=== PATIENT | male | born 1940 | race Hispanic/Latino ===

== ENCOUNTER 2018-01-06 17:02 | Inpatient (IN) | payer MEDICARE ==
[2018-01-06 18:23] LABS: VENOUS BLOOD GAS BASE EXCESS 0.5 mmol/L (0.0-2.0); VENOUS BLOOD GAS PO2 56 mm/Hg (30-55); VENOUS BLOOD PH 7.38 (7.32-7.43)
[2018-01-06 18:25] LABS: BASO # 0.02 K/mm3 (0.0-2.0); BASO % 0.4 % (0.0-3.0); EOS # 0.1 (0.0-0.7); EOS % 2.2 % (1.5-5.0); GRAN # 3.4 (1.4-6.5); GRAN % 62.5 % (50.0-68.0); HEMOGLOBIN 13.5 g/dL (14.0-18.0); LYMPH # 1.5 (1.2-3.4); LYMPH % 27.4 % (22.0-35.0); MEAN CELL VOLUME 96.9 fl (80.0-105.0); MEAN CORPUSCULAR HEMOGLOBIN 34.4 pg (25.0-35.0); MEAN CORPUSCULAR HGB CONC 35.5 g/dl (31.0-37.0); MONO # 0.4 (0.1-0.6); MONO % 7.5 % (1.0-6.0); RBC 3.92 10^6/uL (3.5-6.1); RED CELL DISTRIBUTION WIDTH 13.3 % (11.5-14.5); WHITE BLOOD COUNT 5.4 10^3/ul (4.5-11.0)
[2018-01-06 18:33] LABS: ALBUMIN 3.3 g/dL (3.0-4.8); ALT/SGPT 43 U/L (7-56); AST/SGOT 45 U/L (17-59); BLOOD UREA NITROGEN 12 mg/dL (7-21); CALCIUM 9.6 mg/dL (8.4-10.5); GFR AFRICAN-AMERICAN > 60; GFR NON-AFRICAN AMERICAN > 60
[2018-01-06 18:45] LABS: B-TYPE NATRIURETIC PEPTIDE 336 pg/mL (0-450); TROPONIN I < 0.01 ng/mL
[2018-01-06 18:48] LABS: INR 1.09 (0.93-1.08); PARTIAL THROMBOPLASTIN TIME 33.2 Seconds (25.1-36.5); PROTHROMBIN TIME 12.4 SECONDS (9.4-12.5)
--- NOTE | 2018-01-06 18:49 | RAD ---
HISTORY: Routine medical exam. COMPARISON: No prior. FINDINGS: LUNGS: No active pulmonary disease. PLEURA: No significant pleural effusion identified, no pneumothorax apparent. CARDIOVASCULAR: No radiographic findings to suggest acute or significant cardiovascular disease. Incidental finding(s): Calcification mitral valve annulus OSSEOUS STRUCTURES: No significant abnormalities. VISUALIZED UPPER ABDOMEN: Normal. OTHER FINDINGS: None. IMPRESSION: No active disease.
--- NOTE | 2018-01-06 19:10 | ED PDOC ---
Arrival/HPI - General Chief Complaint: Lower Extremity Problem/Injury Time Seen by Provider: 01/06/18 17:56 Historian: Patient - History of Present Illness Narrative History of Present Illness (Text): 77 year old male w/ past medical history of copd, hypertension presents sent in by PMD Dr. Styles for evallution of r le swelling worsening x 2-3 days, denying any acute trauma/cellutlitic changes/ nor any acute cardiopulmonary symptomatology. Denies any conrandiacations to anticoagulation. 01/06/18 19:07 01/06/18 19:13 Symptom Onset: Gradual Symptom Course: Unchanged Past Medical History - Provider Review Nursing Documentation Reviewed: Yes - Travel History Have you recently traveled outside [place] w/in the past 3 mons?: No - Infectious Disease Hx of Infectious Diseases: None - Cardiac Hx Hypertension: Yes - Pulmonary Hx Chronic Obstructive Pulmonary Disease (COPD): Yes - Psychiatric Hx Substance Use: No Family/Social History - Physician Review Nursing Documentation Reviewed: Yes Family/Social History: No Known Family HX Smoking Status: Never Smoked Hx Alcohol Use: Yes Frequency of alcohol use: Socially Hx Substance Use: No Allergies/Home Meds Allergies/Adverse Reactions: Allergies No Known Allergies Allergy (Verified 01/06/18 17:06) Home Medications: Home Meds Medication Instructions Recorded Confirmed Calcium Carbonate [Calcium] 600 mg PO DAILY 01/06/18 01/06/18 Cholecalciferol (Vitamin D3) 400 iu PO DAILY 01/06/18 01/06/18 [Vitamin D-400] Finasteride [Proscar] 5 mg PO DAILY 01/06/18 01/06/18 Glimepiride [Amaryl] 10 mg PO DAILY 01/06/18 01/06/18 Multivit-Min/FA/Lycopen/Lutein 1 mg PO DAILY 01/06/18 01/06/18 [Centrum Silver Men Tablet] SITagliptin [Januvia] 50 mg PO DAILY 01/06/18 01/06/18 Tiotropium [Spiriva] 18 mcg IH DAILY 01/06/18 01/06/18 Valsartan/Hydrochlorothiazide 1 tab PO DAILY 01/06/18 01/06/18 [Valsartan-Hctz 160-12.5 mg Tab] Review of Systems - Physician Review All systems were reviewed & negative as marked: Yes - Review of Systems Constitutional: Normal Eyes: Normal ENT: Normal Respiratory: Normal Cardiovascular: Normal Gastrointestinal: Normal Genitourinary Male: Normal Musculoskeletal: Other (aforementioned) Skin: Normal Neurological: Normal Endocrine: Normal Hemo/Lymphatic: Normal Psychiatric: Normal Physical Exam Vital Signs Temp Pulse Resp BP Pulse Ox 01/06/18 17:15 98.2 F 97 H 18 163/72 H 98 Temperature: Afebrile Blood Pressure: Normal Pulse: Regular Respiratory Rate: Normal Appearance: Positive for: Well-Appearing, Non-Toxic, Comfortable Pain Distress: None Mental Status: Positive for: Alert and Oriented X 3 - Systems Exam Head: Present: Atraumatic, Normocephalic Pupils: Present: PERRL Extroacular Muscles: Present: EOMI Conjunctiva: Present: Normal Mouth: Present: Moist Mucous Membranes Neck: Present: Normal Range of Motion Respiratory/Chest: Present: Clear to Auscultation, Good Air Exchange. No: Respiratory Distress, Accessory Muscle Use Cardiovascular: Present: Regular Rate and Rhythm, Normal S1, S2. No: Murmurs Abdomen: Present: Normal Bowel Sounds. No: Tenderness, Distention, Peritoneal Signs Back: Present: Normal Inspection Upper Extremity: Present: Normal Inspection. No: Cyanosis, Edema Lower Extremity: Present: Other (rle 2+ pitting edema , no popliteal fossa ttp nor palpable cord , lle trace edema ). No: Edema Neurological: Present: GCS=15, CN II-XII Intact, Speech Normal, Motor Func Grossly Intact, Normal Sensory Function, Normal Cerebellar Funct, Norm Deep Tendon Reflexes, Gait Normal Skin: Present: Warm, Dry, Normal Color. No: Rashes Psychiatric: Present: Alert, Oriented x 3, Normal Insight, Normal Concentration Medical Decision Making ED Course and Treatment: 77 year old male w/ u/s (+) for dvt admit for ac bridging to oral ac. 01/06/18 19:16 - Lab Interpretations Lab Results: 01/06/18 18:11 01/06/18 18:11 Lab Results 01/06/18 18:11: Sodium 138, Chloride 106, Potassium 4.6, Carbon Dioxide 24, Anion Gap 13, BUN 12, Creatinine 0.7 L, Est GFR ( Amer) > 60, Est GFR ( Non-Af Amer) > 60, Random Glucose 229 H, Calcium 9.6, Total Bilirubin 0.8, AST 45, ALT 43, Alkaline Phosphatase 65, Lactate Dehydrogenase 379, Total Creatine Kinase 42, Troponin I < 0.01, NT-Pro-B Natriuret Pep 336, Total Protein 6.7, Albumin 3.3, Globulin 3.4, Albumin/Globulin Ratio 1.0 L 01/06/18 18:11: pO2 56 H, VBG pH 7.38, VBG pCO2 44.0, VBG HCO3 26.0, VBG Total CO2 27.4, VBG O2 Sat (Calc) 91.8 H, VBG Base Excess 0.5, VBG Potassium 4.5, Sodium 137.0, Chloride 107.0, Glucose 237 H, Lactate 1.8, FiO2 21.0, Venous Blood Potassium 4.5 01/06/18 18:11: PT 12.4, INR 1.09 H, APTT 33.2 01/06/18 18:11: WBC 5.4, RBC 3.92, Hgb 13.5 L, Hct 38.0 L, MCV 96.9, MCH 34.4, MCHC 35.5, RDW 13.3, Plt Count 110 L, MPV 9.0, Gran % 62.5, Lymph % (Auto) 27.4 , [place] % (Auto) 7.5 H, Eos % (Auto) 2.2, Baso % (Auto) 0.4, Gran # 3.40, Lymph # (Auto) 1.5, [place] # (Auto) 0.4, Eos # (Auto) 0.1, Baso # (Auto) 0.02 - RAD Interpretation Radiology Orders: 01/06/18 18:00 CHEST PORTABLE [RAD] Stat Disposition/Present on Arrival - Present on Arrival Any Indicators Present on Arrival: No History of DVT/PE: No History of Uncontrolled Diabetes: No Urinary Catheter: No History of Decub. Ulcer: No History Surgical Site Infection Following: None - Disposition Have Diagnosis and Disposition been Completed?: Yes Diagnosis: DVT (deep venous thrombosis) Disposition: HOSPITALIZED Disposition Time: 19:17 Patient Plan: Admission Condition: STABLE Referrals: Luis Eduardo Styles MD [Primary Care Provider] - Follow up with primary Forms: [place] (Romansh)
[2018-01-06] MEDS ORDERED: Heparin25000 units/250ml 1/2NS 25,000 UNITS/250 ML BAG IV PRN (19:25)
[2018-01-06] MEDS ORDERED: Heparin 25,000units in 1/2NS /250 ML BAG IV PRN (19:37)
[2018-01-06 23:07] VITALS: BMI 27.1
[2018-01-07 02:52] LABS: INR 1.21 (0.93-1.08); PROTHROMBIN TIME 13.8 SECONDS (9.4-12.5)
[2018-01-07 02:54] LABS: PARTIAL THROMBOPLASTIN TIME > 400.0 Seconds (25.1-36.5)
[2018-01-07 04:00] LABS: ALB/GLOB RATIO 0.9 (1.1-1.8); ALBUMIN 3.1 g/dL (3.0-4.8); ALT/SGPT 45 U/L (7-56); AST/SGOT 43 U/L (17-59); BLOOD UREA NITROGEN 11 mg/dL (7-21); CALCIUM 9.1 mg/dL (8.4-10.5); GFR AFRICAN-AMERICAN > 60; GFR NON-AFRICAN AMERICAN > 60
[2018-01-07 04:32] LABS: HEMOGLOBIN 13.6 g/dL (14.0-18.0); MEAN CELL VOLUME 96.3 fl (80.0-105.0); MEAN CORPUSCULAR HEMOGLOBIN 33.6 pg (25.0-35.0); MEAN CORPUSCULAR HGB CONC 34.9 g/dl (31.0-37.0); MEAN PLATELET VOLUME 9.4 fl (7.0-11.0); RBC 4.05 10^6/uL (3.5-6.1); RED CELL DISTRIBUTION WIDTH 13.2 % (11.5-14.5); WHITE BLOOD COUNT 6.7 10^3/ul (4.5-11.0)
--- NOTE | 2018-01-07 09:55 | HP ---
HISTORY OF PRESENT ILLNESS: He is a nice 77-year-old man who presents from his private physician's office with swelling in his right lower extremity for 2 to 3 days, no trauma, no cellular changes, no cardiopulmonary symptomatology, a little bit of achiness in the calf, and he comes in and he has a DVT in the right leg. PAST MEDICAL HISTORY: Diabetes, COPD; he never smoked; hypertension. PAST SURGICAL HISTORY: Unknown. FAMILY HISTORY: No known family history. SOCIAL HISTORY: No smoking. Does drink alcohol socially. No substance abuse. ALLERGIES: NO KNOWN DRUG ALLERGIES. MEDICATIONS: He has calcium, vitamin D, Proscar, Amaryl, Januvia, Spiriva, and hydrochlorothiazide medicines, but he has not taken them in a long time. REVIEW OF SYSTEMS: No acute vision or hearing changes. No sore throat. No chest pain. No palpitations. No shortness of breath. No coughing. No nausea, vomiting, constipation or diarrhea. No problems urinating at this time. Skin, he has got some red area in his groin from time to time. He is alert, not 100% on with his accuracy of his history, his daughter is there helping. He has right calf swelling, right ankle swelling. PHYSICAL EXAMINATION: GENERAL: He is alert and oriented x3. Well appearing, nontoxic, comfortable in bed. VITAL SIGNS: He has a 98.2 temp, 97 pulse, 18 respiratory rate, 163/72 blood pressure, 98% O2 sat on room air. HEENT: Head is atraumatic, normocephalic. Extraocular muscles are intact. Throat is moist. NECK: Supple. Thyroid midline. No palpable lymphadenopathy. HEART: Regular rate. Normal S1, S2. LUNGS: Decreased breath sounds. Clear to auscultation. ABDOMEN: Soft, nontender. Positive bowel sounds. No guarding. No rebound. No CVA tenderness. EXTREMITIES: Have +2 pitting edema in the right ankle. There are some swelling of the calf. NEUROLOGIC: GCS is 15. Cranial nerves II through XII grossly intact. Speech is normal. Alert and oriented x3. SKIN: Warm and dry for the most part. LABORATORY DATA: He has a 5.4 white count, 13.5 hemoglobin, 38 hematocrit with a 110 platelets. He has a 138 sodium, potassium of 4.6, BUN 12, creatinine 0.7, GFR is greater than 60, sugar is 229, calcium is 9.6 and total bili is 0.8. AST is 45, ALT is 43, alk phos 65. Lactate dehydrogenase is 379, total creatine kinase is 42. Troponin I is less than 0.01. BNP is 336, total protein 6.7. Lactate is 1.8, glucose is 237. INR is 1.09. He did have a chest x-ray that showed no active disease. ASSESSMENT AND PLAN: He is currently on heparin drip. I put him on Januvia, Spiriva. He will have a consult with Cardiology. We are going to put him on hopefully Eliquis in the next 24 hours. He had physical therapy and is here for deep vein thrombosis in the right calf. Jn Nguyen DO MTDDunia
--- NOTE | 2018-01-07 10:10 | PN ---
DATE: 01/06/2018 SUBJECTIVE: I saw him this morning. Discussed with the nurse about the sacral wound and his groin area that has had some breakdown. We will get Bactroban ointment to the place we will get surgery on, for evaluation and also wound care. He slept well. He is eating okay. He is on heparin drip for his DVT of the right leg. Ordered physical therapy, out of bed to chair and we will see what Dr. Hood's might be. Hopefully on Eliquis if his insurance will allow it. He still denies that he is a diabetic, but he is doing much better with Januvia and Spiriva for his lungs. PHYSICAL EXAMINATION VITAL SIGNS: He has 98 temperature, 71 pulse, 150/74 blood pressure, 20 respiratory rate, 97% O2 sat on nasal cannula. GENERAL: He is alert and comfortable. HEENT: Head is atraumatic and normocephalic. HEART: Regular rate. LUNGS: Decreased breath sounds, but clear. ABDOMEN: Soft, obese, nontender. EXTREMITIES: The right leg is mildly swollen compared to the left, nontender. He has got a groin breakdown and a sacral breakdown, probably grade 2. MEDICATIONS: He is currently on Bactroban, heparin, Januvia and Spiriva. LABORATORY DATA: He has a 6.7 white count, 13.6 hemoglobin, 39 hematocrit with 127 platelets. He has 138 sodium, potassium 3.7, BUN of 11, creatinine 0.7, GFR is greater than 60, sugar is now down to 133, calcium 9.1, total bili is 1.1, AST is 43, ALT is 45, alkaline phosphatase is 55. Troponin less than 0.01. Total protein 6.5. I need to know what he does in Physical Therapy. Await Cardiology evaluation and surgical evaluation for the wounds and groin issue. We will continue aggressive treatment and care on Abel Chávez who has got an acute DVT of the right leg. Jn Nguyen DO [facility]
[2018-01-07] MEDS: Tiotropium 18 mcg Cap For Inhalation IH SCH (10:36)
--- NOTE | 2018-01-07 11:22 | CARD ---
APPROVED REPORT EKG Measurement Heart [id number] [id number] <Conclusion> Sinus rhythm with 1st degree AV block Minimal voltage criteria for LVH, may be normal variant Inferior infarct, age undetermined Anterior infarct, age undetermined Abnormal ECG
--- NOTE | 2018-01-07 12:12 | CP.PCM.CON ---
History of Present Illness - History of Present Illness History of Present Illness: General Surgery: Dr Bruce Re: Sacral wound Pt. is a 77 y.o male with a PMHx of COPD, HTN and DM. Pt. was admitted for complaint of R lower extremity swelling, which was found to be a DVT. Pt. treated with heparin drip. Pt. was seen by surgery for sacral wound. Pt. states he did not know he had a sacral wound but states a few weeks ago he had noticed some blood on his underwear and had noticed some irritation when he would sit down. Sacral wound is located on the R side of his buttocks region. Pt. denies any pain at site but admits to irritation at site of wound. Pt. states he is sits alot during his daily activites as he reads alot. Pt is fully ambulatory. PMH- COPD, HTN, DM PSH- unknown SH- Denies use of tobacco and any illicit drug use, admits to some alcohol use. Pt. lives alone and is able to perform ADLs on his own Allergies- NKA, NKDA Meds- see chart Review of Systems - Review of Systems All systems: reviewed and no additional remarkable complaints except (as per HPI ) Past Patient History - Infectious Disease Hx of Infectious Diseases: None - Past Social History Smoking Status: Never Smoked - CARDIAC Hx Cardiac Disorders: Yes Hx Hypertension: Yes - PULMONARY Hx Respiratory Disorders: Yes Hx Chronic Obstructive Pulmonary Disease (COPD): Yes - NEUROLOGICAL Hx Neurological Disorder: No - HEENT Hx HEENT Problems: Yes (wears reading glasses) - RENAL Hx Chronic Kidney Disease: No - ENDOCRINE/METABOLIC Hx Endocrine Disorders: Yes Hx Diabetes Mellitus Type 2: Yes (non-compliant with meds) - HEMATOLOGICAL/ONCOLOGICAL Hx Blood Disorders: No - INTEGUMENTARY Hx Dermatological Problems: No - MUSCULOSKELETAL/RHEUMATOLOGICAL Hx Musculoskeletal Disorders: Yes Hx Arthritis: Yes Hx Falls: No Hx Unsteady Gait: No - GASTROINTESTINAL Hx Gastrointestinal Disorders: No - GENITOURINARY/GYNECOLOGICAL Hx Genitourinary Disorders: No - PSYCHIATRIC Hx Psychophysiologic Disorder: No Hx Substance Use: No Meds Allergies/Adverse Reactions: Allergies Allergy/AdvReac Type Severity Reaction Status Date / Time No Known Allergies Allergy Verified 01/06/18 17:06 - Medications Medications: Current Medications Heparin Sodium/Sodium Chloride (Heparin 84402 Units/250ml 1/2 Normal Saline) 25 ,000 units in 250 mls @ 17.717 mls/hr IV .[id number] PRN; Protocol; 18 UNITS/KG/HR PRN Reason: ADJUST RATE PER PROTOCOL Last Titration: 01/07/18 06:00 Dose: 15 units/kg/hr, 14.765 mls/hr Mupirocin (Bactroban Ointment) 0 gm TOP BID [facility] Last Admin: 01/07/18 10:09 Dose: 1 applic Sitagliptin Phosphate (Januvia) 50 mg PO DAILY [facility] Last Admin: 01/07/18 10:12 Dose: 50 mg Tiotropium [place] (Spiriva) 18 mcg IH DAILY [facility] Last Admin: 01/07/18 10:36 Dose: 18 mcg Physical Exam - Constitutional Appears: Non-toxic, No Acute Distress - Head Exam Head Exam: NORMAL INSPECTION, NORMOCEPHALIC - ENT Exam ENT Exam: Normal Exam - Respiratory Exam Respiratory Exam: NORMAL BREATHING PATTERN. absent: Accessory Muscle Use, Respiratory Distress - Cardiovascular Exam Cardiovascular Exam: absent: Tachycardia - Rectal Exam Rectal Exam: Deferred - Neurological Exam Neurological exam: Oriented x3 - Psychiatric Exam Psychiatric exam: Normal Mood - Skin Skin Exam: Normal Color Additional comments: Wound located on R buttocks region (Stage 2 pressure ulcer) approx. 1.5 X 1. L groin region also had some redness/ irritation Results - Vital Signs Recent Vital Signs: Last Vital Signs Temp 98 F 01/07/18 05:47 Pulse 77 01/07/18 10:00 Resp 20 01/07/18 05:47 BP 150/74 01/07/18 05:47 Pulse Ox 97 01/07/18 05:47 - Labs Result Diagrams: 01/07/18 03:40 01/07/18 03:40 Labs: Laboratory Results - last 24 hr 01/07/18 01/07/18 01/07/18 01:58 03:40 03:40 WBC 6.7 D RBC 4.05 Hgb 13.6 L Hct 39.0 L MCV 96.3 MCH 33.6 MCHC 34.9 RDW 13.2 Plt Count 127 MPV 9.4 PT 13.8 H INR 1.21 H APTT > 400.0 H* Sodium 138 Potassium 3.7 Chloride 108 H Carbon Dioxide 25 Anion Gap 9 L BUN 11 Creatinine 0.7 L Est GFR ( Amer) > 60 Est GFR (Non-Af Amer) > 60 POC Glucose (mg/dL) Random Glucose 133 H Calcium 9.1 Total Bilirubin 1.1 AST 43 ALT 45 Alkaline Phosphatase 55 Total Protein 6.5 Albumin 3.1 Globulin 3.3 Albumin/Globulin Ratio 0.9 L 01/07/18 01/07/18 01/07/18 03:40 07:21 11:11 WBC RBC Hgb Hct MCV MCH MCHC RDW Plt Count MPV PT INR APTT > 400.0 H* Sodium Potassium Chloride Carbon Dioxide Anion Gap BUN Creatinine Est GFR ( Amer) Est GFR (Non-Af Amer) POC Glucose (mg/dL) 116 H 169 H Random Glucose Calcium Total Bilirubin AST ALT Alkaline Phosphatase Total Protein Albumin Globulin Albumin/Globulin Ratio Assessment & Plan - Assessment and Plan (Free Text) Assessment: 77 y.o male admitted for DVT and sacral wound. Plan: DVT txt per primary [employer] PRN Q2 dressing changes- will be managed by wound care. tight glucose control continue to off-load pressure Q2H No further surgical intervention required will d/w Dr Teo Miner, PGY3
--- NOTE | 2018-01-07 13:30 | CON ---
DATE: 01/07/2018 PULMONARY CONSULTATION REASON FOR CONSULTATION: Chronic obstructive pulmonary disease. REFERRING PHYSICIAN: Jn Nguyen DO HISTORY OF PRESENT ILLNESS: The patient is a 77-year-old male, with past medical history significant for chronic obstructive pulmonary disease, hypertension, who presents to [facility] with swelling of his right lower extremity for the past 3 days. The patient denies any pain in the right calf. There is also no history of trauma or recent travel. In the emergency room, the patient was diagnosed with a right lower extremity deep venous thrombosis. He was thus admitted for additional evaluation. The patient denies shortness of breath at rest or dyspnea on exertion. He does state to an occasional cough with no sputum production. There is no history of chest pain, coughing up of blood, or chest pain - made worse with deep respirations. There is no history of temperatures, chills or infectious exposure. There is no history of night sweats, weight loss or appetite change prior to the above events. Again, there is no history of calf pains. No history of syncope or diaphoresis. No history of recent travel or trauma. REVIEW OF SYSTEMS: No history of nausea, vomiting or diarrhea. No acute urinary symptoms. No new neurologic complaints. Rest of the review of systems is negative. ALLERGIES: NO KNOWN ALLERGIES. SOCIAL HISTORY: Negative tobacco and negative for alcohol. FAMILY HISTORY: No inheritable diseases. HOME MEDICATIONS: Include vitamin D, Centrum, calcium, valsartan, Proscar, Spiriva, Amaryl. PHYSICAL EXAMINATION GENERAL: The patient appears comfortable at rest. He is not short of breath. VITAL SIGNS: Temperature is 98, pulse is 71, respirations 18/20, blood pressure 150/74. Oxygen saturation on nasal cannula is 97%. HEENT: Normocephalic and atraumatic. No JVD. CARDIOVASCULAR: Systolic ejection murmur at the lower left sternal border. No S3 gallop. LUNGS: Clear bilaterally. EXTREMITIES: The right lower extremity reveals mild edema and is slightly larger than the left lower extremity. There is no cyanosis or clubbing. Both calves are nontender to palpation. The left leg shows no edema. GI: Abdomen is soft, nontender and nondistended. Bowel sounds are positive. SKIN: Reveals a mild gluteal rash. NEUROLOGIC: Limited at the present time. PERTINENT LABORATORY DATA: Chest x-ray was done yesterday and reviewed. There is no active pulmonary disease. Again, extremity ultrasound was done yesterday and reviewed. There is an acute on chronic occlusive thrombus in the distal right femoral vein and the popliteal veins. CBC: White count 6.7, hemoglobin 13.6, hematocrit 39, platelets of 127,000. Complete metabolic profile: Chloride 108, glucose 133. Rest of the metabolic profiles within normal limits. IMPRESSION: 1. Right lower extremity deep venous thrombosis. 2. Chronic obstructive pulmonary disease. 3. Hypertension. 4. Mild anemia. PLAN: The patient presents to [facility] with a 3-day history of right lower extremity swelling. Again, he denies pain in the right calf. There is also no history of recent trauma or recent travel. In the emergency room, a right deep venous thrombosis was diagnosed. The patient was thus admitted for additional evaluation and treatment. I did review the chest x-ray as above. It shows no acute disease. In addition, by history, the patient offers no acute pulmonary symptoms. He denies shortness of breath at rest or dyspnea on exertion. He does have a chronic occasional cough. On physical exam, there is no significant bronchospasm noted. In addition, there is no significant alveolar-arterial gradient. I will continue the patient on his Spiriva. He is followed by a private playground director (Dr. Chi ), for many years. The patient does state to feeling better this morning, and is clinically improved. He is currently on the heparin protocol. Surgical and Cardiology evaluations have been ordered. I did discuss the above with Dr. Nguyen. Thank you very much for this pulmonary consultation. Melquiades Rose MD MERVAT
[2018-01-07] MEDS ORDERED: Heparin 25,000units in 1/2NS /250 ML BAG IV PRN (14:30)
--- NOTE | 2018-01-07 14:42 | CP.PCM.PCO ---
Additional Comments - Additional Comments Additional Comments: Podiatry Note - Dr. Callejas 77M seen and evaluated at bedside for re-evaluation from office visit. Patient was seen yesterday in office for routine care and was noted to have redness and edema to RLE. At that visit patient denied any acute trauma. Patient was sent to ED by Dr. Callejas for further evaluation of r/o DVT, and was found to be positive for acute DVT in RLE. At present, redness and edema improving. Patient denies any pain to bilateral LE. Patient to follow up with Dr. Callejas in office for routine care.
--- NOTE | 2018-01-07 15:48 | CON ---
DATE: 01/07/2018 CARDIOLOGY CONSULTATION HISTORY OF PRESENT ILLNESS: The patient is a 77-year-old male who presents with swelling in the lower extremities and was found to have DVT on ultrasound. PAST MEDICAL HISTORY: He is free of cardiac disease; however, he suffers from hypertension, diabetes mellitus. No previous cardiac history. No chest pain, no shortness of breath. The patient is basically sedentary at home due to arthritis. SOCIAL HISTORY: Denies smoking. REVIEW OF SYSTEMS: A 14-point review of systems was reviewed in detail. No cardiac symptomatology is noted. PHYSICAL EXAMINATION VITAL SIGNS: Blood pressure is 146/72, the heart rate is in the 70s. NECK: Negative JVD. LUNGS: Without rales. HEART: Reveals S1, S2. EXTREMITIES: Now with decreasing edema. LABORATORY DATA: EKG shows no acute changes. Hemoglobin is 13.6. Chemistries: BUN and creatinine unremarkable. Glucose is 133. Troponin is negative x1. IMPRESSION: 1. Deep venous thrombosis. 2. Diabetes mellitus. 3. Hypertension. 4. Sedentary lifestyle. 5. Arthritis. PLAN: Given these findings, the patient is currently on anticoagulation. It is likely the patient will need long-term anticoagulation. We will obtain an echocardiogram to evaluate LV function. Shalom Hood MD
[2018-01-08 06:36] VITALS: RESP 20; O2SAT 98
[2018-01-08 06:41] LABS: HEMOGLOBIN 13.1 g/dL (14.0-18.0); MEAN CELL VOLUME 97.2 fl (80.0-105.0); MEAN CORPUSCULAR HEMOGLOBIN 33.5 pg (25.0-35.0); MEAN CORPUSCULAR HGB CONC 34.5 g/dl (31.0-37.0); MEAN PLATELET VOLUME 8.7 fl (7.0-11.0); RBC 3.91 10^6/uL (3.5-6.1); RED CELL DISTRIBUTION WIDTH 13.4 % (11.5-14.5); WHITE BLOOD COUNT 5.6 10^3/ul (4.5-11.0)
[2018-01-08 07:07] LABS: ALBUMIN 3.1 g/dL (3.0-4.8); ALT/SGPT 32 U/L (7-56); AST/SGOT 39 U/L (17-59); BLOOD UREA NITROGEN 12 mg/dL (7-21); CALCIUM 9.1 mg/dL (8.4-10.5); GFR AFRICAN-AMERICAN > 60; GFR NON-AFRICAN AMERICAN > 60
--- NOTE | 2018-01-08 08:16 | PN ---
DATE: 01/08/2018 PULMONARY NOTE SUBJECTIVE: The patient appears comfortable this morning. He is not short of breath at rest. PHYSICAL EXAMINATION VITAL SIGNS: Temperature is 98.3, pulse is 71, respirations 18/20, blood pressure 152/76. Oxygen saturation on room air is 98%. HEENT: Normocephalic, atraumatic. No JVD. CARDIOVASCULAR: Systolic ejection murmur at the lower left sternal border. No S3 gallop. LUNGS: Clear bilaterally. EXTREMITIES: The right lower extremity reveals much less edema this morning, and is decreased in size. The left lower extremity shows no edema. There is no cyanosis or clubbing. Both calves are nontender to palpation. GI: Abdomen is soft, nontender and nondistended. Bowel sounds are positive. SKIN: Resolving mild gluteal rash. NEUROLOGIC: Limited at the present time. IMPRESSION: 1. Right lower extremity deep venous thrombosis. 2. Chronic obstructive pulmonary disease. 3. Hypertension. 4. Mild anemia. PLAN: The patient appears very comfortable this morning. He is not short of breath at rest. He does state to feeling much, much better overall. He states "I feel fine." On physical exam, his lungs remain clear. Oxygen saturation on room air is 98%. I will continue with the current pulmonary medications for now. As above, his right lower extremity also appears much improved - compared to yesterday. Surgical evaluation is noted. The patient is now on Eliquis. The clinical status of the patient is significantly improved. I will discuss the above with Dr. Nguyen. Melquiades Rose MD MTDD
[2018-01-08] MEDS: Tiotropium 18 mcg Cap For Inhalation IH SCH (09:22)
[2018-01-08 12:07] VITALS: BP 137/75; PULSE 68; TEMP 98
--- NOTE | 2018-01-08 15:49 | PN ---
DATE: 01/08/2018 CARDIOLOGY FOLLOWUP SUBJECTIVE: The patient is asymptomatic. PHYSICAL EXAMINATION: VITAL SIGNS: Blood pressure is 140/70, the heart rates in the 90s. NECK: Negative JVD. LUNGS: Without rales. HEART: Reveals S1, S2. EXTREMITIES: Decreased edema. LABORATORY DATA: BUN and creatinine are unremarkable. Glucose is 112. The hemoglobin is 13.1. Preliminary echocardiogram reveals mild pulmonary hypertension with mild aortic valve sclerosis. IMPRESSION: 1. Deep venous thrombosis. 2. Good left ventricular function. 3. Oute-sa-ulknptcp pulmonary hypertension. 4. Aortic valve sclerosis with mild aortic stenosis. 5. Diabetes mellitus. 6. Hypertension. PLAN: Given these findings, the patient is being treated with Eliquis for his DVT. From a cardiac perspective, the patient can be discharged. I have discussed his echo and valvular issues with the patient in detail. I have arranged for an outpatient followup in 3-4 weeks to further follow up his aortic valve. We will discharge telemetry today. Shalom Hood MD
--- NOTE | 2018-01-08 18:34 | CARD ---
APPROVED REPORT EXAM: Two-dimensional and M-mode echocardiogram with Doppler and color Doppler. INDICATION PEDAL EDEMA 2D DIMENSIONS Left Atrium (2D)4.5 (1.6-4.0cm)IVSd1.2 (0.7-1.1cm) LVDd3.8 (3.9-5.9cm)LVOT Diameter2.0 (1.8-2.4cm) PWd1.2 (0.7-1.1cm)LVDs2.4 (2.5-4.0cm) FS (%) 35.6 %LVEF (%)65.9 (>50%) M-Mode DIMENSIONS Aortic Root3.10 (2.2-3.7cm)Aortic Cusp Exc.0.80 (1.5-2.0cm) Aortic Valve AoV Peak Nczhqkwn960.0cm/sAoV VTI46.1cmAO Peak GR.16mmHg LVOT Peak Hgiyynic79.9cm/sLVOT VTI25.30cmAO Mean GR.8mmHg KOJO (VMAX)1.68lh3NCV (VTI)1.72cm2 Mitral Valve MV E Cvlcyoku037.0cm/sMV A Mktgqfwx63.4cm/sMV [id number] E/A ratio1.2MVA (PHT)2.12cm2 TDI E/Lateral E'0.0E/Medial E'0.0 Tricuspid Valve TR Peak Ejruimcm277ul/sRAP [id number] Peak Gr.22mmHg [id number] LEFT VENTRICLE The left ventricle is normal size. There is mild concentric left ventricular hypertrophy. The left ventricular function is normal. The left ventricular ejection fraction is within the normal range. There is normal LV segmental wall motion. Transmitral Doppler flow pattern is Grade II-pseudonormal filling dynamics. RIGHT VENTRICLE The right ventricle is normal size. There is normal right ventricular wall thickness. The right ventricular systolic function is normal. ATRIA The left atrium is mildly dilated. The right atrium size is normal. AORTIC VALVE The aortic valve is moderately calcified. No aortic regurgitation is present. There is mild valvular aortic stenosis. MITRAL VALVE The mitral valve is moderately thickened. Mitral regurgitation is mild. TRICUSPID VALVE There is mild tricuspid regurgitation. GREAT VESSELS The aortic root is normal in size. The IVC was not visualized. <Conclusion> The left ventricle is normal size. There is mild concentric left ventricular hypertrophy. The left ventricular function is normal. The left ventricular ejection fraction is within the normal range. There is normal LV segmental wall motion. Transmitral Doppler flow pattern is Grade II-pseudonormal filling dynamics. There is mild valvular aortic stenosis. Mitral regurgitation is mild. There is mild tricuspid regurgitation.
--- NOTE | 2018-01-09 03:02 | DS ---
He is walking in his room. He is feeling better. He is comfortable. He is eating well. He is now on Bactroban cream, Eliquis, Januvia and Spiriva. PHYSICAL EXAMINATION VITAL SIGNS: Temperature 98.3, 71 pulse, 152/76 blood pressure, 20 respiratory rate, 98% O2 sat on room air. HEENT: Head is atraumatic, normocephalic. HEART: Regular rate. LUNGS: Clear to auscultation. ABDOMEN: Soft. EXTREMITIES: Maybe trace edema on his right lower leg. He is here for right DVT, sacral wound. When he is walking around, he feels well and he tells me he can not stay off of the wound, COPD, diabetes. He had a 138 sodium, potassium 3.9, BUN is 12, creatinine 0.7. GFR is greater than 60, sugar is 102. Calcium is 9.1, total bili is 1.1, AST is 39, ALT is 32, alkaline phosphatase 50, total protein 6.1, 5.6 white count, 13.1 hemoglobin, 38 hematocrit with 120 platelets. Overall, I am happy with him. I think he is doing well. I will see if we can get him on the Eliquis, we can possibly discharge him today. I will discuss this with Dr. Hood and Dr. Rose. I will continue with pressure off the sacral wound. He can follow up in the office. This is a patient who came in with a right DVT, new onset with sacral ulcer getting treatment with history of diabetes and COPD. He will follow up in the office in one week. Jn Nguyen DO
== END 2018-01-08 13:55 | disposition home or self-care (01) | DRG 301 ==
LOC: ED 17:02 → ERH 19:18 → 2RNO 21:30
PROVIDERS: ADMIT Family Medicine; ATTEND Family Medicine
DX: I82.401 Acute embolism and thrombosis of unspecified deep veins of right lower extremity (principal); I82.4Z1 Acute embolism and thrombosis of unspecified deep veins of right distal lower extremity; D64.9 Anemia, unspecified; E11.9 Type 2 diabetes mellitus without complications; I10 Essential (primary) hypertension; I27.20 Pulmonary hypertension, unspecified; I35.0 Nonrheumatic aortic (valve) stenosis; J44.9 Chronic obstructive pulmonary disease, unspecified; M19.90 Unspecified osteoarthritis, unspecified site; Z91.14 Patient's other noncompliance with medication regimen; L89.312 Pressure ulcer of right buttock, stage 2; R40.2412 Glasgow coma scale score 13-15, at arrival to emergency department

== ENCOUNTER 2018-05-11 11:00 | Inpatient (IN) | payer MEDICARE, OTHER ==
[2018-05-11 11:39] VITALS: BMI 26.9
[2018-05-11 12:46] LABS: BASO # 0.03 K/mm3 (0.0-2.0); BASO % 0.4 % (0.0-3.0); EOS # 0.3 (0.0-0.7); EOS % 3.5 % (1.5-5.0); GRAN # 4.13 (1.4-6.5); GRAN % 55.7 % (50.0-68.0); HEMOGLOBIN 13.4 g/dL (14.0-18.0); LYMPH # 2.2 (1.2-3.4); LYMPH % 29.2 % (22.0-35.0); MEAN CELL VOLUME 94.3 fl (80.0-105.0); MEAN CORPUSCULAR HEMOGLOBIN 33.4 pg (25.0-35.0); MEAN CORPUSCULAR HGB CONC 35.4 g/dl (31.0-37.0); MEAN PLATELET VOLUME 9.5 fl (7.0-11.0); MONO # 0.8 (0.1-0.6); MONO % 11.2 % (1.0-6.0); RBC 4.01 10^6/uL (3.5-6.1); RED CELL DISTRIBUTION WIDTH 13.3 % (11.5-14.5); WHITE BLOOD COUNT 7.4 10^3/ul (4.5-11.0)
[2018-05-11 12:53] LABS: ALBUMIN 3.5 g/dL (3.0-4.8); ALT/SGPT 36 U/L (7-56); AST/SGOT 38 U/L (17-59); BLOOD UREA NITROGEN 17 mg/dL (7-21); CALCIUM 9.2 mg/dL (8.4-10.5); GFR AFRICAN-AMERICAN > 60; GFR NON-AFRICAN AMERICAN > 60
[2018-05-11] MEDS ORDERED: Vancomycin 1gm in NS 250ml 1 GM/250 ML BAG IVPB STA (13:11)
[2018-05-11] MEDS ORDERED: Piperacillin/Tazobact 3.375 gm 100 ML IVPB STA (13:11)
--- NOTE | 2018-05-11 13:15 | ED PDOC ---
Arrival/HPI - General Chief Complaint: Lower Extremity Problem/Injury Time Seen by Provider: 05/11/18 11:31 Historian: Patient - History of Present Illness Narrative History of Present Illness (Text): 05/11/18 13:14 78yr old male with hx of DM c/o 3 day history of left great toe and swelling and redness has been worsening over the past 3 days. Patient denies any trauma or injury. He denies fevers or chills. Patient states he noticed that today he was bleeding from the toenail. Patient denies numbness weakness or tingling in the extremity. No medications have been taken for pain at home. 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 no other complaints. Past Medical History - Provider Review Nursing Documentation Reviewed: Yes - Travel History Have you recently traveled outside [place] w/in the past 3 mons?: No - Infectious Disease Hx of Infectious Diseases: None - Cardiac Hx Hypertension: Yes - Pulmonary Hx Chronic Obstructive Pulmonary Disease (COPD): Yes - Neurological Hx Neurological Disorder: No - HEENT Hx HEENT Disorder: Yes (wears reading glasses) - Renal Hx Renal Disorder: No - Endocrine/Metabolic Hx Diabetes Mellitus Type 2: Yes - Hematological/Oncological Hx Blood Disorders: No - Integumentary Hx Dermatological Disorder: No - Musculoskeletal/Rheumatological Hx Musculoskeletal Disorders: Yes Hx Arthritis: Yes Hx Falls: No Hx Unsteady Gait: No - Gastrointestinal Hx Gastrointestinal Disorders: No - Genitourinary/Gynecological Hx Genitourinary Disorders: No - Psychiatric Hx Psychophysiologic Disorder: No Hx Substance Use: No - Anesthesia Hx Anesthesia: No Hx Anesthesia Reactions: No Hx Malignant Hyperthermia: No Family/Social History - Physician Review Nursing Documentation Reviewed: Yes Family/Social History: Unknown Family HX Smoking Status: Never Smoked Hx Alcohol Use: Yes (every other day beer: 5 cans) Hx Substance Use: No Allergies/Home Meds Allergies/Adverse Reactions: Allergies No Known Allergies Allergy (Verified 01/06/18 17:06) Home Medications: Home Meds Medication Instructions Recorded Confirmed Calcium Carbonate [Calcium] 600 mg PO DAILY 01/06/18 05/11/18 Cholecalciferol (Vitamin D3) 400 iu PO DAILY 01/06/18 05/11/18 [Vitamin D-400] Finasteride [Proscar] 5 mg PO DAILY 01/06/18 05/11/18 Multivit-Min/FA/Lycopen/Lutein 1 mg PO DAILY 01/06/18 05/11/18 [Centrum Silver Men Tablet] SITagliptin [Januvia] 50 mg PO DAILY 01/06/18 05/11/18 Tiotropium [Spiriva] 18 mcg IH DAILY 01/06/18 05/11/18 Valsartan/Hydrochlorothiazide 1 tab PO DAILY 01/06/18 05/11/18 [Valsartan-Hctz 160-12.5 mg Tab] Review of Systems - Review of Systems Constitutional: absent: Fatigue, Fevers Respiratory: absent: SOB, Cough Cardiovascular: absent: Chest Pain, Palpitations Gastrointestinal: absent: Abdominal Pain, Nausea, Vomiting Skin: Rash, Cellulitis Neurological: absent: Headache, Dizziness Psychiatric: absent: Anxiety, Depression Physical Exam Vital Signs Temp Pulse Resp BP Pulse Ox 05/11/18 11:39 98.9 F 78 18 134/68 100 Temperature: Afebrile Blood Pressure: Normal Pulse: Regular Respiratory Rate: Normal Appearance: Positive for: Well-Appearing, Non-Toxic, Comfortable Pain Distress: None Mental Status: Positive for: Alert and Oriented X 3 - Systems Exam Mouth: Present: Moist Mucous Membranes Neck: Present: Normal Range of Motion Respiratory/Chest: Present: Clear to Auscultation, Good Air Exchange. No: Respiratory Distress, Accessory Muscle Use Cardiovascular: Present: Regular Rate and Rhythm, Normal S1, S2. No: Murmurs Abdomen: No: Tenderness Lower Extremity: Present: NORMAL PULSES, Normal ROM, Erythema, Neurovascularly Intact, Capillary Refill < 2 s, Other (+ dried blood noted around the nail of the great toe (L)). No: CALF TENDERNESS Neurological: Present: GCS=15, Speech Normal Skin: Present: Warm, Dry, Normal Color. No: Rashes Psychiatric: Present: Alert, Oriented x 3 Medical Decision Making ED Course and Treatment: 05/11/18 13:28 78 kqsa-xplk-pam diabetic female with a cellulitis to the left great toe extending into the dorsal aspect of the foot CBC within normal limits CMP within normal limits Blood cultures pending X-rays of the left foot show possible osteomyelitis of the great toe vancomycin and Zosyn started IV Case discussed with Dr. Nguyen accepts admission for IV antibiotics consult infectious disease and podiatry All results discussed in depth with the patient all aspects of this case were discussed the attending of record. Impression: Osteomyelitis, toe Admit - Lab Interpretations Lab Results: 05/11/18 12:03 05/11/18 12:30 Lab Results 05/11/18 12:30: PT 15.4 H, INR 1.34, APTT 35.7 05/11/18 12:30: Sodium 142, Potassium 4.4, Chloride 106, Carbon Dioxide 25, Anion Gap 17, BUN 17, Creatinine 0.8, Est GFR ( Amer) > 60, Est GFR (Non- Af Amer) > 60, Random Glucose 187 H, Calcium 9.2, Total Bilirubin 1.4 H, AST 38 , ALT 36, Alkaline Phosphatase 65, Total Protein 7.1, Albumin 3.5, Globulin 3.5 , Albumin/Globulin Ratio 1.0 L 05/11/18 12:03: WBC 7.4 D, RBC 4.01, Hgb 13.4 L, Hct 37.8 L, MCV 94.3, MCH 33.4 , MCHC 35.4, RDW 13.3, Plt Count 141, MPV 9.5, Gran % 55.7, Lymph % (Auto) 29.2 , Pike % (Auto) 11.2 H, Eos % (Auto) 3.5, Baso % (Auto) 0.4, Gran # 4.13, Lymph # (Auto) 2.2, Pike # (Auto) 0.8 H, Eos # (Auto) 0.3, Baso # (Auto) 0.03 - RAD Interpretation Radiology Orders: 05/11/18 12:03 FOOT LEFT 3 VIEWS ROUTINE [RAD] Stat - Medication Orders Current Medication Orders: Mupirocin (Bactroban Ointment) 0 gm TOP BID LUCAS Discontinued Medications Vancomycin HCl (Vancomycin 1gm) 1 gm in 250 mls @ 167 mls/hr IVPB STAT STA PRN Reason: Protocol Stop: 05/11/18 14:40 Last Admin: 05/11/18 13:50 Dose: 167 mls/hr eMAR Start Stop Document 05/11/18 13:50 HI (Rec: 05/11/18 13:50 HI [id number]) Intravenous Solution Start Date 05/11/18 Start Time 13:50 Piperacillin Sod/Tazobactam Sod (Zosyn 3.375 In Ns 100ml) 100 mls @ 200 mls/hr IVPB STAT STA PRN Reason: Protocol Stop: 05/11/18 13:40 Last Admin: 05/11/18 13:16 Dose: 200 mls/hr eMAR Start Stop Document 05/11/18 13:16 HI (Rec: 05/11/18 13:49 HI [id number]) Intravenous Solution Start Date 05/11/18 Start Time 13:16 End Date 05/11/18 End time 13:49 Total Infusion Time 33 Disposition/Present on Arrival - Present on Arrival Any Indicators Present on Arrival: Yes History of DVT/PE: Yes History of Uncontrolled Diabetes: Yes Urinary Catheter: No History of Decub. Ulcer: No History Surgical Site Infection Following: None - Disposition Have Diagnosis and Disposition been Completed?: Yes Diagnosis: Osteomyelitis Disposition: HOSPITALIZED Disposition Time: 13:37 Patient Plan: Admission Patient Problems: Current Active Problems Problem Status Onset Osteomyelitis Acute Condition: FAIR
--- NOTE | 2018-05-11 13:18 | RAD ---
Date of service: 05/11/2018 PROCEDURE: Left foot three views HISTORY: left great toe infection/pain/swelling/erythema COMPARISON: TECHNIQUE: Three views FINDINGS: There is lucency and loss of cortical definition along the lateral aspect of the base of the 1st distal phalanx. This is suspicious for osteomyelitis or demineralization IMPRESSION: As above
[2018-05-11 14:02] LABS: INR 1.34; PARTIAL THROMBOPLASTIN TIME 35.7 Seconds (25.1-36.5); PROTHROMBIN TIME 15.4 SECONDS (9.4-12.5)
--- NOTE | 2018-05-11 16:56 | CP.PCM.CON ---
<Jasmyn Snyder - Last Filed: 05/11/18 17:00> History of Present Illness - History of Present Illness History of Present Illness: Podiatry Consult note: Dr. Peck 78 year old male, well known to service with PMHx of DM, HTN, COPD was seen and evaluated for left great toe swelling and redness. Patient is seen with attending Dr. Peck at bedside. Patient is AAOx3 and appears in NAD. Patient reports that he noticed a blood trail at night when he was walking to the bathroom couple of nights ago. Patient reports that he saw the blood coming from his left big toe. Patient denies of any trauma or any injuries to the left big toe. Denies of dropping any heavy object as well. Denies of any pain today. States that his toe was very swollen and red when he came to the hospital. States that the toe looks a lot better today and the swelling and the redness have resolved. Denies of recent F/N/V/C/SOB/CP/headache. No other pedal complains at this time. PMHx- COPD, HTN, DM PSHx- unknown SHx- Denies use of tobacco and any illicit drug use, admits to some alcohol use. Pt. lives alone and is able to perform ADLs on his own Allergies- NKDA Review of Systems - Constitutional Constitutional: As Per HPI Past Patient History - Infectious Disease Hx of Infectious Diseases: None - Past Social History Smoking Status: Never Smoked - CARDIAC Hx Hypertension: Yes - PULMONARY Hx Chronic Obstructive Pulmonary Disease (COPD): Yes - NEUROLOGICAL Hx Neurological Disorder: No - HEENT Hx HEENT Problems: Yes (wears reading glasses) - RENAL Hx Chronic Kidney Disease: No - ENDOCRINE/METABOLIC Hx Diabetes Mellitus Type 2: Yes - HEMATOLOGICAL/ONCOLOGICAL Hx Blood Disorders: No - INTEGUMENTARY Hx Dermatological Problems: No - MUSCULOSKELETAL/RHEUMATOLOGICAL Hx Musculoskeletal Disorders: Yes Hx Arthritis: Yes Hx Falls: No Hx Unsteady Gait: No - GASTROINTESTINAL Hx Gastrointestinal Disorders: No - GENITOURINARY/GYNECOLOGICAL Hx Genitourinary Disorders: No - PSYCHIATRIC Hx Psychophysiologic Disorder: No Hx Substance Use: No - ANESTHESIA Hx Anesthesia: No Hx Anesthesia Reactions: No Hx Malignant Hyperthermia: No Meds Allergies/Adverse Reactions: Allergies Allergy/AdvReac Type Severity Reaction Status Date / Time No Known Allergies Allergy Verified 01/06/18 17:06 Physical Exam - Constitutional Appears: Well, Non-toxic, No Acute Distress - Extremities Exam Additional comments: Left LE focused exam VASC: DP/PT pulses are palpable 1/4, Cap refill time: < 3 sec to all digits, Temp gradient: warm to cool from proximal to distal, no pitting or non-pitting edema noted (increase in skin tension line noted on the dorso-medial forefoot) DERM: Dried blood noted on the distal aspect of the left hallux, left hallux nail appears to be de-attached from the nail bed at the distal margin, no active drainage, no active bleeding, no purulence, erythema on the dorsum of the hallux which extends to the level of the MTPJ, no purulence, no malodor, no clinical suspicion of active infection NEURO: Protective sensation grossly intact ORTHO: no pain on palpation of the hallux, no pain during ROM of the hallux - Neurological Exam Neurological exam: Alert, Oriented x3 - Psychiatric Exam Psychiatric exam: Normal Affect, Normal Mood Results - Vital Signs Recent Vital Signs: Last Vital Signs Temp 98.8 F 05/11/18 13:54 Pulse 75 05/11/18 13:54 Resp 18 05/11/18 13:54 BP 137/72 05/11/18 13:54 Pulse Ox 100 05/11/18 13:54 - Labs Result Diagrams: 05/11/18 12:03 05/11/18 12:30 Assessment & Plan - Assessment and Plan (Free Text) Assessment: 78 year old male with PMHx of DM, HTN, COPD was evaluated for 1). left hallux nail onycholysis possibly secondary to trauma 2). Cellulitis Plan: Patient seen and evaluated with attending Dr. Peck Labs, vitals and charts reviewed - afebrile, no leukocytosis Site cleaned with saline and dressing applied using 4x4 and tape Bactroban ordered Left foot X-rays reviewed - erosive changes with periosteal reaction noted at the lateral base of the distal phalanx of the hallux concerning for OM MRI ordered - pending Will f/u with MRI Thank you for the podiatry consult and allowing to take part in patient care Podiatry to follow patient while in-house - Date & Time Date: 05/11/18 Time: 17:04 <Rupert Peck - Last Filed: 05/11/18 18:46> Meds - Medications Medications: Current Medications Mupirocin (Bactroban Ointment) 0 gm TOP BID LUCAS Results - Vital Signs Recent Vital Signs: Last Vital Signs Temp 98.8 F 05/11/18 13:54 Pulse 75 05/11/18 13:54 Resp 18 05/11/18 13:54 BP 137/72 05/11/18 13:54 Pulse Ox 100 05/11/18 13:54 - Labs Result Diagrams: 05/11/18 12:03 05/11/18 12:30 Attending/Attestation - Attestation I have personally seen and examined this patient.: Yes I have fully participated in the care of the patient.: Yes I have reviewed all pertinent clinical information: Yes
[2018-05-11] MEDS: Piperacillin/Tazobact 3.375 gm 100 ML IVPB SCH (22:41)
[2018-05-12] MEDS: Vancomycin 1gm in NS 250ml 1 GM/250 ML BAG IVPB SCH ×2 (05:36→13:05)
[2018-05-12] MEDS: Piperacillin/Tazobact 3.375 gm 100 ML IVPB SCH (07:32)
[2018-05-12 07:58] LABS: BASO # 0.03 K/mm3 (0.0-2.0); BASO % 0.5 % (0.0-3.0); EOS # 0.3 (0.0-0.7); EOS % 4.9 % (1.5-5.0); GRAN # 3.99 (1.4-6.5); GRAN % 62.3 % (50.0-68.0); HEMOGLOBIN 12.6 g/dL (14.0-18.0); LYMPH # 1.6 (1.2-3.4); LYMPH % 24.3 % (22.0-35.0); MEAN CELL VOLUME 93.7 fl (80.0-105.0); MEAN CORPUSCULAR HEMOGLOBIN 33.2 pg (25.0-35.0); MEAN CORPUSCULAR HGB CONC 35.5 g/dl (31.0-37.0); MEAN PLATELET VOLUME 8.9 fl (7.0-11.0); MONO # 0.5 (0.1-0.6); RBC 3.79 10^6/uL (3.5-6.1); RED CELL DISTRIBUTION WIDTH 13.2 % (11.5-14.5); WHITE BLOOD COUNT 6.4 10^3/ul (4.5-11.0)
[2018-05-12 08:07] LABS: ALB/GLOB RATIO 0.9 (1.1-1.8); ALBUMIN 3.1 g/dL (3.0-4.8); ALT/SGPT 33 U/L (7-56); AST/SGOT 39 U/L (17-59); BLOOD UREA NITROGEN 15 mg/dL (7-21); CALCIUM 8.5 mg/dL (8.4-10.5); GFR AFRICAN-AMERICAN > 60; GFR NON-AFRICAN AMERICAN > 60
[2018-05-12] MEDS: Insulin Reg-MEDIUM-Coverage SC SCH (08:41)
[2018-05-12] MEDS: Cholecalciferol 400 Intl Units Tab PO SCH (09:24)
[2018-05-12] MEDS: Tiotropium 18 mcg Cap For Inhalation IH SCH (09:24)
[2018-05-12] MEDS: Mupirocin 2% Ointment 15 GM TUBE TOP SCH (09:27)
[2018-05-12] MEDS: Sodium Chloride 0.45% 1,000 ML IV SCH (09:28)
[2018-05-12] MEDS ORDERED: Vancomycin 1gm in NS 250ml 1 GM/250 ML BAG IVPB SCH (10:00)
--- NOTE | 2018-05-12 15:10 | CP.PCM.PN ---
<Mariel Snyder - Last Filed: 05/12/18 15:06> Subjective - Date & Time of Evaluation Date of Evaluation: 05/12/18 Time of Evaluation: 15:06 - Subjective Subjective: Podiatry Progress note: Dr. Peck 78 year old male was seen and evaluated for left great toe swelling and redness. Patient is AAOx3 and appears in NAD. Reports that he maybe going home soon. Denies of any acute overnight events. Denies of recent F/N/V/C/SOB/CP/ headache. Reports that he has mild pain on the toe when someone touches it. No other pedal complains. Objective - Vital Signs/Intake and Output Vital Signs (last 24 hours): Temp Pulse Resp BP Pulse Ox 98.3 F 73 20 126/67 100 05/12/18 14:00 05/12/18 14:00 05/12/18 14:00 05/12/18 14:00 05/12/18 14:00 Intake and Output: 05/12/18 05/12/18 06:59 18:59 Intake Total 540 Output Total 200 Balance 340 - Medications Medications: Current Medications Apixaban (Eliquis) 5 mg PO BID LUCAS PRN Reason: Protocol Last Admin: 05/12/18 09:24 Dose: 5 mg Finasteride (Proscar) 5 mg PO DAILY [facility] Last Admin: 05/12/18 09:24 Dose: 5 mg Hydrochlorothiazide (Microzide) 12.5 mg PO DAILY [facility] Last Admin: 05/12/18 09:24 Dose: 12.5 mg Vancomycin HCl (Vancomycin 1gm) 1 gm in 250 mls @ 167 mls/hr IVPB Q12H [facility] PRN Reason: Protocol Last Admin: 05/12/18 13:05 Dose: 167 mls/hr Sodium Chloride (Sodium Chloride 0.45%) 1,000 mls @ 40 mls/hr IV .Q24H [facility] Last Admin: 05/12/18 09:28 Dose: 40 mls/hr Insulin Human Regular (Humulin R Med) 0 units SC ACHS [facility] PRN Reason: Protocol Last Admin: 05/12/18 08:41 Dose: Not Given Losartan Potassium (Cozaar) 100 mg PO DAILY [facility] Last Admin: 05/12/18 09:24 Dose: 100 mg Mupirocin (Bactroban Ointment) 0 gm TOP BID [facility] Last Admin: 05/12/18 09:27 Dose: 1 applic Sitagliptin Phosphate (Januvia) 50 mg PO DAILY [facility] Last Admin: 05/12/18 09:23 Dose: 50 mg Tiotropium Martin (Spiriva) 18 mcg IH DAILY [facility] Last Admin: 05/12/18 09:24 Dose: 18 mcg Vitamin D (Vitamin D 400 Intl Units Tab) 400 intlu PO DAILY [facility] Last Admin: 05/12/18 09:24 Dose: 400 intlu - Labs Labs: 05/12/18 07:45 05/12/18 07:45 PT 15.4 SECONDS (9.4-12.5) H 05/11/18 12:30 INR 1.34 05/11/18 12:30 APTT 35.7 Seconds (25.1-36.5) 05/11/18 12:30 - Constitutional Appears: Well, Non-toxic, No Acute Distress - Extremities Exam Additional comments: Left LE focused exam VASC: DP/PT pulses are palpable 1/4, Cap refill time: < 3 sec to all digits, Temp gradient: warm to cool from proximal to distal, no pitting or non-pitting edema noted (increase in skin tension line noted on the dorso-medial forefoot) DERM: Dried blood noted on the distal aspect of the left hallux, left hallux nail appears to be de-attached from the nail bed at the distal margin, no active drainage, no active bleeding, small hint of purulent drainage, erythema on the dorsum of the hallux which extends to the level of the MTPJ, no malodor NEURO: Protective sensation grossly intact ORTHO: no pain on palpation of the hallux, no pain during ROM of the hallux - Neurological Exam Neurological Exam: Alert, Awake, Oriented x3 - Psychiatric Exam Psychiatric exam: Normal Affect, Normal Mood Assessment and Plan - Assessment and Plan (Free Text) Assessment: 78 year old male with PMHx of DM, HTN, COPD was evaluated for 1). left hallux nail onycholysis possibly secondary to trauma 2). Cellulitis Plan: Patient seen and evaluated with attending Dr. Peck Labs, vitals and charts reviewed - afebrile, no leukocytosis Site cleaned with saline and dressing applied using bactroban, 4x4 and tape Left foot X-rays reviewed - erosive changes with periosteal reaction noted at the lateral base of the distal phalanx of the hallux concerning for OM MRI ordered - pending Will f/u with MRI Podiatry to follow patient while in-house <Rupert Peck - Last Filed: 05/12/18 16:40> Objective - Vital Signs/Intake and Output Vital Signs (last 24 hours): Temp Pulse Resp BP Pulse Ox 98.3 F 73 20 126/67 100 05/12/18 14:00 05/12/18 14:00 05/12/18 14:00 05/12/18 14:00 05/12/18 14:00 Intake and Output: 05/12/18 05/12/18 06:59 18:59 Intake Total 540 Output Total 200 Balance 340 - Medications Medications: Current Medications Apixaban (Eliquis) 5 mg PO BID [facility] PRN Reason: Protocol Last Admin: 05/12/18 09:24 Dose: 5 mg Finasteride (Proscar) 5 mg PO DAILY [facility] Last Admin: 05/12/18 09:24 Dose: 5 mg Hydrochlorothiazide (Microzide) 12.5 mg PO DAILY [facility] Last Admin: 05/12/18 09:24 Dose: 12.5 mg Vancomycin HCl (Vancomycin 1gm) 1 gm in 250 mls @ 167 mls/hr IVPB Q12H [facility] PRN Reason: Protocol Last Admin: 05/12/18 13:05 Dose: 167 mls/hr Sodium Chloride (Sodium Chloride 0.45%) 1,000 mls @ 40 mls/hr IV .Q24H [facility] Last Admin: 05/12/18 09:28 Dose: 40 mls/hr Insulin Human Regular (Humulin R Med) 0 units SC ACHS [facility] PRN Reason: Protocol Last Admin: 05/12/18 08:41 Dose: Not Given Losartan Potassium (Cozaar) 100 mg PO DAILY [facility] Last Admin: 05/12/18 09:24 Dose: 100 mg Mupirocin (Bactroban Ointment) 0 gm TOP BID [facility] Last Admin: 05/12/18 09:27 Dose: 1 applic Sitagliptin Phosphate (Januvia) 50 mg PO DAILY [facility] Last Admin: 05/12/18 09:23 Dose: 50 mg Tiotropium Martin (Spiriva) 18 mcg IH DAILY [facility] Last Admin: 05/12/18 09:24 Dose: 18 mcg Vitamin D (Vitamin D 400 Intl Units Tab) 400 intlu PO DAILY [facility] Last Admin: 05/12/18 09:24 Dose: 400 intlu - Labs Labs: 05/12/18 07:45 05/12/18 07:45 PT 15.4 SECONDS (9.4-12.5) H 05/11/18 12:30 INR 1.34 05/11/18 12:30 APTT 35.7 Seconds (25.1-36.5) 05/11/18 12:30 Attending/Attestation - Attestation I have personally seen and examined this patient.: Yes I have fully participated in the care of the patient.: Yes I have reviewed all pertinent clinical information, including history, physical exam and plan: Yes
--- NOTE | 2018-05-12 15:44 | HP ---
Copied To: Jn Nguyen DO Attending MD: Jn Nguyen DO HISTORY OF PRESENT ILLNESS: I have known him for a while now as he comes to my office. He went up to his cabin in the and when he got up there, he saw his left great toe was red and inflamed. He came back down. I sent him to the podiatrists, Dr. Peck and Dr. Callejas and they sent him to the emergency room. He is a 78-year-old white male I have known for a while. Now, he has got a great left toe swelling, redness, cellulitis looking. There was also bleeding from the toenail. He denied any possible trauma that he realized, but he could have he said. PAST MEDICAL HISTORY: He has had hypertension, COPD, diabetes. He wears reading glasses. He has arthritis. FAMILY HISTORY: Diabetes in the family. SOCIAL HISTORY: Never smoked. Does drink alcohol every other day about 5 cans of beer. No drugs. ALLERGIES: NO KNOWN DRUG ALLERGIES. MEDICATIONS: He is on calcium, vitamin D3, Proscar for BPH, Centrum, Januvia for his diabetes, Spiriva for his lungs, also on hydrochlorothiazide for his hypertension. REVIEW OF SYSTEMS: No acute vision or hearing changes. No sore throat. No chest pain or palpitations. No shortness of breath or cough. No abdominal pain, nausea, vomiting, constipation, diarrhea. He can move all 4 extremities. The left first toe is red, inflamed and it looks like an infection. No headaches or dizziness. No other skin issues. He is not anxious or depressed. PHYSICAL EXAMINATION: VITAL SIGNS: He has a 98.9 temp, 78 pulse, 18 respiratory rate, 134/68 blood pressure, 100% O2 sat. GENERAL: He is well appearing, nontoxic, comfortable. HEENT: His head is atraumatic, normocephalic. Alert and oriented x3. Mouth is moist. NECK: Supple. HEART: Regular rate. Normal S1 and S2. LUNGS: Decreased breath sounds, but clear to auscultation bilaterally. Fair effort. ABDOMEN: Soft, nontender. Positive bowel sounds. No guarding. No rebound. No CVA tenderness. EXTREMITIES: No edema. There is dried blood on the great left toe. It is reddened and inflamed with erythema. No calf tenderness. NEUROLOGIC: GCS is 15. Cranial nerves II-XII grossly intact. Normal speech. SKIN: Poor turgor. Warm and dry. No apparent rashes I could tell or ulcers that I appreciated. LYMPHATICS: Thyroid midline. No palpable appreciable lymphadenopathy. LABORATORY DATA: He had lots of tests done. He has a x-ray of the foot, it shows there is lucency and loss of cortical definition along the lateral aspect of the base of the first distal phalanx that is suspicious for osteomyelitis. He also had some blood tests. He has a 139 sodium, potassium is 4.2, BUN 50, creatinine 0.8, GFR is greater than 60, sugar is 135, calcium is 8.5, total bili is 1.4, AST is 39, ALT is 33, alk phos 58, total protein 6.5. INR is 1.34. 6.4 white count, 12.6 hemoglobin, 35.5 hematocrit with 122 platelets. IMPRESSION: He has got consults with Infectious Disease and Podiatry. He is on IV fluids, Bactroban cream, Cozaar, Eliquis, Januvia, Microzide, Proscar, Spiriva, vancomycin IV. He was on Zosyn that has been stopped. There is an MRI of the foot to make sure he has osteo or not. We will check his labs tomorrow and when I could change him to p.o., I will, p.o. antibiotics from the IV or he might need to be on further time of IV antibiotics. Continue aggressive treatment and care for his left first toe cellulitis, rule out osteo. He is a diabetic. Jn Nguyen DO MERVAT
[2018-05-12] MEDS ORDERED: Gadodiamide 287 MG/ML VIAL (15ML) IV ONE (16:54)
--- NOTE | 2018-05-12 17:14 | CP.PCM.CON ---
History of Present Illness - History of Present Illness History of Present Illness: 78 year old male with PMH of DM, HTN, COPD came in to [facility] because of left hallux swelling, redness and pain for the past 3-4 days. He does not remember if he had any trauma to the toe. He denies animal contacts, no soaking of feet in water, no fevers. He denies fever or chills, no nausea or vomiting, no chest pain, no SOB, no headache or dizziness, no abdominal pain, no diarrhea, no dysuria. Infectious Diseases consult is requested to further evaluate and manage. Review of Systems - Review of Systems All systems: reviewed and no additional remarkable complaints except (as per HPI ) Past Patient History - Infectious Disease Hx of Infectious Diseases: None - Past Social History Smoking Status: Never Smoked - CARDIAC Hx Cardiac Disorders: No - PULMONARY Hx Respiratory Disorders: Yes Hx Chronic Obstructive Pulmonary Disease (COPD): Yes - NEUROLOGICAL Hx Neurological Disorder: No - HEENT Hx HEENT Problems: No - RENAL Hx Chronic Kidney Disease: No - ENDOCRINE/METABOLIC Hx Diabetes Mellitus Type 2: Yes (patient denies, takes no meds) - HEMATOLOGICAL/ONCOLOGICAL Hx Blood Disorders: Yes Other/Comment: DVT (last admission, 3 months ago) - INTEGUMENTARY Hx Dermatological Problems: No - MUSCULOSKELETAL/RHEUMATOLOGICAL Hx Musculoskeletal Disorders: Yes Hx Arthritis: Yes Hx Back Pain: Yes Hx Falls: No - GASTROINTESTINAL Other/Comment: infrequent bowel movements w/o constipation - GENITOURINARY/GYNECOLOGICAL Hx Genitourinary Disorders: No - PSYCHIATRIC Hx Psychophysiologic Disorder: No - SURGICAL HISTORY Hx Surgeries: No - ANESTHESIA Hx Anesthesia: No Hx Anesthesia Reactions: No Hx Malignant Hyperthermia: No Meds Home Medications: Home Medication List Medication Instructions Recorded Confirmed Type Linezolid [Zyvox] 600 mg PO BID 14 Days tab 05/12/18 Rx Allergies/Adverse Reactions: Allergies Allergy/AdvReac Type Severity Reaction Status Date / Time No Known Allergies Allergy Verified 01/06/18 17:06 - Medications Medications: Current Medications Piperacillin Sod/Tazobactam Sod (Zosyn 3.375 In Ns 100ml) 100 mls @ 200 mls/hr IVPB Q8 [facility] PRN Reason: Protocol Stop: 05/12/18 06:29 Vancomycin HCl (Vancomycin 1gm) 1 gm in 250 mls @ 167 mls/hr IVPB Q12H [facility] PRN Reason: Protocol Insulin Human Regular (Humulin R Med) 0 units SC ACHS [facility] PRN Reason: Protocol Mupirocin (Bactroban Ointment) 0 gm TOP BID [facility] Physical Exam - Constitutional Appears: Non-toxic, Chronically Ill - Head Exam Head Exam: NORMAL INSPECTION - ENT Exam ENT Exam: Mucous Membranes Moist - Neck Exam Neck exam: Negative for: Meningismus - Respiratory Exam Respiratory Exam: Decreased Breath Sounds - Cardiovascular Exam Cardiovascular Exam: +S1, +S2 - GI/Abdominal Exam GI & Abdominal Exam: Soft. absent: Tenderness - Extremities Exam Additional comments: left foot with dressings in place Results - Vital Signs Recent Vital Signs: Last Vital Signs Temp 98.8 F 05/11/18 13:54 Pulse 75 05/11/18 13:54 Resp 20 05/11/18 18:24 BP 137/72 05/11/18 13:54 Pulse Ox 100 05/11/18 13:54 - Labs Result Diagrams: 05/12/18 07:45 05/12/18 07:45 Assessment & Plan - Assessment and Plan (Free Text) Plan: Assessment Left hallux skin and skin structure infection, R/O osteomyelitis DM HTN COPD Plan started Vancomycin and will follow up blood cx; follow up MRI of the foot will monitor clinically discussed with Dr. Nguyen
--- NOTE | 2018-05-12 18:15 | MRI ---
Date of service: 05/12/2018 PROCEDURE: MRI of the left foot with and without IV contrast HISTORY: r/o OM of the left hallux COMPARISON: Comparison is made with the x-ray of the left foot done on 05/11/2018 TECHNIQUE: Axial coronal and sagittal MRI images of the left foot were obtained before and after IV contrast administration. FINDINGS: There is diffuse bone marrow edema in the distal phalanx of the left big toe associated with cortical erosion and foci of destruction. The distal phalanx of the big toe also demonstrate diffuse heterogeneous enhancement in the postcontrast images. Findings consistent with acute osteomyelitis. There is no evidence of other acute abnormality in the rest of the osseous structures. There is a well defined focal area of hypointense T1 and hyperintense T2 and proton density noted at the proximal portion of the 2nd metatarsal bone may represent benign lesions such as cyst. Diffuse soft tissue edema noted at the left foot. [id number] soft tissue inflammatory changes at the left big toe noted. IMPRESSION: Findings consistent with acute osteomyelitis involving the distal phalanx of the left big toe.
[2018-05-13] MEDS: Vancomycin 1gm in NS 250ml 1 GM/250 ML BAG IVPB SCH ×2 (00:03→17:46)
[2018-05-13] MEDS: Insulin Reg-MEDIUM-Coverage SC SCH ×5 (06:37→22:14)
[2018-05-13] MEDS: Mupirocin 2% Ointment 15 GM TUBE TOP SCH ×3 (06:38→17:37)
[2018-05-13 07:06] LABS: MEAN CELL VOLUME 93.7 fl (80.0-105.0); MEAN CORPUSCULAR HEMOGLOBIN 32.7 pg (25.0-35.0); MEAN CORPUSCULAR HGB CONC 34.9 g/dl (31.0-37.0); MEAN PLATELET VOLUME 8.8 fl (7.0-11.0); RBC 3.98 10^6/uL (3.5-6.1); RED CELL DISTRIBUTION WIDTH 13.1 % (11.5-14.5); WHITE BLOOD COUNT 6.3 10^3/ul (4.5-11.0)
[2018-05-13 07:26] LABS: ALB/GLOB RATIO 0.9 (1.1-1.8); ALBUMIN 3.3 g/dL (3.0-4.8); ALT/SGPT 31 U/L (7-56); AST/SGOT 48 U/L (17-59); BLOOD UREA NITROGEN 12 mg/dL (7-21); CALCIUM 8.7 mg/dL (8.4-10.5); GFR AFRICAN-AMERICAN > 60; GFR NON-AFRICAN AMERICAN > 60
[2018-05-13] MEDS: Tiotropium 18 mcg Cap For Inhalation IH SCH (10:05)
[2018-05-13] MEDS: Cholecalciferol 400 Intl Units Tab PO SCH (10:05)
[2018-05-13] MEDS: Sodium Chloride 0.45% 1,000 ML IV SCH (10:07)
--- NOTE | 2018-05-13 10:45 | CP.PCM.PN ---
<Mariel Snyder - Last Filed: 05/13/18 10:39> Subjective - Date & Time of Evaluation Date of Evaluation: 05/13/18 Time of Evaluation: 10:39 - Subjective Subjective: Podiatry Progress note: Dr. Peck 78 year old male was seen and evaluated for left great toe swelling and redness. Patient is AAOx3 and appears in NAD. Reports that his MRI was done yesterday. Denies of any acute overnight events. Denies of recent F/N/V/C/SOB/CP /headache. Reports that he has mild pain on the toe when someone touches it. No other pedal complains. Objective - Vital Signs/Intake and Output Vital Signs (last 24 hours): Temp Pulse Resp BP Pulse Ox 97.6 F 63 18 132/69 97 05/13/18 06:00 05/13/18 06:00 05/13/18 06:00 05/13/18 06:00 05/13/18 06:00 Intake and Output: 05/13/18 05/13/18 06:59 18:59 Intake Total 780 Output Total 1300 Balance -520 - Medications Medications: Current Medications Apixaban (Eliquis) 5 mg PO BID [facility] PRN Reason: Protocol Last Admin: 05/13/18 10:05 Dose: 5 mg Finasteride (Proscar) 5 mg PO DAILY [facility] Last Admin: 05/13/18 10:05 Dose: 5 mg Hydrochlorothiazide (Microzide) 12.5 mg PO DAILY [facility] Last Admin: 05/13/18 10:06 Dose: 12.5 mg Vancomycin HCl (Vancomycin 1gm) 1 gm in 250 mls @ 167 mls/hr IVPB Q12H [facility] PRN Reason: Protocol Last Admin: 05/13/18 00:03 Dose: 167 mls/hr Sodium Chloride (Sodium Chloride 0.45%) 1,000 mls @ 40 mls/hr IV .Q24H [facility] Last Admin: 05/13/18 10:07 Dose: 40 mls/hr Insulin Human Regular (Humulin R Med) 0 units SC ACHS [facility] PRN Reason: Protocol Last Admin: 05/13/18 07:30 Dose: Not Given Losartan Potassium (Cozaar) 100 mg PO DAILY [facility] Last Admin: 05/13/18 10:05 Dose: 100 mg Mupirocin (Bactroban Ointment) 0 gm TOP BID [facility] Last Admin: 05/13/18 10:05 Dose: Not Given Sitagliptin Phosphate (Januvia) 50 mg PO DAILY [facility] Last Admin: 05/13/18 10:05 Dose: 50 mg Tiotropium [place] (Spiriva) 18 mcg IH DAILY [facility] Last Admin: 05/13/18 10:05 Dose: 18 mcg Vitamin D (Vitamin D 400 Intl Units Tab) 400 intlu PO DAILY [facility] Last Admin: 05/13/18 10:05 Dose: 400 intlu - Labs Labs: 05/13/18 06:45 05/13/18 06:45 PT 15.4 SECONDS (9.4-12.5) H 05/11/18 12:30 INR 1.34 05/11/18 12:30 APTT 35.7 Seconds (25.1-36.5) 05/11/18 12:30 - Constitutional Appears: Well, Non-toxic, No Acute Distress - Extremities Exam Additional comments: Left LE focused exam VASC: DP/PT pulses are palpable 1/4, Cap refill time: < 3 sec to all digits, Temp gradient: warm to cool from proximal to distal, no pitting or non-pitting edema noted (increase in skin tension line noted on the dorso-medial forefoot) DERM: Left hallux nail appears to be de-attached from the nail bed at the distal margin with small 0.1 x 0.1 cm opening on the distal medial margin, no active drainage, no active bleeding, small hint of purulent drainage, erythema on the dorsum of the hallux which extends to the level of the MTPJ, no malodor NEURO: Protective sensation grossly intact ORTHO: no pain on palpation of the hallux, no pain during ROM of the hallux - Neurological Exam Neurological Exam: Alert, Awake, Oriented x3 - Psychiatric Exam Psychiatric exam: Normal Affect, Normal Mood Assessment and Plan - Assessment and Plan (Free Text) Assessment: 78 year old male with PMHx of DM, HTN, COPD was evaluated for 1). left distal phalanx OM 2). Cellulitis Plan: Patient seen and evaluated with attending Dr. Peck Labs, vitals and charts reviewed - afebrile, no leukocytosis Aseptic debridement of the distal nail plate Site cleaned with saline and dressing applied using bactroban, 4x4 and tape Left foot X-rays reviewed - erosive changes with periosteal reaction noted at the lateral base of the distal phalanx of the hallux concerning for OM MRI - Consistent with distal phalanx OM Patient will require fdc IV abx Podiatry to follow patient while in-house <Rupert Peck - Last Filed: 05/13/18 14:19> Objective - Vital Signs/Intake and Output Vital Signs (last 24 hours): Temp Pulse Resp BP Pulse Ox 97.6 F 63 18 132/69 97 05/13/18 06:00 05/13/18 06:00 05/13/18 06:00 05/13/18 06:00 05/13/18 06:00 Intake and Output: 05/13/18 05/13/18 06:59 18:59 Intake Total 780 Output Total 1300 Balance -520 - Medications Medications: Current Medications Apixaban (Eliquis) 5 mg PO BID [facility] PRN Reason: Protocol Last Admin: 05/13/18 10:05 Dose: 5 mg Finasteride (Proscar) 5 mg PO DAILY [facility] Last Admin: 05/13/18 10:05 Dose: 5 mg Hydrochlorothiazide (Microzide) 12.5 mg PO DAILY [facility] Last Admin: 05/13/18 10:06 Dose: 12.5 mg Vancomycin HCl (Vancomycin 1gm) 1 gm in 250 mls @ 167 mls/hr IVPB Q12H [facility] PRN Reason: Protocol Last Admin: 05/13/18 00:03 Dose: 167 mls/hr Sodium Chloride (Sodium Chloride 0.45%) 1,000 mls @ 40 mls/hr IV .Q24H [facility] Last Admin: 05/13/18 10:07 Dose: 40 mls/hr Insulin Human Regular (Humulin R Med) 0 units SC ACHS [facility] PRN Reason: Protocol Last Admin: 05/13/18 11:53 Dose: Not Given Losartan Potassium (Cozaar) 100 mg PO DAILY [facility] Last Admin: 05/13/18 10:05 Dose: 100 mg Mupirocin (Bactroban Ointment) 0 gm TOP BID [facility] Last Admin: 05/13/18 10:05 Dose: Not Given Sitagliptin Phosphate (Januvia) 50 mg PO DAILY [facility] Last Admin: 05/13/18 10:05 Dose: 50 mg Tiotropium [place] (Spiriva) 18 mcg IH DAILY [facility] Last Admin: 05/13/18 10:05 Dose: 18 mcg Vitamin D (Vitamin D 400 Intl Units Tab) 400 intlu PO DAILY [facility] Last Admin: 05/13/18 10:05 Dose: 400 intlu - Labs Labs: 05/13/18 06:45 05/13/18 06:45 PT 15.4 SECONDS (9.4-12.5) H 05/11/18 12:30 INR 1.34 05/11/18 12:30 APTT 35.7 Seconds (25.1-36.5) 05/11/18 12:30 Attending/Attestation - Attestation I have personally seen and examined this patient.: Yes I have fully participated in the care of the patient.: Yes I have reviewed all pertinent clinical information, including history, physical exam and plan: Yes
--- NOTE | 2018-05-13 13:06 | PN ---
Copied To: Jn Nguyen DO Attending MD: Jn Nguyen DO DATE: 05/13/2018 SUBJECTIVE: I was preparing yesterday to discharge him. Waiting for the MRI results and it nocturnist to be positive for osteo his left first toe, so we are going to keep him and get him set up for IV antibiotics for 4-6 weeks. He does not want surgery for the toe. He is very active. 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 He is on IV fluids, Bactroban cream, Cozaar, Eliquis, Januvia, Microzide, Proscar, vancomycin and vitamin D. PHYSICAL EXAMINATION: VITAL SIGNS: He has a 97.6 temperature, 63 pulse, 132/69 blood pressure, 18 respiratory rate, 97% O2 sat on room air. HEENT: Head is atraumatic, normocephalic. HEART: Regular rate. LUNGS: Clear to auscultation. ABDOMEN: Soft. EXTREMITIES: No edema, but the left foot is red, inflamed and it has got osteomyelitis. LABORATORY DATA: He has a 6.3 white count, 13 hemoglobin, 37.3 hematocrit with 130 platelets. He has a 138 sodium, potassium 3.8, BUN 12, creatinine 0.7, GFR greater than 60, sugar is 121, calcium is 8.7, total bili is 1.4. AST is 48, ALT is 31, alk phos 57, total protein 6.8, albumin is 3.3. The MRI of the foot shows consistent with osteo involving the distal phalanx of left big toe. He is now on IV antibiotics. We are putting in a PICC line and we would know how much IV antibiotics he will need to be on for 4 weeks and we will continue to get him ready for discharge with outpatient IV antibiotics if possible. He is for osteo of left foot. Jn Nguyen DO MTDDunia
--- NOTE | 2018-05-13 13:13 | PN ---
Copied To: Jonathan Bae MD Attending MD: Jonathan Bae MD DATE: 05/13/2018 SUBJECTIVE: The patient is in bed, seen earlier this morning. No fevers. No chills. No nausea. PHYSICAL EXAMINATION: VITAL SIGNS: Temperature is 97, blood pressure is 130/60, respiratory rate 18, heart rate 63. HEENT: Unremarkable. NECK: Supple. LUNGS: Have decreased breath sounds. HEART: Normal S1, S2. ABDOMINAL: Soft, nontender. LABORATORY EXAMINATION: Reveals a white count of 6.3, hemoglobin of 13, BUN of 12, creatinine of 0.7. Microbiology: The blood cultures are negative. The patient had an MRI of the foot, which is consistent with acute osteomyelitis of the distal phalanx of the left big toe. ASSESSMENT AND PLAN: A 78-year-old male seen earlier today in 575, bed 2. Awake and alert with left skin and skin structure infection with acute osteomyelitis in a diabetic, hypertensive, chronic obstructive lung disease, currently on vancomycin and may need the gram-negative coverage since we do not have any cultures of the foot. We will discuss with you. He did not have any cultures. We will discussed with Podiatry. Jonathan Bae MD : 05/13/2018 9:14:44
[2018-05-14] MEDS: Vancomycin 1gm in NS 250ml 1 GM/250 ML BAG IVPB SCH ×2 (00:28→14:34)
[2018-05-14 07:05] LABS: HEMOGLOBIN 12.6 g/dL (14.0-18.0); MEAN CELL VOLUME 92.5 fl (80.0-105.0); MEAN CORPUSCULAR HEMOGLOBIN 32.6 pg (25.0-35.0); MEAN CORPUSCULAR HGB CONC 35.2 g/dl (31.0-37.0); MEAN PLATELET VOLUME 9.2 fl (7.0-11.0); RBC 3.87 10^6/uL (3.5-6.1); RED CELL DISTRIBUTION WIDTH 13.2 % (11.5-14.5); WHITE BLOOD COUNT 6.9 10^3/ul (4.5-11.0)
[2018-05-14 07:26] LABS: ALB/GLOB RATIO 0.9 (1.1-1.8); ALT/SGPT 33 U/L (7-56); AST/SGOT 47 U/L (17-59); BLOOD UREA NITROGEN 15 mg/dL (7-21); CALCIUM 8.6 mg/dL (8.4-10.5); GFR AFRICAN-AMERICAN > 60; GFR NON-AFRICAN AMERICAN > 60
[2018-05-14] MEDS: Insulin Reg-MEDIUM-Coverage SC SCH ×4 (08:30→21:52)
[2018-05-14] MEDS: Tiotropium 18 mcg Cap For Inhalation IH SCH (10:00)
[2018-05-14] MEDS: Cholecalciferol 400 Intl Units Tab PO SCH (10:00)
[2018-05-14] MEDS: Mupirocin 2% Ointment 15 GM TUBE TOP SCH ×2 (10:00→18:44)
[2018-05-14] MEDS ORDERED: Bisacodyl 5mg EC Tab PO ONE (10:01)
--- NOTE | 2018-05-14 10:16 | CP.PCM.PN ---
<Mariel Snyder - Last Filed: 05/14/18 10:12> Subjective - Date & Time of Evaluation Date of Evaluation: 05/14/18 Time of Evaluation: 10:12 - Subjective Subjective: Podiatry Progress note: Dr. Peck 78 year old male was seen and evaluated for left great toe swelling and redness. Patient is AAOx3 and appears in NAD. Denies of any acute overnight events. Denies of recent F/N/V/C/SOB/CP/headache. No other pedal complains. Objective - Vital Signs/Intake and Output Vital Signs (last 24 hours): Temp Pulse Resp BP Pulse Ox 98 F 68 18 127/67 97 05/14/18 06:00 05/14/18 06:00 05/14/18 06:00 05/14/18 06:00 05/14/18 06:00 Intake and Output: 05/14/18 05/14/18 06:59 18:59 Intake Total 740 Output Total 925 Balance -185 - Medications Medications: Current Medications Apixaban (Eliquis) 5 mg PO BID [facility] PRN Reason: Protocol Last Admin: 05/13/18 17:44 Dose: 5 mg Finasteride (Proscar) 5 mg PO DAILY [facility] Last Admin: 05/13/18 10:05 Dose: 5 mg Hydrochlorothiazide (Microzide) 12.5 mg PO DAILY [facility] Last Admin: 05/13/18 10:06 Dose: 12.5 mg Vancomycin HCl (Vancomycin 1gm) 1 gm in 250 mls @ 167 mls/hr IVPB Q12H [facility] PRN Reason: Protocol Last Admin: 05/14/18 00:28 Dose: 167 mls/hr Sodium Chloride (Sodium Chloride 0.45%) 1,000 mls @ 40 mls/hr IV .Q24H [facility] Last Admin: 05/13/18 10:07 Dose: 40 mls/hr Insulin Human Regular (Humulin R Med) 0 units SC ACHS [facility] PRN Reason: Protocol Last Admin: 05/13/18 22:14 Dose: Not Given Losartan Potassium (Cozaar) 100 mg PO DAILY [facility] Last Admin: 05/13/18 10:05 Dose: 100 mg Mupirocin (Bactroban Ointment) 0 gm TOP BID [facility] Last Admin: 05/13/18 17:37 Dose: Not Given Sitagliptin Phosphate (Januvia) 50 mg PO DAILY [facility] Last Admin: 05/13/18 10:05 Dose: 50 mg Tiotropium [place] (Spiriva) 18 mcg IH DAILY [facility] Last Admin: 05/13/18 10:05 Dose: 18 mcg Vitamin D (Vitamin D 400 Intl Units Tab) 400 intlu PO DAILY [facility] Last Admin: 05/13/18 10:05 Dose: 400 intlu - Labs Labs: 05/14/18 06:50 05/14/18 06:50 PT 15.4 SECONDS (9.4-12.5) H 05/11/18 12:30 INR 1.34 05/11/18 12:30 APTT 35.7 Seconds (25.1-36.5) 05/11/18 12:30 - Constitutional Appears: Well, Non-toxic, No Acute Distress - Extremities Exam Additional comments: Left LE focused exam VASC: DP/PT pulses are palpable 1/4, Cap refill time: < 3 sec to all digits, Temp gradient: warm to cool from proximal to distal, no pitting or non-pitting edema noted (increase in skin tension line noted on the dorso-medial forefoot) DERM: Left hallux nail appears to be de-attached from the nail bed at the distal margin with small 0.1 x 0.1 cm opening on the distal medial margin, no active drainage, no active bleeding, small hint of purulent drainage, erythema on the dorsum of the hallux which extends to the level of the MTPJ, no malodor NEURO: Protective sensation grossly intact ORTHO: no pain on palpation of the hallux, no pain during ROM of the hallux - Neurological Exam Neurological Exam: Alert, Awake, Oriented x3 - Psychiatric Exam Psychiatric exam: Normal Affect, Normal Mood Assessment and Plan - Assessment and Plan (Free Text) Assessment: 78 year old male with PMHx of DM, HTN, COPD was evaluated for 1). left distal phalanx OM 2). Cellulitis Plan: Patient seen and evaluated with attending Dr. Peck Labs, vitals and charts reviewed - afebrile, no leukocytosis Site cleaned with saline and dressing applied using bactroban, 4x4 and tape Left foot X-rays reviewed - erosive changes with periosteal reaction noted at the lateral base of the distal phalanx of the hallux concerning for OM MRI - Consistent with distal phalanx OM Patient will require oil heaterman IV abx Podiatry to follow patient while in-house <Rupert Peck - Last Filed: 05/15/18 17:01> Objective - Vital Signs/Intake and Output Vital Signs (last 24 hours): Temp Pulse Resp BP Pulse Ox 98.6 F 79 20 142/77 96 05/14/18 22:44 05/14/18 22:44 05/14/18 22:44 05/14/18 22:44 05/14/18 22:44 Intake and Output: 05/15/18 05/15/18 06:59 18:59 Intake Total 240 Output Total 200 Balance 40 - Labs Labs: 05/14/18 06:50 05/14/18 06:50 PT 15.4 SECONDS (9.4-12.5) H 05/11/18 12:30 INR 1.34 05/11/18 12:30 APTT 35.7 Seconds (25.1-36.5) 05/11/18 12:30 Attending/Attestation - Attestation I have personally seen and examined this patient.: Yes I have fully participated in the care of the patient.: Yes I have reviewed all pertinent clinical information, including history, physical exam and plan: Yes
--- NOTE | 2018-05-14 13:11 | DS ---
Copied To: Jn Nguyen DO Attending MD: Jn Nguyen DO HISTORY OF PRESENT ILLNESS: He is resting comfortably in bed. He wants to go. He has got a positive osteomyelitis in his left first toe. We are trying to arrange outpatient IV antibiotics for 4 weeks. He is comfortable with that. He has a PICC line in. He is on IV fluids, Cozaar, Dulcolax, Eliquis, Januvia, Microzide, Proscar, Spiriva. He has got vancomycin and vitamin D. We will see which antibiotic Dr. Bae, Infectious Disease doctor wants him on. PHYSICAL EXAMINATION: VITAL SIGNS: He has a 98 temperature, 68 pulse, 127/67 blood pressure, 18 respiratory rate, 97% O2 sat on room air. HEENT: His head is atraumatic, normocephalic. HEART: Regular rate. LUNGS: Clear to auscultation. ABDOMEN: Soft, nontender. Positive bowel sounds. EXTREMITIES: Have left first toe with an osteomyelitis. He is doing better. He does not want surgery. He would like to have weekly labs, sed rate, CRP, chemistry and a CBC on discharged at home. I will see him on house-calls. He will come to the office. Jn Nguyen DO : 05/14/2018 10:04:36
[2018-05-14] MEDS: Piperacillin/Tazobact 3.375 gm 100 ML IVPB SCH ×2 (14:34→18:44)
[2018-05-14] MEDS: Sodium Chloride 0.45% 1,000 ML IV SCH (14:37)
[2018-05-14 15:17] VITALS: PULSE 79; RESP 20
--- NOTE | 2018-05-14 15:47 | PN ---
Copied To: Jonathan Bae MD Attending MD: Jonathan Bae MD DATE: 05/14/2018 SUBJECTIVE: The patient is seen earlier today in 575, bed 2. No fevers and no chills. PHYSICAL EXAMINATION: VITAL SIGNS: Temperature is 98, blood pressure is 120/60, respiratory rate of 18. HEENT: Unremarkable. NECK: Supple. LUNGS: Have decreased breath sounds. HEART: Normal S1, S2. ABDOMEN: Soft, nontender. LABORATORY DATA: Reveals a white count of 6.9, hemoglobin of 12, platelets of 137. Chemistries are noted. BUN of 15, creatinine of 0.5. Microbiology is noted. The blood cultures are negative. ASSESSMENT AND PLAN: This is a 78-year-old male who is seen earlier today in room 575, bed 2, awake and alert, with a left foot skin and skin structure infection with acute osteomyelitis in a patient who is diabetic, hypertensive, chronic obstructive lung disease, on vancomycin and Zosyn. Will need vancomycin and Zosyn not have a microbiological diagnosis for 4-6 weeks with weekly CBC, SMA-18, sed rate, C-reactive protein, and chemistries once weekly with a vancomycin trough level once weekly. Maintain a trough level between 15 and 20 on vancomycin and Zosyn. Jonathan Bae MD
[2018-05-14 22:44] VITALS: BP 142/77; TEMP 98.6; O2SAT 96
--- NOTE | 2018-05-15 16:07 | US ---
HISTORY: Leg pain and swelling. Evaluate for DVT PHYSICIAN(S): Shalom De Souza MD. TECHNIQUE: Duplex sonography and color-flow Doppler with graded compression were used to evaluate the deep venous systems of both lower extremities. FINDINGS: There is adherent thrombus noted in the right mid to distal femoral vein. The right popliteal vein and right common femoral vein are patent and compressible. There is no sonographic evidence for deep venous thrombosis in the visualized segments of the left lower extremity IMPRESSION: Adherent thrombus in the mid to distal right femoral vein. Age indeterminate.
== END 2018-05-14 22:52 | DRG 638 ==
LOC: ED 11:00 → INTOOBSV 13:16 → OBSVTOIN 13:16 → ERH 13:16 → 5RSO 13:58 → INTOOBSV 05-12 18:44 → OBSVTOIN 05-12 18:44
PROVIDERS: ADMIT Family Medicine; ATTEND Family Medicine
PROC: 05HY33Z Insertion of Infusion Device into Upper Vein, Percutaneous Approach (ICD-10-PCS; principal; 2018-05-13)
DX: E11.69 Type 2 diabetes mellitus with other specified complication (principal); M86.172 Other acute osteomyelitis, left ankle and foot; I10 Essential (primary) hypertension; J44.9 Chronic obstructive pulmonary disease, unspecified; L03.032 Cellulitis of left toe; M19.90 Unspecified osteoarthritis, unspecified site; L60.1 Onycholysis; Z83.3 Family history of diabetes mellitus; Z86.718 Personal history of other venous thrombosis and embolism

== ENCOUNTER 2018-08-10 07:26 | Inpatient (IN) | payer MEDICARE, BC ==
[2018-08-10] MEDS ORDERED: Sodium Chloride 0.9% 1,000 ML IV STA (07:43)
--- NOTE | 2018-08-10 08:08 | ED PDOC ---
Arrival/HPI - General Chief Complaint: Abdominal Pain Time Seen by Provider: 08/10/18 07:31 Historian: Patient, Family - History of Present Illness Narrative History of Present Illness (Text): 08/10/18 07:56 78 y/o male, with past medical history of hypertension, COPD, arthritis and diabetes, presents to the Emergency department accompanied by daughter via EMS complaining of abdominal pain, constipation and redness to left buttocks for past few days. Patient informs noticing blood while wiping few days ago but denies any bowel movement since then. As per daughter, patient has been non- compliant with appropriate diet intake since his antibiotics course in April for foot infection. Daughter states patient was recently seen by Dr. Nguyen on and is pending imaging results. However, patient recently expressed onset of abdominal pain prompting him to present to the ED for medical evaluation. Patient denies any other associated somatic complaints. Patient denies any fevers, chills, headache, dizziness, chest pain, shortness of breath, dyspnea on exertion, cough, nausea, vomiting, diarrhea, back pain, neck pain, or any other complaints. PMD: Dr. Nguyen Time/Duration: < week Symptom Onset: Gradual Symptom Course: Unchanged Quality: Aching Activities at Onset: Light Context: Home Past Medical History - Provider Review Nursing Documentation Reviewed: Yes - Infectious Disease Hx of Infectious Diseases: None - Cardiac Hx Hypertension: Yes - Pulmonary Hx Chronic Obstructive Pulmonary Disease (COPD): Yes - Neurological Hx Neurological Disorder: No - HEENT Hx HEENT Disorder: No - Renal Hx Renal Disorder: No - Endocrine/Metabolic Hx Diabetes Mellitus Type 2: Yes (patient denies, takes no meds) - Hematological/Oncological Hx Cancer: No - Integumentary Hx Dermatological Disorder: No - Musculoskeletal/Rheumatological Hx Arthritis: Yes - Gastrointestinal Other/Comment: infrequent bowel movements w/o constipation - Genitourinary/Gynecological Hx Genitourinary Disorders: No - Psychiatric Hx Psychophysiologic Disorder: No Hx Substance Use: No - Surgical History Hx Mastectomy: No - Anesthesia Hx Anesthesia: No Hx Anesthesia Reactions: No Hx Malignant Hyperthermia: No Family/Social History - Physician Review Nursing Documentation Reviewed: Yes Family/Social History: Unknown Family HX Smoking Status: Never Smoked Hx Alcohol Use: Yes (every other day beer: 5 cans) Hx Substance Use: No Allergies/Home Meds Allergies/Adverse Reactions: Allergies No Known Allergies Allergy (Verified 08/10/18 11:25) Home Medications: Home Meds Medication Instructions Recorded Confirmed RX: Calcium Carbonate [Calcium] 600 mg PO DAILY 01/06/18 08/10/18 RX: Cholecalciferol (Vitamin D3) 400 iu PO DAILY 01/06/18 08/10/18 [Vitamin D-400] RX: Finasteride [Proscar] 5 mg PO DAILY 01/06/18 08/10/18 RX: Multivit-Min/FA/Lycopen/Lutein 1 mg PO DAILY 01/06/18 08/10/18 [Centrum Silver Men Tablet] RX: SITagliptin [Januvia] 50 mg PO DAILY 01/06/18 08/10/18 RX: Tiotropium [Spiriva] 18 mcg IH DAILY 01/06/18 08/10/18 RX: Valsartan/Hydrochlorothiazide 1 tab PO DAILY 01/06/18 08/10/18 [Valsartan-Hctz 160-12.5 mg Tab] Review of Systems - Physician Review All systems were reviewed & negative as marked: Yes - Review of Systems Constitutional: absent: Fevers Respiratory: absent: SOB, Cough Cardiovascular: absent: Chest Pain Gastrointestinal: Abdominal Pain, Constipation, Appetite Changes. absent: Diarrhea, Nausea, Vomiting Genitourinary Male: absent: Dysuria, Urinary Output Changes Musculoskeletal: absent: Back Pain, Neck Pain Skin: Other (Redness to left buttocks) Neurological: absent: Headache, Dizziness Psychiatric: absent: Anxiety, Depression Physical Exam Vital Signs Reviewed: Yes Vital Signs Temp Pulse Resp BP Pulse Ox 08/10/18 07:26 97.7 F 63 17 94/51 L 98 Temperature: Afebrile Blood Pressure: Hypotensive Pulse: Regular Respiratory Rate: Normal Appearance: Positive for: Non-Toxic, Comfortable, Cachectic (Cachectic elderly man) Pain Distress: None Mental Status: Positive for: Alert and Oriented X 3 - Systems Exam Head: Present: Atraumatic, Normocephalic Pupils: Present: PERRL Extroacular Muscles: Present: EOMI Conjunctiva: Present: Normal Mouth: Present: Dry Neck: Present: Other (Ill-circumcised mobile boggy lesion noted to left neck ) Respiratory/Chest: Present: Clear to Auscultation, Good Air Exchange. No: Respiratory Distress, Accessory Muscle Use Cardiovascular: Present: Regular Rate and Rhythm, Normal S1, S2. No: Murmurs Abdomen: Present: Tenderness (Tenderness to palpation to LLQ), Normal Bowel Sounds. No: Distention, Peritoneal Signs Rectal: Present: Other (Grade 1 sacral ulceral erythema noted to bilateral butt ockd. Slight area of induration to right buttock. ) Back: Present: Normal Inspection Upper Extremity: Present: Normal Inspection. No: Cyanosis, Edema Lower Extremity: Present: Normal Inspection. No: Edema Neurological: Present: GCS=15, CN II-XII Intact, Speech Normal Skin: Present: Warm, Dry, Normal Color. No: Rashes Psychiatric: Present: Alert, Oriented x 3, Normal Insight, Normal Concentration Medical Decision Making ED Course and Treatment: 08/10/18 08:00 Impression: 78 year old male presents to the Emergency department presents to the Emergency department complaining of abdominal pain. Differential Diagnosis included but are not limited to: SBO Pancreatitis Colitis Diveticulitis Sigmoid volvulus Plan: -- VBG -- CT of Abdomen/Pelvis -- Labs -- Chest X-ray -- IV Fluids -- Blood Culture -- Urine Culture -- Urinalysis -- Reassess and disposition Prior Visits: Notes and results from previous visits were reviewed. Progress Notes: 08/10/18 08:35 Labs reviewed with patient noted to have elevated BUN/creatinine elevated from baseline. NEGRITA noted. Hyperkalemia noted with no EKG changes; will treat with protocol. Pending CT. 08/10/18 09:25 Dr. Nguyen evaluated patient and accepts onto his service once CT imaging has been resulted and he is updated on findings. 08/10/18 09:39 CT scan shows mild bladder distention with no evidence of obstruction. - RAD Interpretation Narrative RAD Interpretations (Text): 08/10/18 09:48 Chest X-ray reviewed by radiologist, shows: FINDINGS: LUNGS: No active pulmonary disease. PLEURA: No significant pleural effusion identified, no pneumothorax apparent. CARDIOVASCULAR: No aortic atherosclerotic calcification present. Normal cardiac size. Mitral valve calcification OSSEOUS STRUCTURES: No significant abnormalities. VISUALIZED UPPER ABDOMEN: Normal. OTHER FINDINGS: None. IMPRESSION: No active disease. CT of Abdomen/Pelvis reviewed by radiologist, shows: FINDINGS: LOWER THORAX: Unremarkable. LIVER: Multiple hepatic calcified granulomata.. No gross lesion or ductal dilatation. GALLBLADDER AND BILE DUCTS: Cholelithiasis. PANCREAS: Unremarkable. No gross lesion or ductal dilatation. SPLEEN: Multiple calcified splenic granulomata. ADRENALS: Unremarkable. No mass. KIDNEYS AND URETERS: 4.4 centimeter left renal cyst.. No hydronephrosis. No solid mass. VASCULATURE: Multiple aortic and iliac vessel calcifications. No aortic atherosclerotic calcification or mural plaque present. BOWEL: Unremarkable. No obstruction. No gross mural thickening. APPENDIX: Unremarkable. Normal appendix. PERITONEUM: Unremarkable. No free fluid. No free air. LYMPH NODES: Unremarkable. No enlarged lymph nodes. BLADDER: Significant bladder distention. REPRODUCTIVE: Unremarkable. BONES: No acute fracture. OTHER FINDINGS: None. IMPRESSION: Cholelithiasis. Significant urinary bladder distention. No acute bowel obstruction or phlegmon. Radiology Orders: 08/10/18 07:44 CHEST PORTABLE [RAD] Stat Infection Prevention Coordinator: Radiologist - Medication Orders Current Medication Orders: Sodium Chloride (Sodium Chloride 0.9%) 1,000 mls @ 100 mls/hr IV .Q10H STA Stop: 08/10/18 17:42 - Scribe Statement The provider has reviewed the documentation as recorded by the Scribe Tiburcio Rivera. All medical record entries made by the Scribe were at my direction and personally dictated by me. I have reviewed the chart and agree that the record accurately reflects my personal performance of the history, physical exam, medical decision making, and the department course for this patient. I have also personally directed, reviewed, and agree with the discharge instructions and disposition. Disposition/Present on Arrival - Present on Arrival Any Indicators Present on Arrival: Yes History of DVT/PE: Yes History of Uncontrolled Diabetes: No Urinary Catheter: No History of Decub. Ulcer: No History Surgical Site Infection Following: None - Disposition Have Diagnosis and Disposition been Completed?: Yes Diagnosis: Dehydration Disposition: HOSPITALIZED Disposition Time: 09:44 Patient Plan: Admission Patient Problems: Current Active Problems Problem Status Onset Dehydration Acute Condition: STABLE
[2018-08-10 08:21] LABS: VENOUS BLOOD GAS BASE EXCESS -3.8 mmol/L (0.0-2.0); VENOUS BLOOD GAS PO2 21 mm/Hg (30-55); VENOUS BLOOD PH 7.35 (7.32-7.43)
[2018-08-10 08:23] LABS: BASO # 0.02 K/mm3 (0.0-2.0); BASO % 0.2 % (0.0-3.0); EOS # 0.1 (0.0-0.7); EOS % 1.1 % (1.5-5.0); GRAN # 6.11 (1.4-6.5); GRAN % 67.8 % (50.0-68.0); HEMOGLOBIN 14.5 g/dL (14.0-18.0); LYMPH % 22.6 % (22.0-35.0); MEAN CELL VOLUME 97.1 fl (80.0-105.0); MEAN CORPUSCULAR HEMOGLOBIN 34.5 pg (25.0-35.0); MEAN CORPUSCULAR HGB CONC 35.5 g/dl (31.0-37.0); MEAN PLATELET VOLUME 10.2 fl (7.0-11.0); MONO # 0.8 (0.1-0.6); MONO % 8.3 % (1.0-6.0); RBC 4.2 10^6/uL (3.5-6.1); RED CELL DISTRIBUTION WIDTH 13.9 % (11.5-14.5)
[2018-08-10 08:31] LABS: ALBUMIN 3.5 g/dL (3.0-4.8); CALCIUM 10.4 mg/dL (8.4-10.5)
[2018-08-10] MEDS ORDERED: Albuterol 0.083% Inhal Sol (2.5 mg/3 mL) UD INH STA (08:39)
[2018-08-10 08:42] LABS: TROPONIN I 0.03 ng/mL
[2018-08-10] MEDS ORDERED: Morphine 4 mg/ml ISec IVP STA (08:42)
[2018-08-10 09:19] LABS: URINE BILIRUBIN NEGATIVE (NEGATIVE); URINE BLOOD TRACE-INTACT (NEGATIVE); URINE GLUCOSE (UA) NEGATIVE (NEGATIVE); URINE LEUKOCYTE ESTERASE SMALL Leu/uL (NEGATIVE); URINE PROTEIN 30 mg/dL (<30 mg/dL); URINE UROBILINOGEN 0.2 E.U./dL (<1 E.U./dL)
[2018-08-10 09:20] LABS: URINE APPEARANCE SL CLOUDY (CLEAR); URINE COLOR YELLOW (YELLOW)
[2018-08-10 09:22] LABS: URINE BACTERIA FEW (NEG); URINE EPITHELIAL CELLS 0 - 2 /hpf (0-5); URINE RBC 0 - 2 /hpf (0-2); URINE WBC 0 - 2 /hpf (0-6)
--- NOTE | 2018-08-10 09:22 | RAD ---
Date of service: 08/10/2018 HISTORY: abdominal pain COMPARISON: 01/06/2018 FINDINGS: LUNGS: No active pulmonary disease. PLEURA: No significant pleural effusion identified, no pneumothorax apparent. CARDIOVASCULAR: No aortic atherosclerotic calcification present. Normal cardiac size. Mitral valve calcification OSSEOUS STRUCTURES: No significant abnormalities. VISUALIZED UPPER ABDOMEN: Normal. OTHER FINDINGS: None. IMPRESSION: No active disease.
--- NOTE | 2018-08-10 09:34 | CT ---
Date of service: 08/10/2018 PROCEDURE: CT Abdomen and Pelvis without intravenous contrast HISTORY: LLQ abd pain w/ sacral pain COMPARISON: None. TECHNIQUE: Technique. Contrast dose: Radiation dose: Total exam DLP = 554.04 mGy-cm. This CT exam was performed using one or more of the following dose reduction techniques: Automated exposure control, adjustment of the mA and/or kV according to patient size, and/or use of iterative reconstruction technique. FINDINGS: LOWER THORAX: Unremarkable. LIVER: Multiple hepatic calcified granulomata.. No gross lesion or ductal dilatation. GALLBLADDER AND BILE DUCTS: Cholelithiasis. PANCREAS: Unremarkable. No gross lesion or ductal dilatation. SPLEEN: Multiple calcified splenic granulomata. ADRENALS: Unremarkable. No mass. KIDNEYS AND URETERS: 4.4 centimeter left renal cyst.. No hydronephrosis. No solid mass. VASCULATURE: Multiple aortic and iliac vessel calcifications. No aortic atherosclerotic calcification or mural plaque present. BOWEL: Unremarkable. No obstruction. No gross mural thickening. APPENDIX: Unremarkable. Normal appendix. PERITONEUM: Unremarkable. No free fluid. No free air. LYMPH NODES: Unremarkable. No enlarged lymph nodes. BLADDER: Significant bladder distention. REPRODUCTIVE: Unremarkable. BONES: No acute fracture. OTHER FINDINGS: None. IMPRESSION: Cholelithiasis. Significant urinary bladder distention. No acute bowel obstruction or phlegmon.
[2018-08-10 10:22] LABS: INR 1.74; PARTIAL THROMBOPLASTIN TIME 42.5 Seconds (25.1-36.5); PROTHROMBIN TIME 20.2 SECONDS (9.4-12.5)
[2018-08-10 12:06] LABS: VENOUS BLOOD GAS BASE EXCESS -6.9 mmol/L (0.0-2.0); VENOUS BLOOD GAS PO2 55 mm/Hg (30-55); VENOUS BLOOD PH 7.24 (7.32-7.43)
--- NOTE | 2018-08-10 13:55 | CARD ---
APPROVED REPORT Date of service: 08/10/2018 EKG Measurement Heart [id number] <Conclusion> Normal sinus rhythm Possible septal infarct, age undetermined Abnormal ECG
[2018-08-10] MEDS ORDERED: Influenza Vaccine 60 mcg/0.5 mL SYR (4YR UP) IM ONE (14:06)
[2018-08-10] MEDS ORDERED: Pneumococcal 23-Valent Vaccine IM ONE (14:06)
--- NOTE | 2018-08-10 15:26 | HP ---
DATE OF EXAM: 08/10/2018 HISTORY OF PRESENT ILLNESS: I saw Mr. Chávez in the emergency room, he was not doing well, he is not eating well and he is not drinking well, he was very dehydrated. 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 He has a past medical history of hypertension, COPD, arthritis and diabetes. He has also been losing weight recently, cannot eat well. He has had abdominal pain, constipation, redness on the left buttock for a few days, also had some blood while wiping, he had a foot infection with IV antibiotics for 6 weeks at [facility] for osteomyelitis, now he is very dry in the emergency room. He is alert. Family is with him. PAST MEDICAL HISTORY: He has hypertension, COPD, type 2 diabetes and he has arthritis. Was then constipated in the past. FAMILY HISTORY: No known family history. SOCIAL HISTORY: Never smoked. He does drink alcohol 5 cans of beer every other day. No substance abuse. ALLERGIES: NO KNOWN DRUG ALLERGIES. MEDICATIONS: On calcium, vitamin D, Proscar, vitamins, Januvia, Spiriva, valsartan and hydrochlorothiazide. REVIEW OF SYSTEMS: No acute vision or hearing issues. He has got a very dry throat. No appetite, very weak. No shortness of breath or cough. No chest pain or palpitations. Had abdominal pain and constipation. Appetite changes, but no diarrhea, nausea or vomiting. Decrease in urination lately, but no problems urinating. No back pain or neck pain. Little redness on his left buttock. No headache or dizziness. No anxiety or depression. PHYSICAL EXAMINATION: VITAL SIGNS: A 97.7 temperature, 63 pulse, 17 respiratory rate, 94/51 blood pressure and 90% O2 sat on room air. GENERAL: Alert and oriented x3. He is definitely dry, cachectic, frail. HEENT: Head is atraumatic and normocephalic. Extraocular muscles are intact. Pupils reactive to light. Throat is completely dry. No moisture down his mouth. HEART: Regular rate. Normal S1 and S2. LUNGS: Decreased breath sounds bilaterally, but clear to auscultation. ABDOMEN: Tender throughout the patient left lower quadrant. Normal bowel sounds. No guarding, no rebound or CVA tenderness. He has got a grade 1 sacral ulcer, erythema on the buttocks. EXTREMITIES: No edema of the lower extremities. NEUROLOGIC: GCS is 15. Cranial nerves II-XII grossly intact. Speech is normal. He is alert and oriented x3. SKIN: He has got grade 1. LYMPHATICS: Thyroid midline. No palpable appreciable lymphadenopathy. LABORATORY DATA: He had a chest x-ray which showed no acute disease. He had a CAT scan of the abdomen and pelvis which showed cholelithiasis, significant urinary bladder distention. No acute bowel obstruction or phlegmon. He had blood tests done, 9 white count, 14.5 hemoglobin, 40.8 hematocrit with a 125,000 platelets. He has 1.74 INR. Lactate was 3.3. He has 139 sodium, potassium 4.8, BUN 66, creatinine 2.1 it is very high for him, GFR is 31, sugar is 126, calcium is 10.4, total bili is 1.8, AST is 66, ALT is 52 and alk phos 74. Troponin I is 0.03. Total protein 7.2 and albumin is 3.5. Urine is small, he is going to have a consult with Renal. He will be on IV fluids, I will put him back on the medications, not his blood pressure medication right now with the blood pressures low. He is here for renal insufficiency, dehydration, he will be on a liquid diet, IV fluids, get insulin coverage and he will be admitted to [facility]. Jn Nguyen DO MERVAT
--- NOTE | 2018-08-10 15:27 | CP.PCM.CON ---
History of Present Illness - History of Present Illness History of Present Illness: Nephrology Consultation Note: Assessment: Stable Acute Kidney Injury (N17.9) likely due to obs uropathy and pre-renal state urine retention anorexia and weight loss, left supraclavicular mass mild hypercalcemia left 4.4 cm renal cyst DM, HTN, COPD Plan No acute need for renal replacement therapy at this time. Maintain hemodynamics stable. Avoid hypotension. Patient not on ACEI/ARB due to recent NEGRITA Monitor Input/Output, daily weights and renal function with basic metabolic panel agree with IVF d/w RN to place garcía started flomax daily urology eval further eval for left supraclavicular mass will be needed Dose meds/antibiotics for reduced GFR. Avoid fleets enema/magnesium based laxatives. Avoid nephrotoxins/NSAIDs/ iodinated contrast (unless needed emergently) Glycemic control Further work up/management as per primary team Thanks for allowing me to participate in care of your patient. Will follow patient with you. Please call if any Qs. had d/w team and daughter Collin Linwood Office: [phone] Chief Complaint; pain abdomen Reason for consult: Acute Kidney Injury HPI: Pt is a 78 M with hx of DM, HTN, COPD presented with complaints of pain abdomen and found to dehydration and obs uropathy with NEGRITA hence renal consult for NEGRITA Denies OTC/herbal meds or NSAIDs No recent iodinated contrast exposure. Noted obvious episodes of low BP. pt feels better but unable to urinate daughter reports decreased appetite with weight loss for last 6 weeks. pt says he doesn't feel hungry ROS: Cardiovascular: No chest pain. Pulmonary: No shortness of breath Gastrointestinal: c/o abdominal pain No nausea. No vomiting. Genitourinary: No pain while urinating. Denies blood in urine. unable to urinate though All other negative except as mentioned in HPI Physical Examination: General Appearance: Comfortable, in no acute respiratory distress, co-operative . appears cachexic Vitals reviewed and noted as below Head; Atraumatic, normocephalic ENT: no ulcers no thrush. Tongue is midline/dry. Oropharynx: no rash or ulcers. EYES: Pupils are equal, round and reactive to light accommodation. Eye muscles and extraocular movement intact. Sclera is anicteric. Neck; no thyromegaly or bruit. Left supra-clavicular lump noted Lungs: Normal respiratory rate/effort. Breath sounds bilateral equal and clear Heart: Normal rate. s1s2 normal. No rub or gallop. Extremities: no edema. No varicose veins Neurological: Patient is alert, awake and oriented to person, place and time. No focal deficit. Strength bilateral appropriate and equal Skin: Warm and dry. Normal turgor. No rash. Palpitation: Normal elasticity for age Abdomen: Abdomen is soft. Bowel sounds +. There is no abdominal tenderness, no guarding/rigidity no organomegaly Psych: normal insight and normal affect/mood MSK: no joint tenderness or swelling. Digits and nails normal, no deformity : kidney not palpable. bladder distended. Labs/imaging reviewed. Past medical history, past surgical history, family history, social history, allergy reviewed and noted as below Family hx: no hx of CKD. Rest non-contributory Past Patient History - Infectious Disease Hx of Infectious Diseases: None - Past Social History Smoking Status: Never Smoked - CARDIAC Hx Cardiac Disorders: Yes Hx Hypertension: Yes - PULMONARY Hx Respiratory Disorders: Yes Hx Chronic Obstructive Pulmonary Disease (COPD): Yes - NEUROLOGICAL Hx Neurological Disorder: No - HEENT Hx HEENT Problems: No - RENAL Hx Chronic Kidney Disease: No - ENDOCRINE/METABOLIC Hx Endocrine Disorders: Yes Hx Diabetes Mellitus Type 2: Yes (patient denies, takes no meds) - HEMATOLOGICAL/ONCOLOGICAL Hx Blood Disorders: No Hx Cancer: No - INTEGUMENTARY Hx Dermatological Problems: Yes Other/Comment: 08-10-18 IN BETWEEN BUTTOCKS WITH REDDENED FLUSHED SKIN,RAW SKIN. PAINFUL. HAS AN OPENED SKIN ,LINEAR OPENED AREA.IN BETWEEN GROIN WITH REDDENED FLUSHED AREA,RAW RED SKIN. HAS IASD. LEFT HEEL HAS HEALING DRY SKIN WITH AN OLD BLACKENED SCAB . MEASURES 0.5 CM. LEFT BIG TIP OF TOE HAS A DRY SKIN,FLAKY SKIN. DRESSING AT WOUND CTR. - MUSCULOSKELETAL/RHEUMATOLOGICAL Hx Musculoskeletal Disorders: Yes (LUMBAR DISC DSE,RADICULOPATHY) Hx Arthritis: Yes Hx Falls: Yes Hx Osteomyelitis: Yes Hx Unsteady Gait: Yes (CANE) - GASTROINTESTINAL Hx Gastrointestinal Disorders: Yes (CONSTIPATION.POOR APPETITE,DEHYDRATION.CHOLELITHIASIS) Other/Comment: infrequent bowel movements w/o constipation - GENITOURINARY/GYNECOLOGICAL Hx Genitourinary Disorders: No Hx Incontinence: Yes - PSYCHIATRIC Hx Psychophysiologic Disorder: No Hx Substance Use: No - SURGICAL HISTORY Hx Surgeries: Yes (LEFT EAR LOBE WITH SX.REMOVAL OF SKIN CA.) Hx Mastectomy: No - ANESTHESIA Hx Anesthesia: No Hx Anesthesia Reactions: No Hx Malignant Hyperthermia: No Meds Allergies/Adverse Reactions: Allergies Allergy/AdvReac Type Severity Reaction Status Date / Time No Known Allergies Allergy Verified 08/10/18 11:25 - Medications Medications: Current Medications Apixaban (Eliquis) 5 mg PO BID LUCAS; Protocol Finasteride (Proscar) 5 mg PO DAILY ON LICENSE OF [facility] Sodium Chloride (Sodium Chloride 0.9%) 1,000 mls @ 100 mls/hr IV .Q10H STA Stop: 08/10/18 17:42 Last Admin: 08/10/18 07:55 Dose: 100 mls/hr Insulin Human Regular (Humulin R Med) 0 units SC ACHS LUCAS; Protocol Tiotropium [place] (Spiriva) 18 mcg IH DAILY ON LICENSE OF [facility] Results - Vital Signs Recent Vital Signs: Last Vital Signs Temp 97.7 F 08/10/18 07:26 Pulse 76 08/10/18 13:05 Resp 18 08/10/18 13:05 BP 104/52 L 08/10/18 11:55 Pulse Ox 99 08/10/18 11:55 - Labs Result Diagrams: 08/10/18 08:00 08/10/18 08:00 Labs: Laboratory Results - last 24 hr 08/10/18 08/10/18 08/10/18 08:00 08:00 08:00 WBC 9.0 RBC 4.20 Hgb 14.5 Hct 40.8 L MCV 97.1 D MCH 34.5 MCHC 35.5 RDW 13.9 Plt Count 125 MPV 10.2 Gran % 67.8 Lymph % (Auto) 22.6 [place] % (Auto) 8.3 H Eos % (Auto) 1.1 L Baso % (Auto) 0.2 Gran # 6.11 Lymph # (Auto) 2.0 [place] # (Auto) 0.8 H Eos # (Auto) 0.1 Baso # (Auto) 0.02 PT INR APTT pO2 21 L VBG pH 7.35 VBG pCO2 39.0 L VBG HCO3 21.5 VBG Total CO2 22.7 VBG O2 Sat (Calc) 41.7 VBG Base Excess -3.8 L VBG Potassium 5.4 H Sodium 139 137.0 Chloride 104 102.0 Glucose 126 H Lactate 3.3 H FiO2 21.0 Potassium 4.8 Carbon Dioxide 20 L Anion Gap 20 BUN 66 H Creatinine 2.1 H Est GFR ( Amer) 37 Est GFR (Non-Af Amer) 31 Random Glucose 126 H Calcium 10.4 Total Bilirubin 1.8 H AST 66 H D ALT 52 Alkaline Phosphatase 74 Troponin I 0.03 D Total Protein 7.2 Albumin 3.5 Globulin 3.7 Albumin/Globulin Ratio 1.0 L Lipase 176 Venous Blood Potassium 5.4 H Urine Color Urine Appearance Urine pH Ur Specific [place] Urine Protein Urine Glucose (UA) Urine Ketones Urine Blood Urine Nitrate Urine Bilirubin Urine Urobilinogen Ur Leukocyte Esterase Urine RBC Urine WBC Ur Epithelial Cells Urine Bacteria 08/10/18 08/10/18 08/10/18 09:00 10:00 12:00 WBC RBC Hgb Hct MCV MCH MCHC RDW Plt Count MPV Gran % Lymph % (Auto) [place] % (Auto) Eos % (Auto) Baso % (Auto) Gran # Lymph # (Auto) [place] # (Auto) Eos # (Auto) Baso # (Auto) PT 20.2 H INR 1.74 APTT 42.5 H pO2 55 VBG pH 7.24 L VBG pCO2 48.0 VBG HCO3 20.6 L VBG Total CO2 22.1 VBG O2 Sat (Calc) 88.4 H VBG Base Excess -6.9 L VBG Potassium 4.8 Sodium 137.0 Chloride 105.0 Glucose 128 H Lactate 1.6 FiO2 21.0 Potassium Carbon Dioxide Anion Gap BUN Creatinine Est GFR ( Amer) Est GFR (Non-Af Amer) Random Glucose Calcium Total Bilirubin AST ALT Alkaline Phosphatase Troponin I Total Protein Albumin Globulin Albumin/Globulin Ratio Lipase Venous Blood Potassium 4.8 Urine Color Yellow Urine Appearance Sl cloudy Urine pH 6.0 Ur Specific [place] 1.025 Urine Protein 30 H Urine Glucose (UA) Negative Urine Ketones Negative Urine Blood Trace-intact H Urine Nitrate Negative Urine Bilirubin Negative Urine Urobilinogen 0.2 Ur Leukocyte Esterase Small H Urine RBC 0 - 2 Urine WBC 0 - 2 Ur Epithelial Cells 0 - 2 Urine Bacteria Few
[2018-08-10] MEDS: Insulin Reg-MEDIUM-Coverage SC SCH (17:57)
[2018-08-11 07:52] LABS: MEAN CELL VOLUME 98.1 fl (80.0-105.0); MEAN CORPUSCULAR HEMOGLOBIN 33.3 pg (25.0-35.0); MEAN PLATELET VOLUME 10.1 fl (7.0-11.0); RBC 3.6 10^6/uL (3.5-6.1); RED CELL DISTRIBUTION WIDTH 13.9 % (11.5-14.5); WHITE BLOOD COUNT 6.2 10^3/uL (4.5-11.0)
[2018-08-11 08:22] LABS: ALB/GLOB RATIO 0.9 (1.1-1.8); ALBUMIN 2.6 g/dL (3.0-4.8); CALCIUM 9.2 mg/dL (8.4-10.5)
[2018-08-11] MEDS ORDERED: Sodium Chloride 0.45% 1,000 ML IV SCH (08:45)
--- NOTE | 2018-08-11 09:03 | CT ---
Date of service: 08/11/2018 PROCEDURE: CT Chest without contrast HISTORY: left upper chest bump COMPARISON: None available. TECHNIQUE: Contiguous axial images were obtained through the chest without intravenous contrast enhancement. Sagittal and coronal reconstructions were performed. Radiation dose: Total exam DLP = 530.79 mGy-cm. This CT exam was performed using one or more of the following dose reduction techniques: Automated exposure control, adjustment of the mA and/or kV according to patient size, and/or use of iterative reconstruction technique. FINDINGS: LUNGS: Clear lungs. Visualized airway clear MEDIASTINUM: Unremarkable thoracic aorta. No aneurysm. There is dense mitral valve calcification. There is also calcification of the coronary arteries main pulmonary artery unremarkable. No vascular congestion. No lymphadenopathy. Aortic calcification PLEURA: No pleural fluid. No pneumothorax. BONES: No fracture. No destructive lesion. UPPER ABDOMEN: Gallstones. Calcified granulomas in the liver. OTHER FINDINGS: None. IMPRESSION: No acute findings.
[2018-08-11] MEDS: Insulin Reg-MEDIUM-Coverage SC SCH ×4 (10:12→22:38)
--- NOTE | 2018-08-11 10:21 | PN ---
DATE: 08/11/2018 SUBJECTIVE: I saw him in resting comfortably in bed. He actually slept fairly well last night. He is feeling little bit better, little more energy. His mouth is extremely dry and crusted and today with IV fluids, he is doing a lot better, it is moist. He has actually got an appetite a little bit and he is looking forward to eat, he has unclear liquid diet at this time. He will drink some fluids and see how he does. PHYSICAL EXAMINATION: VITAL SIGNS: He has a 98.3 temperature, 75 pulse, 93/53 blood pressure, 18 respiratory rate and 97% O2 saturation on room air. HEENT: Head is atraumatic and normocephalic. HEART: Regular rate. LUNGS: Decreased breath sounds, but clear. ABDOMEN: Soft. EXTREMITIES: No edema. He has status post 6 weeks from IV antibiotics for osteomyelitis of his heel. He has been home for about a week. He has been very weak the family said. LABORATORY DATA: He has a 6.2 white count, 12 hemoglobin, 35.3 hematocrit with 91,000 platelets. Lactate was 3.3, it is down to 1.6. He has a sodium 139 , potassium 4.4, BUN 55, creatinine 1.6 which is better, he came in it was 66 and 2.1, he is definitely improving with IV fluids. GFR is up to 42, sugar is 116, calcium is 9.2, phosphorous 3.1, magnesium is 2.1, total bilirubin is 1. AST is 17, ALT is 49, alk phos 62 and total protein is 5.6. He is being seen by Renal. He is on IV fluids. DIAGNOSTIC DATA: His CAT scan of the abdomen and pelvis that was done which showed cholelithiasis, significant urinary bladder distention. No acute bowel obstruction. There is a CAT scan of the chest that is pending and that has not been read yet. We will continue with IV fluids and I want him out of bed to chair, want physical therapy to see him and hopefully he will continue to improve. He is here for dehydration and weakness. Jn Nguyen DO
[2018-08-11] MEDS: Sodium Chloride 0.9% 1,000 ML IV SCH ×2 (10:23→22:45)
[2018-08-11] MEDS: Tiotropium 18 mcg Cap For Inhalation IH SCH (10:29)
--- NOTE | 2018-08-11 11:46 | US ---
Date of service: 08/11/2018 PROCEDURE: SOFT TISSUE ULTRASOUND LEFT SUPRACLAVICULAR REGION HISTORY: left supraclavicular mass, for further eval COMPARISON: None available. TECHNIQUE: Using a linear high-frequency transducer ultrasound of the left supraclavicular fossa was performed for evaluation of palpable abnormality. FINDINGS: No cystic or solid lesions identified the left supraclavicular fossa in multiple projections submitted of this area. Soft tissue is unremarkable appearing overall. IMPRESSION: Unremarkable ultrasonography of the left supraclavicular fossa. No definite cyst or solid mass identified. Is central persist or worsen follow-up CT Neck with contrast is recommended.
--- NOTE | 2018-08-11 12:23 | CP.PCM.PN ---
Subjective - Date & Time of Evaluation Date of Evaluation: 08/11/18 Time of Evaluation: 12:22 - Subjective Subjective: Nephrology Consultation Note: Assessment: Stable Acute Kidney Injury (N17.9) likely due to obs uropathy and pre-renal state urine retention anorexia and weight loss, left supraclavicular mass mild hypercalcemia left 4.4 cm renal cyst DM, HTN, COPD Plan No acute need for renal replacement therapy at this time. Maintain hemodynamics stable. Avoid hypotension. Patient not on ACEI/ARB due to recent NEGRITA Monitor Input/Output, daily weights and renal function with basic metabolic panel agree with IVF as NS as ordered started flomax daily urology eval requested further eval for left supraclavicular mass as per primary team Dose meds/antibiotics for reduced GFR. Avoid fleets enema/magnesium based laxatives. Avoid nephrotoxins/NSAIDs/ iodinated contrast (unless needed emergently) Glycemic control Further work up/management as per primary team Thanks for allowing me to participate in care of your patient. Will follow patie nt with you. Please call if any Qs. had d/w team and daughter Dr Polanco [place] Office: [phone] Chief Complaint; pain abdomen Reason for consult: Acute Kidney Injury HPI: Pt is a 78 M with hx of DM, HTN, COPD presented with complaints of pain abdomen and found to dehydration and obs uropathy with NEGRITA hence renal consult for NEGRITA Denies OTC/herbal meds or NSAIDs No recent iodinated contrast exposure. Noted obvious episodes of low BP. pt feels better but unable to urinate daughter reports decreased appetite with weight loss for last 6 weeks. pt says he doesn't feel hungry ROS: pt upset Cardiovascular: No chest pain. Pulmonary: No shortness of breath Gastrointestinal: no abdominal pain No nausea. No vomiting. Genitourinary: No pain while urinating. Denies blood in urine. was unable to urinate though. now has garcía All other negative except as mentioned in HPI Physical Examination: General Appearance: Comfortable, in no acute respiratory distress, co-operative . appears cachexic Vitals reviewed and noted as below Head; Atraumatic, normocephalic ENT: no ulcers no thrush. Tongue is midline/dry. Oropharynx: no rash or ulcers. EYES: Pupils are equal, round and reactive to light accommodation. Eye muscles and extraocular movement intact. Sclera is anicteric. Neck; no thyromegaly or bruit. Left supra-clavicular soft lump noted Lungs: Normal respiratory rate/effort. Breath sounds bilateral equal and clear Heart: Normal rate. s1s2 normal. No rub or gallop. Extremities: no edema. No varicose veins Neurological: Patient is alert, awake and oriented to person, place and time. No focal deficit. Strength bilateral appropriate and equal Skin: Warm and dry. Normal turgor. No rash. Palpitation: Normal elasticity for age Abdomen: Abdomen is soft. Bowel sounds +. There is no abdominal tenderness, no guarding/rigidity no organomegaly Psych: normal insight and normal affect/mood MSK: no joint tenderness or swelling. Digits and nails normal, no deformity : kidney not palpable. bladder not distended. has garcía Labs/imaging reviewed. Past medical history, past surgical history, family history, social history, allergy reviewed and noted as below Family hx: no hx of CKD. Rest non-contributory Objective - Vital Signs/Intake and Output Vital Signs (last 24 hours): Temp Pulse Resp BP Pulse Ox 98.3 F 75 18 93/53 L 97 08/11/18 07:00 08/11/18 07:00 08/11/18 07:00 08/11/18 07:00 08/11/18 07:00 Intake and Output: 08/11/18 08/11/18 06:59 18:59 Output Total 500 Balance -500 - Medications Medications: Current Medications Apixaban (Eliquis) 5 mg PO BID [facility]; Protocol Last Admin: 08/11/18 10:29 Dose: 5 mg Finasteride (Proscar) 5 mg PO DAILY [facility] Last Admin: 08/11/18 10:29 Dose: 5 mg Sodium Chloride (Sodium Chloride 0.9%) 1,000 mls @ 100 mls/hr IV .Q10H [facility] Last Admin: 08/11/18 10:23 Dose: 100 mls/hr Insulin Human Regular (Humulin R Med) 0 units SC ACHS [facility]; Protocol Last Admin: 08/11/18 10:12 Dose: Not Given Tiotropium [place] (Spiriva) 18 mcg IH DAILY [facility] Last Admin: 08/11/18 10:29 Dose: 18 mcg - Labs Labs: 08/11/18 07:30 08/11/18 07:30 PT 20.2 SECONDS (9.4-12.5) H 08/10/18 10:00 INR 1.74 08/10/18 10:00 APTT 42.5 Seconds (25.1-36.5) H 08/10/18 10:00
--- NOTE | 2018-08-11 16:16 | CP.PCM.CON ---
<Ernie Kim - Last Filed: 08/11/18 16:10> History of Present Illness - History of Present Illness History of Present Illness: Podiatry consult note for Dr. Peck 78 yo male with pmhx of hypertension, COPD, arthritis and diabetes, seen and evaluated at bedside with Dr. Peck. He presented to the ED for abdominal pain and bloody stool. Resting comfortably today. Well known to Dr. Peck. States that he has been wearing the boot he was given at home to protect his heels. States that he is in no pain to his heels today. States that he has not noticed any drainage or bleeding from his left heel wound nor has he noticed redness or pus. Denies N/V/F/C/SOB today and has no other pedal complaints. He presents with a cushion to his heel in his sock in bed. PMHx - hypertension, COPD, arthritis and diabetes All - NKDA Past Patient History - Infectious Disease Hx of Infectious Diseases: None - Past Social History Smoking Status: Never Smoked - CARDIAC Hx Cardiac Disorders: Yes Hx Hypertension: Yes - PULMONARY Hx Chronic Obstructive Pulmonary Disease (COPD): Yes - NEUROLOGICAL Hx Neurological Disorder: No - HEENT Hx HEENT Problems: No - RENAL Hx Chronic Kidney Disease: No - ENDOCRINE/METABOLIC Hx Diabetes Mellitus Type 2: Yes - HEMATOLOGICAL/ONCOLOGICAL Hx Blood Disorders: No Hx Cancer: No - INTEGUMENTARY Hx Dermatological Problems: Yes Other/Comment: 08-10-18 IN BETWEEN BUTTOCKS WITH REDDENED FLUSHED SKIN,RAW SKIN. PAINFUL. HAS AN OPENED SKIN ,LINEAR OPENED AREA.IN BETWEEN GROIN WITH REDDENED FLUSHED AREA,RAW RED SKIN. HAS IASD. LEFT HEEL HAS HEALING DRY SKIN WITH AN OLD BLACKENED SCAB . MEASURES 0.5 CM. LEFT BIG TIP OF TOE HAS A DRY SKIN,FLAKY SKIN. DRESSING AT WOUND CTR. - MUSCULOSKELETAL/RHEUMATOLOGICAL Hx Musculoskeletal Disorders: Yes (LUMBAR DISC DSE,RADICULOPATHY) Hx Arthritis: Yes Hx Falls: Yes Hx Osteomyelitis: Yes Hx Unsteady Gait: Yes (CANE) - GASTROINTESTINAL Hx Gastrointestinal Disorders: Yes (CONSTIPATION.POOR APPETITE,DEHYDRATION.CHOLELITHIASIS) Other/Comment: infrequent bowel movements w/o constipation - GENITOURINARY/GYNECOLOGICAL Hx Genitourinary Disorders: No Hx Incontinence: Yes - PSYCHIATRIC Hx Psychophysiologic Disorder: No Hx Substance Use: No - SURGICAL HISTORY Hx Surgeries: Yes (LEFT EAR LOBE WITH SX.REMOVAL OF SKIN CA.) Hx Mastectomy: No - ANESTHESIA Hx Anesthesia: No Hx Anesthesia Reactions: No Hx Malignant Hyperthermia: No Meds Allergies/Adverse Reactions: Allergies Allergy/AdvReac Type Severity Reaction Status Date / Time No Known Allergies Allergy Verified 08/10/18 11:25 - Medications Medications: Current Medications Apixaban (Eliquis) 5 mg PO BID [facility]; Protocol Last Admin: 08/11/18 10:29 Dose: 5 mg Finasteride (Proscar) 5 mg PO DAILY [facility] Last Admin: 08/11/18 10:29 Dose: 5 mg Sodium Chloride (Sodium Chloride 0.9%) 1,000 mls @ 100 mls/hr IV .Q10H [facility] Last Admin: 08/11/18 10:23 Dose: 100 mls/hr Insulin Human Regular (Humulin R Med) 0 units SC ACHS [facility]; Protocol Last Admin: 08/11/18 10:12 Dose: Not Given Tiotropium [place] (Spiriva) 18 mcg IH DAILY [facility] Last Admin: 08/11/18 10:29 Dose: 18 mcg Physical Exam - Constitutional Appears: Well, Non-toxic, No Acute Distress - Head Exam Head Exam: ATRAUMATIC, NORMOCEPHALIC - Extremities Exam Additional comments: Left LE focused exam VASC: DP/PT pulses are palpable 1/4, Cap refill time: < 3 sec to all digits, Temp gradient: warm to cool from proximal to distal, no pitting or non-pitting edema noted DERM: left heel has hyperkeratotic lesion development; no drainage, bleeding, pus, or streaking, no clinical signs of infection; no other lesions or open wounds noted NEURO: Protective sensation grossly intact ORTHO: no pain on palpation to the left heel superficial lesion - Neurological Exam Neurological exam: Alert, Oriented x3 - Psychiatric Exam Psychiatric exam: Normal Affect, Normal Mood Results - Vital Signs Recent Vital Signs: Last Vital Signs Temp 98.3 F 08/11/18 07:00 Pulse 75 08/11/18 07:00 Resp 18 08/11/18 07:00 BP 93/53 L 08/11/18 07:00 Pulse Ox 97 08/11/18 07:00 - Labs Result Diagrams: 08/11/18 07:30 08/11/18 07:30 Labs: Laboratory Results - last 24 hr 08/10/18 08/10/18 08/11/18 17:18 23:00 06:28 WBC RBC Hgb Hct MCV MCH MCHC RDW Plt Count MPV Sodium Potassium Chloride Carbon Dioxide Anion Gap BUN Creatinine Est GFR ( Amer) Est GFR (Non-Af Amer) POC Glucose (mg/dL) 146 H 93 125 H Random Glucose Calcium Phosphorus Magnesium Total Bilirubin AST ALT Alkaline Phosphatase Total Protein Albumin Globulin Albumin/Globulin Ratio 25-OH Vitamin D Total 08/11/18 08/11/18 08/11/18 07:30 07:30 07:30 WBC 6.2 D RBC 3.60 Hgb 12.0 L D Hct 35.3 L MCV 98.1 MCH 33.3 MCHC 34.0 RDW 13.9 Plt Count 91 L MPV 10.1 Sodium 139 Potassium 4.4 Chloride 110 H Carbon Dioxide 25 Anion Gap 9 L BUN 55 H Creatinine 1.6 H Est GFR ( Amer) 51 Est GFR (Non-Af Amer) 42 POC Glucose (mg/dL) Random Glucose 116 H Calcium 9.2 Phosphorus 3.1 Magnesium 2.1 Total Bilirubin 1.0 AST 78 H ALT 49 Alkaline Phosphatase 62 Total Protein 5.6 L Albumin 2.6 L Globulin 3.0 Albumin/Globulin Ratio 0.9 L 25-OH Vitamin D Total 36.7 08/11/18 10:53 WBC RBC Hgb Hct MCV MCH MCHC RDW Plt Count MPV Sodium Potassium Chloride Carbon Dioxide Anion Gap BUN Creatinine Est GFR ( Amer) Est GFR (Non-Af Amer) POC Glucose (mg/dL) 119 H Random Glucose Calcium Phosphorus Magnesium Total Bilirubin AST ALT Alkaline Phosphatase Total Protein Albumin Globulin Albumin/Globulin Ratio 25-OH Vitamin D Total Assessment & Plan - Assessment and Plan (Free Text) Assessment: 78 yo male with pmhx of hypertension, COPD, arthritis and diabetes evaluated for left heel deep tissue injury/nonstageable ulceration Plan: Patient seen and evaluated at bedside with Dr. Peck Charts and labs reviewed - afebrile, absent leukocytosis Lesion cleansed with normal saline and dressed with xeroform, DSD, and kerlix Ordered mupirocin topical cream Ordered multipodus boots to be worn at all times while in bed Will continue to follow patient while in house Thank you for the consult - Date & Time Date: 08/11/18 Time: 16:22 <Rupert Peck - Last Filed: 08/12/18 09:40> Meds - Medications Medications: Current Medications Apixaban (Eliquis) 5 mg PO BID [facility]; Protocol Last Admin: 08/11/18 18:08 Dose: 5 mg Finasteride (Proscar) 5 mg PO DAILY [facility] Last Admin: 08/11/18 10:29 Dose: 5 mg Sodium Chloride (Sodium Chloride 0.9%) 1,000 mls @ 100 mls/hr IV .Q10H [facility] Last Admin: 08/11/18 22:45 Dose: 100 mls/hr Insulin Human Regular (Humulin R Med) 0 units SC ACHS [facility]; Protocol Last Admin: 08/11/18 22:38 Dose: Not Given Mupirocin (Bactroban Ointment) 0 gm TOP BID [facility] Last Admin: 08/11/18 18:08 Dose: 1 applic Tiotropium [place] (Spiriva) 18 mcg IH DAILY [facility] Last Admin: 08/11/18 10:29 Dose: 18 mcg Results - Vital Signs Recent Vital Signs: Last Vital Signs Temp 98 F 08/12/18 06:00 Pulse 68 08/12/18 06:00 Resp 20 08/12/18 06:00 BP 95/49 L 08/12/18 06:00 Pulse Ox 98 08/12/18 06:00 - Labs Result Diagrams: 08/12/18 06:50 08/12/18 06:50 Labs: Laboratory Results - last 24 hr 08/11/18 08/11/18 08/11/18 07:30 10:53 16:11 WBC RBC Hgb Hct MCV MCH MCHC RDW Plt Count MPV Sodium Potassium Chloride Carbon Dioxide Anion Gap BUN Creatinine Est GFR ( Amer) Est GFR (Non-Af Amer) POC Glucose (mg/dL) 119 H 135 H Random Glucose Calcium Total Bilirubin AST ALT Alkaline Phosphatase Total Protein Albumin Globulin Albumin/Globulin Ratio 25-OH Vitamin D Total 36.7 08/11/18 08/12/18 08/12/18 22:01 06:50 06:50 WBC 4.7 D RBC 3.39 L Hgb 11.5 L Hct 32.9 L MCV 97.1 MCH 33.9 MCHC 35.0 RDW 13.8 Plt Count 78 L MPV 10.0 Sodium 139 Potassium 4.1 Chloride 112 H Carbon Dioxide 23 Anion Gap 8 L BUN 36 H Creatinine 1.2 Est GFR ( Amer) > 60 Est GFR (Non-Af Amer) 58 POC Glucose (mg/dL) 111 H Random Glucose 94 Calcium 8.5 Total Bilirubin 1.1 AST 65 H ALT 54 Alkaline Phosphatase 59 Total Protein 5.1 L Albumin 2.3 L Globulin 2.9 Albumin/Globulin Ratio 0.8 L 25-OH Vitamin D Total 08/12/18 07:07 WBC RBC Hgb Hct MCV MCH MCHC RDW Plt Count MPV Sodium Potassium Chloride Carbon Dioxide Anion Gap BUN Creatinine Est GFR ( Amer) Est GFR (Non-Af Amer) POC Glucose (mg/dL) 83 Random Glucose Calcium Total Bilirubin AST ALT Alkaline Phosphatase Total Protein Albumin Globulin Albumin/Globulin Ratio 25-OH Vitamin D Total Attending/Attestation - Attestation I have personally seen and examined this patient.: Yes I have fully participated in the care of the patient.: Yes I have reviewed all pertinent clinical information: Yes
[2018-08-11] MEDS: Mupirocin 2% Ointment 15 GM TUBE TOP SCH (18:08)
--- NOTE | 2018-08-11 19:30 | CON ---
DATE: 08/11/2018 CHIEF COMPLAINT/HISTORY OF PRESENT ILLNESS: Mr. Chávez is a 78-year-old man, who was admitted with dehydration, failure to thrive, and azotemia. He has been having a difficult time recently with peripheral vascular disease and osteomyelitis of his left great toe. This has been treated primarily as an outpatient and prison with antibiotics. He also has a small eschar on his left heel. His MARK/PVR exam on the left demonstrates severely blunted waveforms at the calf, ankle, and metatarsal level. This is consistent with SFA and, popliteal, trifurcation, and/or tibial disease. On the right, he has primarily trifurcation and tibial disease. PHYSICAL EXAMINATION: EXTREMITIES: He has a palpable left femoral pulse. His left popliteal and distal pulses are not palpable. On the right, he has a weak right dorsalis pedis pulse. He denies significant pain, and there is no evidence of gangrene or significant infection at this time. PAST MEDICAL HISTORY: His past medical history is significant for hypertension, COPD, diabetes, and arthritis. IMPRESSION AND RECOMMENDATIONS: I spoke with Dr. Callejas, who believe Mr. Chávez would benefit from an arteriogram to define his left lower extremity anatomy. However, his creatinine remains elevated on his recent admission. I would continue hydration and monitor his creatinine. Once it has normalized, he can have an arteriogram performed with hydration and Mucomyst as prep. Shalom De Souza MD MTDDunia
[2018-08-12 07:15] LABS: HEMOGLOBIN 11.5 g/dL (14.0-18.0); MEAN CELL VOLUME 97.1 fl (80.0-105.0); MEAN CORPUSCULAR HEMOGLOBIN 33.9 pg (25.0-35.0); RBC 3.39 10^6/uL (3.5-6.1); RED CELL DISTRIBUTION WIDTH 13.8 % (11.5-14.5); WHITE BLOOD COUNT 4.7 10^3/uL (4.5-11.0)
[2018-08-12] MEDS: Insulin Reg-MEDIUM-Coverage SC SCH ×4 (07:30→23:29)
[2018-08-12 07:33] LABS: ALB/GLOB RATIO 0.8 (1.1-1.8); ALBUMIN 2.3 g/dL (3.0-4.8); ALT/SGPT 54 U/L (7-56); AST/SGOT 65 U/L (17-59); BLOOD UREA NITROGEN 36 mg/dL (7-21); CALCIUM 8.5 mg/dL (8.4-10.5); GFR NON-AFRICAN AMERICAN 58
--- NOTE | 2018-08-12 10:24 | PN ---
DATE: 08/12/2018 SUBJECTIVE: I saw Abel resting comfortably in bed this morning. He slept fairly well last night. IV fluids are running at 100 mL an hour. He tells me he is not that hungry, but he looks stronger to me. I did look over at the tray, so it is the good thing for practice. MEDICATIONS; He is on Bactroban cream, Eliquis, insulin coverage, Proscar, IV fluids of 100 and Spiriva. PHYSICAL EXAMINATION: VITAL SIGNS: He has a 98.1 temperature; 64 pulse; 95/54 blood pressure, a little low; 18 respiratory rate; 97% O2 sat on room air. HEENT: His head is atraumatic and normocephalic. His throat is dry this morning, it was moist yesterday. HEART: Regular rate. LUNGS: Decreased breath sounds but clear. ABDOMEN: Soft. EXTREMITIES: No edema. LABORATORY DATA: He has a 4.7 white count, 11.5 hemoglobin, 32.9 hematocrit with 78,000 platelets going in the wrong direction. He has 139 sodium, potassium 4.1, BUN is 36, creatinine is 1.2. When he came in, he was 66 and 2.1, so it is definitely improving with his BUN and creatinine. The creatinine has got normal at 1.2 and the BUN is getting closer to 36. His sugar is 94, calcium is 8.5, total bili is 1.1, AST is 65, ALT is 54, alk phos is 69, total protein is 5.1. He just got out of subacute rehab for osteomyelitis. He is going home for a short period of time. He is being seen by Vascular, also by Podiatry and Renal. He had an unremarkable ultrasound of the left supraclavicular fossa despite no definite cyst or solid mass. Investigation Division Captain wants to do an arteriogram once he is hydrated of the lower extremities. He had a CAT scan of his chest, which showed no acute findings of the CT chest. The ultrasound of the soft tissue is negative. When his kidney functions better, interventional radiologist would like to do an arteriogram of the lower extremities. He is getting closer to that. He has acute kidney injury and renal insufficiency. He got a left healed deep tissue injury, status post osteomyelitis. We will continue aggressive treatment and care on Abel Chávez. He is being seen by Renal and Uro for urinary retention. I will continue aggressive treatment and care. Hopefully, his kidney functions will continue to improve and needs physical therapy to see him, also had a bed to chair . Jn Nguyen DO MERVAT
[2018-08-12] MEDS: Mupirocin 2% Ointment 15 GM TUBE TOP SCH (11:47)
[2018-08-12] MEDS: Tiotropium 18 mcg Cap For Inhalation IH SCH (11:47)
[2018-08-12] MEDS: Sodium Chloride 0.9% 1,000 ML IV SCH (11:48)
--- NOTE | 2018-08-12 13:35 | CP.PCM.PN ---
Subjective - Date & Time of Evaluation Date of Evaluation: 08/12/18 Time of Evaluation: 13:32 - Subjective Subjective: Podiatry progress note for Dr. Callejas 78 yo male seen and evaluated at bedside with Dr. Callejas. States that he has no pedal complaints today. Denies N/V/F/C/SOB/CP. Dressing appeared clean dry and intact. Multipodus boots ordered yesterday, not with patient at present. Objective - Vital Signs/Intake and Output Vital Signs (last 24 hours): Temp Pulse Resp BP Pulse Ox 98 F 68 20 95/49 L 98 08/12/18 06:00 08/12/18 06:00 08/12/18 06:00 08/12/18 06:00 08/12/18 06:00 Intake and Output: 08/12/18 08/12/18 06:59 18:59 Intake Total 600 Output Total 850 Balance -250 - Medications Medications: Current Medications Apixaban (Eliquis) 5 mg PO BID [facility]; Protocol Last Admin: 08/12/18 11:50 Dose: Not Given Finasteride (Proscar) 5 mg PO DAILY [facility] Last Admin: 08/12/18 11:47 Dose: 5 mg Sodium Chloride (Sodium Chloride 0.9%) 1,000 mls @ 100 mls/hr IV .Q10H [facility] Last Admin: 08/12/18 11:48 Dose: 100 mls/hr Insulin Human Regular (Humulin R Med) 0 units SC ACHS [facility]; Protocol Last Admin: 08/12/18 07:30 Dose: Not Given Mupirocin (Bactroban Ointment) 0 gm TOP BID [facility] Last Admin: 08/12/18 11:47 Dose: 1 applic Tiotropium [place] (Spiriva) 18 mcg IH DAILY [facility] Last Admin: 08/12/18 11:47 Dose: 18 mcg - Labs Labs: 08/12/18 06:50 08/12/18 06:50 PT 20.2 SECONDS (9.4-12.5) H 08/10/18 10:00 INR 1.74 08/10/18 10:00 APTT 42.5 Seconds (25.1-36.5) H 08/10/18 10:00 - Constitutional Appears: Well, Non-toxic, No Acute Distress - Head Exam Head Exam: ATRAUMATIC, NORMOCEPHALIC - Extremities Exam Additional comments: Left LE focused exam VASC: DP/PT pulses are palpable 1/4, Cap refill time: < 3 sec to all digits, Temp gradient: warm to cool from proximal to distal, no pitting or non-pitting edema noted DERM: left heel has hyperkeratotic lesion development; no drainage, bleeding, pus, or streaking, no clinical signs of infection; no other lesions or open wounds noted NEURO: Protective sensation grossly intact ORTHO: no pain on palpation to the left heel superficial lesion - Neurological Exam Neurological Exam: Alert, Awake, Oriented x3 - Psychiatric Exam Psychiatric exam: Normal Affect, Normal Mood Assessment and Plan - Assessment and Plan (Free Text) Assessment: 78 yo male with left heel deep tissue injury/nonstageable ulceration Plan: Patient seen and evaluated at bedside with Dr. Callejas Charts and labs reviewed - afebrile, absent leukocytosis Left heel cleansed with sterile saline and dressed with optifoam Ordered mupirocin topical cream Ordered multipodus boots to be worn at all times while in bed Towel placed proximal to ankle to offload heels until multipodus boots are dispensed Will continue to follow patient while in house
--- NOTE | 2018-08-12 14:16 | RAD ---
Date of service: 08/12/2018 PROCEDURE: Radiographs of the Left Shoulder HISTORY: Pain. No history of recent/ related trauma provided COMPARISON: No prior. FINDINGS: BONES: Normal. No fracture. JOINTS: Severe degenerative changes affecting chromium clavicular joint, moderate degenerative changes glenohumeral relationship. SOFT TISSUES: Normal. OTHER FINDINGS: None. IMPRESSION: No acute fracture identified.
--- NOTE | 2018-08-12 16:06 | CP.PCM.PN ---
Subjective - Date & Time of Evaluation Date of Evaluation: 08/12/18 Time of Evaluation: 16:05 - Subjective Subjective: Nephrology Consultation Note: Assessment: Stable Acute Kidney Injury (N17.9) likely due to obs uropathy and pre-renal state urine retention anorexia and weight loss, left supraclavicular mass mild hypercalcemia left 4.4 cm renal cyst DM, HTN, COPD Plan No acute need for renal replacement therapy at this time. Maintain hemodynamics stable. Avoid hypotension. Patient not on ACEI/ARB due to recent NEGRITA Monitor Input/Output, daily weights and renal function with basic metabolic panel agree with IVF as NS as ordered started flomax daily urology eval requested further eval for left supraclavicular mass as per primary team pt planned for angiogram for PVD eval, will be at increased risk of contrast nephropathy but stable to go for it from renal perspective. will c/w IVF for hydration Dose meds/antibiotics for improved GFR. Glycemic control Further work up/management as per primary team Thanks for allowing me to participate in care of your patient. Will follow patient with you. Please call if any Qs. had d/w team and daughter Dr Polanco Linwood Office: [phone] Chief Complaint; pain abdomen Reason for consult: Acute Kidney Injury HPI: Pt is a 78 M with hx of DM, HTN, COPD presented with complaints of pain abdomen and found to dehydration and obs uropathy with NEGRITA hence renal consult for NEGRITA Denies OTC/herbal meds or NSAIDs No recent iodinated contrast exposure. Noted obvious episodes of low BP. pt feels better but unable to urinate daughter reports decreased appetite with weight loss for last 6 weeks. pt says he doesn't feel hungry ROS: pt upset Cardiovascular: No chest pain. Pulmonary: No shortness of breath Gastrointestinal: no abdominal pain No nausea. No vomiting. Genitourinary: No pain while urinating. Denies blood in urine. was unable to urinate though. now has garcía All other negative except as mentioned in HPI Physical Examination: General Appearance: Comfortable, in no acute respiratory distress, co-operative . appears cachexic Vitals reviewed and noted as below Head; Atraumatic, normocephalic ENT: no ulcers no thrush. Tongue is midline/dry. Oropharynx: no rash or ulcers. EYES: Pupils are equal, round and reactive to light accommodation. Eye muscles and extraocular movement intact. Sclera is anicteric. Neck; no thyromegaly or bruit. Left supra-clavicular soft lump noted Lungs: Normal respiratory rate/effort. Breath sounds bilateral equal and clear Heart: Normal rate. s1s2 normal. No rub or gallop. Extremities: no edema. No varicose veins Neurological: Patient is alert, awake and oriented to person, place and time. No focal deficit. Strength bilateral appropriate and equal Skin: Warm and dry. Normal turgor. No rash. Palpitation: Normal elasticity for age Abdomen: Abdomen is soft. Bowel sounds +. There is no abdominal tenderness, no guarding/rigidity no organomegaly Psych: normal insight and normal affect/mood MSK: no joint tenderness or swelling. Digits and nails normal, no deformity : kidney not palpable. bladder not distended. has garcía Labs/imaging reviewed. Past medical history, past surgical history, family history, social history, allergy reviewed and noted as below Family hx: no hx of CKD. Rest non-contributory Objective - Vital Signs/Intake and Output Vital Signs (last 24 hours): Temp Pulse Resp BP Pulse Ox 98 F 78 20 96/53 L 99 08/12/18 06:00 08/12/18 14:00 08/12/18 14:00 08/12/18 14:00 08/12/18 14:00 Intake and Output: 08/12/18 08/12/18 06:59 18:59 Intake Total 600 Output Total 850 Balance -250 - Medications Medications: Current Medications Apixaban (Eliquis) 5 mg PO BID [facility]; Protocol Last Admin: 08/12/18 11:50 Dose: Not Given Finasteride (Proscar) 5 mg PO DAILY [facility] Last Admin: 08/12/18 11:47 Dose: 5 mg Sodium Chloride (Sodium Chloride 0.9%) 1,000 mls @ 100 mls/hr IV .Q10H [facility] Last Admin: 08/12/18 11:48 Dose: 100 mls/hr Insulin Human Regular (Humulin R Med) 0 units SC ACHS [facility]; Protocol Last Admin: 08/12/18 07:30 Dose: Not Given Mupirocin (Bactroban Ointment) 0 gm TOP BID [facility] Last Admin: 08/12/18 11:47 Dose: 1 applic Tamsulosin HCl (Flomax) 0.4 mg PO DAILY [facility] Tiotropium [place] (Spiriva) 18 mcg IH DAILY [facility] Last Admin: 08/12/18 11:47 Dose: 18 mcg - Labs Labs: 08/12/18 06:50 08/12/18 06:50 PT 20.2 SECONDS (9.4-12.5) H 08/10/18 10:00 INR 1.74 08/10/18 10:00 APTT 42.5 Seconds (25.1-36.5) H 08/10/18 10:00
--- NOTE | 2018-08-12 20:08 | PN ---
DATE: 08/12/2018 SUBJECTIVE: I was asked to see the patient with urinary retention. The patient has multiple other medical issues. Fall catheter is in place and draining well. Urine culture was negative. GFR of 58, which is improved from [address] scan showed a distended bladder and a 4.4 cm left renal cyst. There was no hydronephrosis. IMPRESSION AND PLAN: Leave Fall catheter indwelling for now. The patient is on tamsulosin and finasteride, but it is unclear how long he has been on this for and I will discuss this with Dr. Nguyen, continue treatment of his other medical issues at this time and we will plan a voiding trial and need to check a postvoid residual after the catheter is removed. Rodriguez Lopez MD
--- NOTE | 2018-08-13 06:23 | CP.PCM.CON ---
History of Present Illness - History of Present Illness History of Present Illness: General Surgery Consult Note for Dr. Bruce Patient is a 78 year old male, with PMH of HTN, COPD, type 2 DM, and arthritis, who presented with 6 week history of decreased appetite, weight loss, and dehydration. Patient seen and evaluated at bedside. Surgery was consulted for evaluation of a painless left supraclavicular mass. US of the supraclavicular fossa showed no significant findings. Patient denies fever, chills, N/V/D, CP, SOB. He reports occasional abdominal pain, constipation, and left buttock redness. No other acute complaints at this time. No history of EGD or colonoscopy. Patient was recently discharged from subacute rehab where he received a 6 week course of IV antibiotics for left heel osteomyelitis. PMH: HTN, COPD, type 2 DM, arthritis PSH: None Allergies: NKDA Med: see chart SH: Never smoked. No alcohol use in the last 2-3 years. No illicit durg use. 1 pack/day for 55 years, denies drugs and EtOH Review of Systems - Constitutional Constitutional: Anorexia, Weight Loss, Weakness. absent: Chills, Fever - EENT Eyes: absent: Blurred Vision, Change in Vision - Cardiovascular Cardiovascular: absent: Chest Pain, Dyspnea - Respiratory Respiratory: absent: Cough, Dyspnea - Gastrointestinal Gastrointestinal: absent: Abdominal Pain, Constipation, Diarrhea, Nausea, Vomiting - Musculoskeletal Musculoskeletal: absent: Back Pain, Neck Pain - Integumentary Integumentary: New Lesions Additional comments: 3x3cm soft, mobile mass with no tenderness - Neurological Neurological: absent: Dizziness, Headaches - Psychiatric Psychiatric: absent: Anxiety, Depression Past Patient History - Infectious Disease Hx of Infectious Diseases: None - Past Social History Smoking Status: Never Smoked - CARDIAC Hx Cardiac Disorders: Yes Hx Hypertension: Yes - PULMONARY Hx Chronic Obstructive Pulmonary Disease (COPD): Yes - NEUROLOGICAL Hx Neurological Disorder: No - HEENT Hx HEENT Problems: No - RENAL Hx Chronic Kidney Disease: No - ENDOCRINE/METABOLIC Hx Diabetes Mellitus Type 2: Yes - HEMATOLOGICAL/ONCOLOGICAL Hx Blood Disorders: No Hx Cancer: No - INTEGUMENTARY Hx Dermatological Problems: Yes Other/Comment: 08-10-18 IN BETWEEN BUTTOCKS WITH REDDENED FLUSHED SKIN,RAW SKIN. PAINFUL. HAS AN OPENED SKIN ,LINEAR OPENED AREA.IN BETWEEN GROIN WITH REDDENED FLUSHED AREA,RAW RED SKIN. HAS IASD. LEFT HEEL HAS HEALING DRY SKIN WITH AN OLD BLACKENED SCAB . MEASURES 0.5 CM. LEFT BIG TIP OF TOE HAS A DRY SKIN,FLAKY SKIN. DRESSING AT WOUND [facility]. - MUSCULOSKELETAL/RHEUMATOLOGICAL Hx Musculoskeletal Disorders: Yes (LUMBAR DISC DSE,RADICULOPATHY) Hx Arthritis: Yes Hx Falls: Yes Hx Osteomyelitis: Yes Hx Unsteady Gait: Yes (CANE) - GASTROINTESTINAL Hx Gastrointestinal Disorders: Yes (CONSTIPATION.POOR APPETITE,DEHYDRATION.CHOLELITHIASIS) Other/Comment: infrequent bowel movements w/o constipation - GENITOURINARY/GYNECOLOGICAL Hx Genitourinary Disorders: No Hx Incontinence: Yes - PSYCHIATRIC Hx Psychophysiologic Disorder: No Hx Substance Use: No - SURGICAL HISTORY Hx Surgeries: Yes (LEFT EAR LOBE WITH SX.REMOVAL OF SKIN CA.) Hx Mastectomy: No - ANESTHESIA Hx Anesthesia: No Hx Anesthesia Reactions: No Hx Malignant Hyperthermia: No Meds Allergies/Adverse Reactions: Allergies Allergy/AdvReac Type Severity Reaction Status Date / Time No Known Allergies Allergy Verified 08/10/18 11:25 - Medications Medications: Current Medications Apixaban (Eliquis) 5 mg PO BID [facility]; Protocol Last Admin: 08/12/18 17:22 Dose: Not Given Finasteride (Proscar) 5 mg PO DAILY [facility] Last Admin: 08/12/18 11:47 Dose: 5 mg Sodium Chloride (Sodium Chloride 0.9%) 1,000 mls @ 100 mls/hr IV .Q10H [facility] Last Admin: 08/12/18 11:48 Dose: 100 mls/hr Insulin Human Regular (Humulin R Med) 0 units SC ACHS [facility]; Protocol Last Admin: 08/12/18 23:29 Dose: Not Given Mupirocin (Bactroban Ointment) 0 gm TOP BID [facility] Last Admin: 08/12/18 11:47 Dose: 1 applic Tamsulosin HCl (Flomax) 0.4 mg PO DAILY [facility] Tiotropium [place] (Spiriva) 18 mcg IH DAILY [facility] Last Admin: 08/12/18 11:47 Dose: 18 mcg Physical Exam - Constitutional Appears: Well, Non-toxic, No Acute Distress - Head Exam Head Exam: ATRAUMATIC, NORMAL INSPECTION, NORMOCEPHALIC - Eye Exam Eye Exam: EOMI - ENT Exam ENT Exam: Mucous Membranes Dry - Neck Exam Additional comments: No palpable lymph nodes - Respiratory Exam Respiratory Exam: Clear to Auscultation Bilateral, NORMAL BREATHING PATTERN - Cardiovascular Exam Cardiovascular Exam: REGULAR RHYTHM - GI/Abdominal Exam GI & Abdominal Exam: Normal Bowel Sounds, Soft. absent: Tenderness - Rectal Exam Rectal Exam: Deferred - Neurological Exam Neurological exam: Alert, Oriented x3 - Psychiatric Exam Psychiatric exam: Normal Affect, Normal Mood - Skin Skin Exam: Dry, Intact, Normal Color, Warm Additional comments: No palpable lymph nodes in the aixlla and groin No visible skin lesions Results - Vital Signs Recent Vital Signs: Last Vital Signs Temp 97.6 F 08/12/18 23:01 Pulse 73 08/12/18 23:01 Resp 20 08/12/18 23:01 BP 123/60 08/12/18 23:01 Pulse Ox 96 08/12/18 23:01 - Labs Result Diagrams: 08/13/18 07:30 08/13/18 07:30 Labs: Laboratory Results - last 24 hr 08/12/18 08/12/18 08/12/18 06:50 06:50 07:07 WBC 4.7 D RBC 3.39 L Hgb 11.5 L Hct 32.9 L MCV 97.1 MCH 33.9 MCHC 35.0 RDW 13.8 Plt Count 78 L MPV 10.0 Sodium 139 Potassium 4.1 Chloride 112 H Carbon Dioxide 23 Anion Gap 8 L BUN 36 H Creatinine 1.2 Est GFR ( Amer) > 60 Est GFR (Non-Af Amer) 58 POC Glucose (mg/dL) 83 Random Glucose 94 Calcium 8.5 Total Bilirubin 1.1 AST 65 H ALT 54 Alkaline Phosphatase 59 Total Protein 5.1 L Albumin 2.3 L Globulin 2.9 Albumin/Globulin Ratio 0.8 L 08/12/18 08/12/18 16:31 21:21 WBC RBC Hgb Hct MCV MCH MCHC RDW Plt Count MPV Sodium Potassium Chloride Carbon Dioxide Anion Gap BUN Creatinine Est GFR ( Amer) Est GFR (Non-Af Amer) POC Glucose (mg/dL) 136 H 143 H Random Glucose Calcium Total Bilirubin AST ALT Alkaline Phosphatase Total Protein Albumin Globulin Albumin/Globulin Ratio Assessment & Plan - Assessment and Plan (Free Text) Assessment: 78M w/ left supraclavicular painless, mobile, soft tissue mass likely lipoma Plan: Patient deconditioned and weak - recommend Physical Therapy sessions No evidence of supraclavicular mass on CT and US Medical Management per primary team Further recommendations per Dr. Teo Morrissey PGY1
[2018-08-13 07:57] LABS: HEMOGLOBIN 11.6 g/dL (14.0-18.0); MEAN CELL VOLUME 97.1 fl (80.0-105.0); MEAN CORPUSCULAR HEMOGLOBIN 33.3 pg (25.0-35.0); MEAN CORPUSCULAR HGB CONC 34.3 g/dl (31.0-37.0); MEAN PLATELET VOLUME 10.2 fl (7.0-11.0); RBC 3.48 10^6/uL (3.5-6.1); RED CELL DISTRIBUTION WIDTH 13.7 % (11.5-14.5); WHITE BLOOD COUNT 5.4 10^3/uL (4.5-11.0)
[2018-08-13] MEDS: Insulin Reg-MEDIUM-Coverage SC SCH ×4 (08:16→23:00)
[2018-08-13 08:39] LABS: ALB/GLOB RATIO 0.8 (1.1-1.8); ALBUMIN 2.4 g/dL (3.0-4.8); ALT/SGPT 59 U/L (7-56); AST/SGOT 67 U/L (17-59); BLOOD UREA NITROGEN 27 mg/dL (7-21); CALCIUM 8.5 mg/dL (8.4-10.5); GFR NON-AFRICAN AMERICAN > 60
--- NOTE | 2018-08-13 08:57 | CP.PCM.PN ---
Subjective - Date & Time of Evaluation Date of Evaluation: 08/13/18 Time of Evaluation: 08:54 - Subjective Subjective: Podiatry progress note for Dr. Callejas 78 yo male seen and evaluated at bedside with Dr. Callejas. States that he has no pedal complaints today. Denies N/V/F/C/SOB/CP. Dressing appeared clean dry and intact. Multipodus boots ordered yesterday, present at bedside. Objective - Vital Signs/Intake and Output Vital Signs (last 24 hours): Temp Pulse Resp BP Pulse Ox 97.6 F 73 20 123/60 96 08/12/18 23:01 08/12/18 23:01 08/12/18 23:01 08/12/18 23:01 08/12/18 23:01 Intake and Output: 08/13/18 08/13/18 06:59 18:59 Output Total 400 Balance -400 - Medications Medications: Current Medications Apixaban (Eliquis) 5 mg PO BID [facility]; Protocol Last Admin: 08/12/18 17:22 Dose: Not Given Finasteride (Proscar) 5 mg PO DAILY [facility] Last Admin: 08/12/18 11:47 Dose: 5 mg Sodium Chloride (Sodium Chloride 0.9%) 1,000 mls @ 100 mls/hr IV .Q10H [facility] Last Admin: 08/12/18 11:48 Dose: 100 mls/hr Insulin Human Regular (Humulin R Med) 0 units SC ACHS [facility]; Protocol Last Admin: 08/13/18 08:16 Dose: Not Given Mupirocin (Bactroban Ointment) 0 gm TOP BID [facility] Last Admin: 08/12/18 11:47 Dose: 1 applic Tamsulosin HCl (Flomax) 0.4 mg PO DAILY [facility] Tiotropium [place] (Spiriva) 18 mcg IH DAILY [facility] Last Admin: 08/12/18 11:47 Dose: 18 mcg - Labs Labs: 08/13/18 07:30 08/13/18 07:30 PT 20.2 SECONDS (9.4-12.5) H 08/10/18 10:00 INR 1.74 08/10/18 10:00 APTT 42.5 Seconds (25.1-36.5) H 08/10/18 10:00 - Constitutional Appears: Well, Non-toxic, No Acute Distress - Head Exam Head Exam: ATRAUMATIC, NORMOCEPHALIC - Extremities Exam Additional comments: Left LE focused exam VASC: DP/PT pulses are palpable 1/4, Cap refill time: < 3 sec to all digits, Temp gradient: warm to cool from proximal to distal, no pitting or non-pitting edema noted DERM: left heel has hyperkeratotic lesion development; no drainage, bleeding, pus, or streaking, no clinical signs of infection; no other lesions or open wounds noted NEURO: Protective sensation grossly intact ORTHO: no pain on palpation to the left heel superficial lesion - Neurological Exam Neurological Exam: Alert, Awake, Oriented x3 - Psychiatric Exam Psychiatric exam: Normal Affect, Normal Mood Assessment and Plan - Assessment and Plan (Free Text) Assessment: 78 yo male with left heel deep tissue injury/nonstageable ulceration Plan: Patient seen and evaluated at bedside with Dr. Callejas Charts and labs reviewed - afebrile, absent leukocytosis Left heel cleansed with sterile saline and dressed with optifoam Multipodus boots to be worn at all times while in bed Discussed physical therapy and getting up and moving - eval for TCU Will continue to follow patient while in house
[2018-08-13] MEDS: Tiotropium 18 mcg Cap For Inhalation IH SCH (10:01)
[2018-08-13] MEDS: Mupirocin 2% Ointment 15 GM TUBE TOP SCH ×2 (10:59→17:57)
--- NOTE | 2018-08-13 13:12 | PN ---
DATE: 08/13/2018 SUBJECTIVE: The patient is for possible discharge to the TCU today. Discussed this with Dr. Callejas, who wants to send him to the TCU. I discussed with Physical Therapy to see what their opinion is. Also, Dr. Shalom De Souza wants to keep an eye on him while at TCU about his left heel ulcer. PHYSICAL EXAMINATION: VITAL SIGNS: He has got 97.6 temperature, 73 pulse, 123/60 blood pressure, 20 respiratory rate, 96% O2 sat on room air. HEENT: Head is atraumatic, normocephalic. HEART: Regular rate. LUNGS: Decreased breath sounds, but clear. ABDOMEN: Soft. EXTREMITIES: Left heel was wrapped. He is very upset about being here. He does not want to go to [facility] or any rehab like that, he will go to the third floor for TCU. MEDICATIONS: Some Bactroban cream, Eliquis, Flomax, insulin coverage, Proscar, IV fluids, and Spiriva. LABORATORY DATA: He has a 5.4 white count, 11.6 hemoglobin, 30.8 hematocrit with 88 platelets. Sodium 138, potassium 3.8, BUN 27, creatinine 1.1 better, GFR is greater than 60, sugar is 92, calcium is 8.5. Total bili is 1.3, AST is 67, ALT is 59, alk phos 69, total protein is 5.4. ASSESSMENT AND PLAN: Interventional Radiology and Podiatry want him on the transitional care unit, also so does Urology to watch his urinary issues. He is on a Fall right now. There are lot of reasons to keep him here in the hospital. I am hoping to get him to the transitional care unit possibly today. I will discuss with case management and we will continue with aggressive treatment and care on Abel Chávez. Jn Nguyen DO MTDD
--- NOTE | 2018-08-13 15:16 | CP.PCM.PN ---
Subjective - Date & Time of Evaluation Date of Evaluation: 08/13/18 Time of Evaluation: 15:15 - Subjective Subjective: Nephrology Consultation Note: Assessment: Stable Acute Kidney Injury (N17.9) likely due to obs uropathy and pre-renal state urine retention anorexia and weight loss, left supraclavicular mass mild hypercalcemia left 4.4 cm renal cyst DM, HTN, COPD Plan No acute need for renal replacement therapy at this time. Maintain hemodynamics stable. Avoid hypotension. Patient not on ACEI/ARB due to recent NEGRITA Monitor Input/Output, daily weights and renal function with basic metabolic panel started flomax daily urology eval requested further eval for left supraclavicular mass as per primary team/surgery if pt planned for angiogram for PVD eval, will be at increased risk of contrast nephropathy but stable to go for it from renal perspective. c/w IVF for hydration pre-procedure if planned Dose meds/antibiotics for improved GFR. Glycemic control Further work up/management as per primary team Thanks for allowing me to participate in care of your patient. Will follow patient with you. Please call if any Qs. had d/w team and daughter Dr Polanco [place] Office: [phone] Chief Complaint; pain abdomen Reason for consult: Acute Kidney Injury HPI: Pt is a 78 M with hx of DM, HTN, COPD presented with complaints of pain abdomen and found to dehydration and obs uropathy with NEGRITA hence renal consult for NEGRITA Denies OTC/herbal meds or NSAIDs No recent iodinated contrast exposure. Noted obvious episodes of low BP. pt feels better but unable to urinate daughter reports decreased appetite with weight loss for last 6 weeks. pt says he doesn't feel hungry ROS: pt upset Cardiovascular: No chest pain. Pulmonary: No shortness of breath Gastrointestinal: no abdominal pain No nausea. No vomiting. Genitourinary: No pain while urinating. Denies blood in urine. was unable to urinate though. now has garcía All other negative except as mentioned in HPI Physical Examination: General Appearance: Comfortable, in no acute respiratory distress, co-operative . appears cachexic Vitals reviewed and noted as below Head; Atraumatic, normocephalic ENT: no ulcers no thrush. Tongue is midline/dry. Oropharynx: no rash or ulcers. EYES: Pupils are equal, round and reactive to light accommodation. Eye muscles and extraocular movement intact. Sclera is anicteric. Neck; no thyromegaly or bruit. Left supra-clavicular soft lump noted Lungs: Normal respiratory rate/effort. Breath sounds bilateral equal and clear Heart: Normal rate. s1s2 normal. No rub or gallop. Extremities: no edema. No varicose veins Neurological: Patient is alert, awake and oriented to person, place and time. No focal deficit. Strength bilateral appropriate and equal Skin: Warm and dry. Normal turgor. No rash. Palpitation: Normal elasticity for age Abdomen: Abdomen is soft. Bowel sounds +. There is no abdominal tenderness, no guarding/rigidity no organomegaly Psych: normal insight and normal affect/mood MSK: no joint tenderness or swelling. Digits and nails normal, no deformity : kidney not palpable. bladder not distended. has garcía Labs/imaging reviewed. Past medical history, past surgical history, family history, social history, allergy reviewed and noted as below Family hx: no hx of CKD. Rest non-contributory Objective - Vital Signs/Intake and Output Vital Signs (last 24 hours): Temp Pulse Resp BP Pulse Ox 97.7 F 81 20 109/54 L 100 08/13/18 14:00 08/13/18 14:00 08/13/18 14:00 08/13/18 14:00 08/13/18 14:00 Intake and Output: 08/13/18 08/13/18 06:59 18:59 Output Total 400 Balance -400 - Medications Medications: Current Medications Apixaban (Eliquis) 5 mg PO BID [facility]; Protocol Last Admin: 08/13/18 10:04 Dose: Not Given Finasteride (Proscar) 5 mg PO DAILY [facility] Last Admin: 08/13/18 10:08 Dose: 5 mg Sodium Chloride (Sodium Chloride 0.9%) 1,000 mls @ 100 mls/hr IV .Q10H [facility] Last Admin: 08/12/18 11:48 Dose: 100 mls/hr Insulin Human Regular (Humulin R Med) 0 units SC ACHS [facility]; Protocol Last Admin: 08/13/18 14:43 Dose: Not Given Midodrine (Proamatine) 2.5 mg PO TID [facility] Last Admin: 08/13/18 14:57 Dose: 2.5 mg Mupirocin (Bactroban Ointment) 0 gm TOP BID [facility] Last Admin: 08/13/18 10:59 Dose: 1 applic Tamsulosin HCl (Flomax) 0.4 mg PO DAILY [facility] Last Admin: 08/13/18 10:03 Dose: 0.4 mg Tiotropium [place] (Spiriva) 18 mcg IH DAILY [facility] Last Admin: 08/13/18 10:01 Dose: 18 mcg - Labs Labs: 08/13/18 07:30 08/13/18 07:30 PT 20.2 SECONDS (9.4-12.5) H 08/10/18 10:00 INR 1.74 08/10/18 10:00 APTT 42.5 Seconds (25.1-36.5) H 08/10/18 10:00
[2018-08-13] MEDS ORDERED: Sodium Chloride 0.9% 1,000 ML IV SCH (16:15)
[2018-08-14 07:21] LABS: HEMOGLOBIN 11.2 g/dL (14.0-18.0); MEAN CELL VOLUME 96.4 fl (80.0-105.0); MEAN CORPUSCULAR HEMOGLOBIN 33.6 pg (25.0-35.0); MEAN CORPUSCULAR HGB CONC 34.9 g/dl (31.0-37.0); MEAN PLATELET VOLUME 9.9 fl (7.0-11.0); RBC 3.33 10^6/uL (3.5-6.1); RED CELL DISTRIBUTION WIDTH 13.7 % (11.5-14.5); WHITE BLOOD COUNT 5.6 10^3/uL (4.5-11.0)
[2018-08-14] MEDS: Insulin Reg-MEDIUM-Coverage SC SCH ×4 (07:30→22:13)
[2018-08-14 08:21] LABS: ALB/GLOB RATIO 0.8 (1.1-1.8); ALBUMIN 2.1 g/dL (3.0-4.8); ALT/SGPT 55 U/L (7-56); AST/SGOT 67 U/L (17-59); BLOOD UREA NITROGEN 22 mg/dL (7-21); CALCIUM 8.1 mg/dL (8.4-10.5); GFR NON-AFRICAN AMERICAN > 60
[2018-08-14] MEDS ORDERED: Lidocaine 2% Inj (20ml) ONE (08:43)
[2018-08-14] MEDS ORDERED: Iodixanol 320 MG/ML 100 ML BOTTLE IV ONE ×2 (08:44→09:43)
[2018-08-14] MEDS ORDERED: Iodixanol 320 MG/ML 200 ML BOTTLE IV ONE (08:44)
[2018-08-14] MEDS ORDERED: Nitroglycerin 50mg in D5W 50 MG/250 ML BOTTLE IV ONE ×2 (08:44→09:25)
[2018-08-14] MEDS ORDERED: Midazolam 2 MG/2 ML VIAL ONE ×2 (09:01→09:05)
[2018-08-14] MEDS ORDERED: Verapamil 2 ML ONE (09:22)
--- NOTE | 2018-08-14 09:22 | CP.PCM.PN ---
Subjective - Date & Time of Evaluation Date of Evaluation: 08/14/18 Time of Evaluation: 09:20 - Subjective Subjective: Podiatry progress note for Dr. Peck 78 yo male seen and evaluated at bedside. States that he has no pedal complaints today. Denies N/V/F/C/SOB/CP. Dressing appeared clean dry and intact. Multipodus boots dry and intact. Objective - Vital Signs/Intake and Output Vital Signs (last 24 hours): Temp Pulse Resp BP Pulse Ox 98.2 F 77 18 94/53 L 97 08/14/18 07:00 08/14/18 07:00 08/14/18 07:00 08/14/18 07:00 08/14/18 07:00 Intake and Output: 08/14/18 08/14/18 06:59 18:59 Intake Total 1726 Output Total 1200 Balance 526 - Medications Medications: Current Medications Apixaban (Eliquis) 5 mg PO BID [facility]; Protocol Last Admin: 08/13/18 10:04 Dose: Not Given Finasteride (Proscar) 5 mg PO DAILY [facility] Last Admin: 08/13/18 10:08 Dose: 5 mg Sodium Chloride (Sodium Chloride 0.9%) 1,000 mls @ 100 mls/hr IV .Q10H [facility] Stop: 08/15/18 16:16 Insulin Human Regular (Humulin R Med) 0 units SC ACHS [facility]; Protocol Last Admin: 08/13/18 23:00 Dose: Not Given Midodrine (Proamatine) 2.5 mg PO TID [facility] Last Admin: 08/13/18 17:56 Dose: 2.5 mg Mupirocin (Bactroban Ointment) 0 gm TOP BID [facility] Last Admin: 08/13/18 17:57 Dose: 1 applic Tamsulosin HCl (Flomax) 0.4 mg PO DAILY [facility] Last Admin: 08/13/18 10:03 Dose: 0.4 mg Tiotropium [place] (Spiriva) 18 mcg IH DAILY [facility] Last Admin: 08/13/18 10:01 Dose: 18 mcg - Labs Labs: 08/14/18 07:00 08/14/18 07:00 PT 20.2 SECONDS (9.4-12.5) H 08/10/18 10:00 INR 1.74 08/10/18 10:00 APTT 42.5 Seconds (25.1-36.5) H 08/10/18 10:00 - Constitutional Appears: Well, Non-toxic, No Acute Distress - Head Exam Head Exam: ATRAUMATIC, NORMOCEPHALIC - Extremities Exam Additional comments: Left LE focused exam VASC: DP/PT pulses are palpable 1/4, Cap refill time: < 3 sec to all digits, Temp gradient: warm to cool from proximal to distal, no pitting or non-pitting edema noted DERM: left heel has hyperkeratotic lesion development; no drainage, bleeding, pus, or streaking, no clinical signs of infection; no other lesions or open wounds noted NEURO: Protective sensation grossly intact ORTHO: no pain on palpation to the left heel superficial lesion - Neurological Exam Neurological Exam: Alert, Awake, Oriented x3 - Psychiatric Exam Psychiatric exam: Normal Affect, Normal Mood Assessment and Plan - Assessment and Plan (Free Text) Assessment: 78 yo male with left heel deep tissue injury/nonstageable ulceration Plan: Patient seen and evaluated at bedside Discussed in detail with Dr. Peck Charts and labs reviewed - afebrile, absent leukocytosis Left heel cleansed with sterile saline and dressed with optifoam Multipodus boots to be worn at all times while in bed Discussed physical therapy and getting up and moving - eval for TCU Will continue to follow patient while in house
[2018-08-14] MEDS: Mupirocin 2% Ointment 15 GM TUBE TOP SCH ×2 (10:00→18:30)
[2018-08-14] MEDS: Tiotropium 18 mcg Cap For Inhalation IH SCH (10:22)
[2018-08-14] MEDS: Sodium Chloride 0.9% 1,000 ML IV SCH ×2 (11:00→22:18)
--- NOTE | 2018-08-14 12:01 | PN ---
DATE: 08/14/2018 SUBJECTIVE: I saw him status post arteriogram with Dr. Shalom De Souza where he has stents in. He felt he did much after the stents and it should help him improve. He needs to be watched overnight and get a lab tomorrow to make sure his creatinine is okay and then plan to go to [facility] tomorrow afternoon for rehab after the arrangement with social worker psychiatric and case management. He is on Bactroban cream, Eliquis, Flomax, which I think we will stop because the blood pressure went low and they added midodrine to help him. We also want to get Dr. Hood consult before his blood pressure debility. He is on Proscar, Spiriva, Zofran and we will add Dr. Hood for his blood pressure issues. PHYSICAL EXAMINATION: VITAL SIGNS: He has 98.2 temp, 77 pulse, 94/53 blood pressure, 18 respiratory rate, 97% O2 sat on room air. HEENT: Head is atraumatic, normocephalic. HEART: Regular rate. LUNGS: Clear to auscultation. ABDOMEN: Soft. EXTREMITIES: No edema. LABORATORY DATA: The patient understands the situation. He has 5.6 white count, 11.2 hemoglobin, 32.1 hematocrit with 85 platelets. Sodium 137, potassium 3.9, BUN is 22, creatinine 1.2. Dr. Shalom De Souza, the interventional radiologist is concerned about his kidney function, so we are going to watch him overnight. Check his kidney function tomorrow. If he does well, we will discharge him to [facility] tomorrow. GFR is greater than 60, sugar is 97, calcium is 8.1, total bili is 1.3, AST is 67, ALT is 65, alk phos 67, total protein is 4.9. He will be watched overnight. He will do very well I am hoping. We will check his BUN and creatinine tomorrow and if it seems to go well, we will discharge him tomorrow to [facility]. Aebl Kyler has a good outcome on the arteriogram. Jn Nguyen DO [facility] # [id number]
--- NOTE | 2018-08-14 13:19 | CP.PCM.PN ---
Subjective - Date & Time of Evaluation Date of Evaluation: 08/14/18 Time of Evaluation: 13:19 - Subjective Subjective: Nephrology Consultation Note: Assessment: Stable Acute Kidney Injury (N17.9) likely due to obs uropathy and pre-renal state urine retention anorexia and weight loss, left supraclavicular mass mild hypercalcemia left 4.4 cm renal cyst DM, HTN, COPD Plan No acute need for renal replacement therapy at this time. Maintain hemodynamics stable. Avoid hypotension. Patient not on ACEI/ARB due to recent NEGRITA Monitor Input/Output, daily weights and renal function with basic metabolic panel started flomax daily urology eval requested further eval for left supraclavicular mass as per primary team/surgery s/p angiogram Dose meds/antibiotics for improved GFR. Glycemic control Further work up/management as per primary team Thanks for allowing me to participate in care of your patient. Will follow patient with you. Please call if any Qs. had d/w team and daughter Dr Polanco [place] Office: [phone] Chief Complaint; pain abdomen Reason for consult: Acute Kidney Injury HPI: Pt is a 78 M with hx of DM, HTN, COPD presented with complaints of pain abdomen and found to dehydration and obs uropathy with NEGRITA hence renal consult for NEGRITA Denies OTC/herbal meds or NSAIDs No recent iodinated contrast exposure. Noted obvious episodes of low BP. pt feels better but unable to urinate daughter reports decreased appetite with weight loss for last 6 weeks. pt says he doesn't feel hungry ROS: pt upset Cardiovascular: No chest pain. Pulmonary: No shortness of breath Gastrointestinal: no abdominal pain No nausea. No vomiting. Genitourinary: No pain while urinating. Denies blood in urine. was unable to urinate though. now has garcía All other negative except as mentioned in HPI Physical Examination: General Appearance: Comfortable, in no acute respiratory distress, co-operative . appears cachexic Vitals reviewed and noted as below Head; Atraumatic, normocephalic ENT: no ulcers no thrush. Tongue is midline/dry. Oropharynx: no rash or ulcers. EYES: Pupils are equal, round and reactive to light accommodation. Eye muscles and extraocular movement intact. Sclera is anicteric. Neck; no thyromegaly or bruit. Left supra-clavicular soft lump noted Lungs: Normal respiratory rate/effort. Breath sounds bilateral equal and clear Heart: Normal rate. s1s2 normal. No rub or gallop. Extremities: no edema. No varicose veins Neurological: Patient is alert, awake and oriented to person, place and time. No focal deficit. Strength bilateral appropriate and equal Skin: Warm and dry. Normal turgor. No rash. Palpitation: Normal elasticity for age Abdomen: Abdomen is soft. Bowel sounds +. There is no abdominal tenderness, no guarding/rigidity no organomegaly Psych: normal insight and normal affect/mood MSK: no joint tenderness or swelling. Digits and nails normal, no deformity : kidney not palpable. bladder not distended. has garcía Labs/imaging reviewed. Past medical history, past surgical history, family history, social history, allergy reviewed and noted as below Family hx: no hx of CKD. Rest non-contributory Objective - Vital Signs/Intake and Output Vital Signs (last 24 hours): Temp Pulse Resp BP Pulse Ox 98.2 F 72 20 126/67 97 08/14/18 12:30 08/14/18 12:30 08/14/18 12:30 08/14/18 12:30 08/14/18 07:00 Intake and Output: 08/14/18 08/14/18 06:59 18:59 Intake Total 1726 Output Total 1200 Balance 526 - Medications Medications: Current Medications Apixaban (Eliquis) 5 mg PO BID [facility]; Protocol Last Admin: 08/13/18 10:04 Dose: Not Given Finasteride (Proscar) 5 mg PO DAILY [facility] Last Admin: 08/13/18 10:08 Dose: 5 mg Sodium Chloride (Sodium Chloride 0.9%) 1,000 mls @ 80 mls/hr IV .[id number] [facility] Stop: 08/15/18 16:16 Insulin Human Regular (Humulin R Med) 0 units SC ACHS [facility]; Protocol Last Admin: 08/14/18 07:30 Dose: Not Given Midodrine (Proamatine) 5 mg PO TID [facility] Mupirocin (Bactroban Ointment) 0 gm TOP BID [facility] Last Admin: 08/13/18 17:57 Dose: 1 applic Ondansetron HCl (Zofran Inj) 4 mg IVP ONCE PRN PRN Reason: Nausea/Vomiting Tamsulosin HCl (Flomax) 0.4 mg PO DAILY [facility] Last Admin: 08/13/18 10:03 Dose: 0.4 mg Tiotropium [place] (Spiriva) 18 mcg IH DAILY [facility] Last Admin: 08/14/18 10:22 Dose: Not Given - Labs Labs: 08/14/18 07:00 08/14/18 07:00 PT 20.2 SECONDS (9.4-12.5) H 08/10/18 10:00 INR 1.74 08/10/18 10:00 APTT 42.5 Seconds (25.1-36.5) H 08/10/18 10:00
--- NOTE | 2018-08-14 15:37 | CON ---
DATE: 08/14/2018 CARDIOLOGY CONSULTATION HISTORY: The patient is a 78-year-old male, who presented with abdominal pain. He was found to have gallbladder disease. In addition, the patient has been dehydrated with failure to thrive syndrome. His renal insufficiency is likely due to his poor p.o. intake. He suffers from diabetes mellitus, hypertension, COPD. He also has documented peripheral vascular disease. The patient underwent angiogram and had transient hypotension. SOCIAL HISTORY AND REVIEW OF SYSTEMS: Unavailable. PHYSICAL EXAMINATION: VITAL SIGNS: Blood pressure currently is 129/67, heart rate is in the 70s. NECK: Negative JVD. LUNGS: Lungs without rales. CARDIOVASCULAR: Heart reveals S1, S2 with a short systolic ejection murmur. EXTREMITIES: No edema noted. IMAGING DATA: EKG shows normal sinus rhythm with nonspecific ST-T changes. Hemoglobin is 11.2. Chemistries, BUN and creatinine are 22 and 1.1. Previous echocardiogram, which was performed in January 2018 reveals good LV function with mild aortic stenosis, no pulmonary hypertension was noted. IMPRESSION: 1. Documented peripheral vascular disease. 2. Mild aortic stenosis. 3. Dehydration. 4. Anemia. 5. Gallbladder disease. 6. Failure to thrive. Given these findings, the patient is currently hemodynamically stable post procedure. We will continue his careful hydration. Shalom Hood MD
--- NOTE | 2018-08-14 19:42 | VASCULAR ---
Date of service: 08/14/2018 PROCEDURE: 1. Abdominal aortogram and bilateral lower extremity runoff with left selective views 2. Left popliteal artery CSI atherectomy and drug-eluting balloon angioplasty 3. Proximal left anterior tibial artery CS I atherectomy and balloon angioplasty HISTORY: Severe peripheral vascular disease. Ischemic left great toe and heel ulcer. PHYSICIAN(S): Shalom De Souza M.D. TECHNIQUE: The relative risks and indications of the procedure were explained to the patient and consent obtained. The patient was hydrated prior to the procedure and the appropriate labs drawn. The patient was placed supine on the arteriogram table and the right groin prepped and draped in the usual sterile fashion. Conscious sedation and monitoring were provided throughout the procedure by a nurse. Via a right common femoral artery approach, a 5 [place] sheath was placed in the right groin. Through the sheath and over a guidewire, a 5 [place] flush catheter was placed in the abdominal aorta at the level of the renal arteries and a PA DSA abdominal aortogram performed. The catheter was pulled down to the aortic bifurcation and bilateral oblique DSA pelvic arteriograms performed. Overlapping bilateral lower extremity DSA arteriograms were obtained from the inguinal ligaments to the ankles. A 0.035 angled Glidewire was advanced over the bifurcation and placed in the mid left SFA. A 7 [place] 65 cm destination sheath was placed in the mid left SFA. Heparin 6000 units IV and nitroglycerin in 250 mcg aliquots were given. The polypoid calcified irregular stenoses in the left popliteal artery and proximal left anterior tibial artery a crossed with a 0.035 angled glidewire and 5 [place] catheter. Exchange is made for a 0.017 [place] support wire in the distal left anterior tibial artery. CS I atherectomy was performed of the below knee popliteal artery with a 2.0 solid kyaw. This kyaw was also used for the ostium of the left anterior tibial artery The left popliteal artery was dilated with a 5 mm drug-eluting balloon. The left popliteal artery was also dilated with a 6 mm angioplasty balloon. No stent was required. The origin of the left anterior tibial artery was dilated at 3.5 x 4 cm angioplasty balloon. Completion angiograms were obtained. The sheath was removed hemostasis obtained with a Perclose device. The patient tolerated the procedure well. FINDINGS: There are single renal arteries bilaterally which are widely patent and normal in appearance. The nephrograms are symmetric in appearance. The infrarenal abdominal aorta is calcified with a small infrarenal aortic aneurysm. This can be sized with ultrasound or CT if clinically indicated. The aortic bifurcation is patent. There is mild ectasia of the right common iliac bifurcation. Otherwise the common external iliac arteries are patent and normal in appearance. Right lower extremity: The right common femoral artery is patent. The right profunda femoral artery is patent. The right superficial femoral artery is smoothly calcified and patent without radiographically significant stenosis.. There is a proximal take-off to the right anterior tibial artery. Right anterior tibial artery is a predominant supply to the foot. The right posterior tibial and peroneal arteries are calcified and moderately diseased but continuous. Left lower extremity: Left common femoral artery is patent. The left profunda femoral artery is patent. The left superficial femoral artery is smoothly calcified and patent without radiographically significant stenosis.. Critical polypoid calcified disease is noted in the left popliteal artery below the knee. Calcified disease extends into the left trifurcation. There is a moderate to severe focal stenosis of the left anterior tibial artery origin. The left peroneal artery is patent and continuous. The left posterior tibial artery is atretic and occludes proximally. There is severe left pedal occlusive disease. The left anterior tibial artery gives collaterals to the forefoot and heel. IMPRESSION: 1.Successful distal left popliteal artery CSI atherectomy and drug-eluting balloon angioplasty 2. Successful proximal left anterior tibial artery CS I atherectomy and angioplasty 3. Severe left pedal occlusive disease.
[2018-08-15 07:35] LABS: HEMOGLOBIN 11.7 g/dL (14.0-18.0); MEAN CELL VOLUME 97.2 fl (80.0-105.0); MEAN CORPUSCULAR HEMOGLOBIN 33.1 pg (25.0-35.0); MEAN PLATELET VOLUME 9.8 fl (7.0-11.0); RBC 3.54 10^6/uL (3.5-6.1); RED CELL DISTRIBUTION WIDTH 13.7 % (11.5-14.5); WHITE BLOOD COUNT 7.9 10^3/uL (4.5-11.0)
[2018-08-15 07:38] LABS: ALB/GLOB RATIO 0.7 (1.1-1.8); ALBUMIN 2.2 g/dL (3.0-4.8); ALT/SGPT 59 U/L (7-56); AST/SGOT 63 U/L (17-59); BLOOD UREA NITROGEN 19 mg/dL (7-21); CALCIUM 7.4 mg/dL (8.4-10.5); GFR NON-AFRICAN AMERICAN > 60
[2018-08-15] MEDS: Insulin Reg-MEDIUM-Coverage SC SCH ×2 (08:11→12:22)
--- NOTE | 2018-08-15 09:13 | CP.PCM.PN ---
Subjective - Date & Time of Evaluation Date of Evaluation: 08/15/18 Time of Evaluation: 09:12 - Subjective Subjective: Podiatry progress note for Dr. Peck 78 yo male seen and evaluated at bedside.. States that he has no pedal complaints today. Denies N/V/F/C/SOB/CP. Dressing appeared clean dry and intact. Multipodus boots in place. Objective - Vital Signs/Intake and Output Vital Signs (last 24 hours): Temp Pulse Resp BP Pulse Ox 98.2 F 78 20 130/60 97 08/14/18 14:45 08/14/18 14:45 08/14/18 14:45 08/14/18 14:45 08/14/18 07:00 Intake and Output: 08/15/18 08/15/18 06:59 18:59 Intake Total 660 Output Total 400 Balance 260 - Medications Medications: Current Medications Apixaban (Eliquis) 5 mg PO BID [facility]; Protocol Last Admin: 08/13/18 10:04 Dose: Not Given Finasteride (Proscar) 5 mg PO DAILY [facility] Last Admin: 08/14/18 10:00 Dose: Not Given Sodium Chloride (Sodium Chloride 0.9%) 1,000 mls @ 80 mls/hr IV .[id number] [facility] Stop: 08/15/18 16:16 Last Admin: 08/14/18 22:18 Dose: 80 mls/hr Insulin Human Regular (Humulin R Med) 0 units SC ACHS [facility]; Protocol Last Admin: 08/15/18 08:11 Dose: Not Given Midodrine (Proamatine) 5 mg PO TID [facility] Last Admin: 08/14/18 17:30 Dose: Not Given Mupirocin (Bactroban Ointment) 0 gm TOP BID [facility] Last Admin: 08/14/18 18:30 Dose: 1 applic Ondansetron HCl (Zofran Inj) 4 mg IVP ONCE PRN PRN Reason: Nausea/Vomiting Tamsulosin HCl (Flomax) 0.4 mg PO DAILY [facility] Last Admin: 08/13/18 10:03 Dose: 0.4 mg Tiotropium [place] (Spiriva) 18 mcg IH DAILY [facility] Last Admin: 08/14/18 10:22 Dose: Not Given - Labs Labs: 08/15/18 07:00 08/15/18 07:00 PT 20.2 SECONDS (9.4-12.5) H 08/10/18 10:00 INR 1.74 08/10/18 10:00 APTT 42.5 Seconds (25.1-36.5) H 08/10/18 10:00 - Constitutional Appears: Well, Non-toxic, No Acute Distress - Head Exam Head Exam: ATRAUMATIC, NORMOCEPHALIC - Extremities Exam Additional comments: Left LE focused exam VASC: DP/PT pulses are palpable 1/4, Cap refill time: < 3 sec to all digits, Temp gradient: warm to cool from proximal to distal, no pitting or non-pitting edema noted DERM: left heel has hyperkeratotic lesion development; no drainage, bleeding, pus, or streaking, no clinical signs of infection; no other lesions or open wounds noted NEURO: Protective sensation grossly intact ORTHO: no pain on palpation to the left heel superficial lesion - Neurological Exam Neurological Exam: Alert, Awake, Oriented x3 - Psychiatric Exam Psychiatric exam: Normal Affect, Normal Mood Assessment and Plan - Assessment and Plan (Free Text) Assessment: 78 y/o male with left heel deep tissue injury/nonstageable ulceration Plan: Patient seen and evaluated at bedside with Dr. Peck Charts and labs reviewed - afebrile, absent leukocytosis Left heel cleansed with sterile saline and dressed with optifoam Multipodus boots to be worn at all times while in bed Will continue to follow patient while in house
--- NOTE | 2018-08-15 09:21 | DS ---
HISTORY OF PRESENT ILLNESS: I saw him resting comfortably in bed. He wants breakfast. He understands going to [facility] for physical therapy. He is on Bactroban cream. He is on insulin, ProAmatine, Proscar, IV fluids, Spiriva and Zofran. His Eliquis and his Flomax are on hold. PHYSICAL EXAMINATION: VITAL SIGNS: He has 98.2 temperature, 78 pulse, 130/60 blood pressure, 20 respiratory rate. HEENT: Head is atraumatic, normocephalic. HEART: Regular rate. LUNGS: Clear to auscultation. ABDOMEN: Soft. EXTREMITIES: No edema. LABORATORY DATA: He has 137 sodium, potassium 3.8, BUN is 19, creatinine is 1, GFR is greater than 60, sugar is 84, calcium is 7.4, total bili is 1.3. AST is 63, ALT is 59, alk phos 72, total protein is 5.2. 7.9 white count, 11.7 hemoglobin, 34.4 hematocrit with 89,000 platelets. He is being seen by Renal, Cardiology Podiatry, Interventional Radiology. Also, he has peripheral vascular disease, mild aortic stenosis, dehydration, anemia, gallbladder disease. We will continue with aggressive treatment and care at [facility]. He needs physical therapy, heel care. He had dehydration. 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 Jn Nguyen DO
[2018-08-15 09:40] VITALS: BP 95/53; PULSE 74; RESP 18; TEMP 98.1; O2SAT 96
[2018-08-15] MEDS: Tiotropium 18 mcg Cap For Inhalation IH SCH (10:00)
[2018-08-15] MEDS: Mupirocin 2% Ointment 15 GM TUBE TOP SCH ×2 (10:15→10:19)
--- NOTE | 2018-08-15 15:46 | CP.PCM.PN ---
Subjective - Date & Time of Evaluation Date of Evaluation: 08/15/18 Time of Evaluation: 12:05 - Subjective Subjective: Nephrology Consultation Note: Assessment: Stable Acute Kidney Injury (N17.9) likely due to obs uropathy and pre-renal state urine retention anorexia and weight loss, left supraclavicular mass mild hypercalcemia left 4.4 cm renal cyst DM, HTN, COPD Plan No acute need for renal replacement therapy at this time. fxn stable post angiogram Maintain hemodynamics stable. Avoid hypotension. Patient not on ACEI/ARB due to recent NEGRITA Monitor Input/Output, daily weights and renal function with basic metabolic panel on flomax daily consider gu eval further eval for left supraclavicular mass as per primary team/surgery s/p angiogram S: seen and examined no complaints Physical Examination: General Appearance: Comfortable, in no acute respiratory distress, co-operative . appears cachexic Vitals reviewed and noted as below Head; Atraumatic, normocephalic ENT: no ulcers no thrush. Tongue is midline/dry. Oropharynx: no rash or ulcers. EYES: Pupils are equal, round and reactive to light accommodation. Eye muscles and extraocular movement intact. Sclera is anicteric. Neck; no thyromegaly or bruit. Left supra-clavicular soft lump noted Lungs: Normal respiratory rate/effort. Breath sounds bilateral equal and clear Heart: Normal rate. s1s2 normal. No rub or gallop. Extremities: no edema. No varicose veins Neurological: Patient is alert, awake and oriented to person, place and time. No focal deficit. Strength bilateral appropriate and equal Skin: Warm and dry. Normal turgor. No rash. Palpitation: Normal elasticity for age Abdomen: Abdomen is soft. Bowel sounds +. There is no abdominal tenderness, no guarding/rigidity no organomegaly Psych: normal insight and normal affect/mood MSK: no joint tenderness or swelling. Digits and nails normal, no deformity : kidney not palpable. bladder not distended. has garcía Objective - Vital Signs/Intake and Output Vital Signs (last 24 hours): Temp Pulse Resp BP Pulse Ox 98.1 F 74 18 95/53 L 96 08/15/18 09:39 08/15/18 09:39 08/15/18 09:39 08/15/18 09:39 08/15/18 09:39 Intake and Output: 11/17/18 11/17/18 06:59 18:59 Intake Total 660 Output Total 400 Balance 260 - Labs Labs: 08/15/18 07:00 08/15/18 07:00 PT 20.2 SECONDS (9.4-12.5) H 08/10/18 10:00 INR 1.74 08/10/18 10:00 APTT 42.5 Seconds (25.1-36.5) H 08/10/18 10:00
== END 2018-08-15 13:04 | DRG 674 ==
LOC: ED 07:26 → ERH 09:45 → 5RSO 12:14 → 2RSO 08-14 10:59 → 5RSO 08-14 17:12
PROVIDERS: ADMIT Family Medicine; ATTEND Family Medicine
PROC: 04CN3ZZ Extirpation of Matter from Left Popliteal Artery, Percutaneous Approach (ICD-10-PCS; principal; 2018-08-14)
PROC: 047N3Z1 Dilation of Left Popliteal Artery using Drug-Coated Balloon, Percutaneous Approach (ICD-10-PCS; 2018-08-14)
PROC: 047Q3ZZ Dilation of Left Anterior Tibial Artery, Percutaneous Approach (ICD-10-PCS; 2018-08-14)
PROC: 04CQ3ZZ Extirpation of Matter from Left Anterior Tibial Artery, Percutaneous Approach (ICD-10-PCS; 2018-08-14)
PROC: B4101ZZ Fluoroscopy of Abdominal Aorta using Low Osmolar Contrast (ICD-10-PCS; 2018-08-14)
DX: N17.9 Acute kidney failure, unspecified (principal); L97.429 Non-pressure chronic ulcer of left heel and midfoot with unspecified severity; E11.51 Type 2 diabetes mellitus with diabetic peripheral angiopathy without gangrene; M86.9 Osteomyelitis, unspecified; E86.0 Dehydration; K59.00 Constipation, unspecified; Z91.19 Patient's noncompliance with other medical treatment and regimen; J44.9 Chronic obstructive pulmonary disease, unspecified; I10 Essential (primary) hypertension; R63.4 Abnormal weight loss; R63.0 Anorexia; R33.9 Retention of urine, unspecified; E83.52 Hypercalcemia; E11.69 Type 2 diabetes mellitus with other specified complication; M19.90 Unspecified osteoarthritis, unspecified site; D17.9 Benign lipomatous neoplasm, unspecified; D64.9 Anemia, unspecified; E11.621 Type 2 diabetes mellitus with foot ulcer; I35.0 Nonrheumatic aortic (valve) stenosis; K52.9 Noninfective gastroenteritis and colitis, unspecified; K80.20 Calculus of gallbladder without cholecystitis without obstruction; N28.1 Cyst of kidney, acquired; N32.89 Other specified disorders of bladder; R62.7 Adult failure to thrive

== ENCOUNTER 2018-10-10 06:59 | Inpatient (IN) | payer MEDICARE, BC ==
--- NOTE | 2018-10-10 07:55 | ED PDOC ---
Arrival/HPI - General Chief Complaint: Abdominal Pain Time Seen by Provider: 10/10/18 07:32 Historian: Patient, Family - History of Present Illness Narrative History of Present Illness (Text): 10/10/18 08:04 78 year old male, with past history of hypertension, COPD, arthritis, hernia, and diabetes, presents to emergency department complaining of recent (2 weeks) abdominal pain, dizziness, and difficulty urinating. Patient reports going to rehab following diagnosis of great toe infection. When returning, patient states he developed UTI, for which a catheter was inserted in July and still has not been changed. Family of patient states that he has also been experiencing associated coldness, drop in BP, minimal appetite. and small amounts of dark urine. Patient states that he took antibiotics last on Sep 22 and also notes back sores. Patient denies any fevers, headache, chest pain, shortness of breath, nausea, vomiting, diarrhea, back pain, neck pain, or any other complaints. Patient denies taking any medication today. Provider: Dr. Nguyen Time/Duration: Other (recent ) Symptom Onset: Gradual Symptom Course: Unchanged Activities at Onset: Light Context: Home Past Medical History - Provider Review Nursing Documentation Reviewed: Yes - Infectious Disease Hx of Infectious Diseases: None - Cardiac Hx Cardiac Disorders: Yes Hx Hypertension: Yes - Pulmonary Hx Respiratory Disorders: Yes Hx Chronic Obstructive Pulmonary Disease (COPD): Yes - Neurological Hx Neurological Disorder: No - HEENT Hx HEENT Disorder: No - Renal Hx Renal Disorder: No - Endocrine/Metabolic Hx Endocrine Disorders: Yes Hx Diabetes Mellitus Type 2: Yes - Hematological/Oncological Hx Blood Disorders: No - Integumentary Hx Dermatological Disorder: Yes Other/Comment: 08-10-18 IN BETWEEN BUTTOCKS WITH REDDENED FLUSHED SKIN,RAW SKIN. PAINFUL. HAS AN OPENED SKIN ,LINEAR OPENED AREA.IN BETWEEN GROIN WITH REDDENED FLUSHED AREA,RAW RED SKIN. HAS IASD. LEFT HEEL HAS HEALING DRY SKIN WITH AN OLD BLACKENED SCAB . MEASURES 0.5 CM. LEFT BIG TIP OF TOE HAS A DRY SKIN,FLAKY SKIN. DRESSING AT [facility]OUND [facility]. - Musculoskeletal/Rheumatological Hx Musculoskeletal Disorders: Yes (LUMBAR DISC DSE,RADICULOPATHY) Hx Arthritis: Yes Hx Falls: Yes Hx Osteomyelitis: Yes Hx Unsteady Gait: Yes (CANE) - Gastrointestinal Hx Gastrointestinal Disorders: Yes Hx Constipation: Yes Other/Comment: infrequent bowel movements w/o constipation - Genitourinary/Gynecological Hx Genitourinary Disorders: No Other/Comment: Patient has a garcía inserted since 2017. - Psychiatric Hx Psychophysiologic Disorder: No Hx Substance Use: No - Surgical History Other/Comment: LEFT EAR LOBE WITH SX. REMOVAL OF SKIN CA. Peripheral angiogram. - Anesthesia Hx Anesthesia: No Hx Anesthesia Reactions: No Hx Malignant Hyperthermia: No Family/Social History - Physician Review Nursing Documentation Reviewed: Yes Family/Social History: Unknown Family HX Smoking Status: Never Smoked Hx Alcohol Use: Yes Frequency of alcohol use: Socially Hx Substance Use: No Allergies/Home Meds Allergies/Adverse Reactions: Allergies No Known Allergies Allergy (Verified 10/10/18 07:24) Home Medications: Home Meds Medication Instructions Recorded Confirmed RX: Multivit-Min/FA/Lycopen/Lutein 1 mg PO DAILY 01/06/18 10/10/18 [Centrum Silver Men Tablet] Midodrine HCl 2 tab PO TID 10/10/18 10/10/18 Psyllium Husk [Metamucil] 1 cap PO DAILY 10/10/18 10/10/18 RX: Ferrous Sulfate [Feosol] 1 tab PO DAILY 10/10/18 10/10/18 RX: Ipratropium/Albuterol Sulfate 3 ml IH BID 10/10/18 10/10/18 [Iprat-Albut 0.5-3(2.5) mg/3 ml] Review of Systems - Physician Review All systems were reviewed & negative as marked: Yes - Review of Systems Constitutional: absent: Fevers Respiratory: Cough. absent: SOB, Wheezing Cardiovascular: absent: Chest Pain Gastrointestinal: Abdominal Pain. absent: Diarrhea, Nausea, Vomiting Genitourinary Male: Urinary Output Changes (diminished ) Musculoskeletal: Other (back sores ). absent: Back Pain, Neck Pain Skin: absent: Rash Neurological: Dizziness. absent: Headache Psychiatric: absent: Anxiety Physical Exam Vital Signs Reviewed: Yes Vital Signs Pulse Resp BP Pulse Ox 10/10/18 07:14 64 16 88/49 L 97 Temperature: Afebrile Blood Pressure: Normal Pulse: Regular Respiratory Rate: Normal Appearance: Positive for: Well-Appearing, Non-Toxic, Comfortable Pain Distress: None Mental Status: Positive for: Alert and Oriented X 3 - Systems Exam Head: Present: Atraumatic, Normocephalic Pupils: Present: Other (mild conjuctiva pallor ) Extroacular Muscles: Present: EOMI Conjunctiva: Present: Normal Mouth: Present: Dry (dry and pink mucuous membranes ) Neck: Present: Normal Range of Motion Respiratory/Chest: Present: Clear to Auscultation, Good Air Exchange. No: Respiratory Distress, Accessory Muscle Use Cardiovascular: Present: Regular Rate and Rhythm, Normal S1, S2. No: Murmurs Abdomen: Present: Tenderness (soft tenderness in periumbilical region), Other (no CVA tenderness in belly ). No: Distention, Normal Bowel Sounds (decreased b owel sounds ), Peritoneal Signs, Rebound Rectal: Present: Other (large stage 1 between buttocks, stage 2 on right buttocks ) Genitourinary Male: Present: Other (catheter in penis ) Back: Present: Normal Inspection Upper Extremity: Present: Normal Inspection. No: Cyanosis, Edema Lower Extremity: Present: Other (healing wound in left great toe and heel ). No: Edema Neurological: Present: GCS=15, CN II-XII Intact, Speech Normal Skin: Present: Warm, Dry, Normal Color. No: Rashes Psychiatric: Present: Alert, Oriented x 3, Normal Insight, Normal Concentration Medical Decision Making ED Course and Treatment: 10/10/18 08:02 Impression: 78 year old male presents to emergency department complaining of recent abdominal pain, dizziness, and difficulty urinating. Plan: -- VBG -- CT Abd/Pelvis -- EKG -- Labs -- IV Fluids -- Duoneb -- Urinalysis Prior Visits: Notes and results from previous visits were reviewed. Progress Notes: 10/10/18 08:04 EKG: Ordered, reviewed, and independently interpreted the EKG. Rate : 62 BPM Rhythm : NSR Interpretation : No ST-segment elevations, normal intervals, normal axis, non- specific T wave changes 10/10/18 08:45 Case discussed with , who re-evaluates patient and requests garcía be removed and then to check if patient can urinate. If patient still has trouble, requests garcía be put back in. He also agrees with orders placed. 10/10/18 09:56 Nursing staff attempted to take out catheter. Balloon was deflated, but they were unable to pull it out. Dr. Nguyen, aware of this, accepts patient into admission and requests for ID, for pulmonology, and for urology. 10/10/18 10:01 Chest X-ray, reviewed by radiologist: IMPRESSION: Right lower lobe infiltrate suspicious for pneumonia. 10/10/18 11:31 CT Abdomen/Pelvis, reviewed by radiologist: IMPRESSION: Incompletely visualized bilateral pleural effusions and compressive atelectasis. These are are findings are approximately symmetrical and new compared to the prior study. Diffuse edema and anasarca. Low volume intra-abdominal and pelvic ascites. Satisfactory position of the García catheter in the urinary bladder. Additional benign and/or incidental findings described above. 10/16/18 08:01 - Scribe Statement The provider has reviewed the documentation as recorded by the Scribe Fernando Rutledge All medical record entries made by the Scribe were at my direction and personally dictated by me. I have reviewed the chart and agree that the record accurately reflects my personal performance of the history, physical exam, medical decision making, and the department course for this patient. I have also personally directed, reviewed, and agree with the discharge instructions and disposition. Disposition/Present on Arrival - Present on Arrival Any Indicators Present on Arrival: Yes History of DVT/PE: Yes History of Uncontrolled Diabetes: No Urinary Catheter: No History of Decub. Ulcer: No History Surgical Site Infection Following: None - Disposition Have Diagnosis and Disposition been Completed?: Yes Diagnosis: Pneumonia, Pleural effusion, Abdominal pain Disposition: HOSPITALIZED Disposition Time: 08:45 Patient Plan: Admission Condition: STABLE
[2018-10-10] MEDS ORDERED: Sodium Chloride 0.9% 1,000 ML IV STA (07:56)
[2018-10-10 08:46] LABS: ALB/GLOB RATIO 0.7 (1.1-1.8); ALBUMIN 2.4 g/dL (3.0-4.8); ALT/SGPT 39 U/L (7-56); AST/SGOT 72 U/L (17-59); BLOOD UREA NITROGEN 11 mg/dL (7-21); CALCIUM 8.3 mg/dL (8.4-10.5); GFR NON-AFRICAN AMERICAN > 60; LIPASE 76 U/L (23-300)
[2018-10-10 08:57] LABS: TROPONIN I < 0.01 ng/mL; VENOUS BLOOD GAS BASE EXCESS -5.6 mmol/L (0.0-2.0); VENOUS BLOOD GAS PO2 43 mm/Hg (30-55); VENOUS BLOOD PH 7.32 (7.32-7.43)
[2018-10-10 09:24] LABS: BASO # 0.03 K/mm3 (0.0-2.0); BASO % 0.3 % (0.0-3.0); EOS # 0.3 (0.0-0.7); EOS % 3.4 % (1.5-5.0); GRAN # 5.21 (1.4-6.5); GRAN % 58.9 % (50.0-68.0); HEMOGLOBIN 10.5 g/dL (14.0-18.0); LYMPH # 2.6 (1.2-3.4); LYMPH % 29.9 % (22.0-35.0); MEAN CELL VOLUME 98.8 fl (80.0-105.0); MEAN CORPUSCULAR HEMOGLOBIN 32.4 pg (25.0-35.0); MEAN CORPUSCULAR HGB CONC 32.8 g/dl (31.0-37.0); MEAN PLATELET VOLUME 8.6 fl (7.0-11.0); MONO # 0.7 (0.1-0.6); MONO % 7.5 % (1.0-6.0); RBC 3.24 10^6/uL (3.5-6.1); RED CELL DISTRIBUTION WIDTH 14.7 % (11.5-14.5); WHITE BLOOD COUNT 8.8 10^3/uL (4.5-11.0)
--- NOTE | 2018-10-10 09:54 | RAD ---
Date of service: 10/10/2018 HISTORY: Dizziness COMPARISON: No prior. FINDINGS: LUNGS: Right lower lobe alveolar infiltrate/inclusive of air bronchograms. PLEURA: No significant pleural effusion identified, no pneumothorax apparent. CARDIOVASCULAR: No atherosclerotic calcification present Normal. OSSEOUS STRUCTURES: No significant abnormalities. VISUALIZED UPPER ABDOMEN: Normal. OTHER FINDINGS: None. IMPRESSION: Right lower lobe infiltrate suspicious for pneumonia.
[2018-10-10] MEDS ORDERED: Iohexol 350 MG/100 ML VIAL ONE (10:00)
[2018-10-10] MEDS ORDERED: cefTRIAXone 1 gm 1 GM/100 ML BAG IVPB SCH (10:00)
[2018-10-10] MEDS: Sodium Chloride 0.45% 1,000 ML IV SCH (10:46)
[2018-10-10] MEDS ORDERED: Azithromycin 500MG/NS 250ml 500 MG/250 ML BAG IVPB SCH (11:00)
[2018-10-10] MEDS: Insulin Reg-MEDIUM-Coverage SC SCH ×3 (11:05→21:50)
--- NOTE | 2018-10-10 11:10 | CT ---
Date of service: 10/10/2018 PROCEDURE: CT Abdomen and Pelvis with contrast HISTORY: Abdominal pain COMPARISON: 08/10/2018. CT abdomen and pelvis TECHNIQUE: Intravenous contrast dose: 100 cc Omnipaque 350. Radiation dose: Total exam DLP = 836.25 mGy-cm. This CT exam was performed using one or more of the following dose reduction techniques: Automated exposure control, adjustment of the mA and/or kV according to patient size, and/or use of iterative reconstruction technique. FINDINGS: LOWER THORAX: New bilateral pleural effusions and compressive atelectasis. LIVER: Unremarkable. No gross lesion or ductal dilatation. GALLBLADDER AND BILE DUCTS: Distended gallbladder with gallstones. Similar findings identified on the prior study. PANCREAS: Unremarkable. No gross lesion or ductal dilatation. SPLEEN: Unremarkable. ADRENALS: Unremarkable. No mass. KIDNEYS AND URETERS: Unremarkable. No hydronephrosis. No solid mass. Stable left renal cyst 3.7 x 4.1 cm. VASCULATURE: Atherosclerotic calcification and mural plaque present. Findings are seen throughout the aorta maximum diameter of the aorta infrarenal location 2.8 x 3.1 cm. BOWEL: Constipation without fecal impaction or obstruction. APPENDIX: A normal appendix is visible. PERITONEUM: Trace abdominal and pelvic ascites.. No free air. LYMPH NODES: Unremarkable. No enlarged lymph nodes. BLADDER: Fall catheter in satisfactory position in the urinary bladder. The decompressed urinary bladder state likely accounts for bladder wall thickening. REPRODUCTIVE: Unremarkable. BONES: No acute fracture. Stable multilevel degenerative change. OTHER FINDINGS: New onset of subcutaneous edema/anasarca. IMPRESSION: Incompletely visualized bilateral pleural effusions and compressive atelectasis. These are are findings are approximately symmetrical and new compared to the prior study. Diffuse edema and anasarca. Low volume intra-abdominal and pelvic ascites. Satisfactory position of the Fall catheter in the urinary bladder. Additional benign and/or incidental findings described above.
[2018-10-10] MEDS: Albuterol-Ipratrop 3 mg / 0.5 (3 ml) UD IH SCH ×2 (12:26→19:57)
[2018-10-10 12:57] LABS: VENOUS BLOOD GAS BASE EXCESS -6.6 mmol/L (0.0-2.0); VENOUS BLOOD GAS PO2 35 mm/Hg (30-55); VENOUS BLOOD PH 7.33 (7.32-7.43)
[2018-10-10] MEDS ORDERED: Pneumococcal 23-Valent Vaccine IM ONE (13:37)
[2018-10-10] MEDS ORDERED: Influenza Vaccine 60 mcg/0.5 mL SYR (4YR UP) IM ONE (13:37)
--- NOTE | 2018-10-10 16:12 | HP ---
DATE OF EXAM: 10/10/2018 HISTORY OF PRESENT ILLNESS: I know Abel very well from house call, also subacute rehabs, and hospital admissions. He is a 78-year-old white man, who I have been talking with the daughters about, his Fall catheter that need to be changed. Nursing that comes to the home cannot do it. We are going to make an appointment today, they are coming to the hospital, see if that could be done in the emergency room and they are having trouble with removing the Fall catheter in the first place also. It is very possible he has a pneumonia. He is a 78-year-old white man, who presents with history of COPD, hypertension, arthritis, hernia, diabetes, multiple urinary tract infections, indwelling catheter, and urinary retention when the catheter is out. He has a great toe infection. He has had osteomyelitis with six weeks of IV antibiotics at [facility]. He has had urinary tract infection before catheter has not been changed since July, nobody can do it at their home. He has also severe hypo blood pressure, low blood pressure. He has got midodrine, I went from 5 mg three times a day to 10 mg three times a day. Still his blood pressure is in 80s and 90s. He is off of all medications that I think could possibly lower his blood pressure. He should be on Eliquis and midodrine. He is comfortable in bed. He is eating. He is very weak also. He needs a physical therapy. We are trying to change his Fall catheter. He has COPD and diabetes, on Januvia. He has skin and the buttocks reddened. A history of ulcers in the past there that come and go. He has had a left big toe ulcer and osteomyelitis in the past. He had disc radiculopathy, arthritis, falls, and osteomyelitis. He uses a cane with unsteady gait. Not lately though he has been bed bound, wheelchair bound, and big chair bound. He has constipation and frequent bowel movements. He is also constipated. We have a problem with the Fall catheter since July now. He has left ear lobe with surgical skin removal for a skin cancer. He has a peripheral angiogram. Hypertension in the family. SOCIAL HISTORY: He never smoked. Drinks socially. No substance abuse. ALLERGIES: NO KNOWN DRUG ALLERGIES. MEDICATIONS: As listed, he has only been taking Januvia, Spiriva, midodrine, and Eliquis. REVIEW OF SYSTEMS: No fevers at home. No shortness of breath or wheezing. No chest pain or shortness of breath. Some abdominal pain. No nausea, vomiting, constipation, or diarrhea. He is eating. He has been constipating now that his abdominal pain comes in. He has had urinary retention and he has got a Fall catheter since July, the nursing could not be changed at home after we got to the point he brought into the emergency room. He has got back sores grade I in the sacrum area. No back pain at this time. No headache. Little dizziness when he gets up. He has had very low blood pressure. I will get Cardiology to see if they can help with his low blood pressure . PHYSICAL EXAMINATION: GENERAL: He is well appearing. He is alert and oriented x3. Very tired looking. HEENT: Head atraumatic and normocephalic. Extraocular muscles intact. Throat is dry. NECK: Supple. HEART: Regular rate. Normal S1 and S2. LUNGS: Decreased breath sounds. Mild congestion, changed with cough. ABDOMEN: Soft and nontender. Positive bowel sounds. stage I on the buttocks. We will get Wound Care to come in and look at them. EXTREMITIES: No edema. Weak lower extremities. Healing wound left great toe. GCS is 15. NEUROLOGIC: Cranial nerves II through XII are grossly intact. Alert and oriented x3. SKIN: Warm and dry. Except for the sacrum and the big toe. LABORATORY DATA: He had some tests done. Chest x-ray which I was not expecting showed right lower lobe infiltrate, suspicious for pneumonia. He has 8.8 white count, 10.5 hemoglobin, 32 hematocrit with 195 platelets. His lactate was also elevated at 2.2. He has 134 sodium, potassium 4.1, BUN 11, creatinine 0.8, GFR is greater than 60, sugars is 71, calcium is 8.3, total bili is 1.8, AST is 72, ALT is 39, and alk phos 82. Lactate dehydrogenase 415, troponin I was 0.01, total protein 5.6, and lipase 76. ASSESSMENT AND PLAN: for his catheter, Pulmonary for his pneumonia, Infectious Disease for antibiotics, Cardio for his low blood pressure, Podiatry for his toe ulcer, Wound Care nurse, insulin coverage, physical therapy. He is here for pneumonia, Fall catheter issues that cannot be removed. Jn Nguyen DO MTDDunia
--- NOTE | 2018-10-10 20:39 | CARD ---
APPROVED REPORT Date of service: 10/10/2018 EKG Measurement Heart [id number] <Conclusion> Normal sinus rhythm Cannot rule out Anterior infarct, age undetermined Abnormal ECG
[2018-10-10 22:00] LABS: URINE BILIRUBIN NEGATIVE (NEGATIVE); URINE BLOOD LARGE (NEGATIVE); URINE GLUCOSE (UA) NEGATIVE (NEGATIVE); URINE LEUKOCYTE ESTERASE SMALL Leu/uL (NEGATIVE); URINE PROTEIN 30 mg/dL (<30 mg/dL); URINE UROBILINOGEN 0.2 E.U./dL (<1 E.U./dL)
[2018-10-10 22:05] LABS: URINE APPEARANCE SL CLOUDY (CLEAR); URINE COLOR YELLOW (YELLOW)
[2018-10-10 22:08] LABS: URINE BACTERIA MANY /hpf; URINE CALCIUM OXALATE CRYSTALS FEW /hpf; URINE RBC TNTC /hpf (0-2); URINE WBC TNTC /hpf (0-6)
[2018-10-11] MEDS: Sodium Chloride 0.45% 1,000 ML IV SCH (10:14)
[2018-10-11] MEDS: Cefepime 1gm in NS 100ml 1 GM/100 ML BAG IVPB SCH ×3 (10:14→21:01)
[2018-10-11] MEDS: Tiotropium 18 mcg Cap For Inhalation IH SCH (10:15)
--- NOTE | 2018-10-11 11:35 | CP.PCM.CON ---
History of Present Illness - History of Present Illness History of Present Illness: CONSULT for Dr. Hood Awake, alert, feels cold,no distress Reason for consultation: Cardiac evaluation of hypotension Brief history of present illness: A 78 year old male who came in to the ER due to abdominal pain, dizziness and difficulty urinating. History of hypertension, COPD, arthritis, hernia, and diabetes, osteomyelitis left big toe, history of hypotension on Midorine. unsteady gait, uses cane, lumbar disc radiculopathy, constipation, with garcía catheter since July 2018. left earlobe surgery for skin cancer. Tried to remove garcía catheter in ER but unable to. Cardiac consult was called for hypotension. Seen and examined by me and Dr. Najera Review of Systems - Review of Systems All systems: reviewed and no additional remarkable complaints except Review of Systems: as per HPI Past Patient History - Infectious Disease Hx of Infectious Diseases: None - Past Social History Smoking Status: Never Smoked - CARDIAC Hx Cardiac Disorders: Yes (rle dvt 12/2017) Hx Hypercholesterolemia: Yes Hx Hypertension: Yes Hx Peripheral Edema: Yes (+1 pitting edema rle, scrotum swollen) Hx Peripheral Vascular Disease: Yes Other/Comment: mild aortic valve stenosis, peripheral angiogram 08/14/18 - PULMONARY Hx Respiratory Disorders: Yes Hx Chronic Obstructive Pulmonary Disease (COPD): Yes (has home nebulizer machine) - NEUROLOGICAL Hx Neurological Disorder: No - HEENT Hx HEENT Problems: No - RENAL Hx Chronic Kidney Disease: No - ENDOCRINE/METABOLIC Hx Endocrine Disorders: Yes Hx Diabetes Mellitus Type 2: Yes - HEMATOLOGICAL/ONCOLOGICAL Hx Blood Disorders: Yes Hx Anemia: Yes Hx Cancer: Yes (basal cell skin ca left ear lobe removed) Other/Comment: left ear basal cell ca was removed pt has been cleared x 5 years as per daughters reyna and gerson - INTEGUMENTARY Hx Dermatological Problems: Yes Other/Comment: multiple skin discolorations both arms,left great toe wound 2cm x 1 cm wound bed yellow slough surrounded by rred skin 2cm red slit in slin underside of toe, thin toenail swelling redness to great toe, left heel wound wound bed deep red and bright red in color surrounded by slight red dry flakey skin,rle dry skin +1 pitting edema to lower leg and foot, multiple skin discolorations small 0.5cm round red wound anterior ankle, toenails to both feet dry, dry skin ble, scrotum redness/swelling, waiting for urologist to see pt has been in since 07/2018, redness to buttocks, multiple stage 1 small wounds left and right buttocks healing buttocks, right buttock stge 2 open wound 3cm x 1.5cm wound bed red covered with optifoam - MUSCULOSKELETAL/RHEUMATOLOGICAL Hx Falls: No - GASTROINTESTINAL Hx Gastrointestinal Disorders: Yes (hernia) Hx Gall Bladder Disease: Yes (gallstones) Other/Comment: infrequent bowel movements w/o constipation - GENITOURINARY/GYNECOLOGICAL Hx Genitourinary Disorders: No Other/Comment: Patient has a garcía inserted since 2017. - PSYCHIATRIC Hx Substance Use: No - SURGICAL HISTORY Hx Surgeries: Yes Other/Comment: LEFT EAR LOBE WITH SX. REMOVAL OF SKIN CA. Peripheral angiogram. - ANESTHESIA Hx Anesthesia: No Hx Anesthesia Reactions: No Hx Malignant Hyperthermia: No Meds Allergies/Adverse Reactions: Allergies Allergy/AdvReac Type Severity Reaction Status Date / Time No Known Allergies Allergy Verified 10/10/18 07:24 - Medications Medications: Current Medications Apixaban (Eliquis) 5 mg PO Q12 [facility]; Protocol Last Admin: 10/11/18 10:17 Dose: 5 mg Arformoterol Tartrate (Brovana) 15 mcg IH [id number] [facility] Budesonide (Pulmicort Respules) 0.5 mg IH BIDRESP [facility] Doxycycline Hyclate (Doryx) 100 mg PO Q12 [facility]; Protocol Stop: 10/16/18 10:01 Last Admin: 10/11/18 10:15 Dose: 100 mg Sodium Chloride (Sodium Chloride 0.45%) 1,000 mls @ 40 mls/hr IV .Q24H [facility] Last Admin: 10/11/18 10:14 Dose: 40 mls/hr Cefepime HCl (Maxipime 1gm) 1 gm in 100 mls @ 100 mls/hr IVPB Q8 [facility]; Protocol Stop: 10/20/18 09:07 Last Admin: 10/11/18 10:14 Dose: 100 mls/hr Insulin Human Regular (Humulin R Med) 0 units SC ACHS [facility]; Protocol Last Admin: 10/10/18 21:50 Dose: Not Given Midodrine (Proamatine) 10 mg PO TID [facility] Last Admin: 10/11/18 10:14 Dose: 10 mg Sitagliptin Phosphate (Januvia) 50 mg PO DAILY [facility] Last Admin: 10/11/18 10:21 Dose: Not Given Tiotropium Rush (Spiriva) 18 mcg IH DAILY [facility] Last Admin: 10/11/18 10:15 Dose: 18 mcg Physical Exam - Constitutional Appears: Non-toxic, No Acute Distress - Head Exam Head Exam: NORMAL INSPECTION, NORMOCEPHALIC - Eye Exam Eye Exam: Normal appearance Pupil Exam: NORMAL ACCOMODATION - ENT Exam ENT Exam: Mucous Membranes Dry - Respiratory Exam Respiratory Exam: Decreased Breath Sounds, Clear to Auscultation Bilateral, NORMAL BREATHING PATTERN - Cardiovascular Exam Cardiovascular Exam: +S1, +S2 - GI/Abdominal Exam GI & Abdominal Exam: Normal Bowel Sounds, Soft - Exam Additional comments: garcía catheter - Extremities Exam Extremities exam: Positive for: full ROM, normal capillary refill - Neurological Exam Neurological exam: Alert, Oriented x3 - Psychiatric Exam Psychiatric exam: Normal Affect, Normal Mood - Skin Skin Exam: Dry, Normal Color, Warm Results - Vital Signs Recent Vital Signs: Last Vital Signs Temp 98 F 10/11/18 06:00 Pulse 70 10/11/18 06:00 Resp 16 10/11/18 06:00 BP 107/58 L 10/11/18 06:00 Pulse Ox 100 10/11/18 06:00 - Labs Result Diagrams: 10/11/18 11:40 10/11/18 11:40 Labs: Laboratory Results - last 24 hr 10/10/18 10/10/18 10/10/18 12:40 16:32 21:00 pO2 35 VBG pH 7.33 VBG pCO2 35.0 L VBG HCO3 18.5 L VBG Total CO2 19.6 L VBG O2 Sat (Calc) 70.6 H VBG Base Excess -6.6 L VBG Potassium 3.9 Sodium 133.0 Chloride 104.0 Glucose 72 L Lactate 1.8 FiO2 21.0 POC Glucose (mg/dL) 72 Venous Blood Potassium 3.9 Urine Color Yellow Urine Appearance Sl cloudy Urine pH 7.0 Ur Specific Mobile 1.010 Urine Protein 30 H Urine Glucose (UA) Negative Urine Ketones 15 H Urine Blood Large H Urine Nitrate Positive H Urine Bilirubin Negative Urine Urobilinogen 0.2 Ur Leukocyte Esterase Small H Urine RBC Tntc H Urine WBC Tntc H Ur Epithelial Cells 6 - 8 H Calcium Oxalate Crystal Few Urine Bacteria Many 10/10/18 10/11/18 21:07 06:44 pO2 VBG pH VBG pCO2 VBG HCO3 VBG Total CO2 VBG O2 Sat (Calc) VBG Base Excess VBG Potassium Sodium Chloride Glucose Lactate FiO2 POC Glucose (mg/dL) 101 63 L Venous Blood Potassium Urine Color Urine Appearance Urine pH Ur Specific Mobile Urine Protein Urine Glucose (UA) Urine Ketones Urine Blood Urine Nitrate Urine Bilirubin Urine Urobilinogen Ur Leukocyte Esterase Urine RBC Urine WBC Ur Epithelial Cells Calcium Oxalate Crystal Urine Bacteria Assessment & Plan - Assessment and Plan (Free Text) Assessment: A 78 year old male who came in to the ER due to abdominal pain, dizziness and difficulty urinating. History of hypertension, COPD, arthritis, hernia, and diabetes, osteomyelitis of great toe unsteady gait, uses cane,history of hypotension on Midorine, lumbar disc radiculopathy, constipation, with garcía catheter since July 2018. left earlobe surgery for skin cancer. Tried to remove garcía catheter in ER but unable to. Cardiac consult was called for hypotension. Chest X ray showed right lower lobe infiltrates. CT of abdomen showed low volume intra-abdominal and pelvic ascitis. EKG showed normal sinus rhythm. Positive urinary tract infection. Denies chest pain,denies shortness of breath. Blood pressure better now, SBP 100's. Review of previous cardiac work up at [facility] [place]- Echo done- LVEF 65%, Transmitral doppler flow Grade 11, pseudonormal filling dynamics Mild MR/TR Plan: Awake, no distress, feels cold, blanket provides Blood pressure better now systolic 100's Continue Midorine Continue IV hydration of NSS at 40 cc/hr On Eliquis 5 mg BID, Midorine 10 mg TID Heart rate controlled Continue IV antibiotics as ordered by ID Continue current treatment Continue current medications TSH ,lipid panel, HgbA1C level in am Will follow up Further recommendation during hospital course Plan and treatment discussed with Dr. Najera Thank you Dr. Nguyen for the opportunity of taking care of Abel Chávez Covering Dr. Hood - Date & Time Date: 10/11/18 Time: 11:30
[2018-10-11 12:00] LABS: ALB/GLOB RATIO 0.7 (1.1-1.8); ALBUMIN 2.1 g/dL (3.0-4.8); ALT/SGPT 41 U/L (7-56); AST/SGOT 57 U/L (17-59); BLOOD UREA NITROGEN 11 mg/dL (7-21); GFR NON-AFRICAN AMERICAN > 60
[2018-10-11 12:02] LABS: HEMOGLOBIN 9.5 g/dL (14.0-18.0); MEAN CELL VOLUME 98.6 fl (80.0-105.0); MEAN CORPUSCULAR HEMOGLOBIN 33.3 pg (25.0-35.0); MEAN CORPUSCULAR HGB CONC 33.8 g/dl (31.0-37.0); MEAN PLATELET VOLUME 8.1 fl (7.0-11.0); RBC 2.85 10^6/uL (3.5-6.1); RED CELL DISTRIBUTION WIDTH 14.9 % (11.5-14.5); WHITE BLOOD COUNT 8.2 10^3/uL (4.5-11.0)
--- NOTE | 2018-10-11 12:28 | CP.PCM.CON ---
<Ernie Kim - Last Filed: 10/11/18 12:25> History of Present Illness - History of Present Illness History of Present Illness: Podiatry consult note for Dr. Callejas 78M seen and evaluated at bedside resting comfortably. Patient's daughter is present today. Patient is well known to Dr. Callejas/[employer]. Presents for pneumonia, is seen by podiatry for left heel ulceration and first digit distal tip ulceration. States that he is in no pain today. Denies discomfort to his feet. Daughter states that he has a nurse who changes his dressings and she does the same occasionally. Denies N/V/F/C/SOB/CP and has no other acute complaints. PMHx: hypertension, COPD, arthritis, hernia, and diabetes PSHx: LEFT EAR LOBE WITH SX. REMOVAL OF SKIN CA. Peripheral angiogram. All: NKDA Past Patient History - Infectious Disease Hx of Infectious Diseases: None - Past Social History Smoking Status: Never Smoked - CARDIAC Hx Cardiac Disorders: Yes (rle dvt 12/2017) Hx Hypercholesterolemia: Yes Hx Hypertension: Yes Hx Peripheral Edema: Yes (+1 pitting edema rle, scrotum swollen) Hx Peripheral Vascular Disease: Yes Other/Comment: mild aortic valve stenosis, peripheral angiogram 08/14/18 - PULMONARY Hx Respiratory Disorders: Yes Hx Chronic Obstructive Pulmonary Disease (COPD): Yes (has home nebulizer machine) - NEUROLOGICAL Hx Neurological Disorder: No - HEENT Hx HEENT Problems: No - RENAL Hx Chronic Kidney Disease: No - ENDOCRINE/METABOLIC Hx Endocrine Disorders: Yes Hx Diabetes Mellitus Type 2: Yes - HEMATOLOGICAL/ONCOLOGICAL Hx Blood Disorders: Yes Hx Anemia: Yes Hx Cancer: Yes (basal cell skin ca left ear lobe removed) Other/Comment: left ear basal cell ca was removed pt has been cleared x 5 years as per daughters reyna and gerson - INTEGUMENTARY Hx Dermatological Problems: Yes Other/Comment: multiple skin discolorations both arms,left great toe wound 2cm x 1 cm wound bed yellow slough surrounded by rred skin 2cm red slit in slin underside of toe, thin toenail swelling redness to great toe, left heel wound wound bed deep red and bright red in color surrounded by slight red dry flakey skin,rle dry skin +1 pitting edema to lower leg and foot, multiple skin discolorations small 0.5cm round red wound anterior ankle, toenails to both feet dry, dry skin ble, scrotum redness/swelling, waiting for urologist to see pt has been in since 07/2018, redness to buttocks, multiple stage 1 small wounds left and right buttocks healing buttocks, right buttock stge 2 open wound 3cm x 1.5cm wound bed red covered with optifoam - MUSCULOSKELETAL/RHEUMATOLOGICAL Hx Falls: No - GASTROINTESTINAL Hx Gastrointestinal Disorders: Yes (hernia) Hx Gall Bladder Disease: Yes (gallstones) Other/Comment: infrequent bowel movements w/o constipation - GENITOURINARY/GYNECOLOGICAL Hx Genitourinary Disorders: No Other/Comment: Patient has a garcía inserted since 2017. - PSYCHIATRIC Hx Substance Use: No - SURGICAL HISTORY Hx Surgeries: Yes Other/Comment: LEFT EAR LOBE WITH SX. REMOVAL OF SKIN CA. Peripheral angiogram. - ANESTHESIA Hx Anesthesia: No Hx Anesthesia Reactions: No Hx Malignant Hyperthermia: No Meds Allergies/Adverse Reactions: Allergies Allergy/AdvReac Type Severity Reaction Status Date / Time No Known Allergies Allergy Verified 10/10/18 07:24 - Medications Medications: Current Medications Apixaban (Eliquis) 5 mg PO Q12 [facility]AS; Protocol Last Admin: 10/11/18 10:17 Dose: 5 mg Arformoterol Tartrate (Brovana) 15 mcg IH [id number] [facility]UC[facility] Budesonide (Pulmicort Respules) 0.5 mg IH BIDRESP [facility] Doxycycline Hyclate (Doryx) 100 mg PO Q12 [facility]UC[facility]; Protocol Stop: 10/16/18 10:01 Last Admin: 10/11/18 10:15 Dose: 100 mg Sodium Chloride (Sodium Chloride 0.45%) 1,000 mls @ 40 mls/hr IV .Q24H [facility] Last Admin: 10/11/18 10:14 Dose: 40 mls/hr Cefepime HCl (Maxipime 1gm) 1 gm in 100 mls @ 100 mls/hr IVPB Q8 [facility]; Protocol Stop: 10/20/18 09:07 Last Admin: 10/11/18 10:14 Dose: 100 mls/hr Insulin Human Regular (Humulin R Med) 0 units SC ACHS LUC[facility]; Protocol Last Admin: 10/10/18 21:50 Dose: Not Given Midodrine (Proamatine) 10 mg PO TID [facility] Last Admin: 10/11/18 10:14 Dose: 10 mg Sitagliptin Phosphate (Januvia) 50 mg PO DAILY [facility] Last Admin: 10/11/18 10:21 Dose: Not Given Tiotropium [place] (Spiriva) 18 mcg IH DAILY [facility] Last Admin: 10/11/18 10:15 Dose: 18 mcg Physical Exam - Constitutional Appears: Non-toxic, No Acute Distress - Head Exam Head Exam: ATRAUMATIC, NORMOCEPHALIC - Extremities Exam Additional comments: Left LE focused exam VASC: DP/PT pulses are palpable 1/4, Cap refill time: < 3 sec to all digits, Temp gradient: warm to cool from proximal to distal, no pitting or non-pitting edema noted DERM: left heel has superficial pressure ulceration; no drainage, bleeding, pus, or streaking, no clinical signs of infection; distal tip of hallux has superficial wound, granular base, no drainage, no clinical signs of infection NEURO: Protective sensation grossly intact ORTHO: no pain on palpation to the left heel superficial lesion - Neurological Exam Neurological exam: Alert, Oriented x3 - Psychiatric Exam Psychiatric exam: Normal Affect, Normal Mood Results - Vital Signs Recent Vital Signs: Last Vital Signs Temp 98 F 10/11/18 06:00 Pulse 70 10/11/18 06:00 Resp 16 10/11/18 06:00 BP 107/58 L 10/11/18 06:00 Pulse Ox 100 10/11/18 06:00 - Labs Result Diagrams: 10/11/18 11:40 10/11/18 11:40 Labs: Laboratory Results - last 24 hr 10/10/18 10/10/18 10/10/18 12:40 16:32 21:00 WBC RBC Hgb Hct MCV MCH MCHC RDW Plt Count MPV pO2 35 VBG pH 7.33 VBG pCO2 35.0 L VBG HCO3 18.5 L VBG Total CO2 19.6 L VBG O2 Sat (Calc) 70.6 H VBG Base Excess -6.6 L VBG Potassium 3.9 Sodium 133.0 Chloride 104.0 Glucose 72 L Lactate 1.8 FiO2 21.0 Potassium Carbon Dioxide Anion Gap BUN Creatinine Est GFR ( Amer) Est GFR (Non-Af Amer) POC Glucose (mg/dL) 72 Random Glucose Calcium Total Bilirubin AST ALT Alkaline Phosphatase Total Protein Albumin Globulin Albumin/Globulin Ratio Venous Blood Potassium 3.9 Urine Color Yellow Urine Appearance Sl cloudy Urine pH 7.0 Ur Specific [place] 1.010 Urine Protein 30 H Urine Glucose (UA) Negative Urine Ketones 15 H Urine Blood Large H Urine Nitrate Positive H Urine Bilirubin Negative Urine Urobilinogen 0.2 Ur Leukocyte Esterase Small H Urine RBC Tntc H Urine WBC Tntc H Ur Epithelial Cells 6 - 8 H Calcium Oxalate Crystal Few Urine Bacteria Many 10/10/18 10/11/18 10/11/18 21:07 06:44 11:24 WBC RBC Hgb Hct MCV MCH MCHC RDW Plt Count MPV pO2 VBG pH VBG pCO2 VBG HCO3 VBG Total CO2 VBG O2 Sat (Calc) VBG Base Excess VBG Potassium Sodium Chloride Glucose Lactate FiO2 Potassium Carbon Dioxide Anion Gap BUN Creatinine Est GFR ( Amer) Est GFR (Non-Af Amer) POC Glucose (mg/dL) 101 63 L 66 Random Glucose Calcium Total Bilirubin AST ALT Alkaline Phosphatase Total Protein Albumin Globulin Albumin/Globulin Ratio Venous Blood Potassium Urine Color Urine Appearance Urine pH Ur Specific [place] Urine Protein Urine Glucose (UA) Urine Ketones Urine Blood Urine Nitrate Urine Bilirubin Urine Urobilinogen Ur Leukocyte Esterase Urine RBC Urine WBC Ur Epithelial Cells Calcium Oxalate Crystal Urine Bacteria 10/11/18 10/11/18 11:40 11:40 WBC 8.2 RBC 2.85 L Hgb 9.5 L Hct 28.1 L MCV 98.6 MCH 33.3 MCHC 33.8 RDW 14.9 H Plt Count 157 MPV 8.1 pO2 VBG pH VBG pCO2 VBG HCO3 VBG Total CO2 VBG O2 Sat (Calc) VBG Base Excess VBG Potassium Sodium 132 Chloride 108 H Glucose Lactate FiO2 Potassium 4.0 Carbon Dioxide 19 L Anion Gap 9 L BUN 11 Creatinine 0.8 Est GFR ( Amer) > 60 Est GFR (Non-Af Amer) > 60 POC Glucose (mg/dL) Random Glucose 73 Calcium 8.0 L Total Bilirubin 0.7 AST 57 ALT 41 Alkaline Phosphatase 83 Total Protein 5.0 L Albumin 2.1 L Globulin 2.8 Albumin/Globulin Ratio 0.7 L Venous Blood Potassium Urine Color Urine Appearance Urine pH Ur Specific [place] Urine Protein Urine Glucose (UA) Urine Ketones Urine Blood Urine Nitrate Urine Bilirubin Urine Urobilinogen Ur Leukocyte Esterase Urine RBC Urine WBC Ur Epithelial Cells Calcium Oxalate Crystal Urine Bacteria Assessment & Plan - Assessment and Plan (Free Text) Assessment: 78M with left heel pressure ulceration and left distal tip of hallux superficial wound, non infected Plan: Patient seen and evaluated Discussed in detail with Dr. Callejas Afebrile, absent leukocytosis Wounds cleansed with saline - heel ulcer dressed with optifoam, hallux wound dressed with xeroform, DSD Stable from podiatry standpoint, will continue local woundcare Thank you for the consult Will continue to follow while in house - Date & Time Date: 10/11/18 Time: 12:32 <Haritha Callejas - Last Filed: 10/18/18 16:08> Meds - Medications Medications: Current Medications Apixaban (Eliquis) 5 mg PO Q12 [facility]; Protocol Last Admin: 10/18/18 10:54 Dose: 5 mg Arformoterol Tartrate (Brovana) 15 mcg IH [id number] [facility] Last Admin: 10/18/18 07:21 Dose: 15 mcg Budesonide (Pulmicort Respules) 0.5 mg IH BIDRESP [facility] Last Admin: 10/18/18 07:21 Dose: 0.5 mg Docusate Sodium (Colace) 100 mg PO BID [facility] Last Admin: 10/18/18 10:54 Dose: 100 mg Vancomycin HCl (Vancomycin 1gm) 1 gm in 250 mls @ 167 mls/hr IVPB Q12H [facility]; P rotocol Last Admin: 10/18/18 10:53 Dose: 167 mls/hr Sodium Chloride (Sodium Chloride 0.9%) 1,000 mls @ 40 mls/hr IV .Q24H [facility] Last Admin: 10/18/18 13:58 Dose: 40 mls/hr Insulin Human Regular (Humulin R Med) 0 units SC ACHS [facility]; Protocol Last Admin: 10/18/18 12:04 Dose: Not Given Midodrine (Proamatine) 10 mg PO QID [facility] Last Admin: 10/18/18 13:58 Dose: 10 mg Polyethylene Glycol (Miralax) 17 gm PO BID [facility] Last Admin: 10/18/18 10:53 Dose: 17 gm Sitagliptin Phosphate (Januvia) 50 mg PO DAILY [facility] Last Admin: 10/18/18 10:54 Dose: 50 mg Tamsulosin HCl (Flomax) 0.4 mg PO DAILY [facility] Last Admin: 10/18/18 10:54 Dose: 0.4 mg Tiotropium [place] (Spiriva) 18 mcg IH DAILY [facility] Last Admin: 10/18/18 10:54 Dose: 18 mcg Results - Vital Signs Recent Vital Signs: Last Vital Signs Temp 97.6 F 10/18/18 12:00 Pulse 75 10/18/18 12:00 Resp 18 10/18/18 12:00 BP 109/46 L 10/18/18 12:00 Pulse Ox 98 10/18/18 06:00 - Labs Result Diagrams: 10/17/18 08:00 10/17/18 07:00 Labs: Laboratory Results - last 24 hr 10/17/18 10/17/18 10/18/18 16:34 21:46 07:22 POC Glucose (mg/dL) 173 H 114 H 83 10/18/18 11:49 POC Glucose (mg/dL) 102 Attending/Attestation - Attestation I have personally seen and examined this patient.: Yes I have fully participated in the care of the patient.: Yes I have reviewed all pertinent clinical information: Yes
[2018-10-11] MEDS: Insulin Reg-MEDIUM-Coverage SC SCH ×4 (13:09→23:19)
--- NOTE | 2018-10-11 13:58 | PN ---
DATE: 10/11/2018 SUBJECTIVE: He is resting comfortably in bed. He also has Fall catheter in. He is eating a little bit. Physical therapy is coming, not feeling that great. PHYSICAL EXAMINATION: GENERAL: He is alert and oriented. VITAL SIGNS: He has 98 temp, 70 pulse. 107/58 blood pressure, 16 respiratory rate and 100% O2 sat on room air. HEENT: Head is atraumatic and normocephalic. HEART: Regular rate. LUNGS: Decreased breath sounds, but clear. ABDOMEN: Soft. EXTREMITIES: No edema. He has got some skin ulcers here and there. MEDICATIONS: He is on Doryx, Eliquis, insulin, Januvia, Maxipime IV, ProAmatine, IV fluids and Spiriva. LABORATORY DATA: He has sodium 134, potassium 4.1, BUN 11, creatinine 0.8, GFR is greater than 60, sugar is 101, calcium is 8.3, total bili is 1, AST is 72, ALT is 39, alk phos 82 and total protein 5.6. White count is 8.8, hemoglobin 10.5, hematocrit 32 and platelets 195. We are dealing with UTI, pneumonia, constipation and Fall issues. He has consults with Urology, Pulmonary, Infectious Disease, Cardiology and Podiatry. Nobody has seen him yet as per the notes. He is on midodrine for the blood pressure, cefepime and doxycycline from Infectious Disease for his infections. We will continue aggressive treatment and care, physical therapy, IV antibiotics and see what we do about his blood pressure. Jn Nguyen DO
--- NOTE | 2018-10-11 17:45 | CON ---
DATE: 10/11/2018 LOCATION: The patient is seen in 574, bed 1. CHIEF COMPLAINT: Weakness and cough times several days. HISTORY OF PRESENT ILLNESS: This is a 78-year-old male with a history of left foot osteomyelitis, diabetes mellitus, hypertension, chronic obstructive lung disease, recent hospitalization, chronic Fall catheter, urinary tract infection, history of arthritis, who is admitted now with weakness, shortness of breath, and cough. Infectious Disease consultation requested for antibiotics. The patient had stated that he was having abdominal pain in the emergency room and it was noted that he was having dizziness and difficulty urinating from the rehab, he had recent hospitalization, had then developed urinary tract infections, and had a catheter inserted in July, which has not been changed. REVIEW OF SYSTEMS: A 12-point review of systems is performed. PAST MEDICAL HISTORY: Significant for diabetes mellitus, hypertension, arthritis, chronic obstructive lung disease, coronary artery disease, left foot osteomyelitis, recent hospitalization, and lumbar disc disease. The patient uses a cane to walk. PAST SURGICAL HISTORY: Noncontributory. ALLERGIES: THE PATIENT HAS NO KNOWN ALLERGIES. MEDICATIONS AT HOME: Include the patient to have calcium, Proscar, Januvia, and multiple vitamins. PHYSICAL EXAMINATION: GENERAL: The patient is in bed. VITAL SIGNS: Temperature of 98; blood pressure is 100/60; respiratory rate of 18, it was up to 26 in the emergency room; and heart rate is up to 77 and the patient's blood pressure was low as 88 in the emergency room. HEENT: Unremarkable. NECK: Supple. LUNGS: Have decreased breath sounds. HEART: Normal S1, S2. ABDOMEN: Soft, nontender. No organomegaly. No rebound, no guarding, no masses. LABORATORY DATA: Laboratory examination reveals a white count of 8.8, hemoglobin of 10, platelets of 195. Chemistries reveal a BUN of 11, creatinine of 0.8. The patient's one troponin is negative. Urinalysis is noted. Chest x-ray shows right lower lobe infiltrate, air bronchogram. CAT scan of the abdomen and pelvis is negative. History and physical examination with Dr. Jn Nguyen is reviewed. ASSESSMENT AND PLAN: This is a 78-year-old with right lower lobe healthcare-associated pneumonia in a diabetic, hypertensive, chronic obstructive pulmonary disease, arthritis, coronary artery disease with recent hospitalization and rehab. We will treat the patient with Maxipime and doxycycline pending blood cultures, urine cultures, sputum cultures, MRSA screen, procalcitonin, urine Legionella and we will discontinue Rocephin and azithromycin and we will make further recommendations upon availability of initial results and culture results. We will follow with you. Jonathan Bae MD
--- NOTE | 2018-10-11 19:02 | CON ---
DATE: 10/11/2018 PULMONARY CONSULTATION HISTORY OF PRESENT ILLNESS: The patient is a 78-year-old gentleman, known to Dr. Jn Nguyen, his primary medical doctor. The patient has a longstanding history of chronic obstructive pulmonary disease and is on outpatient inhaled bronchodilators. Apparently, the patient had some cough and expectoration for several days prior to admission. He was directed to the emergency room for further evaluation and treatment. PAST MEDICAL HISTORY: The patient has a past history of hypertension, arthritis, diabetes with multiple urinary tract infections and indwelling catheter for urinary retention. Apparently, the Fall catheter needed to be changed and the patient was sent for further evaluation and treatment of this problem, which resulted in the diagnosis of bronchopneumonia. The patient was complaining of severe weakness, but no acute shortness of breath. He had been taking his medications appropriately, being followed at home by Dr. Nguyen via house calls. SOCIAL HISTORY: The patient never smoked. He had no occupational or travel history. FAMILY HISTORY: No inheritable diseases ALLERGIES: None. PAST HISTORY: As described above including, but not limited to chronic obstructive pulmonary disease, history of arthritis, hypertension, diabetes mellitus, multiple urinary tract infections, indwelling Fall catheter for urinary retention. REVIEW OF SYSTEMS: Review of systems is not possible from the patient at this time. I have reviewed the review of systems from the chart and discussed with Dr. Nguyen. There were no other problems noted other than the Fall catheter, which is of major concern at this time. All other systems negative. PHYSICAL EXAMINATION: GENERAL: The patient is awake and alert, comfortable. He looks well. He has no acute respiratory distress. VITAL SIGNS: Reveal a blood pressure of 120/70, heart rate 78, respiratory rate 18, pulse oximeter oxygen saturation is 96%. HEENT: Normocephalic, atraumatic. EOMs full. NECK: Supple. No jugular venous distention. No bruit. No mass. COR: Regular rhythm. S1, S2 without murmur, gallop, or rub. CHEST: Global decrease in breath sounds. Rales on both sides, significant rhonchi at the right base. ABDOMEN: Soft. Bowel sounds normoactive without mass, guarding, rebound, or organomegaly. EXTREMITIES: Reveal no clubbing or cyanosis. There is trace edema. NEUROLOGIC: Grossly intact. The patient is awake and alert and oriented. No focal findings noted. SKIN: Warm and dry. Lymphadenopathy not present in the supraclavicular notch nor in the cervical, inguinal, or axillary areas. DIAGNOSTIC DATA: Chest x-ray shows a right lower lobe infiltrate with air bronchograms consistent with pneumonitis. EKG, sinus tach, nonspecific ST-T wave changes. LABORATORY DATA White count 8800, hemoglobin 10.5, hematocrit 32, monocytes 7.5%. Arterial blood gas 7.33. Chemistry: Sodium 134, potassium 4.1, carbon dioxide 20, AST 72, total protein 5.6. CLINICAL IMPRESSION: 1. Chronic obstructive pulmonary disease. 2. Right lower lobe pneumonia. 3. Urinary tract infection. 4. Hypotension. 5. Rule out sepsis. PLAN: Infectious Disease consult pending. Cardiology consultation pending. Continue antibiotic therapy for bronchopneumonia. Continue inhaled bronchodilators and corticosteroids. Close follow up. Further intervention based on his clinical response. Thank you for the opportunity to evaluate this ya gentleman. Bhupendra Ledesma MD MTDDunia
[2018-10-11] MEDS: Arformoterol 15 mcg/2 ml Inh Sol IH SCH (20:28)
[2018-10-11] MEDS: Budesonide 0.5 mg/2 ml Inhal Susp UD IH SCH (20:29)
[2018-10-12] MEDS: Cefepime 1gm in NS 100ml 1 GM/100 ML BAG IVPB SCH ×3 (05:04→21:27)
[2018-10-12 07:31] LABS: HEMOGLOBIN 9.3 g/dL (14.0-18.0); MEAN CELL VOLUME 97.2 fl (80.0-105.0); MEAN CORPUSCULAR HEMOGLOBIN 32.5 pg (25.0-35.0); MEAN CORPUSCULAR HGB CONC 33.5 g/dl (31.0-37.0); MEAN PLATELET VOLUME 8.2 fl (7.0-11.0); RBC 2.86 10^6/uL (3.5-6.1); RED CELL DISTRIBUTION WIDTH 14.7 % (11.5-14.5); WHITE BLOOD COUNT 6.7 10^3/uL (4.5-11.0)
[2018-10-12 07:55] LABS: ALB/GLOB RATIO 0.7 (1.1-1.8); ALT/SGPT 44 U/L (7-56); AST/SGOT 62 U/L (17-59); BLOOD UREA NITROGEN 10 mg/dL (7-21); CALCIUM 7.6 mg/dL (8.4-10.5); GFR NON-AFRICAN AMERICAN > 60; HDL CHOLESTEROL 10 mg/dL (29-60)
[2018-10-12 08:05] LABS: LDL CHOLESTEROL 88 mg/dL (0-129)
[2018-10-12] MEDS: Insulin Reg-MEDIUM-Coverage SC SCH ×4 (08:14→21:28)
--- NOTE | 2018-10-12 08:22 | CON ---
DATE: 10/11/2018 A detailed consult has been already written by Mona Serrano. This is an additional note for that consult. This consult being done on behalf of Dr. Hood whom we are covering. REASON FOR CONSULTATION: Episode of hypotension. HISTORY OF PRESENT ILLNESS: The patient is a 78-year-old male who was admitted with abdominal pain and dizziness. The patient has indwelling Fall catheter, had past history of hypotension, was on midodrine, COPD, hypertension, arthritis, diabetes mellitus, multiple urine infections, indwelling catheter, urinary retention, history of fall, history of osteomyelitis, history of peripheral vascular disease. The patient denies chest pain, shortness of breath, palpitations. The patient's chest x-ray showed right lower lobe alveolar infiltrate, blunting of the right costophrenic angle. EKG showed RSR poor R progression V1 to V3, nonspecific ST-T changes. CT abdomen and pelvis diffuse edema, anasarca, low volume abdomen and pelvic ascites. The patient's total protein 5.0, albumin 2.1. The patient had echo on ____ showed ejection fraction of 65%, diastolic dysfunction, mild mitral regurgitation, mild tricuspid regurgitation. PLAN: The patient is getting antibiotics. The patient also got IV fluids, but the patient has malnutrition with low protein and low albumin and that is contributing to his fluid retention. The patient had blood pressure of 96/57, but now blood pressure is 115/61, so blood pressure has improved and the patient does have previous history also of hypotensive episodes. We will continue midodrine 10 mg t.i.d., Eliquis 5 mg b.i.d., cefepime 1 g IV every 8 hours, Januvia 50 mg daily, and doxycycline hyclate 100 mg p.o. every [address] Hood will be following the patient starting tomorrow. Rom Najera MD
[2018-10-12] MEDS: Arformoterol 15 mcg/2 ml Inh Sol IH SCH (08:28)
[2018-10-12] MEDS: Budesonide 0.5 mg/2 ml Inhal Susp UD IH SCH (08:28)
--- NOTE | 2018-10-12 09:31 | PCM.URO ---
Urology Progress Note - Subjective Other: garcía removed. will monitor pt. full note will be dictated - Objective Lab Results Last 24 Hours: Laboratory Results - last 24 hr 10/11/18 10/11/18 10/11/18 11:24 11:40 11:40 WBC 8.2 RBC 2.85 L Hgb 9.5 L Hct 28.1 L MCV 98.6 MCH 33.3 MCHC 33.8 RDW 14.9 H Plt Count 157 MPV 8.1 Sodium 132 Potassium 4.0 Chloride 108 H Carbon Dioxide 19 L Anion Gap 9 L BUN 11 Creatinine 0.8 Est GFR ( Amer) > 60 Est GFR (Non-Af Amer) > 60 POC Glucose (mg/dL) 66 Random Glucose 73 Calcium 8.0 L Total Bilirubin 0.7 AST 57 ALT 41 Alkaline Phosphatase 83 Total Protein 5.0 L Albumin 2.1 L Globulin 2.8 Albumin/Globulin Ratio 0.7 L Triglycerides Cholesterol LDL Cholesterol Direct HDL Cholesterol Procalcitonin TSH 3rd Generation Ur L.pneumophila Ag 10/11/18 10/11/18 10/11/18 11:40 13:57 16:01 WBC RBC Hgb Hct MCV MCH MCHC RDW Plt Count MPV Sodium Potassium Chloride Carbon Dioxide Anion Gap BUN Creatinine Est GFR ( Amer) Est GFR (Non-Af Amer) POC Glucose (mg/dL) 81 Random Glucose Calcium Total Bilirubin AST ALT Alkaline Phosphatase Total Protein Albumin Globulin Albumin/Globulin Ratio Triglycerides Cholesterol LDL Cholesterol Direct HDL Cholesterol Procalcitonin 0.16 L TSH 3rd Generation Ur L.pneumophila Ag Negative 10/11/18 10/12/18 10/12/18 21:31 06:23 07:00 WBC 6.7 RBC 2.86 L Hgb 9.3 L Hct 27.8 L MCV 97.2 MCH 32.5 MCHC 33.5 RDW 14.7 H Plt Count 150 MPV 8.2 Sodium Potassium Chloride Carbon Dioxide Anion Gap BUN Creatinine Est GFR ( Amer) Est GFR (Non-Af Amer) POC Glucose (mg/dL) 95 84 Random Glucose Calcium Total Bilirubin AST ALT Alkaline Phosphatase Total Protein Albumin Globulin Albumin/Globulin Ratio Triglycerides Cholesterol LDL Cholesterol Direct HDL Cholesterol Procalcitonin TSH 3rd Generation Ur L.pneumophila Ag 10/12/18 10/12/18 07:00 07:00 WBC RBC Hgb Hct MCV MCH MCHC RDW Plt Count MPV Sodium 133 Potassium 3.9 Chloride 109 H Carbon Dioxide 19 L Anion Gap 9 L BUN 10 Creatinine 0.7 L Est GFR ( Amer) > 60 Est GFR (Non-Af Amer) > 60 POC Glucose (mg/dL) Random Glucose 74 Calcium 7.6 L Total Bilirubin 0.7 AST 62 H ALT 44 Alkaline Phosphatase 74 Total Protein 4.9 L Albumin 2.0 L Globulin 3.0 Albumin/Globulin Ratio 0.7 L Triglycerides 81 Cholesterol 105 L LDL Cholesterol Direct 88 HDL Cholesterol 10 L Procalcitonin TSH 3rd Generation 1.45 Ur L.pneumophila Ag Intake & Output: Intake & Output 10/11/18 10/12/18 10/12/18 18:59 06:59 18:59 Intake Total 1020 Output Total 950 Balance 70 Intake: Oral 1020 Output: Urine 950 Urethral (García) 950 Other: # Bowel Movements 0 Vital Signs: Vital Signs - 24 hr 10/11/18 10/11/18 10/12/18 14:00 22:36 06:00 Temperature 97.9 F 98.1 F 97.8 F Pulse Rate 64 65 64 Respiratory 18 18 18 Rate Blood Pressure 115/61 107/53 L 103/58 L O2 Sat by Pulse 98 100 97 Oximetry
[2018-10-12] MEDS: Tiotropium 18 mcg Cap For Inhalation IH SCH (09:49)
--- NOTE | 2018-10-12 11:01 | PN ---
DATE: 10/12/2018 SUBJECTIVE: The patient appears comfortable this morning. He is not short of breath at rest. PHYSICAL EXAMINATION: VITAL SIGNS: Temperature is 98.1, pulse 65, respirations 18, blood pressure 107/53. Oxygen saturation on room air is 100%. HEENT: Normocephalic, atraumatic. No JVD. CARDIOVASCULAR: Positive systolic ejection murmur at the lower left sternal border. No S3 gallop. LUNGS: Decreased breath sounds at the bases. No rhonchi. No wheezing. EXTREMITIES: Mild edema. No cyanosis, no clubbing. Calves are nontender to palpation. GASTROINTESTINAL: Abdomen is soft, nontender and nondistended. Bowel sounds are positive. SKIN: No acute rash. ++ vascular changes - feet. NEUROLOGIC: Exam limited at the present time. IMPRESSION: 1. Recurrent urinary tract infections. 2. Chronic obstructive pulmonary disease. 3. Anasarca, small bilateral pleural effusions. 4. Anemia. 5. Hypoalbuminemia. PLAN: The patient appears very comfortable this morning. He is not short of breath at rest. He states that he is breathing well. He does state to feeling much better overall. On physical exam, there is no significant bronchospasm noted. In addition, the oxygen saturation on room air is 100%. I will continue the current pulmonary medications for now. I did review the chest x-ray and abdominal CAT scan. The chest x-ray does show a small right basilar infiltrate. However, on CAT scan, there are no distinct infiltrates noted. There are small bilateral pleural effusions with adjacent compressive atelectasis. There is also evidence of anasarca and ascites. The anasarca and ascites are probably the origin of the small pleural effusions. In addition, the procalcitonin done was negative - making pneumonia less likely. I would continue with the antibiotic coverage as per Infectious Disease. Input by Dr. Bae is noted. There are no temperatures noted. There is no leukocytosis. Clinical status of the patient is certainly improved - compared to the initial presentation. I will discuss the above with Dr. Nguyen later this morning. Melquiades Rose MD [facility] # [id number] MERVAT
--- NOTE | 2018-10-12 11:34 | PN ---
DATE: 10/12/2018 SUBJECTIVE: I saw him resting in bed this morning. He tells me he is dizzy in bed. I will call on neuro to get their opinion. He is being seen by multiple physicians. He has multiple problems. UTI, Fall issues, I believe that it was taken out with urology today. We are going to watch him and see if he can urinate, if not, we will put it again. He has constipation, possible pneumonia. So he was in bed he is dizzy, not that hungry. I am trying to get him out of bed to chair and also some physical therapy. He is being seen by Urology, Pulmonary, Infectious Disease, Cardiology, and Podiatry. I called in neuro for the dizziness. PHYSICAL EXAMINATION: VITAL SIGNS: He has 97.8 temp, 64 pulse, 103/58 blood pressure, 18 respiratory rate and 97% O2 sat on room air. HEENT: Head is atraumatic and normocephalic. HEART: Regular rate. LUNGS: Decreased breath sounds, but clear. ABDOMEN: Soft. EXTREMITIES: Trace edema, little bit swollen. LABORATORY DATA: He has a 6.7 white count, 9.3 hemoglobin, 27.8 hematocrit with 150 platelets. He has a 133 sodium, potassium 3.9, BUN 10, creatinine 0.7, GFR is greater than 60, sugar is 74, calcium is 7.6, total bili is 0.7, AST is 62, ALT is 44, alk phos 74, total protein 4.9, triglycerides 81 and TSH is 1.45. MEDICATIONS: He is currently on Brovana, Doryx, Eliquis, Flomax, insulin, Januvia, Maxipime, ProAmatine, Pulmicort, IV fluids and Spiriva. I believe he is mildly improving neurology to address this dizziness. We continue with aggressive treatment and care. Check his labs, to bed. Jn Nguyen DO MTDDunia
--- NOTE | 2018-10-12 12:57 | PN ---
DATE: 10/12/2018 SUBJECTIVE: The patient is feeling better with his Fall DC'd today. PHYSICAL EXAMINATION: VITAL SIGNS: Blood pressure 103/58, heart rate in the 60s. NECK: Negative JVD. LUNGS: Decreased breath sounds. HEART: Reveals S1, S2 with a short systolic ejection murmur. EXTREMITIES: Without edema. LABORATORY DATA: Laboratories include an echocardiogram that was performed in 12/2017 which shows mild aortic stenosis with good LV function. Hemoglobin is 9.3. Chemistries, BUN and creatinine are unremarkable. IMPRESSION: 1. Sepsis. 2. Resolution of abdominal pain with removal of Fall 3. Diabetes mellitus. 4. Transient hypotension, which is now resolved. RECOMMENDATION: Given these findings, the patient is currently on antibiotics. We will need to monitor his urine output with his Fall DC'd. Shalom Hood MD
[2018-10-12] MEDS: Sodium Chloride 0.45% 1,000 ML IV SCH ×2 (12:58→14:28)
--- NOTE | 2018-10-12 13:33 | CP.PCM.PN ---
<Denise Morris - Last Filed: 10/12/18 13:30> Subjective - Date & Time of Evaluation Date of Evaluation: 10/12/18 Time of Evaluation: 13:30 - Subjective Subjective: Podiatry progress note for Dr. Callejas 78M seen and evaluated at bedside resting comfortably. Patient's daughter is present today. Patient is well known to Dr. Callejas/[place]. Patient is seen by podiatry for left heel ulceration and first digit distal tip ulceration. States that he is in no pain today. Denies discomfort to his feet. Denies acute overnight events. Denies N/V/F/C/SOB/CP and has no other acute complaints. Objective - Vital Signs/Intake and Output Vital Signs (last 24 hours): Temp Pulse Resp BP Pulse Ox 97.8 F 64 18 103/58 L 97 10/12/18 06:00 10/12/18 06:00 10/12/18 06:00 10/12/18 06:00 10/12/18 06:00 Intake and Output: 10/12/18 10/12/18 06:59 18:59 Intake Total 1020 Output Total 950 Balance 70 - Medications Medications: Current Medications Apixaban (Eliquis) 5 mg PO Q12 [facility]; Protocol Last Admin: 10/12/18 09:49 Dose: 5 mg Arformoterol Tartrate (Brovana) 15 mcg IH [id number] [facility] Last Admin: 10/12/18 08:28 Dose: 15 mcg Budesonide (Pulmicort Respules) 0.5 mg IH BIDRESP [facility] Last Admin: 10/12/18 08:28 Dose: 0.5 mg Doxycycline Hyclate (Doryx) 100 mg PO Q12 [facility]; Protocol Stop: 10/16/18 10:01 Last Admin: 10/12/18 09:49 Dose: 100 mg Sodium Chloride (Sodium Chloride 0.45%) 1,000 mls @ 40 mls/hr IV .Q24H [facility] Last Admin: 10/12/18 12:58 Dose: Not Given Cefepime HCl (Maxipime 1gm) 1 gm in 100 mls @ 100 mls/hr IVPB Q8 [facility]; Protocol Stop: 10/20/18 09:07 Last Admin: 10/12/18 05:04 Dose: 100 mls/hr Insulin Human Regular (Humulin R Med) 0 units SC ACHS [facility]; Protocol Last Admin: 10/12/18 11:25 Dose: Not Given Midodrine (Proamatine) 10 mg PO TID [facility] Last Admin: 10/12/18 09:49 Dose: 10 mg Sitagliptin Phosphate (Januvia) 50 mg PO DAILY [facility] Last Admin: 10/12/18 09:49 Dose: 50 mg Tamsulosin HCl (Flomax) 0.4 mg PO DAILY [facility] Last Admin: 10/12/18 09:49 Dose: 0.4 mg Tiotropium [place] (Spiriva) 18 mcg IH DAILY [facility] Last Admin: 10/12/18 09:49 Dose: 18 mcg - Labs Labs: 10/12/18 07:00 10/12/18 07:00 - Constitutional Appears: Well, Non-toxic, No Acute Distress - Head Exam Head Exam: ATRAUMATIC, NORMOCEPHALIC - Eye Exam Eye Exam: Normal appearance Pupil Exam: NORMAL ACCOMODATION - ENT Exam ENT Exam: Mucous Membranes Moist - Neck Exam Neck Exam: Normal Inspection - Extremities Exam Extremities Exam: Normal Inspection Additional comments: Left LE focused exam VASC: DP/PT pulses are palpable 1/4, Cap refill time: < 3 sec to all digits, Temp gradient: warm to cool from proximal to distal, no pitting or non-pitting edema noted DERM: left heel has superficial pressure ulceration with fibrogranular base; no drainage, bleeding, pus, or streaking, no clinical signs of infection; distal tip of hallux has superficial wound, granular base, no drainage, no clinical signs of infection NEURO: Protective sensation grossly intact ORTHO: no pain on palpation to the left heel superficial lesion - Neurological Exam Neurological Exam: Alert, Awake, Oriented x3 Assessment and Plan - Assessment and Plan (Free Text) Assessment: 78M with left heel pressure ulceration and left distal tip of hallux superficial wound, non infected Plan: Patient seen and evaluated Discussed in detail with Dr. Callejas Afebrile, absent leukocytosis Bactroban ordered to be used on the heel ulcer Physical therapy ordered to help patient ambulate Wounds cleansed with saline - heel ulcer dressed with optifoam, hallux wound dressed with optifoam Stable from podiatry standpoint, will continue local woundcare Thank you for the consult Will continue to follow while in house <Haritha Callejas - Last Filed: 10/18/18 16:06> Objective - Vital Signs/Intake and Output Vital Signs (last 24 hours): Temp Pulse Resp BP Pulse Ox 97.6 F 75 18 109/46 L 98 10/18/18 12:00 10/18/18 12:00 10/18/18 12:00 10/18/18 12:00 10/18/18 06:00 Intake and Output: 10/18/18 10/18/18 06:59 18:59 Intake Total 660 Output Total 1100 Balance -440 - Medications Medications: Current Medications Apixaban (Eliquis) 5 mg PO Q12 [facility]; Protocol Last Admin: 10/18/18 10:54 Dose: 5 mg Arformoterol Tartrate (Brovana) 15 mcg IH [id number] [facility] Last Admin: 10/18/18 07:21 Dose: 15 mcg Budesonide (Pulmicort Respules) 0.5 mg IH BIDRESP [facility] Last Admin: 10/18/18 07:21 Dose: 0.5 mg Docusate Sodium (Colace) 100 mg PO BID [facility] Last Admin: 10/18/18 10:54 Dose: 100 mg Vancomycin HCl (Vancomycin 1gm) 1 gm in 250 mls @ 167 mls/hr IVPB Q12H [facility]; Protocol Last Admin: 10/18/18 10:53 Dose: 167 mls/hr Sodium Chloride (Sodium Chloride 0.9%) 1,000 mls @ 40 mls/hr IV .Q24H [facility] Last Admin: 10/18/18 13:58 Dose: 40 mls/hr Insulin Human Regular (Humulin R Med) 0 units SC ACHS [facility]; Protocol Last Admin: 10/18/18 12:04 Dose: Not Given Midodrine (Proamatine) 10 mg PO QID [facility] Last Admin: 10/18/18 13:58 Dose: 10 mg Polyethylene Glycol (Miralax) 17 gm PO BID [facility] Last Admin: 10/18/18 10:53 Dose: 17 gm Sitagliptin Phosphate (Januvia) 50 mg PO DAILY [facility] Last Admin: 10/18/18 10:54 Dose: 50 mg Tamsulosin HCl (Flomax) 0.4 mg PO DAILY [facility] Last Admin: 10/18/18 10:54 Dose: 0.4 mg Tiotropium [place] (Spiriva) 18 mcg IH DAILY [facility] Last Admin: 10/18/18 10:54 Dose: 18 mcg - Labs Labs: 10/17/18 08:00 10/17/18 07:00 PT 25.7 SECONDS (9.4-12.5) H 10/12/18 23:19 INR 2.22 10/12/18 23:19 APTT 46.2 Seconds (25.1-36.5) H 10/12/18 23:19 Attending/Attestation - Attestation I have personally seen and examined this patient.: Yes I have fully participated in the care of the patient.: Yes I have reviewed all pertinent clinical information, including history, physical exam and plan: Yes
--- NOTE | 2018-10-12 16:46 | CP.PCM.PN ---
Subjective - Date & Time of Evaluation Date of Evaluation: 10/12/18 Time of Evaluation: 09:40 - Subjective Subjective: Comfortable in bed, not in distress, no cough currently, no nausea or vomiting. Objective - Vital Signs/Intake and Output Vital Signs (last 24 hours): Temp Pulse Resp BP Pulse Ox 97.6 F 68 20 107/60 98 10/12/18 14:00 10/12/18 14:00 10/12/18 14:00 10/12/18 14:00 10/12/18 14:00 Intake and Output: 10/12/18 10/12/18 06:59 18:59 Intake Total 1020 Output Total 950 Balance 70 - Medications Medications: Current Medications Apixaban (Eliquis) 5 mg PO Q12 [facility]; Protocol Last Admin: 10/12/18 09:49 Dose: 5 mg Arformoterol Tartrate (Brovana) 15 mcg IH [id number] [facility] Last Admin: 10/12/18 08:28 Dose: 15 mcg Budesonide (Pulmicort Respules) 0.5 mg IH BIDRESP [facility] Last Admin: 10/12/18 08:28 Dose: 0.5 mg Doxycycline Hyclate (Doryx) 100 mg PO Q12 [facility]; Protocol Stop: 10/16/18 10:01 Last Admin: 10/12/18 09:49 Dose: 100 mg Sodium Chloride (Sodium Chloride 0.45%) 1,000 mls @ 40 mls/hr IV .Q24H [facility] Last Admin: 10/12/18 14:28 Dose: 40 mls/hr Cefepime HCl (Maxipime 1gm) 1 gm in 100 mls @ 100 mls/hr IVPB Q8 [facility]; Protocol Stop: 10/20/18 09:07 Last Admin: 10/12/18 14:28 Dose: 100 mls/hr Insulin Human Regular (Humulin R Med) 0 units SC ACHS [facility]; Protocol Last Admin: 10/12/18 11:25 Dose: Not Given Midodrine (Proamatine) 10 mg PO TID [facility] Last Admin: 10/12/18 14:28 Dose: 10 mg Sitagliptin Phosphate (Januvia) 50 mg PO DAILY [facility] Last Admin: 10/12/18 09:49 Dose: 50 mg Tamsulosin HCl (Flomax) 0.4 mg PO DAILY [facility] Last Admin: 10/12/18 09:49 Dose: 0.4 mg Tiotropium [place] (Spiriva) 18 mcg IH DAILY [facility] Last Admin: 10/12/18 09:49 Dose: 18 mcg - Labs Labs: 10/12/18 07:00 10/12/18 07:00 - Constitutional Appears: Chronically Ill - Head Exam Head Exam: NORMAL INSPECTION - Respiratory Exam Respiratory Exam: Decreased Breath Sounds - Cardiovascular Exam Cardiovascular Exam: +S1, +S2 - GI/Abdominal Exam GI & Abdominal Exam: Soft. absent: Tenderness Assessment and Plan - Assessment and Plan (Free Text) Plan: Assessment right lower lobe HCAP DM HTN arthritis COPD CAD history of left foot osteomyelitis Assessment continue Doxycycline and Cefepime day 2 for 4-7 days; follow up final culture results will continue to monitor clinically
--- NOTE | 2018-10-12 17:19 | CON ---
DATE: 10/12/2018 NEUROLOGY CONSULT CHIEF COMPLAINT: Dizziness. HISTORY OF PRESENT ILLNESS: This is a 78-year-old man with history of hypertension; COPD; arthritis; diabetes; osteomyelitis, left big toe; history of hypotension, on midodrine; unsteady gait; history of lumbosacral radiculopathy with Fall catheter; left earlobe surgery for skin cancer. was consulted for dizziness, his dizziness is likely secondary to diffuse severe hypotension and deconditioned state. He has been bed bound for many weeks, which will also make him dizzy. He is on ProAmatine already of 10 mg p.o. t.i.d. and we will make arrangement to follow up with Cardiology in regards to his hypotension. He is also mildly dehydrated for which he needs adequate fluids and also had an episode of hypoglycemia while he was on 10/11/2018 . PAST MEDICAL HISTORY: As above. SOCIAL HISTORY: No illicit drug use, smoking or EtOH abuse. REVIEW OF SYSTEMS: Fourteen-point review of systems is as per HPI. MEDICATIONS: Reviewed by nurse's reconciliation sheet. ALLERGIES: NO KNOWN DRUG ALLERGIES. PHYSICAL EXAMINATION: GENERAL: The patient is lying in bed, in no acute distress. VITAL SIGNS: Temperature of 97.8, pulse rate is 64, blood pressure of 103/58, respiratory rate of 18, oxygen saturation 97%. HEENT: PERRLA. Extraocular muscles intact. NECK: Supple. No JVD. No adenopathy noted. HEART: S1 and S2. Normal rate and rhythm. No murmurs, rubs or gallops. ABDOMEN: Soft, nontender, nondistended. Bowel sounds are present. EXTREMITIES: No clubbing, no cyanosis. Peripheral pulses are 2+ felt bilaterally. NEUROLOGIC: The patient is alert and oriented to person, place, month and year. Speech is fluent without any errors. Cranial nerves II through XII are intact. Motor: Moves all extremities equally. Toes are downgoing bilaterally. Sensory: Decreased light touch and pinprick up to the calves bilaterally. Decreased vibration of the toes.. DTRs are 2+ throughout and 1 at both knees and ankles. Coordination: Nmpavo-pr-bvud intact. No dysmetria noted. LABORATORY DATA: Sodium is 134, potassium 4.1, chloride of 106, carbon dioxide of 20, BUN of 11, creatinine 0.8, random glucose of 171. ASSESSMENT AND PLAN: This is a 78-year-old man with history of hypertension, chronic obstructive pulmonary disease, type 2 diabetes mellitus, osteomyelitis of the great toe, unsteady gait, deconditioned state, lumbosacral radiculopathy, history of hypotension, on midodrine, who came in for abdominal pain and dizziness and difficulty urinating, which has been evaluated. He had low systolic and diastolic blood pressures and was consulted for dizziness, the dizziness seems most likely a transient cerebral hypoperfusion to the brain from low systolic blood pressures as well as underlying deconditioned state causing this dizziness. RECOMMENDATIONS: At this time, we recommend: 1. Continue with Eliquis 5 mg p.o. b.i.d. in addition to midodrine 10 mg p.o. daily. 2. Adequate hydration throughout the day to keep systolic blood pressure above 120 to 130s and diastolic 70 to 80s and up with hypotensive episodes. 3. Compression stockings. 4. Physical and occupational therapy, likely subacute rehab at this time. Thank you for this consult. Michel Moran MD
[2018-10-12] MEDS ORDERED: Sodium Chloride 0.9% 500 ML IV STA (18:07)
[2018-10-12] MEDS: Mupirocin 2% Ointment 15 GM TUBE NS SCH (18:19)
[2018-10-12 23:20] LABS: ARTERIAL BLOOD GAS HCO3 11.4 mmol/L (21-28); ARTERIAL BLOOD GAS O2 SAT 99.8 % (95-98); ARTERIAL BLOOD GAS PH 7.55 (7.35-7.45); ARTERIAL BLOOD GAS TCO2 11.8 mmol.L (22-28)
[2018-10-12 23:27] LABS: BASO # 0.03 K/mm3 (0.0-2.0); BASO % 0.4 % (0.0-3.0); EOS # 0.2 (0.0-0.7); EOS % 2.9 % (1.5-5.0); GRAN # 3.84 (1.4-6.5); GRAN % 51.5 % (50.0-68.0); HEMOGLOBIN 9.6 g/dL (14.0-18.0); LYMPH # 2.9 (1.2-3.4); LYMPH % 39.2 % (22.0-35.0); MEAN CELL VOLUME 96.9 fl (80.0-105.0); MEAN CORPUSCULAR HEMOGLOBIN 32.7 pg (25.0-35.0); MEAN CORPUSCULAR HGB CONC 33.7 g/dl (31.0-37.0); MEAN PLATELET VOLUME 8.3 fl (7.0-11.0); MONO # 0.5 (0.1-0.6); RBC 2.94 10^6/uL (3.5-6.1); RED CELL DISTRIBUTION WIDTH 14.4 % (11.5-14.5); WHITE BLOOD COUNT 7.5 10^3/uL (4.5-11.0)
[2018-10-12 23:30] LABS: INR 2.22; PARTIAL THROMBOPLASTIN TIME 46.2 Seconds (25.1-36.5); PROTHROMBIN TIME 25.7 SECONDS (9.4-12.5)
--- NOTE | 2018-10-13 | PCM.RRT ---
OVERNIGHT BABYSITTER Nurse Assessment - Situation Date: 10/12/18 Time OVERNIGHT BABYSITTER was called: 22:42 OVERNIGHT BABYSITTER Responder Arrival Time: 22:43 OVERNIGHT BABYSITTER Location:: [address] OVERNIGHT BABYSITTER Reason for Call: Change in Mental Status OVERNIGHT BABYSITTER Called By: Other Disciplines - IV IV Inserted during OVERNIGHT BABYSITTER?: No - Respiratory Oxygen Delivery Method: Nasal Cannula @L/min Oxygen Flow Rate: 4 Received Nebulizer Treatments:: No Was the Patient Ventilated with Bag/Mask 100% O2?: No Secretions Suctioned?: No Was the Patient Intubated?: No Was the Patient Placed on a Ventilator?: No - Diagnostic Test Ordered EKG: Yes Chest X-Ray: Yes CT Scan: No - Stat Labs Ordered OVERNIGHT BABYSITTER Stat Labs Ordered: CBC, BMP, PT/PTT, TROPONIN, LACTIC ACID, ABG CPR started during OVERNIGHT BABYSITTER?: No - Vital Signs Vital Sign: Rapid Response Vital Sign Blood Pressure 130/75 Pulse Rate 95 Respiratory Rate 21 Temperature 97.6 F Oxygen Saturation 96 - Finger Stick Blood Glucose Finger Stick Blood Glucose: 99 - Valerio Coma Scale Coma Scale Eye Opening: Spontaneous Coma Scale Motor: Obeys Commands Movement Coma Scale Verbal: Oriented - Time OVERNIGHT BABYSITTER Ended Time OVERNIGHT BABYSITTER Ended: 23:52 - Vital Signs at end of OVERNIGHT BABYSITTER Vital Signs at end of OVERNIGHT BABYSITTER: Rapid Response End Vital Sign Blood Pressure 138/72 Pulse Rate 78 Respiratory Rate 20 Temperature 98.0 F O2 Sat by Pulse Oximetry 100 - Recommendations 5) OVERNIGHT BABYSITTER Level of Care Recommendations: Transfer to Telemetry Notifications: Attending Physician, Consultations I.Reason for OVERNIGHT BABYSITTER - A) Acute Change in Patient: Subjective: OVERNIGHT BABYSITTER: Syncope As pt changes position from commode to bed, he felt lightheaded with b/l blurry vision. He tried to remain very still in bed to feel better. OVERNIGHT BABYSITTER called because he looked stiff while remaining very still. Abel, 78M, PMH of DM, HTN, COPD, DVT on eliquis, chronic garcía [facility] for chronic foot wound with osteomyelitis, admitted for difficulty removal of chronic garcía. He was found to have RLL HCAP on cefepime and doxy. Urine Cx showed Staph aureus but asymptompatic. Nasal swab positive for MRSA. he is on contract precaution. PMH multiple UTIs, Chronic garcía Orthostatic hypotension on midodrine, unsteady gait, Hx falls Poor appetite COPD DM, non- insulin DVT on Eliquis since summer 2018 Low blood pressure diabetes L great toe osteomyelitits s/p IV antibiotics at [facility] rehab Skin ca from L ear lobe s/p resection - Neurological Status (Select all that apply): Alert - Respiratory Oxygen Delivery Method: Nasal Cannula @L/min Oxygen Flow Rate: 4 - Constitutional Appears: No Acute Distress - Head Head Exam: ATRAUMATIC, NORMAL INSPECTION, NORMOCEPHALIC - Eyes Eye Exam: EOMI, Normal appearance, PERRL. absent: Scleral icterus - Respiratory Exam Respiratory Exam: Decreased Breath Sounds (b/l lung bases ), Clear to Ausculation Bilateral. absent: Rhonchi, Wheezes - Cardiovascular Exam Cardiovascular Exam: REGULAR RHYTHM, +S1, +S2 - GI/Abdominal Exam GI & Abdominal Exam: Soft, Normal Bowel Sounds. absent: Tenderness Additional comments: no suprapubic tenderess - Neurological Exam Neurological Exam: Alert, Awake, CN II-XII Intact, Oriented x3 Additional exam: no slurr motor 5/5 sensory intact - Extremities Exam Extremities Exam: absent: Calf Tenderness, Pedal Edema Plan - Assessment of Findings&Treatment Plan A: Postural syncope suspicious of autonomic neuropathy from diabetes Urinary retention of 800cc Hx diabetes P: CBC, CMP, trops, CXR, ABG lactate, CT head to r/o cardiogenic or neurogenic or septic causes Orthostatic VS significant for orthostatic hypotention (Laying 122/67, HR 77; Sit 72/37 HR 101). continue midodrine. primary team had plan to consult cardiology for hypotension management EKG: no significant changes garcía insertion. drainged 400cc. clamped Fall precautions notified pmd and family, Olga
[2018-10-13 00:04] LABS: ARTERIAL BLOOD GAS PCO2 13 mm/Hg (35-45)
[2018-10-13 00:08] LABS: TROPONIN I < 0.01 ng/mL
[2018-10-13 00:20] LABS: ALB/GLOB RATIO 0.7 (1.1-1.8); ALBUMIN 2.2 g/dL (3.0-4.8); ALT/SGPT 39 U/L (7-56); AST/SGOT 75 U/L (17-59); BLOOD UREA NITROGEN 11 mg/dL (7-21); CALCIUM 7.8 mg/dL (8.4-10.5); GFR NON-AFRICAN AMERICAN > 60
[2018-10-13] MEDS: Sodium Chloride 0.45% 1,000 ML IV SCH ×2 (01:45→18:01)
[2018-10-13 03:54] LABS: VENOUS BLOOD GAS BASE EXCESS -8.4 mmol/L (0.0-2.0); VENOUS BLOOD GAS PO2 109 mm/Hg (30-55)
[2018-10-13] MEDS: Cefepime 1gm in NS 100ml 1 GM/100 ML BAG IVPB SCH (05:41)
[2018-10-13] MEDS: Budesonide 0.5 mg/2 ml Inhal Susp UD IH SCH ×2 (07:54→19:43)
[2018-10-13] MEDS: Arformoterol 15 mcg/2 ml Inh Sol IH SCH ×2 (07:54→19:43)
[2018-10-13] MEDS: Insulin Reg-MEDIUM-Coverage SC SCH ×4 (08:05→22:00)
[2018-10-13 08:16] LABS: HEMOGLOBIN 8.7 g/dL (14.0-18.0); MEAN CELL VOLUME 98.1 fl (80.0-105.0); MEAN CORPUSCULAR HGB CONC 33.6 g/dl (31.0-37.0); MEAN PLATELET VOLUME 8.2 fl (7.0-11.0); RBC 2.64 10^6/uL (3.5-6.1); RED CELL DISTRIBUTION WIDTH 14.7 % (11.5-14.5); WHITE BLOOD COUNT 5.4 10^3/uL (4.5-11.0)
[2018-10-13 08:38] LABS: ALB/GLOB RATIO 0.7 (1.1-1.8); ALBUMIN 1.8 g/dL (3.0-4.8); ALT/SGPT 36 U/L (7-56); AST/SGOT 47 U/L (17-59); BLOOD UREA NITROGEN 11 mg/dL (7-21); CALCIUM 7.6 mg/dL (8.4-10.5); GFR NON-AFRICAN AMERICAN > 60
--- NOTE | 2018-10-13 09:17 | RAD ---
Date of service: 10/12/2018 HISTORY: SOB COMPARISON: 10/10/2018. FINDINGS: LUNGS: The lungs are well inflated and clear. PLEURA: No pleural effusions or pneumothorax. CARDIOVASCULAR: The heart is normal in size. No aortic atherosclerotic calcifications present. OSSEOUS STRUCTURES: Within normal limits for the patient's age. VISUALIZED UPPER ABDOMEN: Normal. OTHER FINDINGS: None. IMPRESSION: No active pulmonary disease.
[2018-10-13] MEDS: Tiotropium 18 mcg Cap For Inhalation IH SCH (09:37)
--- NOTE | 2018-10-13 10:12 | CT ---
Date of service: 10/13/2018 PROCEDURE: CT HEAD WITHOUT CONTRAST. HISTORY: presyncope COMPARISON: None available. TECHNIQUE: Axial computed tomography images were obtained through the head/brain without intravenous contrast. Radiation dose: Total exam DLP = 826.01 mGy-cm. This CT exam was performed using one or more of the following dose reduction techniques: Automated exposure control, adjustment of the mA and/or kV according to patient size, and/or use of iterative reconstruction technique. FINDINGS: HEMORRHAGE: No intracranial hemorrhage. BRAIN: No mass effect or edema. There is moderate atrophy. There are no acute intracranial findings VENTRICLES: Unremarkable. No hydrocephalus. CALVARIUM: Unremarkable. PARANASAL SINUSES: Unremarkable as visualized. No significant inflammatory changes. MASTOID AIR CELLS: Unremarkable as visualized. No inflammatory changes. OTHER FINDINGS: None. IMPRESSION: Moderate atrophy. No acute intracranial findings
--- NOTE | 2018-10-13 10:32 | PN ---
DATE: 10/13/2018 SUBJECTIVE: He is comfortable in bed, slept fairly well. He is just not happy being in the hospital, not 100%. He has got multiple issues from low blood pressure to right pneumonia to UTI to foot ulcer, constipation. He is being seen by multiple doctors; Infectious Diseases, Neurology, Podiatry, Urology, Cardiology. Multiple issues. He has a Fall catheter in and out depending on how he is urinating. physical therapy and walk, trying to maybe get into TCU to finish out the treatment here. OBJECTIVE VITAL SIGNS: He has 98.7 temperature, 70 pulse, 122/70 blood pressure, 18 respiratory rate, 96% O2 sat on 4 liters nasal cannula. HEENT: His head is atraumatic, normocephalic. LUNGS: Decreased breath sounds, but clear to auscultation. ABDOMEN: Soft, nontender. Positive bowel sounds. EXTREMITIES: No edema. MEDICATIONS: He is on Bactroban cream, Brovana, Doryx, Eliquis, Flomax, insulin, Januvia, Maxipime, ProAmatine, Pulmicort, IV fluids, and Spiriva. ASSESSMENT AND PLAN: He had Staphylococcus aureus in the urine, being seen by multiple doctors, has multiple problems, try for Transitional Care Unit, if possible. The report from physical therapy recommended Subacute Rehabilitation or Transitional Care Unit. I think we will try for Transitional Care Unit. We will keep a closer eye on him. We will get him out of bed to chair. Continue IV antibiotics, IV fluids, watching blood pressure. Jn Nguyen DO MERVAT
[2018-10-13] MEDS: Mupirocin 2% Ointment 15 GM TUBE NS SCH ×2 (10:56→18:02)
--- NOTE | 2018-10-13 11:00 | CARD ---
APPROVED REPORT Date of service: 10/12/2018 EKG Measurement Heart [id number] <Conclusion> Baseline artifact NSR Low voltage QRS Cannot rule out Anterior infarct, age undetermined Abnormal ECG
[2018-10-13] MEDS: Vancomycin 1gm in NS 250ml 1 GM/250 ML BAG IVPB SCH ×2 (11:03→22:00)
--- NOTE | 2018-10-13 11:23 | CP.PCM.PN ---
<Denise Morris - Last Filed: 10/13/18 13:32> Subjective - Date & Time of Evaluation Date of Evaluation: 10/13/18 Time of Evaluation: 11:19 - Subjective Subjective: Podiatry progress note for Dr. Callejas 78M seen and evaluated at bedside resting comfortably.States that he is in no pain today. Denies discomfort to his feet. Denies N/V/F/C/SOB/CP and has no other acute complaints. Objective - Vital Signs/Intake and Output Vital Signs (last 24 hours): Temp Pulse Resp BP Pulse Ox 98.7 F 69 18 122/70 96 10/13/18 05:54 10/13/18 05:59 10/13/18 05:54 10/13/18 05:54 10/13/18 05:54 Intake and Output: 10/13/18 10/13/18 06:59 18:59 Intake Total 120 560 Output Total 950 Balance -830 560 - Medications Medications: Current Medications Apixaban (Eliquis) 5 mg PO Q12 [facility]; Protocol Last Admin: 10/13/18 09:37 Dose: 5 mg Arformoterol Tartrate (Brovana) 15 mcg IH [id number] [facility] Last Admin: 10/13/18 07:54 Dose: 15 mcg Budesonide (Pulmicort Respules) 0.5 mg IH BIDRESP [facility] Last Admin: 10/13/18 07:54 Dose: 0.5 mg Doxycycline Hyclate (Doryx) 100 mg PO Q12 [facility]; Protocol Stop: 10/16/18 10:01 Last Admin: 10/13/18 09:37 Dose: 100 mg Cefepime HCl (Maxipime 1gm) 1 gm in 100 mls @ 100 mls/hr IVPB Q8 [facility]; Protocol Stop: 10/20/18 09:07 Last Admin: 10/13/18 05:41 Dose: 100 mls/hr Sodium Chloride (Sodium Chloride 0.45%) 1,000 mls @ 80 mls/hr IV .[id number] [facility] Last Admin: 10/13/18 01:45 Dose: 80 mls/hr Vancomycin HCl (Vancomycin 1gm) 1 gm in 250 mls @ 167 mls/hr IVPB Q12H [facility]; Protocol Last Admin: 10/13/18 11:03 Dose: 167 mls/hr Insulin Human Regular (Humulin R Med) 0 units SC ACHS [facility]; Protocol Last Admin: 10/13/18 08:05 Dose: Not Given Midodrine (Proamatine) 10 mg PO TID [facility] Last Admin: 10/13/18 09:36 Dose: 10 mg Mupirocin (Bactroban Ointment) 1 gm NS BID [facility] Stop: 10/17/18 10:01 Last Admin: 10/13/18 10:56 Dose: 1 gm Sitagliptin Phosphate (Januvia) 50 mg PO DAILY [facility] Last Admin: 10/13/18 09:42 Dose: Not Given Tamsulosin HCl (Flomax) 0.4 mg PO DAILY [facility] Last Admin: 10/13/18 09:37 Dose: 0.4 mg Tiotropium [place] (Spiriva) 18 mcg IH DAILY [facility] Last Admin: 10/13/18 09:37 Dose: 18 mcg - Labs Labs: 10/13/18 08:00 10/13/18 08:00 PT 25.7 SECONDS (9.4-12.5) H 10/12/18 23:19 INR 2.22 10/12/18 23:19 APTT 46.2 Seconds (25.1-36.5) H 10/12/18 23:19 - Constitutional Appears: Well, Non-toxic, No Acute Distress - Head Exam Head Exam: ATRAUMATIC, NORMOCEPHALIC - Eye Exam Eye Exam: Normal appearance Pupil Exam: NORMAL ACCOMODATION - ENT Exam ENT Exam: Mucous Membranes Moist - Extremities Exam Additional comments: Left LE focused exam VASC: DP/PT pulses are palpable 1/4, Cap refill time: < 3 sec to all digits, Temp gradient: warm to cool from proximal to distal, no pitting or non-pitting edema noted DERM: left heel has superficial pressure ulceration with fibrogranular base; no drainage, bleeding, pus, or streaking, no clinical signs of infection; distal tip of hallux has superficial wound, granular base, no drainage, no clinical signs of infection NEURO: Protective sensation grossly intact ORTHO: no pain on palpation to the left heel superficial lesion - Neurological Exam Neurological Exam: Alert, Awake - Psychiatric Exam Psychiatric exam: Normal Affect Assessment and Plan - Assessment and Plan (Free Text) Assessment: 78M with left heel pressure ulceration and left distal tip of hallux superficial wound, non infected Plan: Patient seen and evaluated Discussed in detail with Dr. Callejas Afebrile, absent leukocytosis Bactroban applied to the heel ulcer Continue physical therapy Wounds; heel ulcer dressed with optifoam, hallux wound dressed with optifoam Stable from podiatry standpoint, will continue local woundcare Will continue to follow while in house <Rupert Peck - Last Filed: 10/13/18 17:56> Objective - Vital Signs/Intake and Output Vital Signs (last 24 hours): Temp Pulse Resp BP Pulse Ox 98.8 F 75 18 99/56 L 96 10/13/18 17:45 10/13/18 17:45 10/13/18 17:45 10/13/18 17:45 10/13/18 05:54 Intake and Output: 10/13/18 10/13/18 06:59 18:59 Intake Total 120 560 Output Total 950 Balance -830 560 - Medications Medications: Current Medications Apixaban (Eliquis) 5 mg PO Q12 [facility]; Protocol Last Admin: 10/13/18 09:37 Dose: 5 mg Arformoterol Tartrate (Brovana) 15 mcg IH [id number] [facility] Last Admin: 10/13/18 07:54 Dose: 15 mcg Budesonide (Pulmicort Respules) 0.5 mg IH BIDRESP [facility] Last Admin: 10/13/18 07:54 Dose: 0.5 mg Sodium Chloride (Sodium Chloride 0.45%) 1,000 mls @ 80 mls/hr IV .[id number] [facility] Last Admin: 10/13/18 01:45 Dose: 80 mls/hr Vancomycin HCl (Vancomycin 1gm) 1 gm in 250 mls @ 167 mls/hr IVPB Q12H [facility]; Protocol Last Admin: 10/13/18 11:03 Dose: 167 mls/hr Insulin Human Regular (Humulin R Med) 0 units SC ACHS [facility]; Protocol Last Admin: 10/13/18 17:35 Dose: Not Given Midodrine (Proamatine) 10 mg PO TID [facility] Last Admin: 10/13/18 13:06 Dose: 10 mg Mupirocin (Bactroban Ointment) 1 gm NS BID [facility] Stop: 10/17/18 10:01 Last Admin: 10/13/18 10:56 Dose: 1 gm Sitagliptin Phosphate (Januvia) 50 mg PO DAILY [facility] Last Admin: 10/13/18 09:42 Dose: Not Given Tamsulosin HCl (Flomax) 0.4 mg PO DAILY [facility] Last Admin: 10/13/18 09:37 Dose: 0.4 mg Tiotropium [place] (Spiriva) 18 mcg IH DAILY [facility] Last Admin: 10/13/18 09:37 Dose: 18 mcg - Labs Labs: 10/13/18 08:00 10/13/18 08:00 PT 25.7 SECONDS (9.4-12.5) H 10/12/18 23:19 INR 2.22 10/12/18 23:19 APTT 46.2 Seconds (25.1-36.5) H 10/12/18 23:19 Attending/Attestation - Attestation I have personally seen and examined this patient.: Yes I have fully participated in the care of the patient.: Yes I have reviewed all pertinent clinical information, including history, physical exam and plan: Yes
--- NOTE | 2018-10-13 11:32 | PN ---
DATE: 10/13/2018 SUBJECTIVE: The patient appears quite comfortable this morning. He is not short of breath at rest. PHYSICAL EXAMINATION: VITAL SIGNS: Temperature is 98.7, pulse 69, respirations 18, blood pressure 122/70. Oxygen saturation on nasal cannula is 96%-98%. HEENT: Normocephalic, atraumatic. NECK: No JVD. CARDIOVASCULAR: Systolic ejection murmur at the lower left sternal border. No S3 gallop. LUNGS: Decreased breath sounds at the bases. No rhonchi. No wheezing. EXTREMITIES: Mild edema. No cyanosis, no clubbing. Calves are nontender to palpation. GASTROINTESTINAL: Abdomen is soft, nontender, nondistended. Bowel sounds are positive. SKIN: No acute rash. Positive vascular changes - feet. NEUROLOGIC: Exam limited at the present time. PERTINENT LABORATORY DATA: Chest x-ray was done this morning and reviewed. There is now complete resolution of the previously seen right lower lobe infiltrate. Arterial blood gas was done on nasal cannula last night. Results are pH 7.55, pCO2 of 13, pO2 of 124. IMPRESSION: 1. Change in mental status. 2. Recurrent urinary tract infections. 3. Chronic obstructive pulmonary disease. 4. Anasarca, small bilateral pleural effusions. 5. Anemia. 6. Hypoalbuminemia. PLAN: The patient appears very comfortable this morning. He is not short of breath at rest. He does state to feeling better. I did discuss the case with the night nurse at length. Apparently, last night, the patient had an episode of decreased responsiveness. He also had a short period of shortness of breath. He was then transferred to the telemetry unit for additional evaluation. I did review the chest x-ray from last night. There is now resolution of the previously seen right lower lobe infiltrate. Again, I think the previously seen infiltrate was a combination of atelectasis and effusion, rather than true pneumonia. I have also reviewed the arterial blood gas. Respiratory alkalosis is present. There is no significant alveolar-arterial gradient. Given the above clinical presentation, I would certainly rule out a central event. Input by Dr. Moran (Neurology) is noted. CAT scan of the head is ordered for this morning. I would continue with the antibiotic coverage as per Infectious Disease. There are no temperatures noted. There is no leukocytosis. Inputs by Cardiology and Genitourinary are also noted. Clinical status of the patient certainly appears improved this morning. However, given the above, the future status/prognosis for this elderly patient remains very guarded. I will discuss the above with Dr. Nguyen. Melquiades Rose MD [facility]
--- NOTE | 2018-10-13 12:54 | CP.PCM.PN ---
Subjective - Date & Time of Evaluation Date of Evaluation: 10/13/18 Time of Evaluation: 08:10 - Subjective Subjective: Comfortable, no fevers. Objective - Vital Signs/Intake and Output Vital Signs (last 24 hours): Temp Pulse Resp BP Pulse Ox 97.6 F 68 20 107/60 98 10/12/18 14:00 10/12/18 14:00 10/12/18 14:00 10/12/18 14:00 10/12/18 14:00 Intake and Output: 10/12/18 10/12/18 06:59 18:59 Intake Total 1020 Output Total 950 Balance 70 - Medications Medications: Current Medications Apixaban (Eliquis) 5 mg PO Q12 [facility]; Protocol Last Admin: 10/12/18 09:49 Dose: 5 mg Arformoterol Tartrate (Brovana) 15 mcg IH [id number] [facility] Last Admin: 10/12/18 08:28 Dose: 15 mcg Budesonide (Pulmicort Respules) 0.5 mg IH BIDRESP [facility] Last Admin: 10/12/18 08:28 Dose: 0.5 mg Doxycycline Hyclate (Doryx) 100 mg PO Q12 [facility]; Protocol Stop: 10/16/18 10:01 Last Admin: 10/12/18 09:49 Dose: 100 mg Sodium Chloride (Sodium Chloride 0.45%) 1,000 mls @ 40 mls/hr IV .Q24H [facility] Last Admin: 10/12/18 14:28 Dose: 40 mls/hr Cefepime HCl (Maxipime 1gm) 1 gm in 100 mls @ 100 mls/hr IVPB Q8 [facility]; Protocol Stop: 10/20/18 09:07 Last Admin: 10/12/18 14:28 Dose: 100 mls/hr Insulin Human Regular (Humulin R Med) 0 units SC ACHS [facility]; Protocol Last Admin: 10/12/18 11:25 Dose: Not Given Midodrine (Proamatine) 10 mg PO TID [facility] Last Admin: 10/12/18 14:28 Dose: 10 mg Sitagliptin Phosphate (Januvia) 50 mg PO DAILY [facility] Last Admin: 10/12/18 09:49 Dose: 50 mg Tamsulosin HCl (Flomax) 0.4 mg PO DAILY [facility] Last Admin: 10/12/18 09:49 Dose: 0.4 mg Tiotropium [place] (Spiriva) 18 mcg IH DAILY [facility] Last Admin: 10/12/18 09:49 Dose: 18 mcg - Labs Labs: 10/12/18 07:00 10/12/18 07:00 - Constitutional Appears: Chronically Ill - Head Exam Head Exam: NORMAL INSPECTION - Respiratory Exam Respiratory Exam: Decreased Breath Sounds - Cardiovascular Exam Cardiovascular Exam: +S1, +S2 - GI/Abdominal Exam GI & Abdominal Exam: Soft. absent: Tenderness Assessment and Plan - Assessment and Plan (Free Text) Plan: Assessment probable right lower lobe atelectasis and effusion consider UTI with MRSA DM HTN arthritis COPD CAD history of left foot osteomyelitis Assessment on Doxycycline and Cefepime day 3 - discussed with Dr. Rose - probably not true pneumonia but more atelectasis - will d/c Doxycycline and Cefepime will start Vancomycin for the MRSA in the urine will continue to monitor clinically
--- NOTE | 2018-10-13 18:03 | PN ---
DATE: 10/13/2018 CARDIOLOGY FOLLOWUP SUBJECTIVE: The patient is resting comfortably. No shortness of breath. PHYSICAL EXAMINATION: VITAL SIGNS: Blood pressure 106/67, heart rates in the 70s. The patient is afebrile. NECK: Negative JVD. LUNGS: Without rales. HEART: S1, S2. EXTREMITIES: Without edema. LABORATORY DATA: Hemoglobin is 8.7. Chemistries: BUN and creatinine unremarkable. IMPRESSION: 1. Urosepsis. 2. Resolution of abdominal pain. 3. Diabetes mellitus. 4. Resolution of hypotension. Given these findings, the patient is currently on IV antibiotics. We will DC telemetry today. Shalom Hood MD
[2018-10-14] MEDS: Sodium Chloride 0.45% 1,000 ML IV SCH ×2 (03:00→09:55)
--- NOTE | 2018-10-14 07:50 | PN ---
DATE: 10/14/2018 PULMONARY NOTE SUBJECTIVE: The patient appears very comfortable this morning. He is not short of breath at rest. PHYSICAL EXAMINATION: VITALS: Temperature is 97.8, pulse 76, respirations 18-20, blood pressure 112/58. Oxygen saturation on nasal cannula is 98%. HEENT: Normocephalic, atraumatic. No JVD. CARDIOVASCULAR: Systolic ejection murmur at the lower left sternal border. No S3 gallop. LUNGS: Decreased breath sounds at the bases. Otherwise clear. EXTREMITIES: Mild edema. No cyanosis. No clubbing. Calves are nontender to palpation. GASTROINTESTINAL: Abdomen is soft, nontender, and nondistended. Bowel sounds are positive. SKIN: No acute rash. Positive vascular changes - feet. NEUROLOGIC: Exam limited at the present time. IMPRESSION: 1. Change in mental status - resolved. 2. Recurrent urinary tract infections. 3. Chronic obstructive pulmonary disease. 4. Anasarca, small bilateral pleural effusions. 5. Anemia. 6. Hypoalbuminemia. PLAN: The patient appears very comfortable this morning. He is not short of breath at rest. He is awake and alert. He does state to feeling much better overall. He is asking when he can be discharged. I did discuss the case with the night nurse at length. The night nurse stated that the patient had a very good night. On physical exam, there is no bronchospasm noted. In addition, there is no significant alveolar-arterial gradient. I will continue the current nebulizer treatments for now. The patient remains on antibiotic therapy - as per Infectious Disease. Input by Dr. Whittington is noted. Clinical status of the patient appears significantly improved overall. At this point in time, no additional pulmonary intervention is needed or warranted. I will thus follow up on this case as requested. Please call me for any additional pulmonary questions or problems. I would be happy to reevaluate. Melquiades Rose MD [facility]
[2018-10-14] MEDS: Arformoterol 15 mcg/2 ml Inh Sol IH SCH ×2 (08:08→21:15)
[2018-10-14] MEDS: Budesonide 0.5 mg/2 ml Inhal Susp UD IH SCH ×2 (08:08→21:15)
--- NOTE | 2018-10-14 08:28 | PN ---
DATE: 10/14/2018 CARDIOLOGY FOLLOWUP SUBJECTIVE: The patient is in bed, lethargic, but without distress. PHYSICAL EXAMINATION: VITAL SIGNS: Blood pressure 112/58, heart rate is in the 70's. The patient is afebrile. NECK: Negative JVD. LUNGS: Decreased breath sounds, bilaterally. HEART: S1 and S2. EXTREMITIES: Without change. LABORATORY DATA: Hemoglobin is 8.7. Chemistries unchanged. IMPRESSION: 1. Sepsis. 2. Lethargy. 3. Chronic obstructive pulmonary disease. 4. Anemia. 5. Hypoalbuminemia. PLAN: Given these findings, the patient is hemodynamically stable. We will discontinue telemetry today. Shalom Hood MD
[2018-10-14] MEDS: Insulin Reg-MEDIUM-Coverage SC SCH ×4 (08:30→22:00)
[2018-10-14 09:00] LABS: MEAN CELL VOLUME 97.1 fl (80.0-105.0); MEAN CORPUSCULAR HEMOGLOBIN 32.9 pg (25.0-35.0); MEAN CORPUSCULAR HGB CONC 33.9 g/dl (31.0-37.0); MEAN PLATELET VOLUME 8.2 fl (7.0-11.0); RBC 2.43 10^6/uL (3.5-6.1); RED CELL DISTRIBUTION WIDTH 14.4 % (11.5-14.5); WHITE BLOOD COUNT 3.9 10^3/uL (4.5-11.0)
[2018-10-14 09:12] LABS: ALB/GLOB RATIO 0.7 (1.1-1.8); ALBUMIN 1.8 g/dL (3.0-4.8); ALT/SGPT 40 U/L (7-56); AST/SGOT 48 U/L (17-59); BLOOD UREA NITROGEN 10 mg/dL (7-21); CALCIUM 7.5 mg/dL (8.4-10.5); GFR NON-AFRICAN AMERICAN > 60
[2018-10-14] MEDS: Vancomycin 1gm in NS 250ml 1 GM/250 ML BAG IVPB SCH ×2 (09:55→21:50)
[2018-10-14] MEDS: Tiotropium 18 mcg Cap For Inhalation IH SCH (09:57)
--- NOTE | 2018-10-14 10:03 | PN ---
DATE: 10/14/2018 SUBJECTIVE: He is resting in bed. He slept fairly well. He is weak this morning. He is getting nebulizer treatment. He has little bit of an appetite. He is going to try to eat a little bit more today. He has got multiple issues. He is on IV fluids, Bactroban cream, Brovana, Eliquis, Flomax, Januvia, ProAmatine, Pulmicort, Spiriva, some vancomycin IV. PHYSICAL EXAMINATION VITAL SIGNS: He has 97.8 temperature, 76 pulse, 112/58 blood pressure which is pretty good for him, 20 respiratory rate, 98% O2 sat on nasal cannula. HEENT: His head is atraumatic, normocephalic. HEART: Regular rate. LUNGS: Decreased breath sounds but clear. ABDOMEN: Soft. EXTREMITIES: No edema. He has got some wounds on his legs. LABORATORY DATA: He has 5.4 white count, 8.7 hemoglobin, 25.9 hematocrit with 134 platelets. INR is 2.22. His lactate went from 3.1 down to 2.1, which is better. Sodium 132, potassium 4.3, BUN 11, creatinine 0.7, sugar was 76. Calcium 7.6, a little low. Total bilirubin is 0.7, AST is 47, ALT is 36, alkaline phosphatase 72, total protein is 4.4. Urine was positive, MRSA in the urine. ASSESSMENT AND PLAN: He is being seen by Cardiology, Pulmonology, Infectious Diseases, Podiatry. He has sepsis, lethargy, chronic obstructive pulmonary disease, anemia, low albumin. I am subacute rehabilitation. He has been in subacute rehabilitation before. To continue with IV antibiotics. Hopefully, we will get him to eat better, watch his blood pressure, and gentle physical therapy. Jn Nguyen DO [facility]
[2018-10-14] MEDS: Mupirocin 2% Ointment 15 GM TUBE NS SCH ×2 (10:10→18:18)
--- NOTE | 2018-10-14 10:36 | CP.PCM.PN ---
<Denise Morris - Last Filed: 10/14/18 10:39> Subjective - Date & Time of Evaluation Date of Evaluation: 10/14/18 Time of Evaluation: 10:34 - Subjective Subjective: Podiatry progress note for Dr. Callejas 78M seen and evaluated at bedside resting comfortably.States that he is in no pain today. Denies discomfort to his feet. Denies N/V/F/C/SOB/CP and has no other acute complaints. Objective - Vital Signs/Intake and Output Vital Signs (last 24 hours): Temp Pulse Resp BP Pulse Ox 97.8 F 76 20 112/58 L 98 10/13/18 23:41 10/13/18 23:41 10/13/18 23:41 10/13/18 23:41 10/13/18 23:41 Intake and Output: 10/14/18 10/14/18 06:59 18:59 Output Total 650 Balance -650 - Medications Medications: Current Medications Apixaban (Eliquis) 5 mg PO Q12 [facility]; Protocol Last Admin: 10/14/18 09:57 Dose: 5 mg Arformoterol Tartrate (Brovana) 15 mcg IH [id number] [facility] Last Admin: 10/14/18 08:08 Dose: 15 mcg Budesonide (Pulmicort Respules) 0.5 mg IH BIDRESP [facility] Last Admin: 10/14/18 08:08 Dose: 0.5 mg Sodium Chloride (Sodium Chloride 0.45%) 1,000 mls @ 80 mls/hr IV .[id number] [facility] Last Admin: 10/14/18 09:55 Dose: 80 mls/hr Vancomycin HCl (Vancomycin 1gm) 1 gm in 250 mls @ 167 mls/hr IVPB Q12H [facility]; Protocol Last Admin: 10/14/18 09:55 Dose: 167 mls/hr Insulin Human Regular (Humulin R Med) 0 units SC ACHS [facility]; Protocol Last Admin: 10/14/18 08:30 Dose: Not Given Midodrine (Proamatine) 10 mg PO TID [facility] Last Admin: 10/14/18 09:56 Dose: 10 mg Mupirocin (Bactroban Ointment) 1 gm NS BID [facility] Stop: 10/17/18 10:01 Last Admin: 10/14/18 10:10 Dose: 1 gm Sitagliptin Phosphate (Januvia) 50 mg PO DAILY [facility] Last Admin: 10/14/18 09:46 Dose: Not Given Tamsulosin HCl (Flomax) 0.4 mg PO DAILY [facility] Last Admin: 10/14/18 09:57 Dose: 0.4 mg Tiotropium [place] (Spiriva) 18 mcg IH DAILY [facility] Last Admin: 10/14/18 09:57 Dose: 18 mcg - Labs Labs: 10/14/18 08:45 10/14/18 08:45 PT 25.7 SECONDS (9.4-12.5) H 10/12/18 23:19 INR 2.22 10/12/18 23:19 APTT 46.2 Seconds (25.1-36.5) H 10/12/18 23:19 - Constitutional Appears: Well, Non-toxic, No Acute Distress - Head Exam Head Exam: ATRAUMATIC, NORMOCEPHALIC - Eye Exam Eye Exam: Normal appearance - Extremities Exam Additional comments: Left LE focused exam VASC: DP/PT pulses are palpable 1/4, Cap refill time: < 3 sec to all digits, Temp gradient: warm to cool from proximal to distal, no pitting or non-pitting edema noted DERM: left heel pressure ulceration with fibrogranular base measuring approximately 1.5 cm x 1.5 cm; no drainage, bleeding, pus, or streaking, no clinical signs of infection; distal tip of hallux has superficial wound, granular base, no drainage, no clinical signs of infection NEURO: Protective sensation grossly intact ORTHO: no pain on palpation to the left heel superficial lesion - Neurological Exam Neurological Exam: Alert, Awake - Psychiatric Exam Psychiatric exam: Normal Affect Assessment and Plan - Assessment and Plan (Free Text) Assessment: Pressure ulceration and left distal tip of hallux superficial wound, non infected Plan: Patient seen and evaluated Discussed in detail with Dr. Callejas Afebrile, absent leukocytosis Bactroban applied to the heel ulcer Continue physical therapy Multipodus boots at all times Wounds; heel ulcer dressed with optifoam, hallux wound dressed with optifoam Stable from podiatry standpoint, will continue local woundcare Will continue to follow while in house <Haritha Callejas - Last Filed: 10/18/18 16:04> Objective - Vital Signs/Intake and Output Vital Signs (last 24 hours): Temp Pulse Resp BP Pulse Ox 97.6 F 75 18 109/46 L 98 10/18/18 12:00 10/18/18 12:00 10/18/18 12:00 10/18/18 12:00 10/18/18 06:00 Intake and Output: 10/18/18 10/18/18 06:59 18:59 Intake Total 660 Output Total 1100 Balance -440 - Medications Medications: Current Medications Apixaban (Eliquis) 5 mg PO Q12 [facility]; Protocol Last Admin: 10/18/18 10:54 Dose: 5 mg Arformoterol Tartrate (Brovana) 15 mcg IH [id number] [facility] Last Admin: 10/18/18 07:21 Dose: 15 mcg Budesonide (Pulmicort Respules) 0.5 mg IH BIDRESP [facility] Last Admin: 10/18/18 07:21 Dose: 0.5 mg Docusate Sodium (Colace) 100 mg PO BID [facility] Last Admin: 10/18/18 10:54 Dose: 100 mg Vancomycin HCl (Vancomycin 1gm) 1 gm in 250 mls @ 167 mls/hr IVPB Q12H [facility]; Protocol Last Admin: 10/18/18 10:53 Dose: 167 mls/hr Sodium Chloride (Sodium Chloride 0.9%) 1,000 mls @ 40 mls/hr IV .Q24H [facility] Last Admin: 10/18/18 13:58 Dose: 40 mls/hr Insulin Human Regular (Humulin R Med) 0 units SC ACHS [facility]; Protocol Last Admin: 10/18/18 12:04 Dose: Not Given Midodrine (Proamatine) 10 mg PO QID [facility] Last Admin: 10/18/18 13:58 Dose: 10 mg Polyethylene Glycol (Miralax) 17 gm PO BID [facility] Last Admin: 10/18/18 10:53 Dose: 17 gm Sitagliptin Phosphate (Januvia) 50 mg PO DAILY [facility] Last Admin: 10/18/18 10:54 Dose: 50 mg Tamsulosin HCl (Flomax) 0.4 mg PO DAILY [facility] Last Admin: 10/18/18 10:54 Dose: 0.4 mg Tiotropium [place] (Spiriva) 18 mcg IH DAILY [facility] Last Admin: 10/18/18 10:54 Dose: 18 mcg - Labs Labs: 10/17/18 08:00 10/17/18 07:00 PT 25.7 SECONDS (9.4-12.5) H 10/12/18 23:19 INR 2.22 10/12/18 23:19 APTT 46.2 Seconds (25.1-36.5) H 10/12/18 23:19 Attending/Attestation - Attestation I have personally seen and examined this patient.: Yes I have fully participated in the care of the patient.: Yes I have reviewed all pertinent clinical information, including history, physical exam and plan: Yes
--- NOTE | 2018-10-14 16:54 | CP.PCM.CON ---
History of Present Illness - History of Present Illness History of Present Illness: Resident Consult Note for Surgery: Dr. Bruce Patient is a 69 year old male with past medical history COPD, HTN, T2DM, recurrent UTIs, osteomyelitis, disc radiculopathy, cholelithiasis who presented with abdominal pain, dizziness, dysuria. Surgery was consulted for evaluation of patient's acute bilateral upper extremity edema. Patient states he has been noticed increased swelling in addition to weeping. Patient also states he has been mostly bedridden and unable to ambulate due to LLE wound and osteomyelitis. He denies any bleeding, fevers, chills, nausea, vomiting. PMH: COPD, HTN, T2DM, recurrent UTIs, osteomyelitis, disc radiculopathy, cholelithiasis PSH: basal cell carcinoma removal from ear SHx: occasional alcohol, denies tobacco or illicit drug use Allergies: NKDA PMD: Dr. Nguyen Review of Systems - Review of Systems All systems: reviewed and no additional remarkable complaints except (as stated in HPI) Past Patient History - Infectious Disease Hx of Infectious Diseases: None - Past Social History Smoking Status: Never Smoked - CARDIAC Hx Cardiac Disorders: Yes (rle dvt 12/2017) Hx Hypercholesterolemia: Yes Hx Hypertension: Yes Hx Peripheral Edema: Yes (+1 pitting edema rle, scrotum swollen) Hx Peripheral Vascular Disease: Yes Other/Comment: mild aortic valve stenosis, peripheral angiogram 08/14/18 - PULMONARY Hx Respiratory Disorders: Yes Hx Chronic Obstructive Pulmonary Disease (COPD): Yes (has home nebulizer machine) - NEUROLOGICAL Hx Neurological Disorder: No - HEENT Hx HEENT Problems: No - RENAL Hx Chronic Kidney Disease: No - ENDOCRINE/METABOLIC Hx Endocrine Disorders: Yes Hx Diabetes Mellitus Type 2: Yes - HEMATOLOGICAL/ONCOLOGICAL Hx Blood Disorders: Yes Hx Anemia: Yes Hx Cancer: Yes (basal cell skin ca left ear lobe removed) Other/Comment: left ear basal cell ca was removed pt has been cleared x 5 years as per karen dunlap - INTEGUMENTARY Hx Dermatological Problems: Yes Other/Comment: multiple skin discolorations both arms,left great toe wound 2cm x 1 cm wound bed yellow slough surrounded by rred skin 2cm red slit in slin underside of toe, thin toenail swelling redness to great toe, left heel wound wound bed deep red and bright red in color surrounded by slight red dry flakey skin,rle dry skin +1 pitting edema to lower leg and foot, multiple skin discolorations small 0.5cm round red wound anterior ankle, toenails to both feet dry, dry skin ble, scrotum redness/swelling, waiting for urologist to see pt has been in since 07/2018, redness to buttocks, multiple stage 1 small wounds left and right buttocks healing buttocks, right buttock stge 2 open wound 3cm x 1.5cm wound bed red covered with optifoam - MUSCULOSKELETAL/RHEUMATOLOGICAL Hx Falls: No - GASTROINTESTINAL Hx Gastrointestinal Disorders: Yes (hernia) Hx Gall Bladder Disease: Yes (gallstones) Other/Comment: infrequent bowel movements w/o constipation - GENITOURINARY/GYNECOLOGICAL Hx Genitourinary Disorders: No Other/Comment: Patient has a garcía inserted since 2017. - PSYCHIATRIC Hx Substance Use: No - SURGICAL HISTORY Hx Surgeries: Yes Other/Comment: LEFT EAR LOBE WITH SX. REMOVAL OF SKIN CA. Peripheral angiogram. - ANESTHESIA Hx Anesthesia: No Hx Anesthesia Reactions: No Hx Malignant Hyperthermia: No Meds Allergies/Adverse Reactions: Allergies Allergy/AdvReac Type Severity Reaction Status Date / Time No Known Allergies Allergy Verified 10/10/18 07:24 - Medications Medications: Current Medications Apixaban (Eliquis) 5 mg PO Q12 [facility]; Protocol Last Admin: 10/14/18 09:57 Dose: 5 mg Arformoterol Tartrate (Brovana) 15 mcg IH [id number] [facility] Last Admin: 10/14/18 08:08 Dose: 15 mcg Budesonide (Pulmicort Respules) 0.5 mg IH BIDRESP [facility] Last Admin: 10/14/18 08:08 Dose: 0.5 mg Sodium Chloride (Sodium Chloride 0.45%) 1,000 mls @ 80 mls/hr IV .[id number] [facility] Last Admin: 10/14/18 09:55 Dose: 80 mls/hr Vancomycin HCl (Vancomycin 1gm) 1 gm in 250 mls @ 167 mls/hr IVPB Q12H [facility]; Protocol Last Admin: 10/14/18 09:55 Dose: 167 mls/hr Insulin Human Regular (Humulin R Med) 0 units SC ACHS [facility]; Protocol Last Admin: 10/14/18 12:30 Dose: Not Given Midodrine (Proamatine) 10 mg PO TID [facility] Last Admin: 10/14/18 15:04 Dose: 10 mg Mupirocin (Bactroban Ointment) 1 gm NS BID [facility] Stop: 10/17/18 10:01 Last Admin: 10/14/18 10:10 Dose: 1 gm Sitagliptin Phosphate (Januvia) 50 mg PO DAILY [facility] Last Admin: 10/14/18 09:46 Dose: Not Given Tamsulosin HCl (Flomax) 0.4 mg PO DAILY [facility] Last Admin: 10/14/18 09:57 Dose: 0.4 mg Tiotropium [place] (Spiriva) 18 mcg IH DAILY [facility] Last Admin: 10/14/18 09:57 Dose: 18 mcg Physical Exam - Constitutional Appears: Non-toxic, No Acute Distress - Head Exam Head Exam: ATRAUMATIC, NORMOCEPHALIC - Eye Exam Eye Exam: EOMI, Normal appearance - Respiratory Exam Respiratory Exam: NORMAL BREATHING PATTERN. absent: Accessory Muscle Use, Respiratory Distress - Cardiovascular Exam Cardiovascular Exam: +S1, +S2 - GI/Abdominal Exam GI & Abdominal Exam: Soft. absent: Distended, Firm, Guarding, Rigid - Extremities Exam Extremities exam: Positive for: normal capillary refill, pedal edema. Negative for: tenderness Additional comments: +2 pitting edema in bilateral upper extremities with weeping +2 pitting edema in RLE - Neurological Exam Neurological exam: Alert, Oriented x3 - Psychiatric Exam Psychiatric exam: Normal Affect, Normal Mood - Skin Skin Exam: Dry, Intact, Normal Color Results - Vital Signs Recent Vital Signs: Last Vital Signs Temp 97.1 F L 10/14/18 12:00 Pulse 70 10/14/18 12:00 Resp 19 10/14/18 12:00 BP 139/64 10/14/18 12:00 Pulse Ox 98 10/13/18 23:41 - Labs Result Diagrams: 10/14/18 08:45 10/14/18 08:45 Labs: Laboratory Results - last 24 hr 10/13/18 10/14/18 10/14/18 21:15 07:57 08:45 WBC 3.9 L D RBC 2.43 L Hgb 8.0 L Hct 23.6 L MCV 97.1 MCH 32.9 MCHC 33.9 RDW 14.4 Plt Count 113 L MPV 8.2 Sodium Potassium Chloride Carbon Dioxide Anion Gap BUN Creatinine Est GFR ( Amer) Est GFR (Non-Af Amer) POC Glucose (mg/dL) 96 76 Random Glucose Calcium Total Bilirubin AST ALT Alkaline Phosphatase Total Protein Albumin Globulin Albumin/Globulin Ratio 10/14/18 10/14/18 08:45 11:45 WBC RBC Hgb Hct MCV MCH MCHC RDW Plt Count MPV Sodium 134 Potassium 3.7 Chloride 112 H Carbon Dioxide 18 L Anion Gap 7 L BUN 10 Creatinine 0.7 L Est GFR ( Amer) > 60 Est GFR (Non-Af Amer) > 60 POC Glucose (mg/dL) 85 Random Glucose 74 Calcium 7.5 L Total Bilirubin 0.6 AST 48 ALT 40 Alkaline Phosphatase 65 Total Protein 4.4 L Albumin 1.8 L Globulin 2.7 Albumin/Globulin Ratio 0.7 L Assessment & Plan - Assessment and Plan (Free Text) Assessment: Patient is a 69 year old male with past medical history COPD, HTN, T2DM, recurrent UTIs, osteomyelitis, disc radiculopathy who presented with abdominal pain, dizziness, dysuria, noted to have edema in upper extremities bilaterally Plan: - followup extremity ultrasound - encourage elevation of upper extremities - wrap with lucy bandages - continue physical therapy - further management per primary team Rory Alarcon PGY-1 - Date & Time Date: 10/14/18 Time: 16:58
--- NOTE | 2018-10-14 18:23 | CP.PCM.PN ---
Subjective - Date & Time of Evaluation Date of Evaluation: 10/14/18 Time of Evaluation: 08:30 - Subjective Subjective: Patient upset about the blood draws, no fevers, breathing better, no pain on urination. Objective - Vital Signs/Intake and Output Vital Signs (last 24 hours): Temp Pulse Resp BP Pulse Ox 97.3 F L 74 18 106/67 96 10/13/18 12:04 10/13/18 12:04 10/13/18 12:04 10/13/18 12:04 10/13/18 05:54 Intake and Output: 10/13/18 10/13/18 06:59 18:59 Intake Total 120 560 Output Total 950 Balance -830 560 - Medications Medications: Current Medications Apixaban (Eliquis) 5 mg PO Q12 [facility]; Protocol Last Admin: 10/13/18 09:37 Dose: 5 mg Arformoterol Tartrate (Brovana) 15 mcg IH [id number] [facility] Last Admin: 10/13/18 07:54 Dose: 15 mcg Budesonide (Pulmicort Respules) 0.5 mg IH BIDRESP [facility] Last Admin: 10/13/18 07:54 Dose: 0.5 mg Sodium Chloride (Sodium Chloride 0.45%) 1,000 mls @ 80 mls/hr IV .[id number] [facility] Last Admin: 10/13/18 01:45 Dose: 80 mls/hr Vancomycin HCl (Vancomycin 1gm) 1 gm in 250 mls @ 167 mls/hr IVPB Q12H [facility]; Protocol Last Admin: 10/13/18 11:03 Dose: 167 mls/hr Insulin Human Regular (Humulin R Med) 0 units SC ACHS [facility]; Protocol Last Admin: 10/13/18 08:05 Dose: Not Given Midodrine (Proamatine) 10 mg PO TID [facility] Last Admin: 10/13/18 09:36 Dose: 10 mg Mupirocin (Bactroban Ointment) 1 gm NS BID [facility] Stop: 10/17/18 10:01 Last Admin: 10/13/18 10:56 Dose: 1 gm Sitagliptin Phosphate (Januvia) 50 mg PO DAILY [facility] Last Admin: 10/13/18 09:42 Dose: Not Given Tamsulosin HCl (Flomax) 0.4 mg PO DAILY [facility] Last Admin: 10/13/18 09:37 Dose: 0.4 mg Tiotropium [place] (Spiriva) 18 mcg IH DAILY [facility] Last Admin: 10/13/18 09:37 Dose: 18 mcg - Labs Labs: 10/13/18 08:00 10/13/18 08:00 PT 25.7 SECONDS (9.4-12.5) H 10/12/18 23:19 INR 2.22 10/12/18 23:19 APTT 46.2 Seconds (25.1-36.5) H 10/12/18 23:19 - Constitutional Appears: No Acute Distress, Chronically Ill - Head Exam Head Exam: NORMAL INSPECTION - Neck Exam Neck Exam: absent: Meningismus - Respiratory Exam Respiratory Exam: Decreased Breath Sounds - Cardiovascular Exam Cardiovascular Exam: +S1, +S2 - GI/Abdominal Exam GI & Abdominal Exam: Soft. absent: Tenderness Assessment and Plan - Assessment and Plan (Free Text) Plan: Assessment probable right lower lobe atelectasis and effusion consider UTI with MRSA DM HTN arthritis COPD CAD history of left foot osteomyelitis Assessment S/P 3 days of Doxycycline and Cefepime - discussed with Dr. Rose - probably not true pneumonia but more atelectasis continue Vancomycin day 2 for the MRSA in the urine for 5-7 days will continue to monitor clinically
--- NOTE | 2018-10-14 18:51 | US ---
HISTORY: Arm pain and swelling. Evaluate for deep venous thrombosis. PHYSICIAN(S): Shalom De Souza MD. FINDINGS: Exam is limited by edema The right jugular vein is atretic. The left jugular vein is normal and compressible. The visualized segments of the subclavian veins are patent with normal waveforms. No sonographic evidence of obstruction or thrombosis is seen. The visualized deep venous systems of both upper extremities proximally are sonographically normal and compressible. IMPRESSION: 1. No sonographic evidence for deep venous thrombosis in the visualized segments of both upper strategies. 2. Limited study.
[2018-10-14] MEDS ORDERED: Sodium Chloride 0.45% 1,000 ML IV SCH (19:52)
--- NOTE | 2018-10-15 07:27 | CP.PCM.PN ---
Subjective - Date & Time of Evaluation Date of Evaluation: 10/15/18 Time of Evaluation: 07:26 - Subjective Subjective: Resident Progress Note for Surgery: Dr. Bruce Patient examined at bedside. No acute events overnight. Patient states that his bilaterally upper extremity is improved with elevation on pillows. Denies fevers, chills, nausea, vomiting. Objective - Vital Signs/Intake and Output Vital Signs (last 24 hours): Temp Pulse Resp BP Pulse Ox 98.3 F 69 20 102/49 L 99 10/15/18 06:00 10/15/18 06:00 10/15/18 06:00 10/15/18 06:00 10/15/18 06:00 Intake and Output: 10/15/18 10/15/18 06:59 18:59 Intake Total 850 Output Total 450 Balance 400 - Medications Medications: Current Medications Apixaban (Eliquis) 5 mg PO Q12 [facility]; Protocol Last Admin: 10/14/18 21:50 Dose: 5 mg Arformoterol Tartrate (Brovana) 15 mcg IH [id number] [facility] Last Admin: 10/14/18 21:15 Dose: 15 mcg Budesonide (Pulmicort Respules) 0.5 mg IH BIDRESP [facility] Last Admin: 10/14/18 21:15 Dose: 0.5 mg Vancomycin HCl (Vancomycin 1gm) 1 gm in 250 mls @ 167 mls/hr IVPB Q12H [facility]; Protocol Last Admin: 10/14/18 21:50 Dose: 167 mls/hr Sodium Chloride (Sodium Chloride 0.45%) 1,000 mls @ 40 mls/hr IV .Q24H [facility] Last Admin: 10/14/18 21:51 Dose: 40 mls/hr Insulin Human Regular (Humulin R Med) 0 units SC ACHS [facility]; Protocol Last Admin: 10/14/18 17:30 Dose: Not Given Midodrine (Proamatine) 10 mg PO TID [facility] Last Admin: 10/14/18 18:20 Dose: 10 mg Mupirocin (Bactroban Ointment) 1 gm NS BID [facility] Stop: 10/17/18 10:01 Last Admin: 10/14/18 18:18 Dose: 1 gm Sitagliptin Phosphate (Januvia) 50 mg PO DAILY [facility] Last Admin: 10/14/18 09:46 Dose: Not Given Tamsulosin HCl (Flomax) 0.4 mg PO DAILY [facility] Last Admin: 10/14/18 09:57 Dose: 0.4 mg Tiotropium [place] (Spiriva) 18 mcg IH DAILY [facility] Last Admin: 10/14/18 09:57 Dose: 18 mcg - Labs Labs: 10/14/18 08:45 10/14/18 08:45 PT 25.7 SECONDS (9.4-12.5) H 10/12/18 23:19 INR 2.22 10/12/18 23:19 APTT 46.2 Seconds (25.1-36.5) H 10/12/18 23:19 - Additional Findings Additional findings: - Constitutional Appears: Non-toxic, No Acute Distress - Head Exam Head Exam: ATRAUMATIC, NORMOCEPHALIC - Eye Exam Eye Exam: EOMI, Normal appearance - Respiratory Exam Respiratory Exam: NORMAL BREATHING PATTERN. absent: Accessory Muscle Use, Respiratory Distress - Cardiovascular Exam Cardiovascular Exam: +S1, +S2 - GI/Abdominal Exam GI & Abdominal Exam: Soft. absent: Distended, Firm, Guarding, Rigid - Extremities Exam Extremities exam: Positive for: normal capillary refill, pedal edema. Negative for: tenderness Additional comments: +2 pitting edema in bilateral upper extremities with weeping +2 pitting edema in RLE - Neurological Exam Neurological exam: Alert, Oriented x3 - Psychiatric Exam Psychiatric exam: Normal Affect, Normal Mood - Skin Skin Exam: Dry, Intact, Normal Color Assessment and Plan - Assessment and Plan (Free Text) Assessment: Patient is a 69 year old male with past medical history COPD, HTN, T2DM, recurrent UTIs, osteomyelitis, disc radiculopathy who presented with abdominal pain, dizziness, dysuria, noted to have edema in upper extremities bilaterally Plan: - extremity ultrasound negative for DVT - encourage elevation of upper extremities - wrap with lucy bandages - continue physical therapy - further management per primary team Rory Alarcon PGY-1
[2018-10-15] MEDS: Budesonide 0.5 mg/2 ml Inhal Susp UD IH SCH ×2 (07:54→19:42)
[2018-10-15] MEDS: Arformoterol 15 mcg/2 ml Inh Sol IH SCH ×2 (07:54→19:41)
--- NOTE | 2018-10-15 09:23 | PN ---
DATE: 10/15/2018 SUBJECTIVE: I was trying to discharge him yesterday, but then he started having oozing from both upper extremities. He is having some blisters in the upper arm, so I stopped the IV fluids. He is eating a little bit. He suppose to go to , surgery saw him and the venous Doppler were negative later today he can go to the . PHYSICAL EXAMINATION: VITAL SIGNS: He has a 98.3 temperature, 69 pulse, 102/49 blood pressure, 20 respiratory rate, 99% O2 saturation on nasal cannula. HEENT: Head is atraumatic and normocephalic. HEART: Regular rate. LUNGS: Decreased breath sounds. ABDOMEN: Soft. EXTREMITIES: The upper extremities have some oozing and blisters. MEDICATIONS: He is currently on Bactroban cream, Brovana, Eliquis, Flomax, insulin, Januvia, ProAmatine, Pulmicort, Spiriva, vancomycin IV. LABORATORY DATA: He has a white count 3.9, hemoglobin 8, hematocrit 22.6, platelets are 113. Sodium 134, potassium 3.7, BUN 10, creatinine 0.7, sugar is 89, calcium is 7.5, AST is 48, ALT 40, alkaline phosphatase 65. There were no labs in this morning. I will order labs for today. labs would be okay I will trying get him to , but not he might need to be transfused. We continue with the vancomycin and Bactroban cream. I stopped the IV fluids, elevate the arms. He had multiple issues here as the hypotension, pneumonia, urinary tract infection, diabetes, chronic obstructive pulmonary disease, and has got blisters in the upper extremities. I will see how he does today. Continue with aggressive treatment care. Jn Nguyen DO MTDD
[2018-10-15] MEDS: Insulin Reg-MEDIUM-Coverage SC SCH ×4 (09:30→22:35)
--- NOTE | 2018-10-15 09:39 | CP.PCM.PN ---
<Ernie Kim - Last Filed: 10/15/18 09:37> Subjective - Date & Time of Evaluation Date of Evaluation: 10/15/18 Time of Evaluation: 09:37 - Subjective Subjective: Podiatry progress note for Dr. Callejas 78M seen and evaluated at bedside with Dr. Callejas, resting comfortably. States that he is in no pain today. Denies discomfort to his feet. Denies N/V/F/C/SOB/CP and has no other acute complaints. Objective - Vital Signs/Intake and Output Vital Signs (last 24 hours): Temp Pulse Resp BP Pulse Ox 98.3 F 69 20 102/49 L 99 10/15/18 06:00 10/15/18 06:00 10/15/18 06:00 10/15/18 06:00 10/15/18 06:00 Intake and Output: 10/15/18 10/15/18 06:59 18:59 Intake Total 850 Output Total 450 Balance 400 - Medications Medications: Current Medications Apixaban (Eliquis) 5 mg PO Q12 [facility]; Protocol Last Admin: 10/14/18 21:50 Dose: 5 mg Arformoterol Tartrate (Brovana) 15 mcg IH [id number] [facility] Last Admin: 10/15/18 07:54 Dose: 15 mcg Budesonide (Pulmicort Respules) 0.5 mg IH BIDRESP [facility] Last Admin: 10/15/18 07:54 Dose: 0.5 mg Vancomycin HCl (Vancomycin 1gm) 1 gm in 250 mls @ 167 mls/hr IVPB Q12H [facility]; Protocol Last Admin: 10/14/18 21:50 Dose: 167 mls/hr Insulin Human Regular (Humulin R Med) 0 units SC ACHS [facility]; Protocol Last Admin: 10/15/18 09:30 Dose: Not Given Midodrine (Proamatine) 10 mg PO TID [facility] Last Admin: 10/14/18 18:20 Dose: 10 mg Mupirocin (Bactroban Ointment) 1 gm NS BID [facility] Stop: 10/17/18 10:01 Last Admin: 10/14/18 18:18 Dose: 1 gm Sitagliptin Phosphate (Januvia) 50 mg PO DAILY [facility] Last Admin: 10/14/18 09:46 Dose: Not Given Tamsulosin HCl (Flomax) 0.4 mg PO DAILY [facility] Last Admin: 10/14/18 09:57 Dose: 0.4 mg Tiotropium [place] (Spiriva) 18 mcg IH DAILY [facility] Last Admin: 10/14/18 09:57 Dose: 18 mcg - Labs Labs: 10/14/18 08:45 10/14/18 08:45 PT 25.7 SECONDS (9.4-12.5) H 10/12/18 23:19 INR 2.22 10/12/18 23:19 APTT 46.2 Seconds (25.1-36.5) H 10/12/18 23:19 - Constitutional Appears: Well, Non-toxic, No Acute Distress - Head Exam Head Exam: ATRAUMATIC, NORMOCEPHALIC - Extremities Exam Additional comments: Left LE focused exam VASC: DP/PT pulses are palpable 1/4, Cap refill time: < 3 sec to all digits, Temp gradient: warm to cool from proximal to distal, no pitting or non-pitting edema noted DERM: left heel pressure ulceration with fibrogranular base measuring approximately 1.5 cm x 1.5 cm; no drainage, bleeding, pus, or streaking, no clin ical signs of infection; distal tip of hallux has superficial wound, granular base, no drainage, no clinical signs of infection NEURO: Protective sensation grossly intact ORTHO: no pain on palpation to the left heel superficial lesion - Neurological Exam Neurological Exam: Alert, Awake, Oriented x3 - Psychiatric Exam Psychiatric exam: Normal Affect, Normal Mood Assessment and Plan - Assessment and Plan (Free Text) Assessment: 78M with pressure ulceration and left distal tip of hallux superficial wound, non infected Plan: Patient seen and evaluated with Dr. Callejas Afebrile, absent leukocytosis Bactroban applied to the heel ulcer Continue physical therapy Multipodus boots at all times Wounds; heel ulcer dressed with optifoam, hallux wound left open to air Stable from podiatry standpoint, will continue local woundcare Will continue to follow while in house <Haritha Callejas - Last Filed: 10/18/18 16:01> Objective - Vital Signs/Intake and Output Vital Signs (last 24 hours): Temp Pulse Resp BP Pulse Ox 97.6 F 75 18 109/46 L 98 10/18/18 12:00 10/18/18 12:00 10/18/18 12:00 10/18/18 12:00 10/18/18 06:00 Intake and Output: 10/18/18 10/18/18 06:59 18:59 Intake Total 660 Output Total 1100 Balance -440 - Medications Medications: Current Medications Apixaban (Eliquis) 5 mg PO Q12 [facility]; Protocol Last Admin: 10/18/18 10:54 Dose: 5 mg Arformoterol Tartrate (Brovana) 15 mcg I[facility] [id number] [facility] Last Admin: 10/18/18 07:21 Dose: 15 mcg Budesonide (Pulmicort Respules) 0.5 mg IH BIDRESP [facility] Last Admin: 10/18/18 07:21 Dose: 0.5 mg Docusate Sodium (Colace) 100 mg PO BID [facility] Last Admin: 10/18/18 10:54 Dose: 100 mg Vancomycin HCl (Vancomycin 1gm) 1 gm in 250 mls @ 167 mls/hr IVPB Q12H [facility]; Protocol Last Admin: 10/18/18 10:53 Dose: 167 mls/hr Sodium Chloride (Sodium Chloride 0.9%) 1,000 mls @ 40 mls/hr IV .Q24H [facility] Last Admin: 10/18/18 13:58 Dose: 40 mls/hr Insulin Human Regular (Humulin R Med) 0 units SC ACHS [facility]; Protocol Last Admin: 10/18/18 12:04 Dose: Not Given Midodrine (Proamatine) 10 mg PO QID [facility] Last Admin: 10/18/18 13:58 Dose: 10 mg Polyethylene Glycol (Miralax) 17 gm PO BID [facility] Last Admin: 10/18/18 10:53 Dose: 17 gm Sitagliptin Phosphate (Januvia) 50 mg PO DAILY [facility] Last Admin: 10/18/18 10:54 Dose: 50 mg Tamsulosin HCl (Flomax) 0.4 mg PO DAILY [facility] Last Admin: 10/18/18 10:54 Dose: 0.4 mg Tiotropium [place] (Spiriva) 18 mcg IH DAILY [facility] Last Admin: 10/18/18 10:54 Dose: 18 mcg - Labs Labs: 10/17/18 08:00 10/17/18 07:00 PT 25.7 SECONDS (9.4-12.5) H 10/12/18 23:19 INR 2.22 10/12/18 23:19 APTT 46.2 Seconds (25.1-36.5) H 10/12/18 23:19 Attending/Attestation - Attestation I have personally seen and examined this patient.: Yes I have fully participated in the care of the patient.: Yes I have reviewed all pertinent clinical information, including history, physical exam and plan: Yes
[2018-10-15] MEDS: Tiotropium 18 mcg Cap For Inhalation IH SCH (09:57)
[2018-10-15] MEDS: Vancomycin 1gm in NS 250ml 1 GM/250 ML BAG IVPB SCH ×2 (09:57→22:38)
[2018-10-15] MEDS: Mupirocin 2% Ointment 15 GM TUBE NS SCH ×2 (09:59→18:33)
[2018-10-15] MEDS ORDERED: Sodium Chloride 0.9% 250 ML IV STA (12:18)
--- NOTE | 2018-10-15 13:24 | PN ---
DATE: 10/15/2018 SUBJECTIVE: The patient was reported to be markedly dizzy on orthostatic pressures with a blood pressure less than 80 on standing. Currently, the patient is in bed in no acute distress, but lethargic. OBJECTIVE: VITAL SIGNS: Blood pressure 102/49, heart rates in the 60s. NECK: Negative JVD. LUNGS: Decreased breath sounds. HEART: Reveal S1, S2. EXTREMITIES: Without edema. LABORATORY DATA: BUN and creatinine is 10 and 0.7 with a hemoglobin of 8.0. Review of his previous echocardiogram in December reveals mild aortic stenosis. In addition, the patient was on midodrine for persistent hypotension. IMPRESSION: 1. Orthostatic hypotension. 2. Mild aortic stenosis. 3. Anemia. 4. Sepsis. 5. Chronic obstructive pulmonary disease. Given these findings, we will give the patient a bolus of IV fluids. We will recheck his echocardiogram for the status of his aortic valve. In addition, we will increase his midodrine dosage. Shalom Hood MD
[2018-10-15] MEDS: Sodium Chloride 0.9% 1,000 ML IV SCH (13:57)
--- NOTE | 2018-10-15 14:07 | CP.PCM.PCO ---
Physician Communication Note - Physician Communication Note Physician Communication Note: orthostatic (IVF, midodrine), Echo, MRSA urine (Vanco),accept to [facility]
--- NOTE | 2018-10-15 14:44 | PCM.URO ---
Urology Progress Note - Objective Lab Studies: Reviewed (maintain garcía) Lab Results Last 24 Hours: Laboratory Results - last 24 hr 10/14/18 10/14/18 10/15/18 17:06 21:22 07:33 POC Glucose (mg/dL) 117 H 110 89 10/15/18 11:32 POC Glucose (mg/dL) 119 H Intake & Output: Intake & Output 10/14/18 10/15/18 10/15/18 18:59 06:59 18:59 Intake Total 680 850 Output Total 450 Balance 680 400 Intake: IV 680 730 Right Antecubital 680 730 Oral 120 Output: Urine 450 Urethral (García) 450 Vital Signs: Vital Signs - 24 hr 10/14/18 10/15/18 10/15/18 18:00 00:01 06:00 Temperature 97.6 F 97.8 F 98.3 F Pulse Rate 70 61 69 Respiratory 20 20 20 Rate Blood Pressure 102/47 L 103/54 L 102/49 L O2 Sat by Pulse 97 99 Oximetry 10/15/18 12:00 Temperature 98.4 F Pulse Rate 77 Respiratory 19 Rate Blood Pressure 119/53 L O2 Sat by Pulse Oximetry
--- NOTE | 2018-10-15 15:27 | CP.PCM.PN ---
Subjective - Date & Time of Evaluation Date of Evaluation: 10/15/18 Time of Evaluation: 10:15 - Subjective Subjective: Comfortable in bed, no fevers but still with oozing in the arms. Objective - Vital Signs/Intake and Output Vital Signs (last 24 hours): Temp Pulse Resp BP Pulse Ox 97.1 F L 70 19 139/64 98 10/14/18 12:00 10/14/18 12:00 10/14/18 12:00 10/14/18 12:00 10/13/18 23:41 Intake and Output: 10/14/18 10/14/18 06:59 18:59 Output Total 650 Balance -650 - Medications Medications: Current Medications Apixaban (Eliquis) 5 mg PO Q12 [facility]; Protocol Last Admin: 10/14/18 09:57 Dose: 5 mg Arformoterol Tartrate (Brovana) 15 mcg IH [id number] [facility] Last Admin: 10/14/18 08:08 Dose: 15 mcg Budesonide (Pulmicort Respules) 0.5 mg IH BIDRESP [facility] Last Admin: 10/14/18 08:08 Dose: 0.5 mg Sodium Chloride (Sodium Chloride 0.45%) 1,000 mls @ 80 mls/hr IV .[id number] [facility] Last Admin: 10/14/18 09:55 Dose: 80 mls/hr Vancomycin HCl (Vancomycin 1gm) 1 gm in 250 mls @ 167 mls/hr IVPB Q12H [facility]; Protocol Last Admin: 10/14/18 09:55 Dose: 167 mls/hr Insulin Human Regular (Humulin R Med) 0 units SC ACHS [facility]; Protocol Last Admin: 10/14/18 17:30 Dose: Not Given Midodrine (Proamatine) 10 mg PO TID [facility] Last Admin: 10/14/18 18:20 Dose: 10 mg Mupirocin (Bactroban Ointment) 1 gm NS BID [facility] Stop: 10/17/18 10:01 Last Admin: 10/14/18 18:18 Dose: 1 gm Sitagliptin Phosphate (Januvia) 50 mg PO DAILY [facility] Last Admin: 10/14/18 09:46 Dose: Not Given Tamsulosin HCl (Flomax) 0.4 mg PO DAILY [facility] Last Admin: 10/14/18 09:57 Dose: 0.4 mg Tiotropium [place] (Spiriva) 18 mcg IH DAILY [facility] Last Admin: 10/14/18 09:57 Dose: 18 mcg - Labs Labs: 10/14/18 08:45 10/14/18 08:45 PT 25.7 SECONDS (9.4-12.5) H 10/12/18 23:19 INR 2.22 10/12/18 23:19 APTT 46.2 Seconds (25.1-36.5) H 10/12/18 23:19 - Constitutional Appears: Chronically Ill - Head Exam Head Exam: NORMAL INSPECTION - Respiratory Exam Respiratory Exam: Decreased Breath Sounds - Cardiovascular Exam Cardiovascular Exam: +S1, +S2 - GI/Abdominal Exam GI & Abdominal Exam: Soft. absent: Tenderness Assessment and Plan - Assessment and Plan (Free Text) Plan: Assessment probable right lower lobe atelectasis and effusion consider UTI with MRSA DM HTN arthritis COPD CAD history of left foot osteomyelitis Assessment S/P 3 days of Doxycycline and Cefepime - discussed with Dr. Rose - probably not true pneumonia but more atelectasis continue Vancomycin day 3 for the MRSA in the urine for 5-7 days will continue to monitor clinically discussed with Dr. Nguyen
--- NOTE | 2018-10-15 16:19 | CARD ---
APPROVED REPORT Date of service: 10/15/2018 EXAM: Two-dimensional and M-mode echocardiogram with Doppler and color Doppler. INDICATION Dizziness 2D DIMENSIONS IVSd1.0 (0.7-1.1cm)LVDd4.1 (3.9-5.9cm) PWd1.3 (0.7-1.1cm)LVDs2.9 (2.5-4.0cm) FS (%) 28.3 %LVEF (%)55.1 (>50%) M-Mode DIMENSIONS Aortic Root2.90 (2.2-3.7cm)Aortic Cusp Exc.1.30 (1.5-2.0cm) Aortic Valve AoV Peak Sodhdtpw540.0cm/Nadir Peak GR.10mmHgLVOT Peak Zhdejddc90.8cm/s LVOT VTI22.90cm Mitral Valve MV E Lcexrgxw254.0cm/sMV A Ureinkzf492.0cm/sE/A ratio0.9 TDI E/Lateral E'0.0E/Medial E'0.0 Tricuspid Valve TR Peak Fhnjehrj521wj/sRAP [id number] Peak Gr.19mmHg QGQG90hlMx LEFT VENTRICLE The left ventricle is normal size. There is normal left ventricular wall thickness. The left ventricular function is normal. The left ventricular ejection fraction is within the normal range. There is normal LV segmental wall motion. Transmitral Doppler flow pattern is Grade I-abnormal relaxation pattern. RIGHT VENTRICLE The right ventricle is mildly dilated. There is normal right ventricular wall thickness. The right ventricular systolic function is normal. ATRIA The left atrium is borderline dilated. The right atrium size is normal. AORTIC VALVE The aortic valve is severely sclerotic. No aortic regurgitation is present. There is no aortic valvular stenosis. MITRAL VALVE Mitral annular calcification is moderate to severe. Mitral regurgitation is mild to moderate. There is no mitral valve stenosis. TRICUSPID VALVE The tricuspid valve is normal in structure. There is mild tricuspid regurgitation. PULMONIC VALVE The pulmonary valve is normal in structure. There is no pulmonic valvular regurgitation. GREAT VESSELS The aortic root is normal in size. PERICARDIAL EFFUSION There is small left pleural effusion. There is a trace circumferential pericardial effusion. <Conclusion> There is normal left ventricular wall thickness. The left ventricular function is normal. The left ventricular ejection fraction is within the normal range. There is normal LV segmental wall motion. Transmitral Doppler flow pattern is Grade I-abnormal relaxation pattern. The aortic valve is severely sclerotic. Mitral regurgitation is mild to moderate.
--- NOTE | 2018-10-15 17:39 | PQF ---
PROVIDER RESPONSE TEXT: sirs REVIEWER QUERY TEXT: Rule Out Sepsis Clarification Rule out Sepsis is documented in the Medical Record. Please clarify whether: -- Patient has sepsis - Please document confirmed, suspected or probable causative organism - Please document confirmed, suspected or probable localized infection - Please clarify if sepsis is related to a device - Please clarify if sepsis was present on admission -- Sepsis was ruled out (include corresponding diagnosis for patient?s clinical picture and treatment ) -- Patient had sepsis which is resolved -- Other, please specify The patient's Clinical Indicators include: Patient admitted with multiple issues related to UTI, pneumonia, LE ulcers. Your PN of 10/14 noted sepsis as one of the diagnoses. Please clarify if sepsis was POA or developed later, ruled out. Query created by: Ellie Wong on 10/15/2018 7:08 AM Electronically signed by: Jn Nguyen DO 10/15/2018 5:37 PM
[2018-10-15] MEDS: POLYETHYLENE GLYCOL 3350 17 GM/Dose PACKET PO SCH (18:32)
[2018-10-16] MEDS: Arformoterol 15 mcg/2 ml Inh Sol IH SCH ×2 (07:56→19:29)
[2018-10-16] MEDS: Budesonide 0.5 mg/2 ml Inhal Susp UD IH SCH ×2 (07:56→19:29)
[2018-10-16] MEDS: Insulin Reg-MEDIUM-Coverage SC SCH ×4 (08:03→21:40)
--- NOTE | 2018-10-16 09:07 | CP.PCM.PN ---
Subjective - Date & Time of Evaluation Date of Evaluation: 10/16/18 Time of Evaluation: 09:06 - Subjective Subjective: Podiatry progress note for Dr. Peck 78M seen and evaluated at bedside with Dr. Peck, resting comfortably. States that he is in no pain today. Denies discomfort to his feet. Denies N/V/F/C/SOB/CP and has no other acute complaints. Objective - Vital Signs/Intake and Output Vital Signs (last 24 hours): Temp Pulse Resp BP Pulse Ox 98.0 F 80 20 101/52 L 99 10/16/18 06:00 10/16/18 06:00 10/16/18 06:00 10/16/18 06:00 10/16/18 06:00 Intake and Output: 10/16/18 10/16/18 06:59 18:59 Intake Total 850 Output Total 250 Balance 600 - Medications Medications: Current Medications Apixaban (Eliquis) 5 mg PO Q12 [facility]; Protocol Last Admin: 10/15/18 22:39 Dose: 5 mg Arformoterol Tartrate (Brovana) 15 mcg IH [id number] [facility] Last Admin: 10/16/18 07:56 Dose: 15 mcg Budesonide (Pulmicort Respules) 0.5 mg IH BIDRESP [facility] Last Admin: 10/16/18 07:56 Dose: 0.5 mg Docusate Sodium (Colace) 100 mg PO BID [facility] Last Admin: 10/15/18 18:32 Dose: 100 mg Vancomycin HCl (Vancomycin 1gm) 1 gm in 250 mls @ 167 mls/hr IVPB Q12H [facility]; Protocol Last Admin: 10/15/18 22:38 Dose: 167 mls/hr Sodium Chloride (Sodium Chloride 0.9%) 1,000 mls @ 40 mls/hr IV .Q24H [facility] Last Admin: 10/15/18 13:57 Dose: 40 mls/hr Insulin Human Regular (Humulin R Med) 0 units SC ACHS [facility]; Protocol Last Admin: 10/16/18 08:03 Dose: Not Given Midodrine (Proamatine) 10 mg PO QID [facility] Last Admin: 10/15/18 22:39 Dose: 10 mg Mupirocin (Bactroban Ointment) 1 gm NS BID [facility] Stop: 10/17/18 10:01 Last Admin: 10/15/18 18:33 Dose: 1 gm Polyethylene Glycol (Miralax) 17 gm PO BID [facility] Last Admin: 10/15/18 18:32 Dose: 17 gm Sitagliptin Phosphate (Januvia) 50 mg PO DAILY [facility] Last Admin: 10/15/18 09:57 Dose: 50 mg Tamsulosin HCl (Flomax) 0.4 mg PO DAILY [facility] Last Admin: 10/15/18 10:01 Dose: 0.4 mg Tiotropium [place] (Spiriva) 18 mcg IH DAILY [facility] Last Admin: 10/15/18 09:57 Dose: 18 mcg - Labs Labs: 10/14/18 08:45 10/14/18 08:45 PT 25.7 SECONDS (9.4-12.5) H 10/12/18 23:19 INR 2.22 10/12/18 23:19 APTT 46.2 Seconds (25.1-36.5) H 10/12/18 23:19 - Constitutional Appears: Well, Non-toxic, No Acute Distress - Head Exam Head Exam: ATRAUMATIC, NORMOCEPHALIC - Extremities Exam Additional comments: Left LE focused exam VASC: DP/PT pulses are palpable 1/4, Cap refill time: < 3 sec to all digits, Temp gradient: warm to cool from proximal to distal, no pitting or non-pitting edema noted DERM: left heel pressure ulceration with fibrogranular base measuring approximately 1.5 cm x 1.5 cm; no drainage, bleeding, pus, or streaking, no clinical signs of infection; distal tip of hallux has superficial wound, granular base, no drainage, no clinical signs of infection NEURO: Protective sensation grossly intact ORTHO: no pain on palpation to the left heel superficial lesion - Neurological Exam Neurological Exam: Alert, Awake, Oriented x3 - Psychiatric Exam Psychiatric exam: Normal Affect, Normal Mood Assessment and Plan - Assessment and Plan (Free Text) Assessment: 78M with pressure ulceration and left distal tip of hallux superficial wound, non infected Plan: Patient seen and evaluated with Dr. Peck Afebrile, absent leukocytosis Bactroban applied to the heel ulcer Continue physical therapy Multipodus boots at all times Wounds; heel ulcer dressed with optifoam, hallux wound left open to air Stable from podiatry standpoint, will continue local woundcare Will continue to follow while in house
--- NOTE | 2018-10-16 10:27 | PN ---
DATE: 10/16/2018 SUBJECTIVE: The patient is awake, alert, sitting up, eating breakfast, without issues. PHYSICAL EXAMINATION: VITAL SIGNS: Blood pressure 101/52, the heart rate is 80. NECK: Negative JVD. LUNGS: Without rales. HEART: S1, S2. EXTREMITIES: Without edema. LABORATORY DATA: Glucose is 94. The hemoglobin was 8 two days ago. IMPRESSION: 1. Orthostatic hypotension. 2. Mild aortic stenosis. 3. Anemia. 4. Sepsis. 5. Chronic obstructive pulmonary disease. PLAN: The patient has tolerated IV fluids. We have adjusted his midodrine to a higher dose. We will have physical therapy give him another trial to ambulate and will check orthostatic pressures. Shalom Hood MD
[2018-10-16 10:48] LABS: HEMOGLOBIN 7.9 g/dL (14.0-18.0); MEAN CELL VOLUME 97.1 fl (80.0-105.0); MEAN CORPUSCULAR HEMOGLOBIN 32.2 pg (25.0-35.0); MEAN CORPUSCULAR HGB CONC 33.2 g/dl (31.0-37.0); MEAN PLATELET VOLUME 8.2 fl (7.0-11.0); RBC 2.45 10^6/uL (3.5-6.1); RED CELL DISTRIBUTION WIDTH 14.9 % (11.5-14.5); WHITE BLOOD COUNT 4.6 10^3/uL (4.5-11.0)
[2018-10-16 10:50] LABS: IRON 36 ug/dL (45-180)
[2018-10-16] MEDS: Vancomycin 1gm in NS 250ml 1 GM/250 ML BAG IVPB SCH ×2 (10:52→21:49)
[2018-10-16] MEDS: Tiotropium 18 mcg Cap For Inhalation IH SCH (10:52)
[2018-10-16] MEDS: POLYETHYLENE GLYCOL 3350 17 GM/Dose PACKET PO SCH ×2 (10:52→18:50)
[2018-10-16] MEDS: Mupirocin 2% Ointment 15 GM TUBE NS SCH ×2 (10:55→18:51)
[2018-10-16 11:00] LABS: % IRON SATURATION 21 % (20-55); TOTAL IRON BINDING CAPACITY 166 ug/dL (261-462)
--- NOTE | 2018-10-16 11:00 | PN ---
DATE: 10/16/2018 SUBJECTIVE: I saw him in bed today. His left and right arm are bandaged with Karel bandages. He is on Bactroban cream, Brovana, Colace, Eliquis, Flomax, influenza virus shot was given, insulin coverage, Januvia, MiraLax, his ProAmatine was increased to four times a day every 6 hours 10 mg. He is on Pulmicort, IV fluids at 40 mL an hour, Spiriva and vancomycin IV. He is alert. He is comfortable, actually looks a little bit stronger today. PHYSICAL EXAMINATION: GENERAL: He told me he got very dizzy and lightheaded yesterday when I tried to stand him up. VITAL SIGNS: 98 temperature, 80 pulse, 101/52 blood pressure, 20, respiratory rate, 99% sat on room air. HEENT: Head is atraumatic, normocephalic. HEART: Regular rate. LUNGS: Decreased breath sounds, but clear. ABDOMEN: Soft. EXTREMITIES: No edema. The arms are a little swollen, but not as bad and less swollen, less puffy. LABORATORY DATA: He has 134 sodium, potassium 3.7, BUN 10, creatinine 0.7, GFR is greater than 60, sugar is 74, calcium is 7.5, total bili is 0.6, AST is 48, ALT is 40, alk phos is 55, total protein is 4.4. He has a white count of 3.9, his hemoglobin dropped to 8 and I transfused him 2 units of packed red blood cells, hematocrit 23.6, platelets of 113. ASSESSMENT AND PLAN: He has numerous issues going on. He has low blood pressure, right pneumonia, urinary tract infection, blisters in the upper extremities, bilateral chronic obstructive pulmonary disease, fatigue, anemia, Fall catheter, he is being seen by Infectious Disease, Urology, Cardiology, who increased his medicines for his low blood pressure and will transfuse him 2 units of packed red blood cells today. Jn Nguyen DO
[2018-10-16 11:03] LABS: ALB/GLOB RATIO 0.7 (1.1-1.8); ALBUMIN 1.8 g/dL (3.0-4.8); ALT/SGPT 38 U/L (7-56); AST/SGOT 50 U/L (17-59); BLOOD UREA NITROGEN 9 mg/dL (7-21); CALCIUM 7.8 mg/dL (8.4-10.5); GFR NON-AFRICAN AMERICAN > 60
--- NOTE | 2018-10-16 14:36 | CP.PCM.PN ---
Subjective - Date & Time of Evaluation Date of Evaluation: 10/16/18 Time of Evaluation: 11:20 - Subjective Subjective: Less oozing in the arms, no fevers, not in distress. Objective - Vital Signs/Intake and Output Vital Signs (last 24 hours): Temp Pulse Resp BP Pulse Ox 98.4 F 77 19 119/53 L 99 10/15/18 12:00 10/15/18 12:00 10/15/18 12:00 10/15/18 12:00 10/15/18 06:00 Intake and Output: 10/15/18 10/15/18 06:59 18:59 Intake Total 850 Output Total 450 Balance 400 - Medications Medications: Current Medications Apixaban (Eliquis) 5 mg PO Q12 [facility]; Protocol Last Admin: 10/15/18 09:57 Dose: 5 mg Arformoterol Tartrate (Brovana) 15 mcg IH [id number] [facility] Last Admin: 10/15/18 07:54 Dose: 15 mcg Budesonide (Pulmicort Respules) 0.5 mg IH BIDRESP [facility] Last Admin: 10/15/18 07:54 Dose: 0.5 mg Docusate Sodium (Colace) 100 mg PO BID [facility] Vancomycin HCl (Vancomycin 1gm) 1 gm in 250 mls @ 167 mls/hr IVPB Q12H [facility]; Protocol Last Admin: 10/15/18 09:57 Dose: 167 mls/hr Sodium Chloride (Sodium Chloride 0.9%) 1,000 mls @ 40 mls/hr IV .Q24H [facility] Last Admin: 10/15/18 13:57 Dose: 40 mls/hr Insulin Human Regular (Humulin R Med) 0 units SC ACHS [facility]; Protocol Last Admin: 10/15/18 12:30 Dose: Not Given Midodrine (Proamatine) 10 mg PO QID [facility] Last Admin: 10/15/18 13:49 Dose: 10 mg Mupirocin (Bactroban Ointment) 1 gm NS BID [facility] Stop: 10/17/18 10:01 Last Admin: 10/15/18 09:59 Dose: 1 gm Polyethylene Glycol (Miralax) 17 gm PO BID [facility] Sitagliptin Phosphate (Januvia) 50 mg PO DAILY [facility] Last Admin: 10/15/18 09:57 Dose: 50 mg Tamsulosin HCl (Flomax) 0.4 mg PO DAILY [facility] Last Admin: 10/15/18 10:01 Dose: 0.4 mg Tiotropium [place] (Spiriva) 18 mcg IH DAILY [facility] Last Admin: 10/15/18 09:57 Dose: 18 mcg - Labs Labs: 10/14/18 08:45 10/14/18 08:45 PT 25.7 SECONDS (9.4-12.5) H 10/12/18 23:19 INR 2.22 10/12/18 23:19 APTT 46.2 Seconds (25.1-36.5) H 10/12/18 23:19 - Constitutional Appears: Chronically Ill - Head Exam Head Exam: NORMAL INSPECTION - Respiratory Exam Respiratory Exam: Decreased Breath Sounds - Cardiovascular Exam Cardiovascular Exam: +S1, +S2 - GI/Abdominal Exam GI & Abdominal Exam: Soft. absent: Tenderness Assessment and Plan - Assessment and Plan (Free Text) Plan: Assessment probable right lower lobe atelectasis and effusion consider UTI with MRSA DM HTN arthritis COPD CAD history of left foot osteomyelitis Assessment S/P 3 days of Doxycycline and Cefepime - discussed with Dr. Rose - probably not true pneumonia but more atelectasis continue Vancomycin day 4 for the MRSA in the urine for 5-7 days will continue to monitor clinically discussed with Dr. Nguyen
--- NOTE | 2018-10-16 14:49 | CP.PCM.PCO ---
Physician Communication Note - Physician Communication Note Physician Communication Note: for possible transfer to [facility], blood today, reeval orthostatics post med
[2018-10-16 17:46] LABS: FOLATE 5.7 ng/mL
[2018-10-16] MEDS: Sodium Chloride 0.9% 1,000 ML IV SCH (21:46)
[2018-10-17] MEDS: Arformoterol 15 mcg/2 ml Inh Sol IH SCH ×2 (07:44→20:25)
[2018-10-17] MEDS: Budesonide 0.5 mg/2 ml Inhal Susp UD IH SCH ×2 (07:44→20:25)
[2018-10-17 08:12] LABS: HEMOGLOBIN 9.7 g/dL (14.0-18.0); MEAN CELL VOLUME 94.1 fl (80.0-105.0); MEAN PLATELET VOLUME 8.3 fl (7.0-11.0); RBC 3.03 10^6/uL (3.5-6.1); RED CELL DISTRIBUTION WIDTH 16.6 % (11.5-14.5); WHITE BLOOD COUNT 5.1 10^3/uL (4.5-11.0)
[2018-10-17 08:52] LABS: ALB/GLOB RATIO 0.6 (1.1-1.8); ALBUMIN 1.7 g/dL (3.0-4.8); ALT/SGPT 37 U/L (7-56); AST/SGOT 50 U/L (17-59); BLOOD UREA NITROGEN 9 mg/dL (7-21); CALCIUM 7.6 mg/dL (8.4-10.5); GFR NON-AFRICAN AMERICAN > 60
[2018-10-17] MEDS: POLYETHYLENE GLYCOL 3350 17 GM/Dose PACKET PO SCH ×2 (10:12→19:01)
[2018-10-17] MEDS: Vancomycin 1gm in NS 250ml 1 GM/250 ML BAG IVPB SCH ×2 (10:12→21:26)
[2018-10-17] MEDS: Tiotropium 18 mcg Cap For Inhalation IH SCH (10:12)
[2018-10-17] MEDS: Insulin Reg-MEDIUM-Coverage SC SCH ×3 (10:13→22:57)
[2018-10-17] MEDS: Mupirocin 2% Ointment 15 GM TUBE NS SCH (10:16)
--- NOTE | 2018-10-17 10:55 | CP.PCM.PN ---
<Channing Burris - Last Filed: 10/17/18 10:51> Subjective - Date & Time of Evaluation Date of Evaluation: 10/17/18 Time of Evaluation: 10:51 - Subjective Subjective: Podiatry progress note for Dr. Peck 78 y/o M patient seen and evaluated at bedside with Dr. Peck, patient was resting comfortably in bed and NAD. He states that he has no pain today. Patient denies any discomfort to his feet. He denies any overnight N/V/F/C/SOB/CP and has no other acute complaints. Objective - Vital Signs/Intake and Output Vital Signs (last 24 hours): Temp Pulse Resp BP Pulse Ox 97.9 F 69 16 93/52 L 97 10/17/18 06:00 10/17/18 06:00 10/17/18 06:00 10/17/18 06:00 10/17/18 06:00 Intake and Output: 10/17/18 10/17/18 06:59 18:59 Intake Total 2480 Output Total 600 Balance 1880 - Medications Medications: Current Medications Apixaban (Eliquis) 5 mg PO Q12 [facility]; Protocol Last Admin: 10/17/18 10:13 Dose: 5 mg Arformoterol Tartrate (Brovana) 15 mcg IH [id number] [facility] Last Admin: 10/17/18 07:44 Dose: 15 mcg Budesonide (Pulmicort Respules) 0.5 mg IH BIDRESP [facility] Last Admin: 10/17/18 07:44 Dose: 0.5 mg Docusate Sodium (Colace) 100 mg PO BID [facility] Last Admin: 10/17/18 10:12 Dose: 100 mg Vancomycin HCl (Vancomycin 1gm) 1 gm in 250 mls @ 167 mls/hr IVPB Q12H [facility]; Protocol Last Admin: 10/17/18 10:12 Dose: 167 mls/hr Sodium Chloride (Sodium Chloride 0.9%) 1,000 mls @ 40 mls/hr IV .Q24H [facility] Last Admin: 10/16/18 21:46 Dose: 40 mls/hr Sodium Chloride (Sodium Chloride 0.9%) 500 mls @ 125 mls/hr IV .Q4H [facility] Stop: 10/17/18 13:31 Insulin Human Regular (Humulin R Med) 0 units SC ACHS [facility]; Protocol Last Admin: 10/17/18 10:13 Dose: Not Given Midodrine (Proamatine) 10 mg PO QID [facility] Last Admin: 10/17/18 10:12 Dose: 10 mg Polyethylene Glycol (Miralax) 17 gm PO BID [facility] Last Admin: 10/17/18 10:12 Dose: 17 gm Sitagliptin Phosphate (Januvia) 50 mg PO DAILY [facility] Last Admin: 10/17/18 10:13 Dose: 50 mg Tamsulosin HCl (Flomax) 0.4 mg PO DAILY [facility] Last Admin: 10/17/18 10:12 Dose: 0.4 mg Tiotropium [place] (Spiriva) 18 mcg IH DAILY [facility] Last Admin: 10/17/18 10:12 Dose: 18 mcg - Labs Labs: 10/17/18 08:00 10/17/18 07:00 PT 25.7 SECONDS (9.4-12.5) H 10/12/18 23:19 INR 2.22 10/12/18 23:19 APTT 46.2 Seconds (25.1-36.5) H 10/12/18 23:19 - Constitutional Appears: Non-toxic - Head Exam Head Exam: ATRAUMATIC, NORMOCEPHALIC - Extremities Exam Additional comments: Left LE focused exam VASC: DP/PT pulses are palpable 1/4, Cap refill time: < 3 sec to all digits, Temp gradient: warm to cool from proximal to distal, no pitting or non-pitting edema noted NEURO: Protective sensation grossly intact DERM: left heel pressure ulceration with fibrogranular base measuring approximately 1.5 cm x 1.5 cm; no drainage, bleeding, pus, or streaking, no clinical signs of infection; distal tip of hallux has superficial wound, granular base, no drainage, no clinical signs of infection. MSK: No pain on palpation to the left heel superficial lesion and left hallux ulcer. - Neurological Exam Neurological Exam: Alert, Awake, Oriented x3 - Psychiatric Exam Psychiatric exam: Normal Affect Assessment and Plan - Assessment and Plan (Free Text) Assessment: 78 y/o M with pressure ulceration and left distal tip of hallux superficial wound, non infected Plan: Patient seen and evaluated with Dr. Peck Plan discussed with Dr. Peck Charts, labs and vitals reviewed; Afebrile, absent leukocytosis Bactroban applied to the heel ulcer Continue physical therapy Multipodus boots at all times Wounds; heel ulcer dressed with optifoam, hallux wound covered with band-aid. Stable from podiatry standpoint, will continue local wound care Podiatry will continue to follow up the patient while in house <Rupert Peck - Last Filed: 10/17/18 11:15> Objective - Vital Signs/Intake and Output Vital Signs (last 24 hours): Temp Pulse Resp BP Pulse Ox 97.9 F 69 16 93/52 L 97 10/17/18 06:00 10/17/18 06:00 10/17/18 06:00 10/17/18 06:00 10/17/18 06:00 Intake and Output: 10/17/18 10/17/18 06:59 18:59 Intake Total 2480 Output Total 600 Balance 1880 - Medications Medications: Current Medications Apixaban (Eliquis) 5 mg PO Q12 [facility]; Protocol Last Admin: 10/17/18 10:13 Dose: 5 mg Arformoterol Tartrate (Brovana) 15 mcg IH [id number] [facility] Last Admin: 10/17/18 07:44 Dose: 15 mcg Budesonide (Pulmicort Respules) 0.5 mg IH BIDRESP [facility] Last Admin: 10/17/18 07:44 Dose: 0.5 mg Docusate Sodium (Colace) 100 mg PO BID [facility] Last Admin: 10/17/18 10:12 Dose: 100 mg Vancomycin HCl (Vancomycin 1gm) 1 gm in 250 mls @ 167 mls/hr IVPB Q12H [facility]; Protocol Last Admin: 10/17/18 10:12 Dose: 167 mls/hr Sodium Chloride (Sodium Chloride 0.9%) 1,000 mls @ 40 mls/hr IV .Q24H [facility] Last Admin: 10/16/18 21:46 Dose: 40 mls/hr Sodium Chloride (Sodium Chloride 0.9%) 500 mls @ 125 mls/hr IV .Q4H [facility] Stop: 10/17/18 13:31 Insulin Human Regular (Humulin R Med) 0 units SC ACHS [facility]; Protocol Last Admin: 10/17/18 10:13 Dose: Not Given Midodrine (Proamatine) 10 mg PO QID [facility] Last Admin: 10/17/18 10:12 Dose: 10 mg Polyethylene Glycol (Miralax) 17 gm PO BID [facility] Last Admin: 10/17/18 10:12 Dose: 17 gm Sitagliptin Phosphate (Januvia) 50 mg PO DAILY [facility] Last Admin: 10/17/18 10:13 Dose: 50 mg Tamsulosin HCl (Flomax) 0.4 mg PO DAILY [facility] Last Admin: 10/17/18 10:12 Dose: 0.4 mg Tiotropium [place] (Spiriva) 18 mcg IH DAILY [facility] Last Admin: 10/17/18 10:12 Dose: 18 mcg - Labs Labs: 10/17/18 08:00 10/17/18 07:00 PT 25.7 SECONDS (9.4-12.5) H 10/12/18 23:19 INR 2.22 10/12/18 23:19 APTT 46.2 Seconds (25.1-36.5) H 10/12/18 23:19 Attending/Attestation - Attestation I have personally seen and examined this patient.: Yes I have fully participated in the care of the patient.: Yes I have reviewed all pertinent clinical information, including history, physical exam and plan: Yes
[2018-10-17] MEDS: Sodium Chloride 0.9% 500 ML IV SCH ×2 (13:39→19:01)
--- NOTE | 2018-10-17 14:00 | CP.PCM.PN ---
Subjective - Date & Time of Evaluation Date of Evaluation: 10/17/18 Time of Evaluation: 11:25 - Subjective Subjective: Comfortable in bed, no fevers, not in distress. Objective - Vital Signs/Intake and Output Vital Signs (last 24 hours): Temp Pulse Resp BP Pulse Ox 98.0 F 78 18 92/46 L 99 10/16/18 12:00 10/16/18 12:00 10/16/18 12:00 10/16/18 12:00 10/16/18 06:00 Intake and Output: 10/16/18 10/16/18 06:59 18:59 Intake Total 850 Output Total 250 Balance 600 - Medications Medications: Current Medications Apixaban (Eliquis) 5 mg PO Q12 [facility]; Protocol Last Admin: 10/16/18 10:53 Dose: 5 mg Arformoterol Tartrate (Brovana) 15 mcg IH [id number] [facility] Last Admin: 10/16/18 07:56 Dose: 15 mcg Budesonide (Pulmicort Respules) 0.5 mg IH BIDRESP [facility] Last Admin: 10/16/18 07:56 Dose: 0.5 mg Docusate Sodium (Colace) 100 mg PO BID [facility] Last Admin: 10/16/18 10:53 Dose: 100 mg Vancomycin HCl (Vancomycin 1gm) 1 gm in 250 mls @ 167 mls/hr IVPB Q12H [facility]; Protocol Last Admin: 10/16/18 10:52 Dose: 167 mls/hr Sodium Chloride (Sodium Chloride 0.9%) 1,000 mls @ 40 mls/hr IV .Q24H [facility] Last Admin: 10/15/18 13:57 Dose: 40 mls/hr Insulin Human Regular (Humulin R Med) 0 units SC ACHS [facility]; Protocol Last Admin: 10/16/18 12:00 Dose: Not Given Midodrine (Proamatine) 10 mg PO QID [facility] Last Admin: 10/16/18 10:53 Dose: 10 mg Mupirocin (Bactroban Ointment) 1 gm NS BID [facility] Stop: 10/17/18 10:01 Last Admin: 10/16/18 10:55 Dose: 1 gm Polyethylene Glycol (Miralax) 17 gm PO BID [facility] Last Admin: 10/16/18 10:52 Dose: 17 gm Sitagliptin Phosphate (Januvia) 50 mg PO DAILY [facility] Last Admin: 10/16/18 10:54 Dose: 50 mg Tamsulosin HCl (Flomax) 0.4 mg PO DAILY [facility] Last Admin: 10/16/18 10:53 Dose: 0.4 mg Tiotropium [place] (Spiriva) 18 mcg IH DAILY [facility] Last Admin: 10/16/18 10:52 Dose: 18 mcg - Labs Labs: 10/16/18 10:25 10/16/18 10:25 PT 25.7 SECONDS (9.4-12.5) H 10/12/18 23:19 INR 2.22 10/12/18 23:19 APTT 46.2 Seconds (25.1-36.5) H 10/12/18 23:19 - Constitutional Appears: Chronically Ill - Head Exam Head Exam: NORMAL INSPECTION - Respiratory Exam Respiratory Exam: Decreased Breath Sounds - Cardiovascular Exam Cardiovascular Exam: +S1, +S2 - GI/Abdominal Exam GI & Abdominal Exam: Soft. absent: Tenderness Assessment and Plan - Assessment and Plan (Free Text) Plan: Assessment probable right lower lobe atelectasis and effusion consider UTI with MRSA DM HTN arthritis COPD CAD history of left foot osteomyelitis Assessment S/P 3 days of Doxycycline and Cefepime - discussed with Dr. Rose - probably not true pneumonia but more atelectasis continue Vancomycin day 5 for the MRSA in the urine for 5-7 days will continue to monitor clinically discussed with Dr. Nguyen
[2018-10-18] MEDS: Budesonide 0.5 mg/2 ml Inhal Susp UD IH SCH ×2 (07:21→21:48)
[2018-10-18] MEDS: Arformoterol 15 mcg/2 ml Inh Sol IH SCH ×2 (07:21→21:48)
[2018-10-18] MEDS: Insulin Reg-MEDIUM-Coverage SC SCH ×4 (08:25→22:44)
[2018-10-18] MEDS: Vancomycin 1gm in NS 250ml 1 GM/250 ML BAG IVPB SCH ×2 (10:53→21:11)
[2018-10-18] MEDS: POLYETHYLENE GLYCOL 3350 17 GM/Dose PACKET PO SCH ×2 (10:53→18:04)
[2018-10-18] MEDS: Tiotropium 18 mcg Cap For Inhalation IH SCH (10:54)
--- NOTE | 2018-10-18 12:35 | CP.PCM.PN ---
Subjective - Date & Time of Evaluation Date of Evaluation: 10/18/18 Time of Evaluation: 10:40 - Subjective Subjective: Patient is comfortable in bed, no fevers, not in distress. Objective - Vital Signs/Intake and Output Vital Signs (last 24 hours): Temp Pulse Resp BP Pulse Ox 97.9 F 69 16 93/52 L 97 10/17/18 06:00 10/17/18 06:00 10/17/18 06:00 10/17/18 06:00 10/17/18 06:00 Intake and Output: 10/17/18 10/17/18 06:59 18:59 Intake Total 2480 Output Total 600 Balance 1880 - Medications Medications: Current Medications Apixaban (Eliquis) 5 mg PO Q12 [facility]; Protocol Last Admin: 10/17/18 10:13 Dose: 5 mg Arformoterol Tartrate (Brovana) 15 mcg IH [id number] [facility] Last Admin: 10/17/18 07:44 Dose: 15 mcg Budesonide (Pulmicort Respules) 0.5 mg IH BIDRESP [facility] Last Admin: 10/17/18 07:44 Dose: 0.5 mg Docusate Sodium (Colace) 100 mg PO BID [facility] Last Admin: 10/17/18 10:12 Dose: 100 mg Vancomycin HCl (Vancomycin 1gm) 1 gm in 250 mls @ 167 mls/hr IVPB Q12H [facility]; Protocol Last Admin: 10/17/18 10:12 Dose: 167 mls/hr Sodium Chloride (Sodium Chloride 0.9%) 1,000 mls @ 40 mls/hr IV .Q24H [facility] Last Admin: 10/16/18 21:46 Dose: 40 mls/hr Insulin Human Regular (Humulin R Med) 0 units SC ACHS [facility]; Protocol Last Admin: 10/17/18 10:13 Dose: Not Given Midodrine (Proamatine) 10 mg PO QID [facility] Last Admin: 10/17/18 10:12 Dose: 10 mg Polyethylene Glycol (Miralax) 17 gm PO BID [facility] Last Admin: 10/17/18 10:12 Dose: 17 gm Sitagliptin Phosphate (Januvia) 50 mg PO DAILY [facility] Last Admin: 10/17/18 10:13 Dose: 50 mg Tamsulosin HCl (Flomax) 0.4 mg PO DAILY [facility] Last Admin: 10/17/18 10:12 Dose: 0.4 mg Tiotropium [place] (Spiriva) 18 mcg IH DAILY [facility] Last Admin: 10/17/18 10:12 Dose: 18 mcg - Labs Labs: 10/17/18 08:00 10/17/18 07:00 PT 25.7 SECONDS (9.4-12.5) H 10/12/18 23:19 INR 2.22 10/12/18 23:19 APTT 46.2 Seconds (25.1-36.5) H 10/12/18 23:19 - Constitutional Appears: No Acute Distress, Chronically Ill - Head Exam Head Exam: NORMAL INSPECTION - Respiratory Exam Respiratory Exam: Decreased Breath Sounds - Cardiovascular Exam Cardiovascular Exam: +S1, +S2 - GI/Abdominal Exam GI & Abdominal Exam: Soft. absent: Tenderness Assessment and Plan - Assessment and Plan (Free Text) Plan: Assessment probable right lower lobe atelectasis and effusion consider UTI with MRSA DM HTN arthritis COPD CAD history of left foot osteomyelitis Assessment S/P 3 days of Doxycycline and Cefepime - discussed with Dr. Rose - probably not true pneumonia but more atelectasis continue Vancomycin day 6 for the MRSA in the urine for 5-7 days will continue to monitor clinically discussed with Dr. Nguyen previously
--- NOTE | 2018-10-18 12:38 | CP.PCM.PN ---
<Channing Burris - Last Filed: 10/18/18 12:35> Subjective - Date & Time of Evaluation Date of Evaluation: 10/18/18 Time of Evaluation: 12:36 - Subjective Subjective: Podiatry progress note for Dr. Peck 78 y/o M patient seen and evaluated at bedside, patient was resting comfortably in bed and NAD. He states that he has no pain today. Patient denies any discomfort to his feet. He denies any overnight N/V/F/C/SOB/CP and has no other acute complaints. Objective - Vital Signs/Intake and Output Vital Signs (last 24 hours): Temp Pulse Resp BP Pulse Ox 97.5 F L 68 18 106/51 L 98 10/18/18 06:00 10/18/18 06:00 10/18/18 06:00 10/18/18 00:01 10/18/18 06:00 Intake and Output: 10/18/18 10/18/18 06:59 18:59 Intake Total 660 Output Total 1100 Balance -440 - Medications Medications: Current Medications Apixaban (Eliquis) 5 mg PO Q12 [facility]; Protocol Last Admin: 10/18/18 10:54 Dose: 5 mg Arformoterol Tartrate (Brovana) 15 mcg IH [id number] [facility] Last Admin: 10/18/18 07:21 Dose: 15 mcg Budesonide (Pulmicort Respules) 0.5 mg IH BIDRESP [facility] Last Admin: 10/18/18 07:21 Dose: 0.5 mg Docusate Sodium (Colace) 100 mg PO BID [facility] Last Admin: 10/18/18 10:54 Dose: 100 mg Vancomycin HCl (Vancomycin 1gm) 1 gm in 250 mls @ 167 mls/hr IVPB Q12H [facility]; Protocol Last Admin: 10/18/18 10:53 Dose: 167 mls/hr Sodium Chloride (Sodium Chloride 0.9%) 1,000 mls @ 40 mls/hr IV .Q24H [facility] Last Admin: 10/16/18 21:46 Dose: 40 mls/hr Insulin Human Regular (Humulin R Med) 0 units SC ACHS [facility]; Protocol Last Admin: 10/18/18 12:04 Dose: Not Given Midodrine (Proamatine) 10 mg PO QID [facility] Last Admin: 10/18/18 10:53 Dose: 10 mg Polyethylene Glycol (Miralax) 17 gm PO BID [facility] Last Admin: 10/18/18 10:53 Dose: 17 gm Sitagliptin Phosphate (Januvia) 50 mg PO DAILY [facility] Last Admin: 10/18/18 10:54 Dose: 50 mg Tamsulosin HCl (Flomax) 0.4 mg PO DAILY [facility] Last Admin: 10/18/18 10:54 Dose: 0.4 mg Tiotropium [place] (Spiriva) 18 mcg IH DAILY [facility] Last Admin: 10/18/18 10:54 Dose: 18 mcg - Labs Labs: 10/17/18 08:00 10/17/18 07:00 PT 25.7 SECONDS (9.4-12.5) H 10/12/18 23:19 INR 2.22 10/12/18 23: APTT 46.2 Seconds (25.1-36.5) H 10/12/18 23:19 - Constitutional Appears: Well, Non-toxic, No Acute Distress - Head Exam Head Exam: ATRAUMATIC, NORMOCEPHALIC - Extremities Exam Additional comments: Left LE focused exam VASC: DP/PT pulses are palpable 1/4, Cap refill time: < 3 sec to all digits, Temp gradient: warm to cool from proximal to distal, no pitting or non-pitting edema noted NEURO: Protective sensation grossly intact DERM: left heel pressure ulceration with fibrogranular base measuring approximately 1.5 cm x 1.5 cm; no drainage, bleeding, pus, or streaking, no clinical signs of infection; distal tip of hallux has superficial wound, granular base, no drainage, no clinical signs of infection. MSK: No pain on palpation to the left heel superficial lesion and left hallux ulcer. - Neurological Exam Neurological Exam: Alert, Awake, Oriented x3 - Psychiatric Exam Psychiatric exam: Normal Affect Assessment and Plan - Assessment and Plan (Free Text) Assessment: 78 y/o M with pressure ulceration and left distal tip of hallux superficial wound, non infected Plan: Patient seen and evaluated with Dr. Peck Plan discussed with Dr. Peck Charts, labs and vitals reviewed; Afebrile, absent leukocytosis Bactroban applied to the heel ulcer and left hallux tip. Continue physical therapy Multipodus boots at all times while in bed. Wounds; heel ulcer dressed with optifoam, hallux wound covered with band-aid. Stable from podiatry standpoint, will continue local wound care Podiatry will continue to follow up the patient while in house <Rupert Peck - Last Filed: 10/18/18 12:51> Objective - Vital Signs/Intake and Output Vital Signs (last 24 hours): Temp Pulse Resp BP Pulse Ox 97.5 F L 68 18 106/51 L 98 10/18/18 06:00 10/18/18 06:00 10/18/18 06:00 10/18/18 00:01 10/18/18 06:00 Intake and Output: 10/18/18 10/18/18 06:59 18:59 Intake Total 660 Output Total 1100 Balance -440 - Medications Medications: Current Medications Apixaban (Eliquis) 5 mg PO Q12 [facility]; Protocol Last Admin: 10/18/18 10:54 Dose: 5 mg Arformoterol Tartrate (Brovana) 15 mcg IH [id number] [facility] Last Admin: 10/18/18 07:21 Dose: 15 mcg Budesonide (Pulmicort Respules) 0.5 mg IH BIDRESP [facility] Last Admin: 10/18/18 07:21 Dose: 0.5 mg Docusate Sodium (Colace) 100 mg PO BID [facility] Last Admin: 10/18/18 10:54 Dose: 100 mg Vancomycin HCl (Vancomycin 1gm) 1 gm in 250 mls @ 167 mls/hr IVPB Q12H [facility]; Protocol Last Admin: 10/18/18 10:53 Dose: 167 mls/hr Sodium Chloride (Sodium Chloride 0.9%) 1,000 mls @ 40 mls/hr IV .Q24H [facility] Last Admin: 10/16/18 21:46 Dose: 40 mls/hr Insulin Human Regular (Humulin R Med) 0 units SC ACHS [facility]; Protocol Last Admin: 10/18/18 12:04 Dose: Not Given Midodrine (Proamatine) 10 mg PO QID [facility] Last Admin: 10/18/18 10:53 Dose: 10 mg Polyethylene Glycol (Miralax) 17 gm PO BID [facility] Last Admin: 10/18/18 10:53 Dose: 17 gm Sitagliptin Phosphate (Januvia) 50 mg PO DAILY [facility] Last Admin: 10/18/18 10:54 Dose: 50 mg Tamsulosin HCl (Flomax) 0.4 mg PO DAILY [facility] Last Admin: 10/18/18 10:54 Dose: 0.4 mg Tiotropium [place] (Spiriva) 18 mcg IH DAILY [facility] Last Admin: 10/18/18 10:54 Dose: 18 mcg - Labs Labs: 10/17/18 08:00 10/17/18 07:00 PT 25.7 SECONDS (9.4-12.5) H 10/12/18 23:19 INR 2.22 10/12/18 23:19 APTT 46.2 Seconds (25.1-36.5) H 10/12/18 23:19 Attending/Attestation - Attestation I have personally seen and examined this patient.: Yes I have fully participated in the care of the patient.: Yes I have reviewed all pertinent clinical information, including history, physical exam and plan: Yes
[2018-10-18] MEDS: Sodium Chloride 0.9% 1,000 ML IV SCH (13:58)
--- NOTE | 2018-10-18 16:19 | PN ---
DATE: 10/18/2018 SUBJECTIVE: I saw him in bed. He tells me that dizziness might bed, but he is not really getting out of bed, and they have to get him out of bed with physical therapy. They told the nurse it is very important. He is on Brovana, Colace, Eliquis, Flomax, Januvia, MiraLax, ProAmatine, Pulmicort, IV fluids, Spiriva and vancomycin. PHYSICAL EXAMINATION: GENERAL: He is alert and talking. He does seem a little bit better overall, little more energy, but not 100% yet. VITAL SIGNS: He has 97.5 temperature, 68 pulse, 106/51 blood pressure, 113/57, his worse one was at 6:00 a.m. yesterday, it was 193. I am hoping to get his blood pressure over 110. Respiratory rate 18, 98% sat on 2 liters. HEENT: Head is atraumatic, normocephalic. HEART: Regular rate. LUNGS: Decreased breath sounds, but clear. ABDOMEN: Soft. EXTREMITIES: The arms are less swollen, the legs are less swollen. LABORATORY DATA: He has 5.1 white count, 9.7 hemoglobin, 28.5 hematocrit and 107 platelets, I think the transfusion is helping him. His last blood sugar was 83. He has 136 sodium, potassium 3.8, BUN is 9, creatinine 0.7, GFR is greater than 60, sugar is 79, calcium is 11.6, total bili is 1.6, AST is 50, ALT is 37, alk phos is 52. ASSESSMENT AND PLAN: He has got the need to go to eventually physical therapy and I am trying to tune him up and get him at least dizzy as possible. He had right lower lobe pneumonia, atelectasis, urinary tract infection with methicillin-resistant staphylococcus aureus, he has diabetes, hypertension, arthritis, chronic obstructive pulmonary disease, coronary artery disease, has a history of left foot osteomyelitis and he is dizzy. Possibly tomorrow we can get him to a subacute rehab and hopefully the orthostatic hypotension will slowly dissipate. He is tolerating intravenous fluids. We will check his labs tomorrow. He needs to get out or bed to chair and physical therapy and he also has to eat and that is the plan. Jn Nguyen DO [facility] # [id number] MERVAT
[2018-10-19] MEDS: Budesonide 0.5 mg/2 ml Inhal Susp UD IH SCH ×2 (07:42→22:00)
[2018-10-19] MEDS: Arformoterol 15 mcg/2 ml Inh Sol IH SCH ×2 (07:42→22:00)
--- NOTE | 2018-10-19 08:33 | PN ---
DATE: 10/17/2018 SUBJECTIVE: We are trying to get him not to be dizzy anymore. We are putting him on ProAmatine at 10 mg four times a day now. He is on IV fluids. He had IV boluses. The other day last night, he tried to walk to the bathroom. He did three quarters [address] way and then got a little woozy and had to sit down on the bedside commode, but to me it is still a little bit of improvement. He can sit up in bed, not get dizzy, and he is eating a little bit better. Family also thinks he may be a little bit better. PHYSICAL EXAMINATION: GENERAL: He is alert, talking, comfortable. He is eating a little bit. VITAL SIGNS: He has a 97.9 temperature, 69 pulse with blood pressures low at 93/52 and we will give him a bolus of IV fluids, 16 respiratory rate, 97% O2 sat. HEENT: His head is atraumatic, normocephalic. Throat is moist. NECK: Supple. HEART: Regular rate. LUNGS: Decreased breath sounds but clear. ABDOMEN: Soft. EXTREMITIES: There is puffiness on both of his arms. He is complaining about the needlesticks for blood test. I am going to give another 250 or maybe 500 mL Cristiano over 4 hours and see if we can keep his blood pressure above 110. LABORATORY DATA: He has 5.1 white count, 9.7 hemoglobin after transfusion, which I think also helped him a little bit, 28.5 hematocrit with 107 platelets. He has sodium 136, potassium 3.8, BUN is 9, creatinine 0.7, GFR is greater than 60, sugar is 79, calcium is 7.6, total bili is 1.6. AST is 50, ALT is 37, alk phos 52. I am going to get lab tomorrow because he is upset about the fingersticks and the needlesticks. MEDICATIONS: He is on Bactroban cream, Brovana, Colace, Eliquis, Flomax, insulin, Januvia, MiraLax, ProAmatine, Pulmicort, IV fluids, Spiriva, and vancomycin. ASSESSMENT AND PLAN: I think he might need something for urinary tract infection. He has methicillin-resistant Staphylococcus aureus in the urine. He is on vanco, that should cover it. We will continue with the physical therapy, out of bed to chair. I am going to give him 500 Cristiano over 4 hours. He is having some hypotension. He had right pneumonia, urinary tract infection, anemia, he was transfused. We are trying to get him to [facility] for physical therapy once we get him up without being dizzy and falling down. Jn Nguyen DO MTDD
--- NOTE | 2018-10-19 09:05 | CP.PCM.PN ---
<Ernie Kim - Last Filed: 10/19/18 09:03> Subjective - Date & Time of Evaluation Date of Evaluation: 10/19/18 Time of Evaluation: 09:03 - Subjective Subjective: Podiatry progress note for Dr. Callejas 78M patient seen and evaluated at bedside, patient was resting comfortably in bed and NAD. He states that he has no pain today. Patient denies any discomfort to his feet. He denies any overnight N/V/F/C/SOB/CP and has no other acute complaints. Objective - Vital Signs/Intake and Output Vital Signs (last 24 hours): Temp Pulse Resp BP Pulse Ox 98.2 F 75 20 117/48 L 95 10/19/18 00:01 10/19/18 00:01 10/19/18 00:01 10/19/18 00:01 10/19/18 00:01 Intake and Output: 10/19/18 10/19/18 06:59 18:59 Intake Total 1200 Output Total 580 Balance 620 - Medications Medications: Current Medications Apixaban (Eliquis) 5 mg PO Q12 [facility]; Protocol Last Admin: 10/18/18 21:31 Dose: 5 mg Arformoterol Tartrate (Brovana) 15 mcg IH [id number] [facility] Last Admin: 10/19/18 07:42 Dose: 15 mcg Budesonide (Pulmicort Respules) 0.5 mg IH BIDRESP [facility] Last Admin: 10/19/18 07:42 Dose: 0.5 mg Docusate Sodium (Colace) 100 mg PO BID [facility] Last Admin: 10/18/18 18:04 Dose: 100 mg Vancomycin HCl (Vancomycin 1gm) 1 gm in 250 mls @ 167 mls/hr IVPB Q12H [facility]; Protocol Last Admin: 10/18/18 21:11 Dose: 167 mls/hr Sodium Chloride (Sodium Chloride 0.9%) 1,000 mls @ 40 mls/hr IV .Q24H [facility] Last Admin: 10/18/18 13:58 Dose: 40 mls/hr Insulin Human Regular (Humulin R Med) 0 units SC ACHS [facility]; Protocol Last Admin: 10/18/18 22:44 Dose: Not Given Midodrine (Proamatine) 10 mg PO QID [facility] Last Admin: 10/18/18 21:32 Dose: 10 mg Polyethylene Glycol (Miralax) 17 gm PO BID [facility] Last Admin: 10/18/18 18:04 Dose: 17 gm Sitagliptin Phosphate (Januvia) 50 mg PO DAILY [facility] Last Admin: 10/18/18 10:54 Dose: 50 mg Tamsulosin HCl (Flomax) 0.4 mg PO DAILY [facility] Last Admin: 10/18/18 10:54 Dose: 0.4 mg Tiotropium [place] (Spiriva) 18 mcg IH DAILY [facility] Last Admin: 10/18/18 10:54 Dose: 18 mcg - Labs Labs: 10/17/18 08:00 10/17/18 07:00 PT 25.7 SECONDS (9.4-12.5) H 10/12/18 23:19 INR 2.22 10/12/18 23:19 APTT 46.2 Seconds (25.1-36.5) H 10/12/18 23:19 - Constitutional Appears: Well, Non-toxic, No Acute Distress - Head Exam Head Exam: ATRAUMATIC, NORMOCEPHALIC - Extremities Exam Additional comments: Left LE focused exam VASC: DP/PT pulses are palpable 1/4, Cap refill time: < 3 sec to all digits, Temp gradient: warm to cool from proximal to distal, no pitting or non-pitting edema noted NEURO: Protective sensation grossly intact DERM: left heel pressure ulceration with fibrogranular base measuring approx imately 1.5 cm x 1.5 cm; no drainage, bleeding, pus, or streaking, no clinical signs of infection; distal tip of hallux has superficial wound, granular base, no drainage, no clinical signs of infection. MSK: No pain on palpation to the left heel superficial lesion and left hallux ulcer. - Neurological Exam Neurological Exam: Alert, Awake, Oriented x3 - Psychiatric Exam Psychiatric exam: Normal Affect, Normal Mood Assessment and Plan - Assessment and Plan (Free Text) Assessment: 78M with pressure ulceration and left distal tip of hallux superficial wound, non infected Plan: Patient seen and evaluated with Dr. Callejas Afebrile, absent leukocytosis Bactroban applied to the heel ulcer and left hallux tip. Continue physical therapy Multipodus boots at all times while in bed. Wounds; heel ulcer dressed with optifoam, hallux wound covered with band-aid. Stable from podiatry standpoint, will continue local wound care Podiatry will continue to follow up the patient while in house <Haritha Callejas - Last Filed: 10/25/18 18:59> Objective - Vital Signs/Intake and Output Vital Signs (last 24 hours): Temp Pulse Resp BP Pulse Ox 97.7 F 72 18 109/56 L 96 10/23/18 14:00 10/23/18 14:00 10/23/18 14:00 10/23/18 14:00 10/23/18 14:00 - Labs Labs: 10/23/18 06:30 10/23/18 06:30 PT 23.8 SECONDS (9.4-12.5) H 10/22/18 09:15 INR 2.11 10/22/18 09:15 APTT 40.1 Seconds (26.9-38.3) H 10/22/18 09:15 Attending/Attestation - Attestation I have personally seen and examined this patient.: Yes I have fully participated in the care of the patient.: Yes I have reviewed all pertinent clinical information, including history, physical exam and plan: Yes
[2018-10-19] MEDS: Insulin Reg-MEDIUM-Coverage SC SCH ×4 (09:57→22:00)
[2018-10-19] MEDS: Tiotropium 18 mcg Cap For Inhalation IH SCH (09:57)
[2018-10-19] MEDS: POLYETHYLENE GLYCOL 3350 17 GM/Dose PACKET PO SCH ×2 (09:57→17:15)
--- NOTE | 2018-10-19 11:06 | CP.PCM.PN ---
Subjective - Date & Time of Evaluation Date of Evaluation: 10/19/18 Time of Evaluation: 10:20 - Subjective Subjective: No fevers, not in distress, non-toxic, but complaining that it is taking too long for his arm dressings to be changed. Objective - Vital Signs/Intake and Output Vital Signs (last 24 hours): Temp Pulse Resp BP Pulse Ox 97.5 F L 68 18 106/51 L 98 10/18/18 06:00 10/18/18 06:00 10/18/18 06:00 10/18/18 00:01 10/18/18 06:00 Intake and Output: 10/18/18 10/18/18 06:59 18:59 Intake Total 660 Output Total 1100 Balance -440 - Medications Medications: Current Medications Apixaban (Eliquis) 5 mg PO Q12 [facility]; Protocol Last Admin: 10/18/18 10:54 Dose: 5 mg Arformoterol Tartrate (Brovana) 15 mcg IH [id number] [facility] Last Admin: 10/18/18 07:21 Dose: 15 mcg Budesonide (Pulmicort Respules) 0.5 mg IH BIDRESP [facility] Last Admin: 10/18/18 07:21 Dose: 0.5 mg Docusate Sodium (Colace) 100 mg PO BID [facility] Last Admin: 10/18/18 10:54 Dose: 100 mg Vancomycin HCl (Vancomycin 1gm) 1 gm in 250 mls @ 167 mls/hr IVPB Q12H [facility]; Protocol Last Admin: 10/18/18 10:53 Dose: 167 mls/hr Sodium Chloride (Sodium Chloride 0.9%) 1,000 mls @ 40 mls/hr IV .Q24H [facility] Last Admin: 10/16/18 21:46 Dose: 40 mls/hr Insulin Human Regular (Humulin R Med) 0 units SC ACHS [facility]; Protocol Last Admin: 10/18/18 12:04 Dose: Not Given Midodrine (Proamatine) 10 mg PO QID [facility] Last Admin: 10/18/18 10:53 Dose: 10 mg Polyethylene Glycol (Miralax) 17 gm PO BID [facility] Last Admin: 10/18/18 10:53 Dose: 17 gm Sitagliptin Phosphate (Januvia) 50 mg PO DAILY [facility] Last Admin: 10/18/18 10:54 Dose: 50 mg Tamsulosin HCl (Flomax) 0.4 mg PO DAILY [facility] Last Admin: 10/18/18 10:54 Dose: 0.4 mg Tiotropium [place] (Spiriva) 18 mcg IH DAILY [facility] Last Admin: 10/18/18 10:54 Dose: 18 mcg - Labs Labs: 10/17/18 08:00 10/17/18 07:00 PT 25.7 SECONDS (9.4-12.5) H 10/12/18 23:19 INR 2.22 10/12/18 23:19 APTT 46.2 Seconds (25.1-36.5) H 10/12/18 23:19 - Constitutional Appears: Chronically Ill - Head Exam Head Exam: NORMAL INSPECTION - Neck Exam Neck Exam: absent: Meningismus - Respiratory Exam Respiratory Exam: Decreased Breath Sounds - Cardiovascular Exam Cardiovascular Exam: +S1, +S2 - GI/Abdominal Exam GI & Abdominal Exam: Soft. absent: Tenderness Assessment and Plan - Assessment and Plan (Free Text) Plan: Assessment probable right lower lobe atelectasis and effusion consider UTI with MRSA DM HTN arthritis COPD CAD history of left foot osteomyelitis Assessment S/P 3 days of Doxycycline and Cefepime - discussed with Dr. Rose - probably not true pneumonia but more atelectasis continue Vancomycin day 7 for the MRSA in the urine for 7 days will continue to monitor clinically discussed with Dr. Nguyen previously
[2018-10-19] MEDS: Vancomycin 1gm in NS 250ml 1 GM/250 ML BAG IVPB SCH ×2 (11:31→21:42)
--- NOTE | 2018-10-19 13:56 | PN ---
DATE: 10/19/2018 SUBJECTIVE: The patient is comfortable, remains orthostatic, last measurement was on Friday. PHYSICAL EXAMINATION: VITAL SIGNS: Currently, the patient at rest in bed is 117. NECK: Negative JVD. LUNGS: Without rales. HEART: S1, S2. EXTREMITIES: Without change. IMPRESSION: 1. Orthostatic hypotension. 2. Mild aortic stenosis. 3. Anemia. 4. Chronic obstructive pulmonary disease. 5. Sepsis. PLAN: Given these findings, we will continue the patient on his midodrine. Physical therapy has been ordered. Shalom Hood MD
--- NOTE | 2018-10-19 14:42 | CP.PCM.PCO ---
Physician Communication Note - Physician Communication Note Physician Communication Note: awaiting orthostatics for D/C disposition to [facility]
--- NOTE | 2018-10-19 16:04 | PN ---
DATE: 10/19/2018 SUBJECTIVE: He is resting comfortably in bed. He slept fairly well. He had out of bed to chair little bit yesterday, did not walk. He will need to have physical therapy. He still has dizziness on and off. He also has a possible right lower lobe atelectasis effusion, UTI with MRSA, diabetes, hypertension, arthritis, COPD, CAD, history of left foot osteomyelitis. He is on doxycycline, cefepime, vancomycin for MRSA, tomorrow be the last date for treatment for the MRSA. MEDICATIONS: He is on Brovana, Colace, Eliquis, Flomax, Januvia, MiraLax, ProAmatine, Pulmicort, IV fluids, Spiriva and vancomycin IV. PHYSICAL EXAMINATION: VITAL SIGNS: He has a 98.2 temperature, 75 pulse, 117/48 blood pressure that was 126/59 blood pressure that better, 20 respiratory rate. HEENT: Head is atraumatic and normocephalic. HEART: Regular rate. LUNGS: Decreased breath sounds, but clear. ABDOMEN: Soft. EXTREMITIES: No edema. The upper extremities . LABORATORY DATA: He has a 5.1 white count, 9.7 hemoglobin that is better, 28.5 hematocrit with 107 platelets. INR is 2.22. He has a last blood sugar was 98, 136 sodium, potassium 3.8, BUN 9, creatinine 0.7, AST is 50, ALT is 37, alkaline phosphatase is 62. met the Dietary, Infectious Disease, Cardiology. My plan is still is get him to , had orthostatic hypotension, aortic stenosis, anemia, sepsis, COPD. He is on midodrine to a higher dose. He is on IV fluids, he get boluses, need to get him out of bed to chair, have him walk. Tomorrow will be his last day of his antibiotics as per Infectious Disease and hopefully the . Jn Nguyen DO MTDD
[2018-10-19] MEDS: Sodium Chloride 0.9% 250 ML IV SCH (17:13)
[2018-10-19] MEDS: Sodium Chloride 0.9% 1,000 ML IV SCH (19:05)
[2018-10-20] MEDS: Sodium Chloride 0.9% 250 ML IV SCH (01:28)
[2018-10-20 07:03] LABS: HEMOGLOBIN 10.4 g/dL (14.0-18.0); MEAN CELL VOLUME 96.9 fl (80.0-105.0); MEAN CORPUSCULAR HEMOGLOBIN 32.5 pg (25.0-35.0); MEAN CORPUSCULAR HGB CONC 33.5 g/dl (31.0-37.0); MEAN PLATELET VOLUME 8.7 fl (7.0-11.0); RBC 3.2 10^6/uL (3.5-6.1); RED CELL DISTRIBUTION WIDTH 16.1 % (11.5-14.5); WHITE BLOOD COUNT 6.2 10^3/uL (4.5-11.0)
[2018-10-20 07:16] LABS: ALB/GLOB RATIO 0.6 (1.1-1.8); ALBUMIN 1.7 g/dL (3.0-4.8); ALT/SGPT 37 U/L (7-56); AST/SGOT 41 U/L (17-59); BLOOD UREA NITROGEN 10 mg/dL (7-21); CALCIUM 7.8 mg/dL (8.4-10.5); GFR NON-AFRICAN AMERICAN > 60
[2018-10-20] MEDS: Arformoterol 15 mcg/2 ml Inh Sol IH SCH ×2 (07:24→19:54)
[2018-10-20] MEDS: Budesonide 0.5 mg/2 ml Inhal Susp UD IH SCH ×2 (07:24→19:54)
[2018-10-20] MEDS: Insulin Reg-MEDIUM-Coverage SC SCH ×4 (08:17→21:37)
[2018-10-20] MEDS: POLYETHYLENE GLYCOL 3350 17 GM/Dose PACKET PO SCH ×2 (10:15→18:47)
[2018-10-20] MEDS: Tiotropium 18 mcg Cap For Inhalation IH SCH (10:15)
[2018-10-20] MEDS: Vancomycin 1gm in NS 250ml 1 GM/250 ML BAG IVPB SCH ×2 (10:15→21:08)
--- NOTE | 2018-10-20 11:24 | CP.PCM.PN ---
<Ernie Kim - Last Filed: 10/20/18 11:22> Subjective - Date & Time of Evaluation Date of Evaluation: 10/20/18 Time of Evaluation: 11:22 - Subjective Subjective: Podiatry progress note for Dr. Peck 78M seen and evaluated at bedside with Dr. Peck, patient was resting comfortably in bed and NAD. He states that he has no pain today. Patient denies any discomfort to his feet. He denies any overnight N/V/F/C/SOB/CP and has no other acute complaints. Objective - Vital Signs/Intake and Output Vital Signs (last 24 hours): Temp Pulse Resp BP Pulse Ox 98 F 81 17 109/64 96 10/20/18 07:00 10/20/18 07:00 10/20/18 07:00 10/20/18 07:00 10/20/18 07:00 Intake and Output: 10/20/18 10/20/18 06:59 18:59 Intake Total 350 Output Total 1000 Balance -650 - Medications Medications: Current Medications Apixaban (Eliquis) 5 mg PO Q12 [facility]; Protocol Last Admin: 10/20/18 10:18 Dose: 5 mg Arformoterol Tartrate (Brovana) 15 mcg IH [id number] [facility] Last Admin: 10/20/18 07:24 Dose: 15 mcg Budesonide (Pulmicort Respules) 0.5 mg IH BIDRESP [facility] Last Admin: 10/20/18 07:24 Dose: 0.5 mg Docusate Sodium (Colace) 100 mg PO BID [facility] Last Admin: 10/20/18 10:14 Dose: 100 mg Vancomycin HCl (Vancomycin 1gm) 1 gm in 250 mls @ 167 mls/hr IVPB Q12H [facility]; Protocol Last Admin: 10/20/18 10:15 Dose: 167 mls/hr Sodium Chloride (Sodium Chloride 0.9%) 250 mls @ 125 mls/hr IV .Q2H [facility] Last Admin: 10/20/18 01:28 Dose: 125 mls/hr Sodium Chloride (Sodium Chloride 0.9%) 1,000 mls @ 75 mls/hr IV .[id number] [facility] Last Admin: 10/19/18 19:05 Dose: 75 mls/hr Insulin Human Regular (Humulin R Med) 0 units SC ACHS [facility]; Protocol Last Admin: 10/20/18 08:17 Dose: Not Given Midodrine (Proamatine) 10 mg PO QID [facility] Last Admin: 10/20/18 10:15 Dose: 10 mg Polyethylene Glycol (Miralax) 17 gm PO BID [facility] Last Admin: 10/20/18 10:15 Dose: 17 gm Sitagliptin Phosphate (Januvia) 50 mg PO DAILY [facility] Last Admin: 10/20/18 10:15 Dose: 50 mg Tamsulosin HCl (Flomax) 0.4 mg PO DAILY [facility] Last Admin: 10/20/18 10:15 Dose: 0.4 mg Tiotropium [place] (Spiriva) 18 mcg IH DAILY [facility] Last Admin: 10/20/18 10:15 Dose: 18 mcg - Labs Labs: 10/20/18 06:30 10/20/18 06:30 PT 25.7 SECONDS (9.4-12.5) H 10/12/18 23:19 INR 2.22 10/12/18 23:19 APTT 46.2 Seconds (25.1-36.5) H 10/12/18 23:19 - Constitutional Appears: Well, Non-toxic, No Acute Distress - Head Exam Head Exam: ATRAUMATIC, NORMOCEPHALIC - Extremities Exam Additional comments: Left LE focused exam VASC: DP/PT pulses are palpable 1/4, Cap refill time: < 3 sec to all digits, Temp gradient: warm to cool from proximal to distal, no pitting or non-pitting edema noted NEURO: Protective sensation grossly intact DERM: left heel pressure ulceration with fibrogranular base measuring approximately 1.5 cm x 1.5 cm; no drainage, bleeding, pus, or streaking, no cli nical signs of infection; distal tip of hallux has superficial wound, granular base, no drainage, no clinical signs of infection. ORTHO: No pain on palpation to the left heel superficial lesion and left hallux ulcer - Neurological Exam Neurological Exam: Alert, Awake, Oriented x3 - Psychiatric Exam Psychiatric exam: Normal Affect, Normal Mood Assessment and Plan - Assessment and Plan (Free Text) Assessment: 78M with pressure ulceration and left distal tip of hallux superficial wound, non infected Plan: Patient seen and evaluated with Dr. Peck Afebrile, absent leukocytosis Bactroban applied to the heel ulcer and left hallux tip. Continue physical therapy Multipodus boots at all times while in bed. Wounds; heel ulcer dressed with optifoam, hallux wound covered with band-aid. Stable from podiatry standpoint, will continue local wound care Podiatry will continue to follow up the patient while in house <BaldevPriyanka santanaconnor - Last Filed: 10/20/18 17:34> Objective - Vital Signs/Intake and Output Vital Signs (last 24 hours): Temp Pulse Resp BP Pulse Ox 98 F 81 17 109/64 96 10/20/18 07:00 10/20/18 07:00 10/20/18 07:00 10/20/18 07:00 10/20/18 07:00 Intake and Output: 10/20/18 10/20/18 06:59 18:59 Intake Total 350 Output Total 1000 Balance -650 - Medications Medications: Current Medications Apixaban (Eliquis) 5 mg PO Q12 [facility]; Protocol Last Admin: 10/20/18 10:18 Dose: 5 mg Arformoterol Tartrate (Brovana) 15 mcg IH [id number] [facility] Last Admin: 10/20/18 07:24 Dose: 15 mcg Budesonide (Pulmicort Respules) 0.5 mg IH BIDRESP [facility] Last Admin: 10/20/18 07:24 Dose: 0.5 mg Docusate Sodium (Colace) 100 mg PO BID [facility] Last Admin: 10/20/18 10:14 Dose: 100 mg Fludrocortisone Acetate (Florinef) 0.1 mg PO DAILY [facility] Last Admin: 10/20/18 15:50 Dose: 0.1 mg Vancomycin HCl (Vancomycin 1gm) 1 gm in 250 mls @ 167 mls/hr IVPB Q12H [facility]; Protocol Last Admin: 10/20/18 10:15 Dose: 167 mls/hr Sodium Chloride (Sodium Chloride 0.9%) 1,000 mls @ 75 mls/hr IV .[id number] [facility] Last Admin: 10/19/18 19:05 Dose: 75 mls/hr Insulin Human Regular (Humulin R Med) 0 units SC ACHS [facility]; Protocol Last Admin: 10/20/18 11:57 Dose: Not Given Midodrine (Proamatine) 10 mg PO QID [facility] Last Admin: 10/20/18 15:50 Dose: 10 mg Polyethylene Glycol (Miralax) 17 gm PO BID [facility] Last Admin: 10/20/18 10:15 Dose: 17 gm Sitagliptin Phosphate (Januvia) 50 mg PO DAILY [facility] Last Admin: 10/20/18 10:15 Dose: 50 mg Tiotropium [place] (Spiriva) 18 mcg IH DAILY [facility] Last Admin: 10/20/18 10:15 Dose: 18 mcg - Labs Labs: 10/20/18 06:30 10/20/18 06:30 PT 25.7 SECONDS (9.4-12.5) H 10/12/18 23:19 INR 2.22 10/12/18 23:19 APTT 46.2 Seconds (25.1-36.5) H 10/12/18 23:19 Attending/Attestation - Attestation I have personally seen and examined this patient.: Yes I have fully participated in the care of the patient.: Yes I have reviewed all pertinent clinical information, including history, physical exam and plan: Yes
--- NOTE | 2018-10-20 13:30 | PN ---
DATE: 10/20/2018 SUBJECTIVE: We are still having a hard time with his orthostatic hypotension and his dizziness. He is being seen by Cardiology, Infectious Disease, Podiatry, Urology and Neurology. He had numerous tests done, we are working on orthostatic hypotension. He is on midodrine 10 every 6 hours. He has had numerous boluses of IV fluids and then he ends up getting third spacing and weeping in the skin. He is comfortable at rest lying down, sitting up is different story, even standing and moving gets him very dizzy and lightheaded. He feels like he is going to pass out. PHYSICAL EXAMINATION: VITAL SIGNS: He has a 98 temperature, 81 pulse, 109/64 blood pressure, 17 respiratory rate and 96% O2 sat on room air. HEENT: Head is atraumatic and normocephalic. GENERAL: He is comfortable at rest. HEART: Regular rate. LUNGS: Decreased breath sounds but clear. ABDOMEN: Soft. EXTREMITIES: No edema. He does have some third spacing of fluid into his arms where he has blisters with clear fluid. He has them RAÚL wrapped. He gets that after we give him boluses to help him with his hypotension. I am trying get him to a subacute rehab for about a week now. When I get the okay from Cardiology, I will be more than happy to discharge him out. MEDICATIONS: He is currently on MiraLax, ProAmatine 10 q.i.d., Pulmicort, IV fluids boluses, Spiriva and vancomycin. LABORATORY DATA: He has a 6.2 white count, 10.4 hemoglobin, 31 hematocrit with 110 platelets. A 2.22 INR. Lactate is 2.1. Sodium is 137, BUN is 10, creatinine 0.7, GFR is greater than 60, sugar is 92, calcium is 7.8, total bili is 0.9, AST is 41, ALT is 37, alk phos 65. He did have urinary tract infection. I am hoping in the next day or so we can get his blood pressure stable where he does not drop if he sits up in a chair. He does need physical therapy, I think [facility] is in his future. When I get that arranged, I am going to get the okay from Cardiology, I will be more than happy to discharge him to subacute rehab as per Cardiology. Jn Nguyen DO
--- NOTE | 2018-10-20 13:46 | CP.PCM.PN ---
Subjective - Date & Time of Evaluation Date of Evaluation: 10/20/18 Time of Evaluation: 10:00 - Subjective Subjective: No fevers, non-toxic. Objective - Vital Signs/Intake and Output Vital Signs (last 24 hours): Temp Pulse Resp BP Pulse Ox 98.2 F 75 20 117/48 L 95 10/19/18 00:01 10/19/18 00:01 10/19/18 00:01 10/19/18 00:01 10/19/18 00:01 Intake and Output: 10/19/18 10/19/18 06:59 18:59 Intake Total 1200 Output Total 580 Balance 620 - Medications Medications: Current Medications Apixaban (Eliquis) 5 mg PO Q12 [facility]; Protocol Last Admin: 10/19/18 09:57 Dose: 5 mg Arformoterol Tartrate (Brovana) 15 mcg IH [id number] [facility] Last Admin: 10/19/18 07:42 Dose: 15 mcg Budesonide (Pulmicort Respules) 0.5 mg IH BIDRESP [facility] Last Admin: 10/19/18 07:42 Dose: 0.5 mg Docusate Sodium (Colace) 100 mg PO BID [facility] Last Admin: 10/19/18 09:57 Dose: 100 mg Vancomycin HCl (Vancomycin 1gm) 1 gm in 250 mls @ 167 mls/hr IVPB Q12H [facility]; Protocol Last Admin: 10/18/18 21:11 Dose: 167 mls/hr Sodium Chloride (Sodium Chloride 0.9%) 1,000 mls @ 40 mls/hr IV .Q24H [facility] Last Admin: 10/18/18 13:58 Dose: 40 mls/hr Insulin Human Regular (Humulin R Med) 0 units SC ACHS [facility]; Protocol Last Admin: 10/19/18 09:57 Dose: Not Given Midodrine (Proamatine) 10 mg PO QID [facility] Last Admin: 10/19/18 09:57 Dose: 10 mg Polyethylene Glycol (Miralax) 17 gm PO BID [facility] Last Admin: 10/19/18 09:57 Dose: 17 gm Sitagliptin Phosphate (Januvia) 50 mg PO DAILY [facility] Last Admin: 10/19/18 09:57 Dose: 50 mg Tamsulosin HCl (Flomax) 0.4 mg PO DAILY [facility] Last Admin: 10/19/18 09:57 Dose: 0.4 mg Tiotropium [place] (Spiriva) 18 mcg IH DAILY [facility] Last Admin: 10/19/18 09:57 Dose: 18 mcg - Labs Labs: 10/17/18 08:00 10/17/18 07:00 PT 25.7 SECONDS (9.4-12.5) H 10/12/18 23:19 INR 2.22 10/12/18 23:19 APTT 46.2 Seconds (25.1-36.5) H 10/12/18 23:19 - Constitutional Appears: Chronically Ill - Head Exam Head Exam: NORMAL INSPECTION - Respiratory Exam Respiratory Exam: Decreased Breath Sounds - Cardiovascular Exam Cardiovascular Exam: +S1, +S2 - GI/Abdominal Exam GI & Abdominal Exam: Soft. absent: Tenderness Assessment and Plan - Assessment and Plan (Free Text) Plan: Assessment probable right lower lobe atelectasis and effusion consider UTI with MRSA DM HTN arthritis COPD CAD history of left foot osteomyelitis Assessment S/P 3 days of Doxycycline and Cefepime - discussed with Dr. Rose - probably not true pneumonia but more atelectasis on Vancomycin day 8 and will d/c in the next 24 hours for the MRSA in the urine will continue to monitor clinically discussed with Dr. Nguyen previously
--- NOTE | 2018-10-20 17:45 | PN ---
DATE: 10/20/2018 CARDIOLOGY FOLLOWUP SUBJECTIVE: The patient remains orthostatic. PHYSICAL EXAMINATION: VITAL SIGNS: Blood pressure changes from 117 to 57 upon standing. NECK: Negative JVD. LUNGS: Without rales. HEART: S1, S2. EXTREMITIES: Without edema. LABORATORY DATA: Hemoglobin is 10.4. Chemistries, BUN and creatinine unremarkable. The patient is on medications for his orthostatic hypotension. We will add the Florinef to our regimen and we will start decreasing the Flomax. Shalom Hood MD
[2018-10-20] MEDS: Sodium Chloride 0.9% 1,000 ML IV SCH (19:37)
[2018-10-21] MEDS: Budesonide 0.5 mg/2 ml Inhal Susp UD IH SCH ×2 (07:39→19:18)
[2018-10-21] MEDS: Arformoterol 15 mcg/2 ml Inh Sol IH SCH ×2 (07:39→19:19)
[2018-10-21] MEDS: Insulin Reg-MEDIUM-Coverage SC SCH ×4 (07:58→22:41)
[2018-10-21] MEDS ORDERED: Bacitracin 500 Units/gm Oint Foilpak UD ONE (09:06)
--- NOTE | 2018-10-21 09:51 | CP.PCM.PN ---
<Ernie Kim - Last Filed: 10/21/18 09:48> Subjective - Date & Time of Evaluation Date of Evaluation: 10/21/18 Time of Evaluation: 09:48 - Subjective Subjective: Podiatry progress note for Dr. Callejas 78M seen and evaluated at bedside with Dr. Callejas, patient was resting comfortably in bed and NAD. He states that he has no pain today. States that he is still here due to his blood pressure when he gets up to walk. Patient denies any discomfort to his feet. He denies any overnight N/V/F/C/SOB/CP and has no other acute complaints. Objective - Vital Signs/Intake and Output Vital Signs (last 24 hours): Temp Pulse Resp BP Pulse Ox 97.9 F 80 18 113/54 L 100 10/21/18 06:00 10/21/18 06:00 10/21/18 06:00 10/21/18 06:00 10/21/18 06:00 Intake and Output: 10/21/18 10/21/18 06:59 18:59 Intake Total 1380 Output Total 600 Balance 780 - Medications Medications: Current Medications Apixaban (Eliquis) 5 mg PO Q12 [facility]; Protocol Last Admin: 10/20/18 21:07 Dose: 5 mg Arformoterol Tartrate (Brovana) 15 mcg IH [id number] [facility] Last Admin: 10/21/18 07:39 Dose: 15 mcg Budesonide (Pulmicort Respules) 0.5 mg IH BIDRESP [facility] Last Admin: 10/21/18 07:39 Dose: 0.5 mg Docusate Sodium (Colace) 100 mg PO BID [facility] Last Admin: 10/20/18 18:46 Dose: 100 mg Fludrocortisone Acetate (Florinef) 0.1 mg PO DAILY [facility] Last Admin: 10/20/18 15:50 Dose: 0.1 mg Sodium Chloride (Sodium Chloride 0.9%) 1,000 mls @ 75 mls/hr IV .[id number] [facility] Last Admin: 10/20/18 19:37 Dose: 75 mls/hr Insulin Human Regular (Humulin R Med) 0 units SC ACHS [facility]; Protocol Last Admin: 10/21/18 07:58 Dose: Not Given Midodrine (Proamatine) 10 mg PO QID [facility] Last Admin: 10/20/18 21:07 Dose: 10 mg Polyethylene Glycol (Miralax) 17 gm PO BID [facility] Last Admin: 10/20/18 18:47 Dose: 17 gm Sitagliptin Phosphate (Januvia) 50 mg PO DAILY [facility] Last Admin: 10/20/18 10:15 Dose: 50 mg Tiotropium [place] (Spiriva) 18 mcg IH DAILY [facility] Last Admin: 10/20/18 10:15 Dose: 18 mcg - Labs Labs: 10/20/18 06:30 10/20/18 06:30 PT 25.7 SECONDS (9.4-12.5) H 10/12/18 23:19 INR 2.22 10/12/18 23:19 APTT 46.2 Seconds (25.1-36.5) H 10/12/18 23:19 - Constitutional Appears: Well, Non-toxic, No Acute Distress - Head Exam Head Exam: ATRAUMATIC, NORMOCEPHALIC - Extremities Exam Additional comments: Left LE focused exam VASC: DP/PT pulses are palpable 1/4, Cap refill time: < 3 sec to all digits, Temp gradient: warm to cool from proximal to distal, no pitting or non-pitting edema noted NEURO: Protective sensation grossly intact DERM: left heel pressure ulceration with fibrogranular base measuring approximately 1.5 cm x 1.5 cm; no drainage, bleeding, pus, or streaking, no clinical signs of infection; distal tip of hallux has superficial wound, granular base, no drainage, no clinical signs of infection. ORTHO: No pain on palpation to the left heel superficial lesion and left hallux ulcer - Neurological Exam Neurological Exam: Alert, Awake, Oriented x3 - Psychiatric Exam Psychiatric exam: Normal Affect, Normal Mood Assessment and Plan - Assessment and Plan (Free Text) Assessment: 78M with pressure ulceration and left distal tip of hallux superficial wound, non infected Plan: Patient seen and evaluated with Dr. Callejas Afebrile, absent leukocytosis Bactroban applied to the heel ulcer and left hallux tip. Continue physical therapy Multipodus boots at all times while in bed. Wounds; heel ulcer dressed with optifoam, hallux wound covered with optifoam. Stable from podiatry standpoint Will continue to follow while in house <Haritha Callejas - Last Filed: 10/25/18 18:57> Objective - Vital Signs/Intake and Output Vital Signs (last 24 hours): Temp Pulse Resp BP Pulse Ox 97.7 F 72 18 109/56 L 96 10/23/18 14:00 10/23/18 14:00 10/23/18 14:00 10/23/18 14:00 10/23/18 14:00 - Labs Labs: 10/23/18 06:30 10/23/18 06:30 PT 23.8 SECONDS (9.4-12.5) H 10/22/18 09:15 INR 2.11 10/22/18 09:15 APTT 40.1 Seconds (26.9-38.3) H 10/22/18 09:15 Attending/Attestation - Attestation I have personally seen and examined this patient.: Yes I have fully participated in the care of the patient.: Yes I have reviewed all pertinent clinical information, including history, physical exam and plan: Yes
[2018-10-21] MEDS: POLYETHYLENE GLYCOL 3350 17 GM/Dose PACKET PO SCH ×2 (10:08→17:55)
[2018-10-21] MEDS: Tiotropium 18 mcg Cap For Inhalation IH SCH (10:09)
--- NOTE | 2018-10-21 14:17 | PN ---
DATE: 10/21/2018 SUBJECTIVE: He is resting comfortably in bed. He tried to sit up yesterday. He got very dizzy and lightheaded. He is eating a little bit. No pain. He is on Brovana, Colace, Eliquis, Florinef now that was added, insulin, Januvia, MiraLax, ProAmatine, Pulmicort, IV fluids, Spiriva, and vancomycin which will be stopped shortly and he is third spacing and skin with weeping, because IV fluids keeps blood pressure up. PHYSICAL EXAMINATION: VITAL SIGNS: He has a 97.9 temperature, 80 pulse, 113/54 blood pressure, 18 respiratory rate and 100% O2 sat on nasal cannula. HEENT: Head is atraumatic and normocephalic. GENERAL: He is alert and comfortable in bed at rest, sitting up. He is dizzy and lightheaded. HEART: Regular rate. LUNGS: Decreased breath sounds but clear. ABDOMEN: Soft. EXTREMITIES: He has got weeping in his arm and lower extremities. No real edema, third spacing. LABORATORY DATA: He has a 6.2 white count, 10.4 hemoglobin, 31 hematocrit with 110 platelets. 2.22 INR. 137 sodium, potassium 4.1, BUN 10, creatinine 0.7, GFR is , sugar is 83, calcium is 7.8, total bili is 0.9, AST is 41, ALT is 37, alk phos is 55. ASSESSMENT AND PLAN: He did have urinary tract infection. I understand with the antibiotics. I think we need to got to [facility] next. I do not think we are going to get this straightened out this hypotension and dizziness. Continue aggressive treatment and care. I will discuss with Cardiology and Infectious Disease. Jn Nguyen DO MTDD
--- NOTE | 2018-10-21 16:38 | CP.PCM.PN ---
Subjective - Date & Time of Evaluation Date of Evaluation: 10/21/18 Time of Evaluation: 08:55 - Subjective Subjective: No fevers, feels better, no dysuria, no diarrhea. Objective - Vital Signs/Intake and Output Vital Signs (last 24 hours): Temp Pulse Resp BP Pulse Ox 98 F 81 17 109/64 96 10/20/18 07:00 10/20/18 07:00 10/20/18 07:00 10/20/18 07:00 10/20/18 07:00 Intake and Output: 10/20/18 10/20/18 06:59 18:59 Intake Total 350 Output Total 1000 Balance -650 - Medications Medications: Current Medications Apixaban (Eliquis) 5 mg PO Q12 [facility]; Protocol Last Admin: 10/20/18 10:18 Dose: 5 mg Arformoterol Tartrate (Brovana) 15 mcg IH [id number] [facility] Last Admin: 10/20/18 07:24 Dose: 15 mcg Budesonide (Pulmicort Respules) 0.5 mg IH BIDRESP [facility] Last Admin: 10/20/18 07:24 Dose: 0.5 mg Docusate Sodium (Colace) 100 mg PO BID [facility] Last Admin: 10/20/18 10:14 Dose: 100 mg Vancomycin HCl (Vancomycin 1gm) 1 gm in 250 mls @ 167 mls/hr IVPB Q12H [facility]; Protocol Last Admin: 10/20/18 10:15 Dose: 167 mls/hr Sodium Chloride (Sodium Chloride 0.9%) 1,000 mls @ 75 mls/hr IV .[id number] [facility] Last Admin: 10/19/18 19:05 Dose: 75 mls/hr Insulin Human Regular (Humulin R Med) 0 units SC ACHS [facility]; Protocol Last Admin: 10/20/18 11:57 Dose: Not Given Midodrine (Proamatine) 10 mg PO QID [facility] Last Admin: 10/20/18 10:15 Dose: 10 mg Polyethylene Glycol (Miralax) 17 gm PO BID [facility] Last Admin: 10/20/18 10:15 Dose: 17 gm Sitagliptin Phosphate (Januvia) 50 mg PO DAILY [facility] Last Admin: 10/20/18 10:15 Dose: 50 mg Tamsulosin HCl (Flomax) 0.4 mg PO DAILY [facility] Last Admin: 10/20/18 10:15 Dose: 0.4 mg Tiotropium [place] (Spiriva) 18 mcg IH DAILY [facility] Last Admin: 10/20/18 10:15 Dose: 18 mcg - Labs Labs: 10/20/18 06:30 10/20/18 06:30 PT 25.7 SECONDS (9.4-12.5) H 10/12/18 23:19 INR 2.22 10/12/18 23:19 APTT 46.2 Seconds (25.1-36.5) H 10/12/18 23:19 - Constitutional Appears: Chronically Ill - Head Exam Head Exam: NORMAL INSPECTION - Respiratory Exam Respiratory Exam: Decreased Breath Sounds - Cardiovascular Exam Cardiovascular Exam: +S1, +S2 - GI/Abdominal Exam GI & Abdominal Exam: Soft. absent: Tenderness Assessment and Plan - Assessment and Plan (Free Text) Plan: Assessment probable right lower lobe atelectasis and effusion consider UTI with MRSA DM HTN arthritis COPD CAD history of left foot osteomyelitis Assessment S/P 3 days of Doxycycline and Cefepime - discussed with Dr. Rose - probably not true pneumonia but more atelectasis on Vancomycin day 9 and will d/c antibiotics will continue to monitor clinically discussed with Dr. Nguyen previously
--- NOTE | 2018-10-21 17:15 | PN ---
DATE: 10/21/2018 CARDIOLOGY FOLLOWUP SUBJECTIVE: The patient remains weak. PHYSICAL EXAMINATION: VITAL SIGNS: Blood pressure is 110 in bedside. No orthostatics were done today. LABORATORY DATA: Reviewed. IMPRESSION: 1. Persistent orthostatic hypotension. 2. Mild aortic stenosis. 3. Chronic obstructive pulmonary disease. 4. Sepsis. 5. Anemia. Given these findings, we will need to do consistent orthostatics as we titrate up his Florinef. Shalom Hood MD
[2018-10-21] MEDS: Sodium Chloride 0.9% 1,000 ML IV SCH (20:00)
[2018-10-21 20:39] LABS: URINE BILIRUBIN NEGATIVE (NEGATIVE); URINE BLOOD LARGE (NEGATIVE); URINE GLUCOSE (UA) NEGATIVE (NEGATIVE); URINE LEUKOCYTE ESTERASE TRACE Leu/uL (NEGATIVE); URINE PROTEIN 30 mg/dL (<30 mg/dL); URINE UROBILINOGEN 0.2 E.U./dL (<1 E.U./dL)
[2018-10-21 20:56] LABS: URINE APPEARANCE SL CLOUDY (CLEAR); URINE COLOR YELLOW (YELLOW)
[2018-10-21 21:25] LABS: URINE CALCIUM OXALATE CRYSTALS SMALL /hpf; URINE RBC 15 - 20 /hpf (0-2)
[2018-10-21 21:26] LABS: URINE BACTERIA MOD /hpf
[2018-10-22] MEDS: Budesonide 0.5 mg/2 ml Inhal Susp UD IH SCH ×2 (07:28→19:35)
[2018-10-22] MEDS: Arformoterol 15 mcg/2 ml Inh Sol IH SCH ×2 (07:28→19:35)
[2018-10-22] MEDS: Insulin Reg-MEDIUM-Coverage SC SCH ×4 (08:00→21:28)
[2018-10-22 09:28] LABS: BASO # 0.01 K/mm3 (0.0-2.0); BASO % 0.1 % (0.0-3.0); EOS % 0.1 % (1.5-5.0); GRAN # 6.92 (1.4-6.5); GRAN % 74.4 % (50.0-68.0); HEMOGLOBIN 10.7 g/dL (14.0-18.0); LYMPH # 1.8 (1.2-3.4); LYMPH % 19.5 % (22.0-35.0); MEAN CELL VOLUME 95.5 fl (80.0-105.0); MEAN CORPUSCULAR HEMOGLOBIN 32.3 pg (25.0-35.0); MEAN CORPUSCULAR HGB CONC 33.9 g/dl (31.0-37.0); MEAN PLATELET VOLUME 8.3 fl (7.0-11.0); MONO # 0.6 (0.1-0.6); MONO % 5.9 % (1.0-6.0); RBC 3.31 10^6/uL (3.5-6.1); RED CELL DISTRIBUTION WIDTH 16.2 % (11.5-14.5); WHITE BLOOD COUNT 9.3 10^3/uL (4.5-11.0)
[2018-10-22 09:37] LABS: ALB/GLOB RATIO 0.7 (1.1-1.8); ALT/SGPT 31 U/L (7-56); AST/SGOT 43 U/L (17-59); BLOOD UREA NITROGEN 11 mg/dL (7-21); CALCIUM 8.1 mg/dL (8.4-10.5); GFR NON-AFRICAN AMERICAN > 60
[2018-10-22 09:41] LABS: INR 2.11; PARTIAL THROMBOPLASTIN TIME 40.1 Seconds (26.9-38.3); PROTHROMBIN TIME 23.8 SECONDS (9.4-12.5)
[2018-10-22] MEDS: Nystatin 100,000 Units/gm Topical Pow(15 gm) TOP SCH ×2 (10:00→17:58)
--- NOTE | 2018-10-22 10:30 | CP.PCM.PN ---
<Ernie Kim - Last Filed: 10/22/18 10:29> Subjective - Date & Time of Evaluation Date of Evaluation: 10/22/18 Time of Evaluation: 10:29 - Subjective Subjective: Podiatry progress note for Dr. Callejas 78M seen and evaluated at bedside with Dr. Callejas, patient was resting comfortably in bed and NAD. He states that he has no pain today. States that he is still here due to his blood pressure when he gets up to walk. Patient denies any discomfort to his feet. He denies any overnight N/V/F/C/SOB/CP and has no other acute complaints. Objective - Vital Signs/Intake and Output Vital Signs (last 24 hours): Temp Pulse Resp BP Pulse Ox 97.8 F 103 H 17 143/78 98 10/22/18 06:00 10/22/18 06:00 10/22/18 06:00 10/22/18 06:00 10/22/18 06:00 Intake and Output: 10/22/18 10/22/18 06:59 18:59 Intake Total 825 Output Total 100 Balance 725 - Medications Medications: Current Medications Apixaban (Eliquis) 5 mg PO Q12 [facility]; Protocol Last Admin: 10/21/18 22:41 Dose: 5 mg Arformoterol Tartrate (Brovana) 15 mcg IH [id number] [facility] Last Admin: 10/22/18 07:28 Dose: 15 mcg Budesonide (Pulmicort Respules) 0.5 mg IH BIDRESP [facility] Last Admin: 10/22/18 07:28 Dose: 0.5 mg Docusate Sodium (Colace) 100 mg PO BID [facility] Last Admin: 10/21/18 17:55 Dose: 100 mg Fludrocortisone Acetate (Florinef) 0.1 mg PO DAILY [facility] Last Admin: 10/21/18 10:09 Dose: 0.1 mg Sodium Chloride (Sodium Chloride 0.9%) 1,000 mls @ 75 mls/hr IV .[id number] [facility] Last Admin: 10/21/18 20:00 Dose: 75 mls/hr Insulin Human Regular (Humulin R Med) 0 units SC ACHS [facility]; Protocol Last Admin: 10/21/18 22:41 Dose: Not Given Magnesium Oxide (Mag-Ox) 400 mg PO BID [facility] Midodrine (Proamatine) 10 mg PO QID [facility] Last Admin: 10/21/18 22:42 Dose: 10 mg Nystatin (Nystop Topical Powder) 0 gm TOP BID [facility] Polyethylene Glycol (Miralax) 17 gm PO BID [facility] Last Admin: 10/21/18 17:55 Dose: 17 gm Sitagliptin Phosphate (Januvia) 50 mg PO DAILY [facility] Last Admin: 10/21/18 10:10 Dose: 50 mg Tiotropium Lead (Spiriva) 18 mcg IH DAILY [facility] Last Admin: 10/21/18 10:09 Dose: 18 mcg - Labs Labs: 10/22/18 09:15 10/22/18 09:15 PT 23.8 SECONDS (9.4-12.5) H 10/22/18 09:15 INR 2.11 10/22/18 09:15 APTT 40.1 Seconds (26.9-38.3) H 10/22/18 09:15 - Constitutional Appears: Well, Non-toxic, No Acute Distress - Head Exam Head Exam: ATRAUMATIC, NORMOCEPHALIC - Extremities Exam Additional comments: Left LE focused exam VASC: DP/PT pulses are palpable 1/4, Cap refill time: < 3 sec to all digits, Temp gradient: warm to cool from proximal to distal, no pitting or non-pitting edema noted NEURO: Protective sensation grossly intact DERM: left heel pressure ulceration with fibrogranular base measuring approximately 1.5 cm x 1.5 cm; no drainage, bleeding, pus, or streaking, no clinical signs of infection; distal tip of hallux has superficial wound, granular base, no drainage, no clinical signs of infection. ORTHO: No pain on palpation to the left heel superficial lesion and left hallux ulcer - Neurological Exam Neurological Exam: Alert, Awake, Oriented x3 - Psychiatric Exam Psychiatric exam: Normal Affect, Normal Mood Assessment and Plan - Assessment and Plan (Free Text) Assessment: 78M with pressure ulceration and left distal tip of hallux superficial wound, non infected Plan: Patient seen and evaluated with Dr. Callejas Afebrile, absent leukocytosis Bactroban applied to the heel ulcer and left hallux tip. Continue physical therapy Multipodus boots at all times while in bed. Wounds; heel ulcer dressed with optifoam, hallux wound covered with optifoam. Stable from podiatry standpoint Will continue to follow while in house <JúniorHaritha Seferino - Last Filed: 10/25/18 18:55> Objective - Vital Signs/Intake and Output Vital Signs (last 24 hours): Temp Pulse Resp BP Pulse Ox 97.7 F 72 18 109/56 L 96 10/23/18 14:00 10/23/18 14:00 10/23/18 14:00 10/23/18 14:00 10/23/18 14:00 - Labs Labs: 10/23/18 06:30 10/23/18 06:30 PT 23.8 SECONDS (9.4-12.5) H 10/22/18 09:15 INR 2.11 10/22/18 09:15 APTT 40.1 Seconds (26.9-38.3) H 10/22/18 09:15 Attending/Attestation - Attestation I have personally seen and examined this patient.: Yes I have fully participated in the care of the patient.: Yes I have reviewed all pertinent clinical information, including history, physical exam and plan: Yes
--- NOTE | 2018-10-22 10:40 | PN ---
DATE: 10/22/2018 SUBJECTIVE: I saw Abel this morning. He was not looking as good as he did the other day. He looks weak. He also is having bad orthostatic hypotension. When laying down, he is 130/80. When he stands up, he is 80/40. Dr. Hood is increasing his Florinef. He is already on midodrine. PHYSICAL EXAMINATION: VITAL SIGNS: He has a 97.8 temperature, 103 pulse, he has a 143/78 blood pressure at this time. When he was lying down, it was 130/68 yesterday. When he was sitting up, it was 82/53. When he stood up, it was 95/74. He is still quite dizzy this morning, 17 respiratory rate, 98% O2 sat. HEAD: Atraumatic and normocephalic. HEART: Regular rate. LUNGS: Decreased breath sounds. ABDOMEN: Soft. EXTREMITIES: No edema. He was brought the breakfast in order to eat. He said if he gets him up he gets dizzy. LABORATORY DATA: He has a 6.2 white count, 10.4 hemoglobin, 31 hematocrit with 110 platelets. INR is 2.22. Last blood sugar was 116. He has 137 sodium, potassium 4.1, BUN 10, creatinine 0.7 that was 2 days ago, not sure why we do not have one from yesterday or today. We will try again tomorrow. ASSESSMENT AND PLAN: We will see how Cardiology could help him and fix his orthostatic hypotension, so we can get him up and not be dizzy and he could function in physical therapy at a [facility] that is my goal. Jn Nguyen DO
[2018-10-22] MEDS: Tiotropium 18 mcg Cap For Inhalation IH SCH (10:48)
[2018-10-22] MEDS: Magnesium Oxide 400 mg Tab UD PO SCH ×2 (10:48→17:58)
[2018-10-22] MEDS: Sodium Chloride 0.9% 1,000 ML IV SCH (10:50)
--- NOTE | 2018-10-22 11:46 | CP.PCM.PCO ---
Physician Communication Note - Physician Communication Note Physician Communication Note: orthostatic and symptomatic
--- NOTE | 2018-10-22 13:44 | CP.PCM.PN ---
Subjective - Date & Time of Evaluation Date of Evaluation: 10/22/18 Time of Evaluation: 09:40 - Subjective Subjective: Patient continues to feel weak and feels lightheaded when he tries to get out of bed, no fevers overnight. Objective - Vital Signs/Intake and Output Vital Signs (last 24 hours): Temp Pulse Resp BP Pulse Ox 97.6 F 75 18 130/68 96 10/21/18 14:00 10/21/18 14:00 10/21/18 14:00 10/21/18 14:00 10/21/18 14:00 Intake and Output: 10/21/18 10/21/18 06:59 18:59 Intake Total 1380 Output Total 600 Balance 780 - Medications Medications: Current Medications Apixaban (Eliquis) 5 mg PO Q12 [facility]; Protocol Last Admin: 10/21/18 10:09 Dose: 5 mg Arformoterol Tartrate (Brovana) 15 mcg IH [id number] [facility] Last Admin: 10/21/18 07:39 Dose: 15 mcg Budesonide (Pulmicort Respules) 0.5 mg IH BIDRESP [facility] Last Admin: 10/21/18 07:39 Dose: 0.5 mg Docusate Sodium (Colace) 100 mg PO BID [facility] Last Admin: 10/21/18 10:09 Dose: 100 mg Fludrocortisone Acetate (Florinef) 0.1 mg PO DAILY [facility] Last Admin: 10/21/18 10:09 Dose: 0.1 mg Sodium Chloride (Sodium Chloride 0.9%) 1,000 mls @ 75 mls/hr IV .[id number] [facility] Last Admin: 10/20/18 19:37 Dose: 75 mls/hr Insulin Human Regular (Humulin R Med) 0 units SC ACHS [facility]; Protocol Last Admin: 10/21/18 12:08 Dose: Not Given Midodrine (Proamatine) 10 mg PO QID [facility] Last Admin: 10/21/18 14:40 Dose: 10 mg Nystatin (Nystop Topical Powder) 0 gm TOP BID [facility] Polyethylene Glycol (Miralax) 17 gm PO BID [facility] Last Admin: 10/21/18 10:08 Dose: 17 gm Sitagliptin Phosphate (Januvia) 50 mg PO DAILY [facility] Last Admin: 10/21/18 10:10 Dose: 50 mg Tiotropium [place] (Spiriva) 18 mcg IH DAILY [facility] Last Admin: 10/21/18 10:09 Dose: 18 mcg - Labs Labs: 10/20/18 06:30 10/20/18 06:30 PT 25.7 SECONDS (9.4-12.5) H 10/12/18 23:19 INR 2.22 10/12/18 23:19 APTT 46.2 Seconds (25.1-36.5) H 10/12/18 23:19 - Constitutional Appears: No Acute Distress, Chronically Ill - Head Exam Head Exam: NORMAL INSPECTION - Respiratory Exam Respiratory Exam: Decreased Breath Sounds - Cardiovascular Exam Cardiovascular Exam: +S1, +S2 - GI/Abdominal Exam GI & Abdominal Exam: Soft. absent: Tenderness Assessment and Plan - Assessment and Plan (Free Text) Plan: Assessment probable right lower lobe atelectasis and effusion consider UTI with MRSA DM HTN arthritis COPD CAD history of left foot osteomyelitis Assessment S/P 3 days of Doxycycline and Cefepime - discussed with Dr. Rose - probably not true pneumonia but more atelectasis completed course of IV Vancomycin - will continue to monitor clinically off an tibiotics since he is at risk for nosocomial infections
--- NOTE | 2018-10-22 14:58 | PN ---
DATE: 10/22/2018 SUBJECTIVE: The patient remains with orthostatic hypotension despite being on Florinef. Currently, it is reported by the nurses that the patient now has dark stools. PHYSICAL EXAMINATION: GENERAL: The patient is without complaints. VITAL SIGNS: Blood pressure is 108/67; the patient remains orthostatic. NECK: Negative JVD. LUNGS: Without rales. HEART: S1 and S2. EXTREMITIES: Without edema. IMPRESSION: 1. Orthostatic hypotension. 2. Mild aortic stenosis. 3. Chronic obstructive pulmonary disease. 4. Sepsis. 5. Anemia. PLAN: We will continue the patient on Florinef. Given his dark stools, we will need to hold off on the Eliquis at this time. We will hold the Eliquis and recheck the stools. Shalom Hood MD
[2018-10-22] MEDS ORDERED: Albumin Human 25% (12.5 gm/50 ml) IV ONE (15:59)
[2018-10-22] MEDS ORDERED: Albumin Human 25% (25gm/100ml)@1ml/min IVPB ONE (16:15)
[2018-10-22 20:20] LABS: HEMOGLOBIN 9.2 g/dL (14.0-18.0)
[2018-10-22 22:46] VITALS: RESP 18
[2018-10-23] MEDS: Arformoterol 15 mcg/2 ml Inh Sol IH SCH (07:06)
[2018-10-23] MEDS: Budesonide 0.5 mg/2 ml Inhal Susp UD IH SCH (07:06)
[2018-10-23 07:07] LABS: HEMOGLOBIN 9.1 g/dL (14.0-18.0); MEAN CELL VOLUME 96.9 fl (80.0-105.0); MEAN CORPUSCULAR HEMOGLOBIN 31.8 pg (25.0-35.0); MEAN CORPUSCULAR HGB CONC 32.9 g/dl (31.0-37.0); MEAN PLATELET VOLUME 8.4 fl (7.0-11.0); RBC 2.86 10^6/uL (3.5-6.1); RED CELL DISTRIBUTION WIDTH 16.9 % (11.5-14.5); WHITE BLOOD COUNT 5.4 10^3/uL (4.5-11.0)
[2018-10-23 07:24] LABS: ALB/GLOB RATIO 0.7 (1.1-1.8); ALT/SGPT 33 U/L (7-56); AST/SGOT 38 U/L (17-59); BLOOD UREA NITROGEN 12 mg/dL (7-21); CALCIUM 8.1 mg/dL (8.4-10.5); GFR NON-AFRICAN AMERICAN > 60
[2018-10-23] MEDS: Insulin Reg-MEDIUM-Coverage SC SCH ×3 (08:00→17:43)
[2018-10-23] MEDS ORDERED: POLYETHYLENE GLYCOL 3350 17 GM/Dose PACKET PO SCH (10:00)
[2018-10-23] MEDS: Tiotropium 18 mcg Cap For Inhalation IH SCH (10:11)
[2018-10-23] MEDS: Magnesium Oxide 400 mg Tab UD PO SCH ×2 (10:13→17:54)
[2018-10-23] MEDS: Nystatin 100,000 Units/gm Topical Pow(15 gm) TOP SCH ×3 (10:13→17:51)
--- NOTE | 2018-10-23 10:26 | PN ---
DATE: 10/23/2018 SUBJECTIVE: The patient is awake, alert. OBJECTIVE: VITAL SIGNS: Blood pressure is 102/57, heart rate in the 80s. NECK: Negative JVD. LUNGS: Without rales. HEART: Reveal S1, S2. EXTREMITIES: Without edema. LABORATORY DATA: Hemoglobin is 9.1. Chemistries; BUN and creatinine are unremarkable. IMPRESSION: 1. Orthostatic hypotension currently being treated with Florinef and discontinuing his alpha blockers for his prostate. 2. Chronic obstructive pulmonary disease. 3. Mild aortic stenosis. 4. Sepsis. 5. Anemia. Given these findings, we will attempt with physical therapy and recheck his orthostatic blood pressures today. Shalom Hood MD
--- NOTE | 2018-10-23 10:34 | PN ---
DATE: 10/23/2018 SUBJECTIVE: I saw Abel resting in bed. He was about to eat breakfast. He is still having orthostatic hypotension and some symptomatic feelings of dizziness. PHYSICAL EXAMINATION: VITAL SIGNS: He has 97.3 temperature, 88 pulse, 102/57 blood pressure, 18 respiratory rate, and 97% O2 sat. HEENT: Head is atraumatic and normocephalic. HEART: Regular rate. LUNGS: Decreased breath sounds but clear. ABDOMEN: Soft. EXTREMITIES: No edema. He is currently on Brovana, Colace, Florinef now, insulin, Januvia, magnesium, MiraLax, nystatin powder, ProAmatine, Pulmicort, IV fluids, and Spiriva. LABORATORY DATA: 5.4 white count, 9.1 hemoglobin, 27.7 hematocrit with 93 platelets. INR is 2.11. Sodium is 139, potassium 3.7, BUN 12, creatinine 0.8, GFR is greater than 63, sugar is 85, calcium is 8.1, total bili is 0.8, AST is 38, ALT is 33, alk phos is 54. Still trying to work with Dr. Hood for his orthostatic hypotension. His urine is now down to a moderate bacteria as opposed to many. We will continue with aggressive treatment and care on him with medications Florinef, ProAmatine, and hopefully the dizziness will fade. Jn Nguyen DO
--- NOTE | 2018-10-23 13:56 | CP.PCM.PN ---
Subjective - Date & Time of Evaluation Date of Evaluation: 10/23/18 Time of Evaluation: 10:15 - Subjective Subjective: Comfortable in bed, no fevers. Objective - Vital Signs/Intake and Output Vital Signs (last 24 hours): Temp Pulse Resp BP Pulse Ox 97.8 F 103 H 17 143/78 98 10/22/18 06:00 10/22/18 06:00 10/22/18 06:00 10/22/18 06:00 10/22/18 06:00 Intake and Output: 10/22/18 10/22/18 06:59 18:59 Intake Total 825 Output Total 100 Balance 725 - Medications Medications: Current Medications Arformoterol Tartrate (Brovana) 15 mcg IH [id number] [facility] Last Admin: 10/22/18 07:28 Dose: 15 mcg Budesonide (Pulmicort Respules) 0.5 mg IH BIDRESP [facility] Last Admin: 10/22/18 07:28 Dose: 0.5 mg Docusate Sodium (Colace) 100 mg PO BID [facility] Last Admin: 10/21/18 17:55 Dose: 100 mg Fludrocortisone Acetate (Florinef) 0.1 mg PO DAILY [facility] Sodium Chloride (Sodium Chloride 0.9%) 1,000 mls @ 75 mls/hr IV .[id number] [facility] Last Admin: 10/22/18 10:50 Dose: 75 mls/hr Insulin Human Regular (Humulin R Med) 0 units SC ACHS [facility]; Protocol Last Admin: 10/21/18 22:41 Dose: Not Given Magnesium Oxide (Mag-Ox) 400 mg PO BID [facility] Last Admin: 10/22/18 10:48 Dose: 400 mg Midodrine (Proamatine) 10 mg PO QID [facility] Last Admin: 10/22/18 10:48 Dose: 10 mg Nystatin (Nystop Topical Powder) 0 gm TOP BID [facility] Polyethylene Glycol (Miralax) 17 gm PO DAILY [facility] Sitagliptin Phosphate (Januvia) 50 mg PO DAILY [facility] Last Admin: 10/22/18 10:48 Dose: 50 mg Tiotropium [place] (Spiriva) 18 mcg IH DAILY [facility] Last Admin: 10/22/18 10:48 Dose: 18 mcg - Labs Labs: 10/22/18 09:15 10/22/18 09:15 PT 23.8 SECONDS (9.4-12.5) H 10/22/18 09:15 INR 2.11 10/22/18 09:15 APTT 40.1 Seconds (26.9-38.3) H 10/22/18 09:15 - Constitutional Appears: Chronically Ill - Head Exam Head Exam: NORMAL INSPECTION - Respiratory Exam Respiratory Exam: Decreased Breath Sounds - Cardiovascular Exam Cardiovascular Exam: +S1, +S2 - GI/Abdominal Exam GI & Abdominal Exam: Soft. absent: Tenderness Assessment and Plan - Assessment and Plan (Free Text) Plan: Assessment probable right lower lobe atelectasis and effusion consider UTI with MRSA DM HTN arthritis COPD CAD history of left foot osteomyelitis Assessment S/P 3 days of Doxycycline and Cefepime - discussed with Dr. Rose - probably not true pneumonia but more atelectasis completed course of IV Vancomycin - will continue to monitor clinically off antibiotics since he is at risk for hospital-acquired infections patient is being worked up for orthostatic hypotension
[2018-10-23 15:23] VITALS: BP 109/56; PULSE 72; TEMP 97.7; O2SAT 96
== END 2018-10-23 21:00 | DRG 698 ==
LOC: ED 06:59 → ERH 10:00 → 5RSO 14:02 → 2RNO 10-13 00:03 → 5RNO 10-19 12:05
PROVIDERS: ADMIT Family Medicine; ATTEND Family Medicine
PROC: 30233N1 Transfusion of Nonautologous Red Blood Cells into Peripheral Vein, Percutaneous Approach (ICD-10-PCS; principal; 2018-10-16)
DX: T83.518A Infection and inflammatory reaction due to other urinary catheter, initial encounter (principal); J18.1 Lobar pneumonia, unspecified organism; J44.0 Chronic obstructive pulmonary disease with (acute) lower respiratory infection; N39.0 Urinary tract infection, site not specified; J98.11 Atelectasis; R18.8 Other ascites; R65.10 Systemic inflammatory response syndrome (SIRS) of non-infectious origin without acute organ dysfunction; T83.098A Other mechanical complication of other urinary catheter, initial encounter; I10 Essential (primary) hypertension; E11.51 Type 2 diabetes mellitus with diabetic peripheral angiopathy without gangrene; E11.621 Type 2 diabetes mellitus with foot ulcer; I95.1 Orthostatic hypotension; R33.9 Retention of urine, unspecified; L89.629 Pressure ulcer of left heel, unspecified stage; L89.312 Pressure ulcer of right buttock, stage 2; I25.10 Atherosclerotic heart disease of native coronary artery without angina pectoris; M51.9 Unspecified thoracic, thoracolumbar and lumbosacral intervertebral disc disorder; L97.509 Non-pressure chronic ulcer of other part of unspecified foot with unspecified severity; K59.00 Constipation, unspecified; E11.43 Type 2 diabetes mellitus with diabetic autonomic (poly)neuropathy; B95.62 Methicillin resistant Staphylococcus aureus infection as the cause of diseases classified elsewhere; Z85.828 Personal history of other malignant neoplasm of skin; D64.9 Anemia, unspecified; E78.00 Pure hypercholesterolemia, unspecified; M19.90 Unspecified osteoarthritis, unspecified site; M54.10 Radiculopathy, site unspecified; Y95 Nosocomial condition; Z74.01 Bed confinement status; Z82.49 Family history of ischemic heart disease and other diseases of the circulatory system; Z86.718 Personal history of other venous thrombosis and embolism; Z87.440 Personal history of urinary (tract) infections; Z99.3 Dependence on wheelchair

== ENCOUNTER 2018-11-01 20:09 | Inpatient (IN) | payer MEDICARE, BC ==
[2018-11-01 20:28] VITALS: BMI 21.9
[2018-11-01 21:15] LABS: BASO # 0.02 K/mm3 (0.0-2.0); BASO % 0.3 % (0.0-3.0); EOS # 0.4 (0.0-0.7); EOS % 4.4 % (1.5-5.0); HEMOGLOBIN 10.6 g/dL (14.0-18.0); LYMPH # 3.3 (1.2-3.4); LYMPH % 41.3 % (22.0-35.0); MEAN CELL VOLUME 96.6 fl (80.0-105.0); MEAN CORPUSCULAR HEMOGLOBIN 32.3 pg (25.0-35.0); MEAN CORPUSCULAR HGB CONC 33.4 g/dl (31.0-37.0); MEAN PLATELET VOLUME 8.6 fl (7.0-11.0); MONO # 0.6 (0.1-0.6); MONO % 6.9 % (1.0-6.0); RBC 3.28 10^6/uL (3.5-6.1); RED CELL DISTRIBUTION WIDTH 16.2 % (11.5-14.5)
[2018-11-01 21:16] LABS: URINE BILIRUBIN NEGATIVE (NEGATIVE); URINE BLOOD LARGE (NEGATIVE); URINE GLUCOSE (UA) NEGATIVE (NEGATIVE); URINE LEUKOCYTE ESTERASE MODERATE Leu/uL (NEGATIVE); URINE PROTEIN 100 mg/dL (<30 mg/dL); URINE UROBILINOGEN 0.2 E.U./dL (<1 E.U./dL)
[2018-11-01 21:17] LABS: URINE APPEARANCE CLOUDY (CLEAR); URINE COLOR YELLOW (YELLOW)
--- NOTE | 2018-11-01 21:18 | ED PDOC ---
Arrival/HPI - General Chief Complaint: Medical Clearance Time Seen by Provider: 11/01/18 20:12 Historian: Patient - History of Present Illness Narrative History of Present Illness (Text): 11/01/18 20:35 Abel Chávez is a 78 year old male, whose past medical history includes COPD, hypertension, arthritis, diabetes, recurrrent UTIs, and osteomyelitis, who presents to the Emergency department complaining of lower extremity swelling. Patient states he has been experiencing bilateral lower extremity swelling with associated generalized weakness. Patient denies any fever, chills, chest pain, shortness of breath, nausea, vomiting, neck pain, headache, dizziness, or any other complaints. Symptom Onset: Gradual Symptom Course: Unchanged Activities at Onset: Light Context: Home Past Medical History - Provider Review Nursing Documentation Reviewed: Yes - Infectious Disease Hx of Infectious Diseases: None - Cardiac Hx Cardiac Disorders: Yes Hx Hypertension: Yes - Pulmonary Hx Respiratory Disorders: Yes Hx Chronic Obstructive Pulmonary Disease (COPD): Yes - Neurological Hx Neurological Disorder: No - HEENT Hx HEENT Disorder: No - Renal Hx Renal Disorder: No - Endocrine/Metabolic Hx Endocrine Disorders: Yes Hx Diabetes Mellitus Type 2: Yes - Hematological/Oncological Hx Blood Disorders: No - Integumentary Hx Dermatological Disorder: Yes Other/Comment: 08-10-18 IN BETWEEN BUTTOCKS WITH REDDENED FLUSHED SKIN,RAW SKIN. PAINFUL. HAS AN OPENED SKIN ,LINEAR OPENED AREA.IN BETWEEN GROIN WITH REDDENED FLUSHED AREA,RAW RED SKIN. HAS IASD. LEFT HEEL HAS HEALING DRY SKIN WITH AN OLD BLACKENED SCAB . MEASURES 0.5 CM. LEFT BIG TIP OF TOE HAS A DRY SKIN,FLAKY SKIN. DRESSING AT WOUND CTR. - Musculoskeletal/Rheumatological Hx Musculoskeletal Disorders: Yes (LUMBAR DISC DSE,RADICULOPATHY) Hx Arthritis: Yes Hx Falls: Yes Hx Osteomyelitis: Yes Hx Unsteady Gait: Yes (CANE) - Gastrointestinal Hx Gastrointestinal Disorders: Yes Hx Constipation: Yes Other/Comment: infrequent bowel movements w/o constipation - Genitourinary/Gynecological Hx Genitourinary Disorders: No Other/Comment: Patient has a garcía inserted since 2017. - Psychiatric Hx Psychophysiologic Disorder: No Hx Substance Use: No - Surgical History Other/Comment: LEFT EAR LOBE WITH SX. REMOVAL OF SKIN CA. Peripheral angiogram. - Anesthesia Hx Anesthesia: No Hx Anesthesia Reactions: No Hx Malignant Hyperthermia: No Family/Social History - Physician Review Nursing Documentation Reviewed: Yes Family/Social History: Unknown Family HX Smoking Status: Never Smoked Hx Alcohol Use: Yes Hx Substance Use: No Allergies/Home Meds Allergies/Adverse Reactions: Allergies No Known Allergies Allergy (Verified 11/01/18 20:28) Home Medications: Home Meds Medication Instructions Recorded Confirmed Multivit-Min/FA/Lycopen/Lutein 1 mg PO DAILY 01/06/18 11/01/18 [Centrum Silver Men Tablet] Ferrous Sulfate [Feosol] 1 tab PO DAILY 10/10/18 11/01/18 Review of Systems - Physician Review All systems were reviewed & negative as marked: Yes - Review of Systems Constitutional: Other (+generalized weakness). absent: Fevers Eyes: Normal ENT: Normal Respiratory: Normal. absent: SOB Cardiovascular: Normal. absent: Chest Pain Gastrointestinal: Normal. absent: Abdominal Pain, Diarrhea, Nausea, Vomiting Genitourinary Male: Normal. absent: Dysuria, Frequency, Hematuria, Urinary Output Changes Musculoskeletal: Other (+bilateral lower extremity swelling). absent: Back Pain, Neck Pain Skin: Normal. absent: Rash Neurological: Normal. absent: Headache, Dizziness Endocrine: Normal Hemo/Lymphatic: Normal Psychiatric: Normal Physical Exam Vital Signs Reviewed: Yes Vital Signs Temp Pulse Resp BP Pulse Ox 11/01/18 20:22 98.3 F 94 H 18 120/84 98 Temperature: Afebrile Blood Pressure: Normal Pulse: Regular Respiratory Rate: Normal Appearance: Positive for: Well-Appearing, Non-Toxic, Comfortable Pain Distress: None Mental Status: Positive for: Alert and Oriented X 3 - Systems Exam Head: Present: Atraumatic, Normocephalic Pupils: Present: PERRL Extroacular Muscles: Present: EOMI Conjunctiva: Present: Normal Mouth: Present: Moist Mucous Membranes Neck: Present: Normal Range of Motion Respiratory/Chest: Present: Clear to Auscultation, Good Air Exchange. No: Respiratory Distress, Accessory Muscle Use Cardiovascular: Present: Regular Rate and Rhythm, Normal S1, S2. No: Murmurs Abdomen: No: Tenderness, Distention, Peritoneal Signs Back: Present: Normal Inspection Upper Extremity: Present: Normal Inspection. No: Cyanosis, Edema Lower Extremity: Present: Edema (3+ bilateral pitting edema). No: Tenderness, Erythema Neurological: Present: GCS=15, CN II-XII Intact, Speech Normal Skin: Present: Warm, Dry, Normal Color. No: Rashes Psychiatric: Present: Alert, Oriented x 3, Normal Insight, Normal Concentration Medical Decision Making ED Course and Treatment: 11/01/18 20:35 Impression: 78 year old male complaining of generalized weakness and bilateral lower extremity swelling. Plan: -- EKG -- Chest X-ray -- US Duplex Lower Extremities -- Labs, troponin, blood cultures -- Urinalysis -- Reassess and disposition Prior Visits: Notes and results from previous visits were reviewed. Progress Notes: 11/01/18 21:45 Chest X-ray reviewed, shows chronic changes. US Duplex Lower Extremities preliminary read negative for DVT. 11/01/18 23:[address] Nguyen, who is aware and agrees with plan. Accepts pt in to his service. 11/01/18 23:28 Reviewed EKG, sinus rhythm at [address] bpm. PACs. Non-specific ST/T wave changes. - Lab Interpretations I have reviewed the lab results: Yes - RAD Interpretation Radiology Orders: 11/01/18 20:36 CHEST PORTABLE [RAD] Stat DUPLEX LOWER EXTRM VEIN BILAT [US] Stat Airborne Operations: ED Physician - EKG Interpretation Interpreted by ED Physician: Yes Type: 12 lead EKG - Scribe Statement The provider has reviewed the documentation as recorded by the Rach Martinez Provider Scribe Attestation: All medical record entries made by the Scribe were at my direction and personally dictated by me. I have reviewed the chart and agree that the record accurately reflects my personal performance of the history, physical exam, medical decision making, and the department course for this patient. I have also personally directed, reviewed, and agree with the discharge instructions and disposition. Disposition/Present on Arrival - Present on Arrival Any Indicators Present on Arrival: No History of DVT/PE: Yes History of Uncontrolled Diabetes: No Urinary Catheter: No History of Decub. Ulcer: Yes (sacral) History Surgical Site Infection Following: None - Disposition Have Diagnosis and Disposition been Completed?: Yes Diagnosis: Urinary tract infection Disposition: HOSPITALIZED Disposition Time: 00:35 Condition: FAIR
[2018-11-01 21:21] LABS: URINE BACTERIA FEW /hpf; URINE CALCIUM OXALATE CRYSTALS SMALL /hpf; URINE EPITHELIAL CELLS 0 - 2 /hpf (0-5); URINE WBC TNTC /hpf (0-6)
[2018-11-01 21:25] LABS: INR 1.48; PARTIAL THROMBOPLASTIN TIME 36.5 Seconds (26.9-38.3); PROTHROMBIN TIME 16.4 SECONDS (9.4-12.5)
[2018-11-01 21:36] LABS: ALB/GLOB RATIO 0.7 (1.1-1.8); ALBUMIN 2.1 g/dL (3.0-4.8); ALT/SGPT 16 U/L (7-56); AST/SGOT 39 U/L (17-59); BLOOD UREA NITROGEN 21 mg/dL (7-21); CALCIUM 8.2 mg/dL (8.4-10.5); GFR NON-AFRICAN AMERICAN > 60
[2018-11-01 21:37] LABS: TROPONIN I < 0.01 ng/mL
[2018-11-01] MEDS ORDERED: Vancomycin 1gm in NS 250ml 1 GM/250 ML BAG IVPB STA (22:45)
[2018-11-01] MEDS: Cefepime 1gm in NS 100ml 1 GM/100 ML BAG IVPB SCH (23:10)
--- NOTE | 2018-11-02 10:15 | RAD ---
Date of service: 11/01/2018 HISTORY: pain COMPARISON: 10/12/2018 FINDINGS: LUNGS: No active pulmonary disease. PLEURA: No significant pleural effusion identified, no pneumothorax apparent. CARDIOVASCULAR: No aortic atherosclerotic calcification present. Normal cardiac size. Mild pulmonary vascular congestion OSSEOUS STRUCTURES: No significant abnormalities. VISUALIZED UPPER ABDOMEN: Normal. OTHER FINDINGS: None. IMPRESSION: Mild pulmonary vascular congestion
--- NOTE | 2018-11-02 10:33 | CARD ---
APPROVED REPORT Date of service: 11/01/2018 EKG Measurement Heart [id number] <Conclusion> Sinus rhythm with premature atrial complexes Poor R Progression V1-V3.
--- NOTE | 2018-11-02 10:59 | CP.PCM.CON ---
History of Present Illness - History of Present Illness History of Present Illness: Surgery consult for Dr. Bruce Reason for consult: sacral ulcer 78 y/o male with PMH of COPD, HTN, DM2, recurrent UTIs, osteomyelitis, disc radiculopathy presents with LE edema and swelling for weeks. Surgery was consulted for sacral ulcers. Patient is a poor historian. He denied any fever, chills, foul smell or drainage coming out of the ulcer. He reports left foot infection which was treated before. ROS reviewed with positives as above PMH: as above PSH: abdominal surgery Med: per EMR All: NKDA SH: former drinker, denies any smoking or drug kellie FH: non contributory Past Patient History - Infectious Disease Hx of Infectious Diseases: None - Past Social History Smoking Status: Never Smoked - CARDIAC Hx Cardiac Disorders: Yes Hx Hypertension: Yes - PULMONARY Hx Respiratory Disorders: Yes Hx Chronic Obstructive Pulmonary Disease (COPD): Yes - NEUROLOGICAL Hx Neurological Disorder: No - HEENT Hx HEENT Problems: No - RENAL Hx Chronic Kidney Disease: No - ENDOCRINE/METABOLIC Hx Endocrine Disorders: Yes Hx Diabetes Mellitus Type 2: Yes - HEMATOLOGICAL/ONCOLOGICAL Hx Blood Disorders: No - INTEGUMENTARY Hx Dermatological Problems: Yes Other/Comment: 18 IN BETWEEN BUTTOCKS WITH REDDENED FLUSHED SKIN,RAW SKIN. PAINFUL. HAS AN OPENED SKIN ,LINEAR OPENED AREA.IN BETWEEN GROIN WITH REDDENED FLUSHED AREA,RAW RED SKIN. HAS IASD. LEFT HEEL HAS HEALING DRY SKIN WITH AN OLD BLACKENED SCAB . MEASURES 0.5 CM. LEFT BIG TIP OF TOE HAS A DRY SKIN,FLAKY SKIN. DRESSING AT WOUND CTR. - MUSCULOSKELETAL/RHEUMATOLOGICAL Hx Musculoskeletal Disorders: Yes (LUMBAR DISC DSE,RADICULOPATHY) Hx Arthritis: Yes Hx Falls: Yes Hx Osteomyelitis: Yes Hx Unsteady Gait: Yes (CANE) - GASTROINTESTINAL Hx Gastrointestinal Disorders: Yes Hx Constipation: Yes Other/Comment: infrequent bowel movements w/o constipation - GENITOURINARY/GYNECOLOGICAL Hx Genitourinary Disorders: No Other/Comment: Patient has a garcía inserted since 2017. - PSYCHIATRIC Hx Psychophysiologic Disorder: No Hx Substance Use: No - SURGICAL HISTORY Other/Comment: LEFT EAR LOBE WITH SX. REMOVAL OF SKIN CA. Peripheral angiogram. - ANESTHESIA Hx Anesthesia: No Hx Anesthesia Reactions: No Hx Malignant Hyperthermia: No Meds Allergies/Adverse Reactions: Allergies Allergy/AdvReac Type Severity Reaction Status Date / Time No Known Allergies Allergy Verified 11/02/18 12:23 - Medications Medications: Current Medications Arformoterol Tartrate (Brovana) 15 mcg IH [id number] [facility] Budesonide (Pulmicort Respules) 0.5 mg IH BIDRESP [facility] Ferrous Sulfate (Feosol) 324 mg PO DAILY [facility] Cefepime HCl (Maxipime 1gm) 1 gm in 100 mls @ 100 mls/hr IVPB Q12 [facility]; Protocol Last Admin: 11/01/18 23:10 Dose: 100 mls/hr Magnesium Oxide (Mag-Ox) 400 mg PO BID [facility] Midodrine (Proamatine) 10 mg PO QID [facility] Polyethylene Glycol (Miralax) 17 gm PO DAILY [facility] Silver Sulfadiazine (Silvadene 1% 25 Gm) 0 gm TP BID [facility] Sitagliptin Phosphate (Januvia) 50 mg PO DAILY [facility] Tiotropium Gu[place] (Spiriva) 18 mcg IH DAILY [facility] Physical Exam - Constitutional Appears: No Acute Distress, Chronically Ill - Head Exam Head Exam: ATRAUMATIC, NORMAL INSPECTION, NORMOCEPHALIC - ENT Exam ENT Exam: Mucous Membranes Moist, Normal Exam - Respiratory Exam Respiratory Exam: Clear to Auscultation Bilateral, NORMAL BREATHING PATTERN - Cardiovascular Exam Cardiovascular Exam: +S1, +S2 - Extremities Exam Extremities exam: Positive for: pedal edema (2+ edema, b/l ) - Back Exam Additional comments: stage 2 sacral ulcer 2x2 cm in diameter. minimal erythema, minimal serous drainage. - Skin Additional comments: sacral ulcer Results - Vital Signs Recent Vital Signs: Last Vital Signs Temp 98.3 F 11/01/18 20:22 Pulse 86 11/02/18 00:02 Resp 17 11/02/18 00:02 BP 147/78 11/02/18 00:02 Pulse Ox 97 11/02/18 00:02 - Labs Result Diagrams: 11/01/18 21:05 11/01/18 21:05 Labs: Laboratory Results - last 24 hr 11/01/18 11/01/18 11/01/18 21:05 21:05 21:05 WBC 8.0 D RBC 3.28 L Hgb 10.6 L Hct 31.7 L MCV 96.6 MCH 32.3 MCHC 33.4 RDW 16.2 H Plt Count 149 MPV 8.6 Neut % (Auto) 47.1 L Lymph % (Auto) 41.3 H [place] % (Auto) 6.9 H Eos % (Auto) 4.4 Baso % (Auto) 0.3 Lymph # (Auto) 3.3 [place] # (Auto) 0.6 Eos # (Auto) 0.4 Baso # (Auto) 0.02 Absolute Neuts (auto) 3.78 PT 16.4 H INR 1.48 APTT 36.5 Sodium 136 Potassium 4.5 Chloride 109 H Carbon Dioxide 23 Anion Gap 9 L BUN 21 Creatinine 1.0 Est GFR ( Amer) > 60 Est GFR (Non-Af Amer) > 60 Random Glucose 89 Calcium 8.2 L Total Bilirubin 1.0 AST 39 ALT 16 Alkaline Phosphatase 69 Troponin I < 0.01 Total Protein 5.4 L Albumin 2.1 L Globulin 3.3 Albumin/Globulin Ratio 0.7 L Urine Color Urine Appearance Urine pH Ur Specific [place] Urine Protein Urine Glucose (UA) Urine Ketones Urine Blood Urine Nitrate Urine Bilirubin Urine Urobilinogen Ur Leukocyte Esterase Urine RBC Urine WBC Ur Epithelial Cells Calcium Oxalate Crystal Urine Bacteria Urine Other 11/01/18 21:05 WBC RBC Hgb Hct MCV MCH MCHC RDW Plt Count MPV Neut % (Auto) Lymph % (Auto) [place] % (Auto) Eos % (Auto) Baso % (Auto) Lymph # (Auto) [place] # (Auto) Eos # (Auto) Baso # (Auto) Absolute Neuts (auto) PT INR APTT Sodium Potassium Chloride Carbon Dioxide Anion Gap BUN Creatinine Est GFR ( Amer) Est GFR (Non-Af Amer) Random Glucose Calcium Total Bilirubin AST ALT Alkaline Phosphatase Troponin I Total Protein Albumin Globulin Albumin/Globulin Ratio Urine Color Yellow Urine Appearance Cloudy Urine pH 6.0 Ur Specific [place] 1.025 Urine Protein 100 H Urine Glucose (UA) Negative Urine Ketones Negative Urine Blood Large H Urine Nitrate Positive H Urine Bilirubin Negative Urine Urobilinogen 0.2 Ur Leukocyte Esterase Moderate H Urine RBC 2 - 5 H Urine WBC Tntc H Ur Epithelial Cells 0 - 2 Calcium Oxalate Crystal Small Urine Bacteria Few Urine Other Uyeast Assessment & Plan - Assessment and Plan (Free Text) Assessment: 78 y/o male admitted for lower extremity swelling/weakness, found to have stage 2 sacral ulcer COPD HTN DM arthritis osteomyelitis Plan: -silver sulfadiazine, optifoam -wound care -air mattress -reposition q2 -continue medical management per primary team -further recs per surgical attending Dr. Teo Kelly, DO
[2018-11-02] MEDS: Magnesium Oxide 400 mg Tab UD PO SCH ×2 (11:05→18:57)
[2018-11-02] MEDS: Cefepime 1gm in NS 100ml 1 GM/100 ML BAG IVPB SCH (11:06)
[2018-11-02] MEDS: POLYETHYLENE GLYCOL 3350 17 GM/Dose PACKET PO SCH (11:07)
[2018-11-02] MEDS: Tiotropium 18 mcg Cap For Inhalation IH SCH (11:09)
--- NOTE | 2018-11-02 12:27 | HP ---
DATE OF EXAM: 11/02/2018 I got a call in the middle of the night that he was sent into the emergency room from [facility] HISTORY OF PRESENT ILLNESS: This is a 78-year-old white man, who I know very well for hypotension, hypertension, arthritis, diabetes, recurrent UTIs, osteomyelitis, very weak, debilitated, needing physical therapy, bilateral lower extremity swelling, generalized weakness, COPD; he has reddened skin in the buttocks and in the groin, left heel, dry skin, an old blackened scab, he has got arthritis, falls, osteomyelitis, history of cane, constipation, has a Fall catheter, and left earlobe issues. FAMILY HISTORY: Unknown family history. SOCIAL HISTORY: No smoker. No drinker. No drugs. ALLERGIES: NO KNOWN DRUG ALLERGIES. MEDICATIONS: Multivitamins, iron. He has been on Florinef. He has been on midodrine, breathing treatments. He is very upset about being very weak. REVIEW OF SYSTEMS: No vision or hearing changes, . No shortness of breath. No chest pain. No abdominal pain. No nausea or vomiting. He is constipated, but no diarrhea. He has Fall catheter in place; got extremity swelling bilaterally. Questionable blisters in the legs and his sacrum got some reddened area of colon. Surgery of colon. Podiatry for his feet. He is alert and oriented x3. PHYSICAL EXAMINATION: GENERAL: He is well appearing, uncomfortable, and upset. Alert and oriented x3. VITAL SIGNS: He has 98.3 temperature, 94 pulse, 18 respiratory rate, 120/84 blood pressure, and 98% O2 saturation. HEENT: Head is atraumatic and normocephalic. Extraocular muscles intact. Throat is dry. NECK: Supple. HEART: Regular rate. Normal S1 and S2. LUNGS: Decreased breath sounds, but clear to auscultation. ABDOMEN: Soft. EXTREMITIES: Have +3 edema. NEUROLOGIC: GCS is 15. Cranial nerves II through XII grossly intact. SKIN: He has got some blisters. He has got redness in the buttocks area and some black areas in the skin. I will get Surgery for the buttocks and Podiatry for the heels, Cardiology, and Infectious Disease. LABORATORY DATA: He has multiple tests done. He had urine which showed moderate leukocytes. He has 136 sodium, potassium 4.5, BUN 21, creatinine 1, GFR is greater than 60, sugar is 89, calcium is 8.2, total bili is 1, AST is 39, ALT is 69, alk phos 69, total protein is 5.4, troponin I 0.01; 1.4 INR, 8 white count, 10.6 hemoglobin, 31.7 hematocrit, and 149 platelets. IMPRESSION AND PLAN: [facility] the [facility] living. His bladder test pending. Ultrasound, x-rays, and EKG is pending. We will get Physical Therapy involved. Antibiotics as per Infectious Disease. We will continue aggressive treatment and care. Jn Nguyen DO MTDD
[2018-11-02] MEDS: Silver Sulfadiazine 1% Cream (25 gm) TP SCH ×2 (12:40→19:03)
--- NOTE | 2018-11-02 13:46 | CP.PCM.CON ---
<Tristen Euceda - Last Filed: 11/02/18 13:42> History of Present Illness - History of Present Illness History of Present Illness: Infectious disease consult note: 78 M whose past medical history includes COPD, HTN, arthritis, diabetes, recurrent UTIs, and osteomyelitis, who presents to the ED complaining of lower extremity swelling. Patient is a poor historian however states that he is fee ling more weak than usual. He also complains of b/l lower ext swelling that has been present for weeks. He also c/o of L foot infection/osteo that he has been treated for in the past. Denies any trauma or fall. ID consulted for management of IV abx. He denies any other complaints. 12 Point ROS performed and neg other than stated above PMHx: As above PSH: "possible appendectomy, dont recall" Med: refer to EMR All: NKA SH: former drinker, denies any smoking or drug usue FH: non contributory Review of Systems - Review of Systems All systems: reviewed and no additional remarkable complaints except Past Patient History - Infectious Disease Hx of Infectious Diseases: None - Past Social History Smoking Status: Never Smoked - CARDIAC Hx Cardiac Disorders: Yes Hx Hypertension: Yes - PULMONARY Hx Respiratory Disorders: Yes Hx Chronic Obstructive Pulmonary Disease (COPD): Yes - NEUROLOGICAL Hx Neurological Disorder: No - HEENT Hx HEENT Problems: No - RENAL Hx Chronic Kidney Disease: No - ENDOCRINE/METABOLIC Hx Endocrine Disorders: Yes Hx Diabetes Mellitus Type 2: Yes - HEMATOLOGICAL/ONCOLOGICAL Hx Blood Disorders: No - INTEGUMENTARY Hx Dermatological Problems: Yes Other/Comment: 08-10-18 IN BETWEEN BUTTOCKS WITH REDDENED FLUSHED SKIN,RAW SKIN. PAINFUL. HAS AN OPENED SKIN ,LINEAR OPENED AREA.IN BETWEEN GROIN WITH REDDENED FLUSHED AREA,RAW RED SKIN. HAS IASD. LEFT HEEL HAS HEALING DRY SKIN WITH AN OLD BLACKENED SCAB . MEASURES 0.5 CM. LEFT BIG TIP OF TOE HAS A DRY SKIN,FLAKY SKIN. DRESSING AT WOUND [facility]. - MUSCULOSKELETAL/RHEUMATOLOGICAL Hx Musculoskeletal Disorders: Yes (LUMBAR DISC DSE,RADICULOPATHY) Hx Arthritis: Yes Hx Falls: Yes Hx Osteomyelitis: Yes Hx Unsteady Gait: Yes (CANE) - GASTROINTESTINAL Hx Gastrointestinal Disorders: Yes Hx Constipation: Yes Other/Comment: infrequent bowel movements w/o constipation - GENITOURINARY/GYNECOLOGICAL Hx Genitourinary Disorders: No Other/Comment: Patient has a garcía inserted since 2017. - PSYCHIATRIC Hx Psychophysiologic Disorder: No Hx Substance Use: No - SURGICAL HISTORY Other/Comment: LEFT EAR LOBE WITH SX. REMOVAL OF SKIN CA. Peripheral angiogram. - ANESTHESIA Hx Anesthesia: No Hx Anesthesia Reactions: No Hx Malignant Hyperthermia: No Meds Allergies/Adverse Reactions: Allergies Allergy/AdvReac Type Severity Reaction Status Date / Time No Known Allergies Allergy Verified 11/02/18 12:23 - Medications Medications: Current Medications Arformoterol Tartrate (Brovana) 15 mcg IH [id number] [facility] Budesonide (Pulmicort Respules) 0.5 mg IH BIDRESP [facility] Ferrous Sulfate (Feosol) 324 mg PO DAILY [facility] Last Admin: 11/02/18 11:08 Dose: 324 mg Cefepime HCl (Maxipime 1gm) 1 gm in 100 mls @ 100 mls/hr IVPB Q12 [facility]; Protocol Last Admin: 11/02/18 11:06 Dose: 100 mls/hr Magnesium Oxide (Mag-Ox) 400 mg PO BID [facility] Last Admin: 11/02/18 11:05 Dose: 400 mg Midodrine (Proamatine) 10 mg PO QID [facility] Last Admin: 11/02/18 11:07 Dose: 10 mg Polyethylene Glycol (Miralax) 17 gm PO DAILY [facility] Last Admin: 11/02/18 11:07 Dose: 17 gm Silver Sulfadiazine (Silvadene 1% 25 Gm) 0 gm TP BID [facility] Last Admin: 11/02/18 12:40 Dose: 25 gm Sitagliptin Phosphate (Januvia) 50 mg PO DAILY [facility] Last Admin: 11/02/18 11:08 Dose: 50 mg Tiotropium Mclean (Spiriva) 18 mcg IH DAILY [facility] Last Admin: 11/02/18 11:09 Dose: 18 mcg Physical Exam - Constitutional Appears: No Acute Distress - Head Exam Head Exam: ATRAUMATIC, NORMOCEPHALIC - Eye Exam Eye Exam: EOMI - Respiratory Exam Respiratory Exam: Clear to Auscultation Bilateral (no r/r/w) - Cardiovascular Exam Cardiovascular Exam: REGULAR RHYTHM, +S1, +S2 - GI/Abdominal Exam GI & Abdominal Exam: Normal Bowel Sounds, Soft - Extremities Exam Extremities exam: Positive for: pedal edema (2+ b/l lower ext ) - Back Exam Additional comments: erythema likely sacral decub, - Neurological Exam Neurological exam: Alert - Psychiatric Exam Psychiatric exam: Normal Mood Results - Vital Signs Recent Vital Signs: Last Vital Signs Temp 98.3 F 11/01/18 20:22 Pulse 86 11/02/18 00:02 Resp 17 11/02/18 00:02 BP 147/78 11/02/18 00:02 Pulse Ox 97 11/02/18 00:02 - Labs Result Diagrams: 11/01/18 21:05 11/01/18 21:05 Labs: Laboratory Results - last 24 hr 11/01/18 11/01/18 11/01/18 21:05 21:05 21:05 WBC 8.0 D RBC 3.28 L Hgb 10.6 L Hct 31.7 L MCV 96.6 MCH 32.3 MCHC 33.4 RDW 16.2 H Plt Count 149 MPV 8.6 Neut % (Auto) 47.1 L Lymph % (Auto) 41.3 H [place] % (Auto) 6.9 H Eos % (Auto) 4.4 Baso % (Auto) 0.3 Lymph # (Auto) 3.3 [place] # (Auto) 0.6 Eos # (Auto) 0.4 Baso # (Auto) 0.02 Absolute Neuts (auto) 3.78 PT 16.4 H INR 1.48 APTT 36.5 Sodium 136 Potassium 4.5 Chloride 109 H Carbon Dioxide 23 Anion Gap 9 L BUN 21 Creatinine 1.0 Est GFR ( Amer) > 60 Est GFR (Non-Af Amer) > 60 Random Glucose 89 Calcium 8.2 L Total Bilirubin 1.0 AST 39 ALT 16 Alkaline Phosphatase 69 Troponin I < 0.01 NT-Pro-B Natriuret Pep Total Protein 5.4 L Albumin 2.1 L Globulin 3.3 Albumin/Globulin Ratio 0.7 L Urine Color Urine Appearance Urine pH Ur Specific [place] Urine Protein Urine Glucose (UA) Urine Ketones Urine Blood Urine Nitrate Urine Bilirubin Urine Urobilinogen Ur Leukocyte Esterase Urine RBC Urine WBC Ur Epithelial Cells Calcium Oxalate Crystal Urine Bacteria Urine Other 11/01/18 11/02/18 21:05 10:40 WBC RBC Hgb Hct MCV MCH MCHC RDW Plt Count MPV Neut % (Auto) Lymph % (Auto) [place] % (Auto) Eos % (Auto) Baso % (Auto) Lymph # (Auto) [place] # (Auto) Eos # (Auto) Baso # (Auto) Absolute Neuts (auto) PT INR APTT Sodium Potassium Chloride Carbon Dioxide Anion Gap BUN Creatinine Est GFR ( Amer) Est GFR (Non-Af Amer) Random Glucose Calcium Total Bilirubin AST ALT Alkaline Phosphatase Troponin I NT-Pro-B Natriuret Pep 2850 H Total Protein Albumin Globulin Albumin/Globulin Ratio Urine Color Yellow Urine Appearance Cloudy Urine pH 6.0 Ur Specific [place] 1.025 Urine Protein 100 H Urine Glucose (UA) Negative Urine Ketones Negative Urine Blood Large H Urine Nitrate Positive H Urine Bilirubin Negative Urine Urobilinogen 0.2 Ur Leukocyte Esterase Moderate H Urine RBC 2 - 5 H Urine WBC Tntc H Ur Epithelial Cells 0 - 2 Calcium Oxalate Crystal Small Urine Bacteria Few Urine Other Uyeast Assessment & Plan - Assessment and Plan (Free Text) Assessment: 78 M whose past medical history includes COPD, HTN, arthritis, diabetes, recurrent UTIs, and osteomyelitis, who presents to the ED complaining of lower extremity swelling. Found to have a UTI. Cont with Vanc and Cefepime Urinalysis positive - f/u cultures F/u Xray of L foot ordered F/u septic work up F/u podiatry and surgery recs Cont to monitor for any changes <Antonio Whittington - Last Filed: 11/02/18 14:30> Meds - Medications Medications: Current Medications Arformoterol Tartrate (Brovana) 15 mcg IH [id number] [facility]1983 Budesonide (Pulmicort Respules) 0.5 mg IH BIDRESP [facility]1983 Ferrous Sulfate (Feosol) 324 mg PO DAILY [facility] Last Admin: 11/02/18 11:08 Dose: 324 mg Cefepime HCl (Maxipime 1gm) 1 gm in 100 mls @ 100 mls/hr IVPB Q12 [facility]AS; Protocol Last Admin: 11/02/18 11:06 Dose: 100 mls/hr Magnesium Oxide (Mag-Ox) 400 mg PO BID [facility] Last Admin: 11/02/18 11:05 Dose: 400 mg Midodrine (Proamatine) 10 mg PO QID [facility] Last Admin: 11/02/18 11:07 Dose: 10 mg Polyethylene Glycol (Miralax) 17 gm PO DAILY [facility] Last Admin: 11/02/18 11:07 Dose: 17 gm Silver Sulfadiazine (Silvadene 1% 25 Gm) 0 gm TP BID [facility]1983 Last Admin: 11/02/18 12:40 Dose: 25 gm Sitagliptin Phosphate (Januvia) 50 mg PO DAILY [facility] Last Admin: 11/02/18 11:08 Dose: 50 mg Tiotropium Mclean (Spiriva) 18 mcg IH DAILY [facility] Last Admin: 11/02/18 11:09 Dose: 18 mcg Results - Vital Signs Recent Vital Signs: Last Vital Signs Temp 98.3 F 11/01/18 20:22 Pulse 86 11/02/18 00:02 Resp 17 11/02/18 00:02 BP 147/78 11/02/18 00:02 Pulse Ox 97 11/02/18 00:02 - Labs Result Diagrams: 11/01/18 21:05 11/01/18 21:05 Labs: Laboratory Results - last 24 hr 11/01/18 11/01/18 11/01/18 21:05 21:05 21:05 WBC 8.0 D RBC 3.28 L Hgb 10.6 L Hct 31.7 L MCV 96.6 MCH 32.3 MCHC 33.4 RDW 16.2 H Plt Count 149 MPV 8.6 Neut % (Auto) 47.1 L Lymph % (Auto) 41.3 H [place] % (Auto) 6.9 H Eos % (Auto) 4.4 Baso % (Auto) 0.3 Lymph # (Auto) 3.3 [place] # (Auto) 0.6 Eos # (Auto) 0.4 Baso # (Auto) 0.02 Absolute Neuts (auto) 3.78 PT 16.4 H INR 1.48 APTT 36.5 Sodium 136 Potassium 4.5 Chloride 109 H Carbon Dioxide 23 Anion Gap 9 L BUN 21 Creatinine 1.0 Est GFR ( Amer) > 60 Est GFR (Non-Af Amer) > 60 Random Glucose 89 Calcium 8.2 L Total Bilirubin 1.0 AST 39 ALT 16 Alkaline Phosphatase 69 Troponin I < 0.01 NT-Pro-B Natriuret Pep Total Protein 5.4 L Albumin 2.1 L Globulin 3.3 Albumin/Globulin Ratio 0.7 L Urine Color Urine Appearance Urine pH Ur Specific [place] Urine Protein Urine Glucose (UA) Urine Ketones Urine Blood Urine Nitrate Urine Bilirubin Urine Urobilinogen Ur Leukocyte Esterase Urine RBC Urine WBC Ur Epithelial Cells Calcium Oxalate Crystal Urine Bacteria Urine Other 11/01/18 11/02/18 21:05 10:40 WBC RBC Hgb Hct MCV MCH MCHC RDW Plt Count MPV Neut % (Auto) Lymph % (Auto) [place] % (Auto) Eos % (Auto) Baso % (Auto) Lymph # (Auto) [place] # (Auto) Eos # (Auto) Baso # (Auto) Absolute Neuts (auto) PT INR APTT Sodium Potassium Chloride Carbon Dioxide Anion Gap BUN Creatinine Est GFR ( Amer) Est GFR (Non-Af Amer) Random Glucose Calcium Total Bilirubin AST ALT Alkaline Phosphatase Troponin I NT-Pro-B Natriuret Pep 2850 H Total Protein Albumin Globulin Albumin/Globulin Ratio Urine Color Yellow Urine Appearance Cloudy Urine pH 6.0 Ur Specific [place] 1.025 Urine Protein 100 H Urine Glucose (UA) Negative Urine Ketones Negative Urine Blood Large H Urine Nitrate Positive H Urine Bilirubin Negative Urine Urobilinogen 0.2 Ur Leukocyte Esterase Moderate H Urine RBC 2 - 5 H Urine WBC Tntc H Ur Epithelial Cells 0 - 2 Calcium Oxalate Crystal Small Urine Bacteria Few Urine Other Uyeast Assessment & Plan - Assessment and Plan (Free Text) Assessment: Infectious diseases Attending Physician Attestation Patient seen and examined, discussed with medical records administrator. I have reviewed the patient's history of present illness, past medical, social, personal and family histories, pertinent physical exam findings, course so far in this hospital admission, pertinent laboratory and imaging results. I agree with the above findings, assessment and plan. In addition, continue Vancomycin and Cefepime for this patient with possible UTI. Follow up blood and urine cx. Will get left foot xray since patient had history of osteomyelitis on that foot.
--- NOTE | 2018-11-02 15:41 | CP.PCM.CON ---
<Latrell Pierce - Last Filed: 11/02/18 15:38> History of Present Illness - History of Present Illness History of Present Illness: Podiatry consult note for Dr. Peck 78 y/p male patient was seen and evaluated in the ER. As states he presented to the ED due to lower extremity swelling and pain. Patient is well known to Dr. Callejas/Cisco. Patient complaints of weakness. Patient unable to provide any other history due to weakness. PMHx: hypertension, COPD, arthritis, hernia, and diabetes PSHx: LEFT EAR LOBE WITH SX. REMOVAL OF SKIN CA. Peripheral angiogram. All: NKDA Review of Systems - Review of Systems All systems: reviewed and no additional remarkable complaints except Review of Systems: As per HPI Past Patient History - Infectious Disease Hx of Infectious Diseases: None - Past Social History Smoking Status: Never Smoked - CARDIAC Hx Cardiac Disorders: Yes Hx Hypertension: Yes - PULMONARY Hx Respiratory Disorders: Yes Hx Chronic Obstructive Pulmonary Disease (COPD): Yes - NEUROLOGICAL Hx Neurological Disorder: No - HEENT Hx HEENT Problems: No - RENAL Hx Chronic Kidney Disease: No - ENDOCRINE/METABOLIC Hx Endocrine Disorders: Yes Hx Diabetes Mellitus Type 2: Yes - HEMATOLOGICAL/ONCOLOGICAL Hx Blood Disorders: No - INTEGUMENTARY Hx Dermatological Problems: Yes Other/Comment: 17 IN BETWEEN BUTTOCKS WITH REDDENED FLUSHED SKIN,RAW SKIN. PAINFUL. HAS AN OPENED SKIN ,LINEAR OPENED AREA.IN BETWEEN GROIN WITH REDDENED FLUSHED AREA,RAW RED SKIN. HAS IASD. LEFT HEEL HAS HEALING DRY SKIN WITH AN OLD BLACKENED SCAB . MEASURES 0.5 CM. LEFT BIG TIP OF TOE HAS A DRY SKIN,FLAKY SKIN. DRESSING AT WOUND CTR. - MUSCULOSKELETAL/RHEUMATOLOGICAL Hx Musculoskeletal Disorders: Yes (LUMBAR DISC DSE,RADICULOPATHY) Hx Arthritis: Yes Hx Falls: Yes Hx Osteomyelitis: Yes Hx Unsteady Gait: Yes (CANE) - GASTROINTESTINAL Hx Gastrointestinal Disorders: Yes Hx Constipation: Yes Other/Comment: infrequent bowel movements w/o constipation - GENITOURINARY/GYNECOLOGICAL Hx Genitourinary Disorders: No Other/Comment: Patient has a garcía inserted since 2017. - PSYCHIATRIC Hx Psychophysiologic Disorder: No Hx Substance Use: No - SURGICAL HISTORY Other/Comment: LEFT EAR LOBE WITH SX. REMOVAL OF SKIN CA. Peripheral angiogram. - ANESTHESIA Hx Anesthesia: No Hx Anesthesia Reactions: No Hx Malignant Hyperthermia: No Meds Allergies/Adverse Reactions: Allergies Allergy/AdvReac Type Severity Reaction Status Date / Time No Known Allergies Allergy Verified 11/02/18 17:50 - Medications Medications: Current Medications Arformoterol Tartrate (Brovana) 15 mcg IH [id number] [facility] Budesonide (Pulmicort Respules) 0.5 mg IH BIDRESP [facility] Ferrous Sulfate (Feosol) 324 mg PO DAILY [facility] Last Admin: 11/02/18 11:08 Dose: 324 mg Cefepime HCl (Maxipime 1gm) 1 gm in 100 mls @ 100 mls/hr IVPB Q12 [facility]; Protocol Last Admin: 11/02/18 11:06 Dose: 100 mls/hr Magnesium Oxide (Mag-Ox) 400 mg PO BID [facility] Last Admin: 11/02/18 11:05 Dose: 400 mg Midodrine (Proamatine) 10 mg PO QID [facility] Last Admin: 11/02/18 11:07 Dose: 10 mg Polyethylene Glycol (Miralax) 17 gm PO DAILY [facility] Last Admin: 11/02/18 11:07 Dose: 17 gm Silver Sulfadiazine (Silvadene 1% 25 Gm) 0 gm TP BID [facility] Last Admin: 11/02/18 12:40 Dose: 25 gm Sitagliptin Phosphate (Januvia) 50 mg PO DAILY [facility] Last Admin: 11/02/18 11:08 Dose: 50 mg Tiotropium [place] (Spiriva) 18 mcg IH DAILY [facility] Last Admin: 11/02/18 11:09 Dose: 18 mcg Physical Exam - Constitutional Appears: Well, Non-toxic, No Acute Distress - Head Exam Head Exam: ATRAUMATIC, NORMOCEPHALIC - Eye Exam Eye Exam: Normal appearance - Extremities Exam Additional comments: Left LE focused exam VASC: DP/PT pulses are faintly palpable likely secondary to B/L LE edema, Cap refill time: < 3 sec to all digits, Temp gradient: warm to cool from proximal to distal, +2 pitting edema noted to the dorsum of the feet bilaterally DERM: LEFT: left heel has superficial pressure ulceration with, no drainage, bleeding, pus, or streaking, no clinical signs of infection; distal tip of hallux has wound with scab formation, no drainage, no malodor, no clinical signs of infection, left second digit wound measuring 0.2 cm X 0.2 c, positive minimal serous drainage, richelle-wound erythema noted, negative probe to bone, no tunneling or tracking, wound likely due to hammer toe deformity; RIGHT: no wounds noted NEURO: Protective sensation grossly intact ORTHO: no pain on palpation to the left heel superficial lesion - Psychiatric Exam Psychiatric exam: Normal Affect, Normal Mood - Skin Skin Exam: Normal Color Results - Vital Signs Recent Vital Signs: Last Vital Signs Temp 98.3 F 11/01/18 20:22 Pulse 86 11/02/18 00:02 Resp 17 11/02/18 00:02 BP 147/78 11/02/18 00:02 Pulse Ox 97 11/02/18 00:02 - Labs Result Diagrams: 11/01/18 21:05 11/01/18 21:05 Labs: Laboratory Results - last 24 hr 11/01/18 11/01/18 11/01/18 21:05 21:05 21:05 WBC 8.0 D RBC 3.28 L Hgb 10.6 L Hct 31.7 L MCV 96.6 MCH 32.3 MCHC 33.4 RDW 16.2 H Plt Count 149 MPV 8.6 Neut % (Auto) 47.1 L Lymph % (Auto) 41.3 H [place] % (Auto) 6.9 H Eos % (Auto) 4.4 Baso % (Auto) 0.3 Lymph # (Auto) 3.3 [place] # (Auto) 0.6 Eos # (Auto) 0.4 Baso # (Auto) 0.02 Absolute Neuts (auto) 3.78 PT 16.4 H INR 1.48 APTT 36.5 Sodium 136 Potassium 4.5 Chloride 109 H Carbon Dioxide 23 Anion Gap 9 L BUN 21 Creatinine 1.0 Est GFR ( Amer) > 60 Est GFR (Non-Af Amer) > 60 Random Glucose 89 Calcium 8.2 L Total Bilirubin 1.0 AST 39 ALT 16 Alkaline Phosphatase 69 Troponin I < 0.01 NT-Pro-B Natriuret Pep Total Protein 5.4 L Albumin 2.1 L Globulin 3.3 Albumin/Globulin Ratio 0.7 L Urine Color Urine Appearance Urine pH Ur Specific [place] Urine Protein Urine Glucose (UA) Urine Ketones Urine Blood Urine Nitrate Urine Bilirubin Urine Urobilinogen Ur Leukocyte Esterase Urine RBC Urine WBC Ur Epithelial Cells Calcium Oxalate Crystal Urine Bacteria Urine Other 11/01/18 11/02/18 21:05 10:40 WBC RBC Hgb Hct MCV MCH MCHC RDW Plt Count MPV Neut % (Auto) Lymph % (Auto) [place] % (Auto) Eos % (Auto) Baso % (Auto) Lymph # (Auto) [place] # (Auto) Eos # (Auto) Baso # (Auto) Absolute Neuts (auto) PT INR APTT Sodium Potassium Chloride Carbon Dioxide Anion Gap BUN Creatinine Est GFR ( Amer) Est GFR (Non-Af Amer) Random Glucose Calcium Total Bilirubin AST ALT Alkaline Phosphatase Troponin I NT-Pro-B Natriuret Pep 2850 H Total Protein Albumin Globulin Albumin/Globulin Ratio Urine Color Yellow Urine Appearance Cloudy Urine pH 6.0 Ur Specific [place] 1.025 Urine Protein 100 H Urine Glucose (UA) Negative Urine Ketones Negative Urine Blood Large H Urine Nitrate Positive H Urine Bilirubin Negative Urine Urobilinogen 0.2 Ur Leukocyte Esterase Moderate H Urine RBC 2 - 5 H Urine WBC Tntc H Ur Epithelial Cells 0 - 2 Calcium Oxalate Crystal Small Urine Bacteria Few Urine Other Uyeast Assessment & Plan - Assessment and Plan (Free Text) Assessment: 78 y/o M with left 2ns digit wound, left heel pressure ulceration and left distal tip of hallux superficial wound Plan: Patient seen and evaluated Plan discussed with Dr. Peck Chart, labs and vitals reviewed Afebrile, absent leukocytosis Left second digit wound culture ordered Wounds cleansed with saline - heel ulcer dressed with optifoam, left second digit dressed with betadine, DSD Bactroban will be ordered for the wound Multipodus boot to be worn at all times Left Foot X-rays ordered Thank you for the consult Will continue to follow while in house - Date & Time Date: 11/02/18 Time: 15:50 <Rupert Peck - Last Filed: 11/03/18 09:58> Meds - Medications Medications: Current Medications Arformoterol Tartrate (Brovana) 15 mcg IH [id number] [facility] Last Admin: 11/03/18 03:14 Dose: 15 mcg Budesonide (Pulmicort Respules) 0.5 mg IH BIDRESP [facility] Last Admin: 11/03/18 03:13 Dose: 0.5 mg Ferrous Sulfate (Feosol) 324 mg PO DAILY [facility] Last Admin: 11/02/18 11:08 Dose: 324 mg Cefepime HCl (Maxipime 1gm) 1 gm in 100 mls @ 100 mls/hr IVPB Q12 [facility]; Protocol Last Admin: 11/03/18 00:59 Dose: 100 mls/hr Magnesium Oxide (Mag-Ox) 400 mg PO BID [facility] Last Admin: 11/02/18 18:57 Dose: 400 mg Midodrine (Proamatine) 10 mg PO QID [facility] Last Admin: 11/03/18 00:49 Dose: Not Given Mupirocin (Bactroban Ointment) 0 gm TOP BID [facility] Last Admin: 11/03/18 05:35 Dose: Not Given Polyethylene Glycol (Miralax) 17 gm PO DAILY [facility] Last Admin: 11/02/18 11:07 Dose: 17 gm Silver Sulfadiazine (Silvadene 1% 25 Gm) 0 gm TP BID [facility] Last Admin: 11/02/18 19:03 Dose: 25 gm Sitagliptin Phosphate (Januvia) 50 mg PO DAILY [facility] Last Admin: 11/02/18 11:08 Dose: 50 mg Tiotropium [place] (Spiriva) 18 mcg IH DAILY [facility] Last Admin: 11/02/18 11:09 Dose: 18 mcg Results - Vital Signs Recent Vital Signs: Last Vital Signs Temp 98.0 F 11/03/18 03:05 Pulse 76 11/03/18 06:29 Resp 23 11/03/18 06:29 BP 118/59 L 11/03/18 06:29 Pulse Ox 98 11/03/18 06:29 - Labs Result Diagrams: 11/03/18 07:33 11/03/18 07:33 Labs: Laboratory Results - last 24 hr 11/02/18 11/03/18 11/03/18 10:40 07:33 07:33 WBC 6.1 D RBC 3.01 L Hgb 9.7 L Hct 28.8 L MCV 95.7 MCH 32.2 MCHC 33.7 RDW 16.2 H Plt Count 124 MPV 8.7 Sodium 137 Potassium 4.2 Chloride 111 H Carbon Dioxide 21 Anion Gap 10 BUN 25 H Creatinine 0.9 Est GFR ( Amer) > 60 Est GFR (Non-Af Amer) > 60 Random Glucose 89 Calcium 7.9 L Total Bilirubin 0.8 AST 36 ALT 18 Alkaline Phosphatase 63 NT-Pro-B Natriuret Pep 2850 H Total Protein 4.9 L Albumin 2.0 L Globulin 2.9 Albumin/Globulin Ratio 0.7 L Attending/Attestation - Attestation I have personally seen and examined this patient.: Yes I have fully participated in the care of the patient.: Yes I have reviewed all pertinent clinical information: Yes
--- NOTE | 2018-11-02 16:11 | RAD ---
Date of service: 11/02/2018 PROCEDURE: Left Foot Radiographs. HISTORY: follow up L foot osteo/ infection COMPARISON: 05/11/2018 FINDINGS: BONES: There is partial resection of the tip of the 1st distal phalanx. There is some lucency along the lateral aspect of the base of the 1st distal phalanx. JOINTS: Normal. SOFT TISSUES: Normal. OTHER FINDINGS: None. IMPRESSION: There is partial resection of the tip of the 1st distal phalanx. There is some lucency along the lateral aspect of the base of the 1st distal phalanx.
[2018-11-02] MEDS ORDERED: Pneumococcal 23-Valent Vaccine IM ONE (18:56)
[2018-11-02] MEDS ORDERED: Influenza Vaccine 60 mcg/0.5 mL SYR (4YR UP) IM ONE (18:56)
[2018-11-02] MEDS ORDERED: Arformoterol 15 mcg/2 ml Inh Sol IH SCH (20:00)
--- NOTE | 2018-11-02 21:25 | CON ---
DATE OF CONSULTATION: 11/02/2018 HISTORY: The patient is a 78-year-old male who presents with edema in the lower extremities, which is chronic. The patient suffers from COPD, hypertension, diabetes mellitus, and recurrent UTIs. The patient denies shortness of breath. The patient presented in the past with similar issues. His last cardiac workup includes an echocardiogram, which revealed an ejection fraction of 55%. There was aortic valve sclerosis without stenosis as well as [id number] mitral regurgitation without pulmonary hypertension. In addition, the patient has documented peripheral vascular disease. SOCIAL HISTORY: The patient is from a snf facility. REVIEW OF SYSTEMS: A 14-point review of systems, other than the edema in the lower extremities, there are no other cardiac issues at this time. PHYSICAL EXAMINATION: VITAL SIGNS: Blood pressure is 147/78, heart rate is in the 80s, normal sinus rhythm. NECK: Negative JVD. LUNGS: Decreased breath sounds without rales. HEART: S1, S2. EXTREMITIES: Bilateral excoriations with 1+ edema. DIAGNOSTIC DATA: EKG shows no acute changes. LABORATORY Hemoglobin is 10.6. Chemistries: BUN and creatinine are unremarkable. Troponin is negative x1. The ProBNP is 2850. IMPRESSION: 1. Recurrent pedal edema. 2. Good LV function. 3. No pulmonary hypertension. 4. Diabetes mellitus. 5. Chronic obstructive pulmonary disease. 6. Hypertension. 7. Anemia. PLAN: Given these findings, we will give the patient a trial of Lasix. There is no evidence for CHF. Shalom Hood MD
[2018-11-03] MEDS: Cefepime 1gm in NS 100ml 1 GM/100 ML BAG IVPB SCH ×3 (00:59→22:41)
[2018-11-03] MEDS: Budesonide 0.5 mg/2 ml Inhal Susp UD IH SCH ×2 (03:13→09:58)
[2018-11-03] MEDS: Arformoterol 15 mcg/2 ml Inh Sol IH SCH ×2 (03:14→09:58)
[2018-11-03] MEDS: Mupirocin 2% Ointment 15 GM TUBE TOP SCH ×3 (05:35→18:59)
[2018-11-03 07:42] LABS: HEMOGLOBIN 9.7 g/dL (14.0-18.0); MEAN CELL VOLUME 95.7 fl (80.0-105.0); MEAN CORPUSCULAR HEMOGLOBIN 32.2 pg (25.0-35.0); MEAN CORPUSCULAR HGB CONC 33.7 g/dl (31.0-37.0); MEAN PLATELET VOLUME 8.7 fl (7.0-11.0); RBC 3.01 10^6/uL (3.5-6.1); RED CELL DISTRIBUTION WIDTH 16.2 % (11.5-14.5); WHITE BLOOD COUNT 6.1 10^3/uL (4.5-11.0)
[2018-11-03 07:53] LABS: ALB/GLOB RATIO 0.7 (1.1-1.8); ALT/SGPT 18 U/L (7-56); AST/SGOT 36 U/L (17-59); BLOOD UREA NITROGEN 25 mg/dL (7-21); CALCIUM 7.9 mg/dL (8.4-10.5); GFR NON-AFRICAN AMERICAN > 60
--- NOTE | 2018-11-03 11:04 | CP.PCM.PN ---
Subjective - Date & Time of Evaluation Date of Evaluation: 11/03/18 Time of Evaluation: 07:40 - Subjective Subjective: Surgery progress note, Dr. Bruce Patient seen and examined at bedside in ED. He reports no complaints. Tolerating diet and having regular BM. Patient denied abdominal pain, SOB Objective - Vital Signs/Intake and Output Vital Signs (last 24 hours): Temp Pulse Resp BP Pulse Ox 98.0 F 76 23 118/59 L 98 11/03/18 03:05 11/03/18 10:02 11/03/18 06:29 11/03/18 06:29 11/03/18 06:29 Intake and Output: 11/03/18 11/03/18 06:59 18:59 Output Total 350 Balance -350 - Medications Medications: Current Medications Arformoterol Tartrate (Brovana) 15 mcg IH [id number] [facility] Last Admin: 11/03/18 09:58 Dose: 15 mcg Budesonide (Pulmicort Respules) 0.5 mg IH BIDRESP [facility] Last Admin: 11/03/18 09:58 Dose: 0.5 mg Ferrous Sulfate (Feosol) 324 mg PO DAILY [facility] Last Admin: 11/02/18 11:08 Dose: 324 mg Cefepime HCl (Maxipime 1gm) 1 gm in 100 mls @ 100 mls/hr IVPB Q12 [facility]; Protocol Last Admin: 11/03/18 00:59 Dose: 100 mls/hr Magnesium Oxide (Mag-Ox) 400 mg PO BID [facility] Last Admin: 11/02/18 18:57 Dose: 400 mg Midodrine (Proamatine) 10 mg PO QID [facility] Last Admin: 11/03/18 00:49 Dose: Not Given Mupirocin (Bactroban Ointment) 0 gm TOP BID [facility] Last Admin: 11/03/18 05:35 Dose: Not Given Polyethylene Glycol (Miralax) 17 gm PO DAILY [facility] Last Admin: 11/02/18 11:07 Dose: 17 gm Silver Sulfadiazine (Silvadene 1% 25 Gm) 0 gm TP BID [facility] Last Admin: 11/02/18 19:03 Dose: 25 gm Sitagliptin Phosphate (Januvia) 50 mg PO DAILY [facility] Last Admin: 11/02/18 11:08 Dose: 50 mg Tiotropium [place] (Spiriva) 18 mcg IH DAILY [facility] Last Admin: 11/02/18 11:09 Dose: 18 mcg - Labs Labs: 11/03/18 07:33 11/03/18 07:33 PT 16.4 SECONDS (9.4-12.5) H 11/01/18 21:05 INR 1.48 11/01/18 21:05 APTT 36.5 Seconds (26.9-38.3) 11/01/18 21:05 - Constitutional Appears: No Acute Distress, Chronically Ill - Head Exam Head Exam: ATRAUMATIC, NORMAL INSPECTION, NORMOCEPHALIC - Eye Exam Eye Exam: EOMI, Normal appearance, PERRL Pupil Exam: NORMAL ACCOMODATION, PERRL - ENT Exam ENT Exam: Mucous Membranes Moist, Normal Exam - Respiratory Exam Respiratory Exam: Clear to Ausculation Bilateral, NORMAL BREATHING PATTERN - GI/Abdominal Exam GI & Abdominal Exam: Soft, Normal Bowel Sounds. absent: Tenderness - Extremities Exam Extremities Exam: Normal Capillary Refill, Pedal Edema (b/l) - Back Exam Additional comments: stage 2 sacral ulcer 2x2 cm in diameter. minimal erythema, minimal serous drainage. - Neurological Exam Neurological Exam: Alert, Awake - Psychiatric Exam Psychiatric exam: Normal Affect, Normal Mood - Skin Additional comments: right forearm superficial wound with eryrhema, edema and skin exfoliation Assessment and Plan - Assessment and Plan (Free Text) Assessment: 78 y/o male admitted for lower extremity swelling/weakness, found to have stage 2 sacral ulcer COPD HTN DM arthritis osteomyelitis Plan: -continue silvadene, optifoam -continue air mattress -reposition q2 -wound care -continue medical management per primary team -further recs per surgical attending Dr. Teo Kelly DO
[2018-11-03] MEDS: Magnesium Oxide 400 mg Tab UD PO SCH ×2 (12:01→19:01)
[2018-11-03] MEDS: Silver Sulfadiazine 1% Cream (25 gm) TP SCH ×2 (12:03→19:01)
--- NOTE | 2018-11-03 13:13 | PN ---
DATE: 11/03/2018 SUBJECTIVE: He is in the emergency room. He did not get a bed upstairs yet. He had consults with Infectious Disease, Cardiology, Podiatry, and Surgery. He is having weeping from his arms and scrotum. PHYSICAL EXAMINATION: VITAL SIGNS: He has had 98 temp, 73 pulse, 126/58 blood pressure, 16 respiratory rate, 97% O2 sat on room air. GENERAL: He is not dizzy yet, lying down. He is on medicines that they are holding for the blood pressure which is doing better. He was very hypotensive the last time he was in the hospital. He is off the Florinef, just on midodrine. HEENT: Head is atraumatic, normocephalic. He is talking more, little bit stronger in the voice. HEART: Regular rate. LUNGS: Decreased breath sounds. ABDOMEN: Soft. EXTREMITIES: No edema, but there is weeping of the third spacing of the fluid of his arms. LABORATORY DATA: He had 8 white count, 10.6 hemoglobin yesterday with 149 platelets; 136 sodium, potassium 4.5, BUN 21, creatinine GFR is greater than 60, and glucose was 89 yesterday, otherwise, okay. BNP was a little bit high at 2850. ASSESSMENT AND PLAN: Waiting for the consults to come in. Dr. Hood, the instructor of education, he added some Lasix, although there is no congestive heart failure to try and help him with the weeping functional pulmonary hypertension. He has diabetes, chronic obstructive pulmonary disease, hypertension, and anemia. He does have a history of hypotension. I need to get Physical Therapy involved and get him out of bed to chair. He has got a left heel pressure ulceration and wound of the foot. He has IV antibiotics by Infectious Disease, Spiriva, Silvadene, Pulmicort, ProAmatine for his blood pressure, MiraLax, Maxipime, Mag-Ox, Januvia, Feosol, Brovana, and Bactroban. We will continue aggressive treatment and care on Abel Ballesterosjazmynesaadia for his edema and moderate leukocytes, positive nitrates, large blood in the urine. Jn Nguyen DO MTDD
--- NOTE | 2018-11-03 14:35 | CP.PCM.PN ---
<Tristen Euceda - Last Filed: 11/03/18 14:31> Subjective - Date & Time of Evaluation Date of Evaluation: 11/03/18 Time of Evaluation: 10:10 - Subjective Subjective: Is infectious disease progress note: Patient seen and examined at bedside. No acute events overnight. Patient complains of some urinary frequency. However denies any dysuria. 12 point ROS performed and negative other than stated above. Objective - Vital Signs/Intake and Output Vital Signs (last 24 hours): Temp Pulse Resp BP Pulse Ox 98.0 F 76 28 H 84/46 L 98 11/03/18 03:05 11/03/18 10:02 11/03/18 10:00 11/03/18 10:00 11/03/18 06:29 Intake and Output: 11/03/18 11/03/18 06:59 18:59 Output Total 350 Balance -350 - Medications Medications: Current Medications Arformoterol Tartrate (Brovana) 15 mcg IH [id number] [facility] Last Admin: 11/03/18 09:58 Dose: 15 mcg Budesonide (Pulmicort Respules) 0.5 mg IH BIDRESP [facility] Last Admin: 11/03/18 09:58 Dose: 0.5 mg Ferrous Sulfate (Feosol) 324 mg PO DAILY [facility] Last Admin: 11/02/18 11:08 Dose: 324 mg Cefepime HCl (Maxipime 1gm) 1 gm in 100 mls @ 100 mls/hr IVPB Q12 [facility]; Protocol Last Admin: 11/03/18 12:01 Dose: 100 mls/hr Magnesium Oxide (Mag-Ox) 400 mg PO BID [facility] Last Admin: 11/03/18 12:01 Dose: 400 mg Midodrine (Proamatine) 10 mg PO QID [facility] Last Admin: 11/03/18 11:01 Dose: Not Given Mupirocin (Bactroban Ointment) 0 gm TOP BID [facility] Last Admin: 11/03/18 11:59 Dose: Not Given Polyethylene Glycol (Miralax) 17 gm PO DAILY [facility] Last Admin: 11/02/18 11:07 Dose: 17 gm Silver Sulfadiazine (Silvadene 1% 25 Gm) 0 gm TP BID [facility] Last Admin: 11/03/18 12:03 Dose: 25 gm Sitagliptin Phosphate (Januvia) 50 mg PO DAILY [facility] Last Admin: 11/02/18 11:08 Dose: 50 mg Tiotropium [place] (Spiriva) 18 mcg IH DAILY [facility] Last Admin: 11/02/18 11:09 Dose: 18 mcg - Labs Labs: 11/03/18 07:33 11/03/18 07:33 PT 16.4 SECONDS (9.4-12.5) H 11/01/18 21:05 INR 1.48 11/01/18 21:05 APTT 36.5 Seconds (26.9-38.3) 11/01/18 21:05 - Constitutional Appears: No Acute Distress - Head Exam Head Exam: ATRAUMATIC, NORMOCEPHALIC - Eye Exam Eye Exam: EOMI - ENT Exam ENT Exam: Mucous Membranes Moist - Respiratory Exam Respiratory Exam: Clear to Ausculation Bilateral. absent: Rales, Wheezes - Cardiovascular Exam Cardiovascular Exam: REGULAR RHYTHM, +S1, +S2 - GI/Abdominal Exam GI & Abdominal Exam: Soft. absent: Tenderness - Extremities Exam Extremities Exam: Pedal Edema. absent: Calf Tenderness Additional comments: 2+ - Neurological Exam Neurological Exam: Alert, Awake, Oriented x3 - Psychiatric Exam Psychiatric exam: Normal Mood - Skin Skin Exam: Dry, Warm Assessment and Plan - Assessment and Plan (Free Text) Assessment: 78 M whose past medical history includes COPD, HTN, arthritis, diabetes, recurrent UTIs, and osteomyelitis, who presents to the ED complaining of lower extremity swelling. Found to have a possible UTI. Cont with Vanc and Cefepime Follow-up urine culture - Gram-negative slime, Awaiting sp and sensitivity Xray of L foot ordered - Found to have some lucency of the distal phalanx F/u septic work up F/u podiatry and surgery recs Cont to monitor for any changes Case and plan was reviewed and discussed with Dr. Whittington <Antonio Whittington - Last Filed: 11/03/18 16:07> Objective - Vital Signs/Intake and Output Vital Signs (last 24 hours): Temp Pulse Resp BP Pulse Ox 98.0 F 76 28 H 84/46 L 98 11/03/18 03:05 11/03/18 10:02 11/03/18 10:00 11/03/18 10:00 11/03/18 06:29 Intake and Output: 11/03/18 11/03/18 06:59 18:59 Output Total 350 Balance -350 - Medications Medications: Current Medications Arformoterol Tartrate (Brovana) 15 mcg IH [id number] [facility] Last Admin: 11/03/18 09:58 Dose: 15 mcg Budesonide (Pulmicort Respules) 0.5 mg IH BIDRESP [facility] Last Admin: 11/03/18 09:58 Dose: 0.5 mg Ferrous Sulfate (Feosol) 324 mg PO DAILY [facility] Last Admin: 11/03/18 15:32 Dose: 324 mg Cefepime HCl (Maxipime 1gm) 1 gm in 100 mls @ 100 mls/hr IVPB Q12 [facility]; Protocol Last Admin: 11/03/18 12:01 Dose: 100 mls/hr Magnesium Oxide (Mag-Ox) 400 mg PO BID [facility] Last Admin: 11/03/18 12:01 Dose: 400 mg Midodrine (Proamatine) 10 mg PO QID [facility] Last Admin: 11/03/18 15:33 Dose: 10 mg Mupirocin (Bactroban Ointment) 0 gm TOP BID [facility] Last Admin: 11/03/18 11:59 Dose: Not Given Polyethylene Glycol (Miralax) 17 gm PO DAILY [facility] Last Admin: 11/03/18 15:31 Dose: 17 gm Silver Sulfadiazine (Silvadene 1% 25 Gm) 0 gm TP BID [facility] Last Admin: 11/03/18 12:03 Dose: 25 gm Sitagliptin Phosphate (Januvia) 50 mg PO DAILY [facility] Last Admin: 11/03/18 15:31 Dose: 50 mg Tiotropium [place] (Spiriva) 18 mcg IH DAILY [facility] Last Admin: 11/03/18 15:33 Dose: 18 mcg - Labs Labs: 11/03/18 07:33 11/03/18 07:33 PT 16.4 SECONDS (9.4-12.5) H 11/01/18 21:05 INR 1.48 11/01/18 21:05 APTT 36.5 Seconds (26.9-38.3) 11/01/18 21:05 Assessment and Plan - Assessment and Plan (Free Text) Assessment: Infectious diseases Attending Physician Attestation Patient seen and examined, discussed with medical consultant. I have reviewed the patient's history of present illness, past medical, social, personal and family histories, pertinent physical exam findings, course so far in this hospital admission, pertinent laboratory and imaging results. I agree with the above findings, assessment and plan. In addition, continue Vancomycin and Cefepime for patient with possible UTI. Follow up final culture results. Foot xray showing lucency in distal phalanx on left foot in foot with previous osteomyelitis - follow up Podiatry recommendations. Will get ESR, CRP.
[2018-11-03] MEDS: POLYETHYLENE GLYCOL 3350 17 GM/Dose PACKET PO SCH (15:31)
[2018-11-03] MEDS: Tiotropium 18 mcg Cap For Inhalation IH SCH (15:33)
--- NOTE | 2018-11-03 16:18 | CP.PCM.PN ---
<Latrell Pierce - Last Filed: 11/03/18 16:15> Subjective - Date & Time of Evaluation Date of Evaluation: 11/03/18 Time of Evaluation: 16:15 - Subjective Subjective: Podiatry progress note for Dr. Peck 78 y/o male patient was seen and evaluated in the ER. Patient is well known to Dr. Callejas/Cisco. Patient complaints of weakness. Patient unable to provide any other history due to weakness. Patient more alert and awake today, and denies any complaints of fever, nausea, vomiting, shortness of breath, chest pain. Objective - Vital Signs/Intake and Output Vital Signs (last 24 hours): Temp Pulse Resp BP Pulse Ox 98.0 F 76 28 H 84/46 L 98 11/03/18 03:05 11/03/18 10:02 11/03/18 10:00 11/03/18 10:00 11/03/18 06:29 Intake and Output: 11/03/18 11/03/18 06:59 18:59 Output Total 350 Balance -350 - Medications Medications: Current Medications Arformoterol Tartrate (Brovana) 15 mcg IH [id number] [facility] Last Admin: 11/03/18 09:58 Dose: 15 mcg Budesonide (Pulmicort Respules) 0.5 mg IH BIDRESP [facility] Last Admin: 11/03/18 09:58 Dose: 0.5 mg Ferrous Sulfate (Feosol) 324 mg PO DAILY [facility] Last Admin: 11/03/18 15:32 Dose: 324 mg Cefepime HCl (Maxipime 1gm) 1 gm in 100 mls @ 100 mls/hr IVPB Q12 [facility]; Protocol Last Admin: 11/03/18 12:01 Dose: 100 mls/hr Magnesium Oxide (Mag-Ox) 400 mg PO BID [facility] Last Admin: 11/03/18 12:01 Dose: 400 mg Midodrine (Proamatine) 10 mg PO QID [facility] Last Admin: 11/03/18 15:33 Dose: 10 mg Mupirocin (Bactroban Ointment) 0 gm TOP BID [facility] Last Admin: 11/03/18 11:59 Dose: Not Given Polyethylene Glycol (Miralax) 17 gm PO DAILY [facility] Last Admin: 11/03/18 15:31 Dose: 17 gm Silver Sulfadiazine (Silvadene 1% 25 Gm) 0 gm TP BID [facility] Last Admin: 11/03/18 12:03 Dose: 25 gm Sitagliptin Phosphate (Januvia) 50 mg PO DAILY [facility] Last Admin: 11/03/18 15:31 Dose: 50 mg Tiotropium [place] (Spiriva) 18 mcg IH DAILY [facility] Last Admin: 11/03/18 15:33 Dose: 18 mcg - Labs Labs: 11/03/18 07:33 11/03/18 07:33 PT 16.4 SECONDS (9.4-12.5) H 11/01/18 21:05 INR 1.48 11/01/18 21:05 APTT 36.5 Seconds (26.9-38.3) 11/01/18 21:05 - Constitutional Appears: Well, Non-toxic, No Acute Distress - Head Exam Head Exam: ATRAUMATIC, NORMOCEPHALIC - Extremities Exam Additional comments: Left LE focused exam VASC: DP/PT pulses are faintly palpable likely secondary to B/L LE edema, Cap refill time: < 3 sec to all digits, Temp gradient: warm to cool from proximal to distal, +2 pitting edema noted to the dorsum of the feet bilaterally DERM: LEFT: left heel has superficial pressure ulceration with, no drainage, bleeding, pus, or streaking, 100% granular base, no clinical signs of infection; distal tip of hallux has wound with scab formation, no drainage, no malodor, no clinic al signs of infection, left second digit wound measuring 0.2 cm X 0.2 c, no drainage, richelle-wound erythema noted, negative probe to bone, no tunneling or tracking, wound likely due to hammer toe deformity; RIGHT: no wounds noted NEURO: Protective sensation grossly intact ORTHO: no pain on palpation to the left heel superficial lesion - Neurological Exam Neurological Exam: Alert, Awake, Oriented x3 - Psychiatric Exam Psychiatric exam: Normal Affect, Normal Mood Assessment and Plan - Assessment and Plan (Free Text) Assessment: 78 y/o M with left 2ns digit wound, left heel pressure ulceration and left distal tip of hallux superficial wound Plan: Patient seen and evaluated Plan discussed with Dr. Peck Chart, labs and vitals reviewed Afebrile, absent leukocytosis Left second digit wound culture ordered Left Foot X-rays ordered- no signs of osteo noted Wounds cleansed with saline - heel ulcer dressed with optifoam, left second digit dressed with bactroban, DSD Multipodus boot to be worn at all times Patient stable from podiatry standpoint Will continue to follow while in house <Rupert Peck - Last Filed: 11/03/18 16:22> Objective - Vital Signs/Intake and Output Vital Signs (last 24 hours): Temp Pulse Resp BP Pulse Ox 98.0 F 76 28 H 84/46 L 98 11/03/18 03:05 11/03/18 10:02 11/03/18 10:00 11/03/18 10:00 11/03/18 06:29 Intake and Output: 11/03/18 11/03/18 06:59 18:59 Output Total 350 Balance -350 - Medications Medications: Current Medications Arformoterol Tartrate (Brovana) 15 mcg IH [id number] [facility] Last Admin: 11/03/18 09:58 Dose: 15 mcg Budesonide (Pulmicort Respules) 0.5 mg IH BIDRESP [facility] Last Admin: 11/03/18 09:58 Dose: 0.5 mg Ferrous Sulfate (Feosol) 324 mg PO DAILY [facility] Last Admin: 11/03/18 15:32 Dose: 324 mg Cefepime HCl (Maxipime 1gm) 1 gm in 100 mls @ 100 mls/hr IVPB Q12 [facility]; Protocol Last Admin: 11/03/18 12:01 Dose: 100 mls/hr Magnesium Oxide (Mag-Ox) 400 mg PO BID [facility] Last Admin: 11/03/18 12:01 Dose: 400 mg Midodrine (Proamatine) 10 mg PO QID [facility] Last Admin: 11/03/18 15:33 Dose: 10 mg Mupirocin (Bactroban Ointment) 0 gm TOP BID [facility] Last Admin: 11/03/18 11:59 Dose: Not Given Polyethylene Glycol (Miralax) 17 gm PO DAILY [facility] Last Admin: 11/03/18 15:31 Dose: 17 gm Silver Sulfadiazine (Silvadene 1% 25 Gm) 0 gm TP BID [facility] Last Admin: 11/03/18 12:03 Dose: 25 gm Sitagliptin Phosphate (Januvia) 50 mg PO DAILY [facility] Last Admin: 11/03/18 15:31 Dose: 50 mg Tiotropium [place] (Spiriva) 18 mcg IH DAILY [facility] Last Admin: 11/03/18 15:33 Dose: 18 mcg - Labs Labs: 11/03/18 07:33 11/03/18 07:33 PT 16.4 SECONDS (9.4-12.5) H 11/01/18 21:05 INR 1.48 11/01/18 21:05 APTT 36.5 Seconds (26.9-38.3) 11/01/18 21:05 Attending/Attestation - Attestation I have personally seen and examined this patient.: Yes I have fully participated in the care of the patient.: Yes I have reviewed all pertinent clinical information, including history, physical exam and plan: Yes
--- NOTE | 2018-11-03 21:01 | US ---
HISTORY: Leg pain and swelling. Evaluate for DVT PHYSICIAN(S): Shalom De Souza MD. TECHNIQUE: Duplex sonography and color-flow Doppler with graded compression were used to evaluate the deep venous systems of both lower extremities. The and is somewhat limited by edema FINDINGS: The visualized deep venous systems of both lower extremities are sonographically normal and compressible. Normal wave forms and augmentation are seen. There is no sonographic evidence for deep venous thrombosis in the visualized segments of both lower extremities. IMPRESSION: No sonographic evidence for deep venous thrombosis in the visualized segments of both lower extremities.
[2018-11-04 07:08] LABS: HEMOGLOBIN 7.9 g/dL (14.0-18.0); MEAN CELL VOLUME 95.6 fl (80.0-105.0); MEAN CORPUSCULAR HEMOGLOBIN 31.3 pg (25.0-35.0); MEAN CORPUSCULAR HGB CONC 32.8 g/dl (31.0-37.0); MEAN PLATELET VOLUME 8.6 fl (7.0-11.0); RBC 2.52 10^6/uL (3.5-6.1); RED CELL DISTRIBUTION WIDTH 16.3 % (11.5-14.5); WHITE BLOOD COUNT 7.6 10^3/uL (4.5-11.0)
[2018-11-04] MEDS: Budesonide 0.5 mg/2 ml Inhal Susp UD IH SCH ×2 (07:55→20:07)
[2018-11-04] MEDS: Arformoterol 15 mcg/2 ml Inh Sol IH SCH ×2 (07:55→20:06)
--- NOTE | 2018-11-04 08:38 | CP.PCM.PN ---
<Tristen Euceda - Last Filed: 11/04/18 15:06> Subjective - Date & Time of Evaluation Date of Evaluation: 11/04/18 Time of Evaluation: 07:30 - Subjective Subjective: Infectious disease progress note: Patient seen and examined at bedside. No acute events overnight. Denies any urinary symptoms. No other complaints. 12 point ROS performed and negative other than stated above. Objective - Vital Signs/Intake and Output Vital Signs (last 24 hours): Temp Pulse Resp BP Pulse Ox 97.9 F 76 18 108/54 L 98 11/04/18 06:00 11/04/18 06:00 11/04/18 06:00 11/04/18 06:00 11/04/18 06:00 Intake and Output: 11/04/18 11/04/18 06:59 18:59 Intake Total 480 Output Total 650 Balance -170 - Medications Medications: Current Medications Arformoterol Tartrate (Brovana) 15 mcg IH [id number] [facility] Last Admin: 11/04/18 07:55 Dose: 15 mcg Budesonide (Pulmicort Respules) 0.5 mg IH BIDRESP [facility] Last Admin: 11/04/18 07:55 Dose: 0.5 mg Ferrous Sulfate (Feosol) 324 mg PO DAILY [facility] Last Admin: 11/03/18 15:32 Dose: 324 mg Cefepime HCl (Maxipime 1gm) 1 gm in 100 mls @ 100 mls/hr IVPB Q12 [facility]; Protocol Last Admin: 11/03/18 22:41 Dose: 100 mls/hr Magnesium Oxide (Mag-Ox) 400 mg PO BID [facility] Last Admin: 11/03/18 19:01 Dose: 400 mg Midodrine (Proamatine) 10 mg PO QID [facility] Last Admin: 11/03/18 22:42 Dose: 10 mg Mupirocin (Bactroban Ointment) 0 gm TOP BID [facility] Last Admin: 11/03/18 18:59 Dose: 1 applic Polyethylene Glycol (Miralax) 17 gm PO DAILY [facility] Last Admin: 11/03/18 15:31 Dose: 17 gm Silver Sulfadiazine (Silvadene 1% 25 Gm) 0 gm TP BID [facility] Last Admin: 11/03/18 19:01 Dose: 25 gm Sitagliptin Phosphate (Januvia) 50 mg PO DAILY [facility] Last Admin: 11/03/18 15:31 Dose: 50 mg Tiotropium [place] (Spiriva) 18 mcg IH DAILY [facility] Last Admin: 11/03/18 15:33 Dose: 18 mcg - Labs Labs: 11/04/18 06:40 11/03/18 07:33 PT 16.4 SECONDS (9.4-12.5) H 11/01/18 21:05 INR 1.48 11/01/18 21:05 APTT 36.5 Seconds (26.9-38.3) 11/01/18 21:05 - Constitutional Appears: No Acute Distress - Head Exam Head Exam: ATRAUMATIC, NORMOCEPHALIC - Eye Exam Eye Exam: EOMI, PERRL - ENT Exam ENT Exam: Mucous Membranes Moist - Respiratory Exam Respiratory Exam: Clear to Ausculation Bilateral (no r/r/w) - Cardiovascular Exam Cardiovascular Exam: REGULAR RHYTHM, +S1, +S2 - GI/Abdominal Exam GI & Abdominal Exam: Soft (NTND) - Extremities Exam Extremities Exam: absent: Calf Tenderness - Neurological Exam Neurological Exam: Alert, Awake, Oriented x3 - Psychiatric Exam Psychiatric exam: Normal Mood - Skin Skin Exam: Dry, Normal Color Assessment and Plan - Assessment and Plan (Free Text) Assessment: 78 M whose past medical history includes COPD, HTN, arthritis, diabetes, recurrent UTIs, and osteomyelitis, who presents to the ED complaining of lower extremity swelling. Found to have a possible UTI. Cont with Vanc and Cefepime Follow-up urine culture - Gram-negative slime, Awaiting sp and sensitivity F/u podiatry and surgery recs Cont to monitor Case and plan was reviewed and discussed with Dr. Whittington <Antonio Whittington - Last Filed: 11/04/18 15:13> Objective - Vital Signs/Intake and Output Vital Signs (last 24 hours): Temp Pulse Resp BP Pulse Ox 97.9 F 76 18 101/47 L 98 11/04/18 06:00 11/04/18 06:00 11/04/18 06:00 11/04/18 12:00 11/04/18 06:00 Intake and Output: 11/04/18 11/04/18 06:59 18:59 Intake Total 480 Output Total 650 Balance -170 - Medications Medications: Current Medications Arformoterol Tartrate (Brovana) 15 mcg IH [id number] [facility] Last Admin: 11/04/18 07:55 Dose: 15 mcg Budesonide (Pulmicort Respules) 0.5 mg IH BIDRESP [facility] Last Admin: 11/04/18 07:55 Dose: 0.5 mg Ferrous Sulfate (Feosol) 324 mg PO DAILY [facility] Last Admin: 11/04/18 11:48 Dose: 324 mg Cefepime HCl (Maxipime 1gm) 1 gm in 100 mls @ 100 mls/hr IVPB Q12 [facility]; Protocol Last Admin: 11/04/18 11:46 Dose: 100 mls/hr Magnesium Oxide (Mag-Ox) 400 mg PO BID [facility] Last Admin: 11/04/18 11:48 Dose: 400 mg Midodrine (Proamatine) 10 mg PO QID [facility] Last Admin: 11/04/18 11:52 Dose: 10 mg Mupirocin (Bactroban Ointment) 0 gm TOP BID [facility] Last Admin: 11/04/18 10:53 Dose: 1 applic Polyethylene Glycol (Miralax) 17 gm PO DAILY [facility] Last Admin: 11/04/18 11:47 Dose: 17 gm Silver Sulfadiazine (Silvadene 1% 25 Gm) 0 gm TP BID [facility] Last Admin: 11/04/18 11:51 Dose: 25 gm Sitagliptin Phosphate (Januvia) 50 mg PO DAILY [facility] Last Admin: 11/04/18 11:48 Dose: 50 mg Tiotropium [place] (Spiriva) 18 mcg IH DAILY [facility] Last Admin: 11/04/18 11:48 Dose: 18 mcg - Labs Labs: 11/04/18 06:40 11/04/18 06:40 PT 16.4 SECONDS (9.4-12.5) H 11/01/18 21:05 INR 1.48 11/01/18 21:05 APTT 36.5 Seconds (26.9-38.3) 11/01/18 21:05 Assessment and Plan - Assessment and Plan (Free Text) Assessment: Infectious diseases Attending Physician Attestation Patient seen and examined, discussed with medical artist. I have reviewed the patient's history of present illness, past medical, social, personal and family histories, pertinent physical exam findings, course so far in this hospital admission, pertinent laboratory and imaging results. I agree with the above findings, assessment and plan. In addition, continue Cefepime pending identification and sensitivities of the GNB in the urine for this patient with complicated UTI with gram negative bacilli. Follow up further recommendations of Podiatry for the foot.
--- NOTE | 2018-11-04 09:06 | CP.PCM.PN ---
<StanLatrell noland - Last Filed: 11/04/18 09:03> Subjective - Date & Time of Evaluation Date of Evaluation: 11/04/18 Time of Evaluation: 09:03 - Subjective Subjective: Podiatry progress note for Dr. Peck 78 y/o male patient was seen and evaluated in the ER. Patient is well known to Dr. Callejas/Cisco. Patient complaints of weakness. Patient conversing much more today, and states he feels better. Patient denies any complaints of fever, nausea, vomiting, shortness of breath, chest pain. Objective - Vital Signs/Intake and Output Vital Signs (last 24 hours): Temp Pulse Resp BP Pulse Ox 97.9 F 76 18 108/54 L 98 11/04/18 06:00 11/04/18 06:00 11/04/18 06:00 11/04/18 06:00 11/04/18 06:00 Intake and Output: 11/04/18 11/04/18 06:59 18:59 Intake Total 480 Output Total 650 Balance -170 - Medications Medications: Current Medications Arformoterol Tartrate (Brovana) 15 mcg IH [id number] [facility] Last Admin: 11/04/18 07:55 Dose: 15 mcg Budesonide (Pulmicort Respules) 0.5 mg IH BIDRESP [facility] Last Admin: 11/04/18 07:55 Dose: 0.5 mg Ferrous Sulfate (Feosol) 324 mg PO DAILY [facility] Last Admin: 11/03/18 15:32 Dose: 324 mg Furosemide (Lasix) 20 mg IVP ONCE ONE Stop: 11/04/18 09:01 Cefepime HCl (Maxipime 1gm) 1 gm in 100 mls @ 100 mls/hr IVPB Q12 [facility]; Protocol Last Admin: 11/03/18 22:41 Dose: 100 mls/hr Magnesium Oxide (Mag-Ox) 400 mg PO BID [facility] Last Admin: 11/03/18 19:01 Dose: 400 mg Midodrine (Proamatine) 10 mg PO QID [facility] Last Admin: 11/03/18 22:42 Dose: 10 mg Mupirocin (Bactroban Ointment) 0 gm TOP BID [facility] Last Admin: 11/03/18 18:59 Dose: 1 applic Polyethylene Glycol (Miralax) 17 gm PO DAILY [facility] Last Admin: 11/03/18 15:31 Dose: 17 gm Silver Sulfadiazine (Silvadene 1% 25 Gm) 0 gm TP BID [facility] Last Admin: 11/03/18 19:01 Dose: 25 gm Sitagliptin Phosphate (Januvia) 50 mg PO DAILY [facility] Last Admin: 11/03/18 15:31 Dose: 50 mg Tiotropium [place] (Spiriva) 18 mcg IH DAILY [facility] Last Admin: 11/03/18 15:33 Dose: 18 mcg - Labs Labs: 11/04/18 06:40 11/03/18 07:33 PT 16.4 SECONDS (9.4-12.5) H 11/01/18 21:05 INR 1.48 11/01/18 21:05 APTT 36.5 Seconds (26.9-38.3) 11/01/18 21:05 - Constitutional Appears: Well, Non-toxic, No Acute Distress - Head Exam Head Exam: ATRAUMATIC, NORMOCEPHALIC - Extremities Exam Additional comments: Left LE focused exam VASC: DP/PT pulses are faintly palpable likely secondary to B/L LE edema, Cap refill time: < 3 sec to all digits, Temp gradient: warm to cool from proximal to distal, +2 pitting edema noted to the dorsum of the feet bilaterally DERM: LEFT: left heel has superficial pressure ulceration with, no drainage, bleeding, pus, or streaking, 100% granular base, no clinical signs of infection; distal tip of hallux has wound with scab formation, no drainage, no malodor, no clinical signs of infection, left second digit wound measuring 0.2 cm X 0.2 c, no drainage, richelle-wound erythema noted, negative probe to bone, no tunneling or tracking, wound likely due to hammer toe deformity; RIGHT: no wounds noted NEURO: Protective sensation grossly intact ORTHO: no pain on palpation to the left heel superficial lesion - Neurological Exam Neurological Exam: Alert, Awake, Oriented x3 - Psychiatric Exam Psychiatric exam: Normal Affect, Normal Mood Assessment and Plan - Assessment and Plan (Free Text) Assessment: 78 y/o M with left 2ns digit wound, left heel pressure ulceration and left distal tip of hallux superficial wound Plan: Patient seen and evaluated Plan discussed with Dr. Peck Chart, labs and vitals reviewed Afebrile, absent leukocytosis Left second digit wound culture ordered - Pending Left Foot X-rays ordered- no signs of osteo noted Wounds cleansed with saline - heel ulcer dressed with optifoam, left second digit dressed with bactroban, DSD Multipodus boot to be worn at all times Patient stable from podiatry standpoint Will continue to follow while in house <Rupert Peck - Last Filed: 11/04/18 09:51> Objective - Vital Signs/Intake and Output Vital Signs (last 24 hours): Temp Pulse Resp BP Pulse Ox 97.9 F 76 18 108/54 L 98 11/04/18 06:00 11/04/18 06:00 11/04/18 06:00 11/04/18 06:00 11/04/18 06:00 Intake and Output: 11/04/18 11/04/18 06:59 18:59 Intake Total 480 Output Total 650 Balance -170 - Medications Medications: Current Medications Arformoterol Tartrate (Brovana) 15 mcg IH [id number] [facility] Last Admin: 11/04/18 07:55 Dose: 15 mcg Budesonide (Pulmicort Respules) 0.5 mg IH BIDRESP [facility] Last Admin: 11/04/18 07:55 Dose: 0.5 mg Ferrous Sulfate (Feosol) 324 mg PO DAILY [facility] Last Admin: 11/03/18 15:32 Dose: 324 mg Cefepime HCl (Maxipime 1gm) 1 gm in 100 mls @ 100 mls/hr IVPB Q12 [facility]; Protocol Last Admin: 11/03/18 22:41 Dose: 100 mls/hr Magnesium Oxide (Mag-Ox) 400 mg PO BID [facility] Last Admin: 11/03/18 19:01 Dose: 400 mg Midodrine (Proamatine) 10 mg PO QID [facility] Last Admin: 11/03/18 22:42 Dose: 10 mg Mupirocin (Bactroban Ointment) 0 gm TOP BID [facility] Last Admin: 11/03/18 18:59 Dose: 1 applic Polyethylene Glycol (Miralax) 17 gm PO DAILY [facility] Last Admin: 11/03/18 15:31 Dose: 17 gm Silver Sulfadiazine (Silvadene 1% 25 Gm) 0 gm TP BID [facility] Last Admin: 11/03/18 19:01 Dose: 25 gm Sitagliptin Phosphate (Januvia) 50 mg PO DAILY [facility] Last Admin: 11/03/18 15:31 Dose: 50 mg Tiotropium [place] (Spiriva) 18 mcg IH DAILY [facility] Last Admin: 11/03/18 15:33 Dose: 18 mcg - Labs Labs: 11/04/18 06:40 11/04/18 06:40 PT 16.4 SECONDS (9.4-12.5) H 11/01/18 21:05 INR 1.48 11/01/18 21:05 APTT 36.5 Seconds (26.9-38.3) 11/01/18 21:05 Attending/Attestation - Attestation I have personally seen and examined this patient.: Yes I have fully participated in the care of the patient.: Yes I have reviewed all pertinent clinical information, including history, physical exam and plan: Yes
[2018-11-04 09:23] LABS: ALB/GLOB RATIO 0.7 (1.1-1.8); ALBUMIN 1.8 g/dL (3.0-4.8); ALT/SGPT 23 U/L (7-56); AST/SGOT 38 U/L (17-59); BLOOD UREA NITROGEN 29 mg/dL (7-21); CALCIUM 7.7 mg/dL (8.4-10.5); GFR NON-AFRICAN AMERICAN > 60
[2018-11-04] MEDS: Mupirocin 2% Ointment 15 GM TUBE TOP SCH ×2 (10:53→19:00)
[2018-11-04] MEDS: Cefepime 1gm in NS 100ml 1 GM/100 ML BAG IVPB SCH ×2 (11:46→23:22)
[2018-11-04] MEDS: POLYETHYLENE GLYCOL 3350 17 GM/Dose PACKET PO SCH (11:47)
[2018-11-04] MEDS: Tiotropium 18 mcg Cap For Inhalation IH SCH (11:48)
[2018-11-04] MEDS: Magnesium Oxide 400 mg Tab UD PO SCH ×2 (11:48→19:10)
[2018-11-04] MEDS: Silver Sulfadiazine 1% Cream (25 gm) TP SCH ×2 (11:51→19:11)
--- NOTE | 2018-11-04 13:17 | PN ---
DATE: 11/04/2018 SUBJECTIVE: He was more alert today, talking stronger today, good spirits, he is going to try and eat. I would like to get him out of bed to chair, get his body moving. He is being seen by Infectious Disease, Podiatry and Surgery. He is on IV antibiotics. He is on Silvadene, continue air mattress repositioning. PHYSICAL EXAMINATION VITAL SIGNS: He has a 97.9 temperature, 76 pulse, 108/54 blood pressure, 18 respiratory rate and 98% O2 sat on room air. HEENT: Head is atraumatic and normocephalic. HEART: Regular rate. LUNGS: Clear to auscultation. ABDOMEN: Soft. EXTREMITIES: No edema. 126/58 blood pressure. His blood pressure was as low as 84/46 yesterday. LABORATORY DATA: He has a 7.6 white count; 7.9 hemoglobin, I am going to transfuse him 2 units of packed red blood cells, call in GI; hematocrit 24.1 with platelets of 130. He has a 137 sodium, potassium is 4.2, BUN 27, creatinine 0.9, GFR is greater than 60, sugar is 81, calcium is 7.9, total bilirubin is 0.8, AST is 36, ALT is 18, alkaline phosphatase 53, C-reactive protein is high at 26.1. BNP is high at 2850. There is a consult with Dr. Hood the sleep lab technician. He is having petal edema, good LV function, no pulmonary hypertension. I am going to transfuse him 2 units of packed red blood cells, get him Lasix 40 IV in between. Get him out of bed to chair, physical therapy and continue with treatment and care. Jn Nguyen DO MTDD
--- NOTE | 2018-11-04 19:00 | PN ---
DATE: 11/04/2018 CARDIOLOGY FOLLOWUP SUBJECTIVE: The patient is depressed about finding some bad news, but the patient refuses to talk about it. Denies shortness of breath. PHYSICAL EXAMINATION: VITAL SIGNS: Blood pressure 108/54, heart rates in the 70s. NECK: Negative JVD. LUNGS: Without rales. HEART: S1, S2. EXTREMITIES: Decreasing edema. LABORATORY DATA: Hemoglobin is 7.9. Chemistries, BUN and creatinine are unremarkable. IMPRESSION: 1. Marked edema. 2. Recurrent pedal edema. 3. Good left ventricular function. 4. Diabetes mellitus. 5. Chronic obstructive pulmonary disease. 6. Hypertension. PLAN: Given these findings, I agree with packed red blood cells will help the patient. We will continue Lasix. Shalom Hood MD
[2018-11-05 07:13] LABS: HEMOGLOBIN 9.9 g/dL (14.0-18.0); MEAN CELL VOLUME 93.3 fl (80.0-105.0); MEAN CORPUSCULAR HEMOGLOBIN 31.7 pg (25.0-35.0); MEAN PLATELET VOLUME 8.3 fl (7.0-11.0); RBC 3.12 10^6/uL (3.5-6.1); RED CELL DISTRIBUTION WIDTH 16.5 % (11.5-14.5); WHITE BLOOD COUNT 5.6 10^3/uL (4.5-11.0)
[2018-11-05] MEDS: Arformoterol 15 mcg/2 ml Inh Sol IH SCH ×2 (07:18→19:50)
[2018-11-05] MEDS: Budesonide 0.5 mg/2 ml Inhal Susp UD IH SCH ×2 (07:18→19:50)
[2018-11-05 07:22] LABS: ALB/GLOB RATIO 0.7 (1.1-1.8); ALBUMIN 1.7 g/dL (3.0-4.8); ALT/SGPT 18 U/L (7-56); AST/SGOT 33 U/L (17-59); BLOOD UREA NITROGEN 29 mg/dL (7-21); CALCIUM 7.6 mg/dL (8.4-10.5); GFR NON-AFRICAN AMERICAN > 60
--- NOTE | 2018-11-05 09:57 | CP.PCM.PN ---
<Latrell Pierce - Last Filed: 11/05/18 09:56> Subjective - Date & Time of Evaluation Date of Evaluation: 11/05/18 Time of Evaluation: 09:56 - Subjective Subjective: Podiatry progress note for Dr. Peck 78 y/o male patient was seen and evaluated in the ER. Patient is well known to Dr. Callejas/Cisco. Patient complaints of weakness. Patient sleeping comfortably prior to dressing change. Patient denies any complaints of fever, nausea, vomiting, shortness of breath, chest pain. Objective - Vital Signs/Intake and Output Vital Signs (last 24 hours): Temp Pulse Resp BP Pulse Ox 97.9 F 77 19 110/69 99 11/05/18 06:00 11/05/18 06:00 11/05/18 06:00 11/05/18 06:00 11/05/18 06:00 Intake and Output: 11/05/18 11/05/18 06:59 18:59 Intake Total 1206 Output Total 450 Balance 756 - Medications Medications: Current Medications Arformoterol Tartrate (Brovana) 15 mcg IH [id number] [facility] Last Admin: 11/05/18 07:18 Dose: 15 mcg Budesonide (Pulmicort Respules) 0.5 mg IH BIDRESP [facility] Last Admin: 11/05/18 07:18 Dose: 0.5 mg Ferrous Sulfate (Feosol) 324 mg PO DAILY [facility] Last Admin: 11/04/18 11:48 Dose: 324 mg Cefepime HCl (Maxipime 1gm) 1 gm in 100 mls @ 100 mls/hr IVPB Q12 [facility]; Protocol Last Admin: 11/04/18 23:22 Dose: 100 mls/hr Magnesium Oxide (Mag-Ox) 400 mg PO BID [facility] Last Admin: 11/04/18 19:10 Dose: 400 mg Midodrine (Proamatine) 10 mg PO QID [facility] Last Admin: 11/04/18 23:22 Dose: Not Given Mupirocin (Bactroban Ointment) 0 gm TOP BID [facility] Last Admin: 11/04/18 19:00 Dose: 1 applic Nystatin (Nystop Topical Powder) 1 gm TOP BID [facility] Polyethylene Glycol (Miralax) 17 gm PO DAILY [facility] Last Admin: 11/04/18 11:47 Dose: 17 gm Silver Sulfadiazine (Silvadene 1% 25 Gm) 0 gm TP BID [facility] Last Admin: 11/04/18 19:11 Dose: 25 gm Sitagliptin Phosphate (Januvia) 50 mg PO DAILY [facility] Last Admin: 11/04/18 11:48 Dose: 50 mg Tiotropium [place] (Spiriva) 18 mcg IH DAILY [facility] Last Admin: 11/04/18 11:48 Dose: 18 mcg - Labs Labs: 11/05/18 06:50 11/05/18 06:50 PT 16.4 SECONDS (9.4-12.5) H 11/01/18 21:05 INR 1.48 11/01/18 21:05 APTT 36.5 Seconds (26.9-38.3) 11/01/18 21:05 - Constitutional Appears: Well, Non-toxic, No Acute Distress - Head Exam Head Exam: ATRAUMATIC, NORMOCEPHALIC - Extremities Exam Additional comments: Left LE focused exam VASC: DP/PT pulses are faintly palpable likely secondary to B/L LE edema, Cap refill time: < 3 sec to all digits, Temp gradient: warm to cool from proximal to distal, +2 pitting edema noted to the dorsum of the feet bilaterally DERM: LEFT: left heel has superficial pressure ulceration with, no drainage, bleeding, pus, or streaking, 100% granular base, no clinical signs of infection; distal tip of hallux has wound with scab formation, no drainage, no malodor, no clinical signs of infection, left second digit wound measuring 0.2 cm X 0.2 c, no drainage, richelle-wound erythema noted, negative probe to bone, no tunneling or tracking, wound likely due to hammer toe deformity; RIGHT: no wounds noted NEURO: Protective sensation grossly intact ORTHO: no pain on palpation to the left heel superficial lesion - Neurological Exam Neurological Exam: Alert, Awake, Oriented x3 - Psychiatric Exam Psychiatric exam: Normal Affect, Normal Mood Assessment and Plan - Assessment and Plan (Free Text) Assessment: 78 y/o M with left 2ns digit wound, left heel pressure ulceration and left distal tip of hallux superficial wound Plan: Patient seen and evaluated Plan discussed with Dr. Peck Chart, labs and vitals reviewed Afebrile, absent leukocytosis Left second digit wound culture- MRSA Left Foot X-rays ordered- no signs of osteo noted Wounds cleansed with saline - heel ulcer dressed with optifoam, left second digit dressed with bactroban, DSD Multipodus boot to be worn at all times Patient stable from podiatry standpoint Will continue to follow while in house <BaldevvibhaRupert martin - Last Filed: 11/06/18 14:38> Objective - Vital Signs/Intake and Output Vital Signs (last 24 hours): Temp Pulse Resp BP Pulse Ox 97.8 F 75 20 122/52 L 100 11/05/18 16:49 11/05/18 16:49 11/05/18 16:49 11/05/18 16:49 11/05/18 16:49 Intake and Output: 11/05/18 11/05/18 06:59 18:59 Intake Total 1206 240 Output Total 450 300 Balance 756 -60 - Medications Medications: Current Medications Arformoterol Tartrate (Brovana) 15 mcg IH [id number] [facility] Last Admin: 11/05/18 07:18 Dose: 15 mcg Budesonide (Pulmicort Respules) 0.5 mg IH BIDRESP [facility] Last Admin: 11/05/18 07:18 Dose: 0.5 mg Ferrous Sulfate (Feosol) 324 mg PO DAILY [facility] Last Admin: 11/05/18 10:13 Dose: 324 mg Cefepime HCl (Maxipime 1gm) 1 gm in 100 mls @ 100 mls/hr IVPB Q12 [facility]; Protocol Last Admin: 11/05/18 10:15 Dose: 100 mls/hr Doxycycline Hyclate 100 mg/ (Sodium Chloride) 100 mls @ 100 mls/hr IVPB Q12 [facility]; Protocol Last Admin: 11/05/18 15:22 Dose: 100 mls/hr Magnesium Oxide (Mag-Ox) 400 mg PO BID [facility] Last Admin: 11/05/18 10:13 Dose: 400 mg Midodrine (Proamatine) 10 mg PO QID [facility] Last Admin: 11/05/18 15:21 Dose: 10 mg Mupirocin (Bactroban Ointment) 0 gm TOP BID [facility] Last Admin: 11/05/18 10:09 Dose: 1 applic Nystatin (Nystop Topical Powder) 1 gm TOP BID [facility] Last Admin: 11/05/18 10:08 Dose: 1 appl Polyethylene Glycol (Miralax) 17 gm PO DAILY [facility] Last Admin: 11/05/18 10:11 Dose: 17 gm Silver Sulfadiazine (Silvadene 1% 25 Gm) 0 gm TP BID [facility] Last Admin: 11/05/18 10:09 Dose: 25 gm Sitagliptin Phosphate (Januvia) 50 mg PO DAILY [facility] Last Admin: 11/05/18 10:13 Dose: 50 mg Tiotropium [place] (Spiriva) 18 mcg IH DAILY [facility] Last Admin: 11/05/18 10:11 Dose: 18 mcg - Labs Labs: 11/05/18 06:50 11/05/18 06:50 PT 16.4 SECONDS (9.4-12.5) H 11/01/18 21:05 INR 1.48 11/01/18 21:05 APTT 36.5 Seconds (26.9-38.3) 11/01/18 21:05 Attending/Attestation - Attestation I have personally seen and examined this patient.: Yes I have fully participated in the care of the patient.: Yes I have reviewed all pertinent clinical information, including history, physical exam and plan: Yes
--- NOTE | 2018-11-05 09:58 | CP.PCM.PN ---
<Tristen Euceda - Last Filed: 11/05/18 12:26> Subjective - Date & Time of Evaluation Date of Evaluation: 11/05/18 Time of Evaluation: 07:00 - Subjective Subjective: Infectious disease progress note: Patient seen and examined at bedside. No acute events overnight. Patient denies any complaints. Denies any urinary symptoms. 12 point ROS performed and negative other than stated above. Objective - Vital Signs/Intake and Output Vital Signs (last 24 hours): Temp Pulse Resp BP Pulse Ox 97.9 F 77 19 110/69 99 11/05/18 06:00 11/05/18 06:00 11/05/18 06:00 11/05/18 06:00 11/05/18 06:00 Intake and Output: 11/05/18 11/05/18 06:59 18:59 Intake Total 1206 Output Total 450 Balance 756 - Medications Medications: Current Medications Arformoterol Tartrate (Brovana) 15 mcg IH [id number] [facility] Last Admin: 11/05/18 07:18 Dose: 15 mcg Budesonide (Pulmicort Respules) 0.5 mg IH BIDRESP [facility] Last Admin: 11/05/18 07:18 Dose: 0.5 mg Ferrous Sulfate (Feosol) 324 mg PO DAILY [facility] Last Admin: 11/04/18 11:48 Dose: 324 mg Cefepime HCl (Maxipime 1gm) 1 gm in 100 mls @ 100 mls/hr IVPB Q12 [facility]; Protocol Last Admin: 11/04/18 23:22 Dose: 100 mls/hr Magnesium Oxide (Mag-Ox) 400 mg PO BID [facility] Last Admin: 11/04/18 19:10 Dose: 400 mg Midodrine (Proamatine) 10 mg PO QID [facility] Last Admin: 11/04/18 23:22 Dose: Not Given Mupirocin (Bactroban Ointment) 0 gm TOP BID [facility] Last Admin: 11/04/18 19:00 Dose: 1 applic Nystatin (Nystop Topical Powder) 1 gm TOP BID [facility] Polyethylene Glycol (Miralax) 17 gm PO DAILY [facility] Last Admin: 11/04/18 11:47 Dose: 17 gm Silver Sulfadiazine (Silvadene 1% 25 Gm) 0 gm TP BID [facility] Last Admin: 11/04/18 19:11 Dose: 25 gm Sitagliptin Phosphate (Januvia) 50 mg PO DAILY [facility] Last Admin: 11/04/18 11:48 Dose: 50 mg Tiotropium [place] (Spiriva) 18 mcg IH DAILY [facility] Last Admin: 11/04/18 11:48 Dose: 18 mcg - Labs Labs: 11/05/18 06:50 11/05/18 06:50 PT 16.4 SECONDS (9.4-12.5) H 11/01/18 21:05 INR 1.48 11/01/18 21:05 APTT 36.5 Seconds (26.9-38.3) 11/01/18 21:05 - Constitutional Appears: No Acute Distress - Head Exam Head Exam: ATRAUMATIC, NORMOCEPHALIC - Eye Exam Eye Exam: EOMI - Respiratory Exam Respiratory Exam: Clear to Ausculation Bilateral. absent: Rales, Wheezes - Cardiovascular Exam Cardiovascular Exam: RRR, +S1, +S2 - GI/Abdominal Exam GI & Abdominal Exam: Soft. absent: Tenderness - Extremities Exam Extremities Exam: absent: Calf Tenderness, Pedal Edema - Neurological Exam Neurological Exam: Alert, Awake - Psychiatric Exam Psychiatric exam: Normal Mood - Skin Skin Exam: Dry, Warm Assessment and Plan - Assessment and Plan (Free Text) Assessment: 78 M whose past medical history includes COPD, HTN, arthritis, diabetes, recurrent UTIs, and osteomyelitis, who presents to the ED complaining of lower extremity swelling. Found to have a possible UTI. D/c Vanc and started on Doxy, Cont Cefepime L foot cx with MRSA, and Urine with psuedomonas F/u podiatry and surgery recs Cont to monitor Case and plan was reviewed and discussed with Dr. Whittington <Antonio Whittington S - Last Filed: 11/05/18 18:10> Objective - Vital Signs/Intake and Output Vital Signs (last 24 hours): Temp Pulse Resp BP Pulse Ox 97.8 F 75 20 122/52 L 100 11/05/18 16:49 11/05/18 16:49 11/05/18 16:49 11/05/18 16:49 11/05/18 16:49 Intake and Output: 11/05/18 11/05/18 06:59 18:59 Intake Total 1206 240 Output Total 450 300 Balance 756 -60 - Medications Medications: Current Medications Arformoterol Tartrate (Brovana) 15 mcg IH [id number] [facility] Last Admin: 11/05/18 07:18 Dose: 15 mcg Budesonide (Pulmicort Respules) 0.5 mg IH BIDRESP [facility] Last Admin: 11/05/18 07:18 Dose: 0.5 mg Ferrous Sulfate (Feosol) 324 mg PO DAILY [facility] Last Admin: 11/05/18 10:13 Dose: 324 mg Cefepime HCl (Maxipime 1gm) 1 gm in 100 mls @ 100 mls/hr IVPB Q12 [facility]; Protocol Last Admin: 11/05/18 10:15 Dose: 100 mls/hr Doxycycline Hyclate 100 mg/ (Sodium Chloride) 100 mls @ 100 mls/hr IVPB Q12 [facility]; Protocol Last Admin: 11/05/18 15:22 Dose: 100 mls/hr Magnesium Oxide (Mag-Ox) 400 mg PO BID [facility] Last Admin: 11/05/18 10:13 Dose: 400 mg Midodrine (Proamatine) 10 mg PO QID [facility] Last Admin: 11/05/18 15:21 Dose: 10 mg Mupirocin (Bactroban Ointment) 0 gm TOP BID [facility] Last Admin: 11/05/18 10:09 Dose: 1 applic Nystatin (Nystop Topical Powder) 1 gm TOP BID [facility] Last Admin: 11/05/18 10:08 Dose: 1 appl Polyethylene Glycol (Miralax) 17 gm PO DAILY [facility] Last Admin: 11/05/18 10:11 Dose: 17 gm Silver Sulfadiazine (Silvadene 1% 25 Gm) 0 gm TP BID [facility] Last Admin: 11/05/18 10:09 Dose: 25 gm Sitagliptin Phosphate (Januvia) 50 mg PO DAILY [facility] Last Admin: 11/05/18 10:13 Dose: 50 mg Tiotropium [place] (Spiriva) 18 mcg IH DAILY [facility] Last Admin: 11/05/18 10:11 Dose: 18 mcg - Labs Labs: 11/05/18 06:50 11/05/18 06:50 PT 16.4 SECONDS (9.4-12.5) H 11/01/18 21:05 INR 1.48 11/01/18 21:05 APTT 36.5 Seconds (26.9-38.3) 11/01/18 21:05 Assessment and Plan - Assessment and Plan (Free Text) Assessment: Infectious diseases Attending Physician Attestation Patient seen and examined, discussed with medical equipment technician. I have reviewed the patient's history of present illness, past medical, social, personal and family histories, pertinent physical exam findings, course so far in this hospital admission, pertinent laboratory and imaging results. I agree with the above findings, assessment and plan. In addition, continue Cefepime and add Doxycycline for patient with UTI with Pseudomonas and left foot ulcer with MRSA. Follow up further plans of Podiatry.
[2018-11-05] MEDS: Nystatin 100,000 Units/gm Topical Pow(15 gm) TOP SCH ×2 (10:08→19:18)
[2018-11-05] MEDS: Silver Sulfadiazine 1% Cream (25 gm) TP SCH ×2 (10:09→19:18)
[2018-11-05] MEDS: Mupirocin 2% Ointment 15 GM TUBE TOP SCH ×2 (10:09→19:18)
[2018-11-05] MEDS: Tiotropium 18 mcg Cap For Inhalation IH SCH (10:11)
[2018-11-05] MEDS: POLYETHYLENE GLYCOL 3350 17 GM/Dose PACKET PO SCH (10:11)
[2018-11-05] MEDS: Magnesium Oxide 400 mg Tab UD PO SCH ×2 (10:13→19:19)
[2018-11-05] MEDS: Cefepime 1gm in NS 100ml 1 GM/100 ML BAG IVPB SCH ×2 (10:15→21:50)
--- NOTE | 2018-11-05 14:23 | PN ---
DATE: 11/05/2018 SUBJECTIVE: I saw him resting comfortably in bed. He slept fairly well last night. He is not in any pain. He is eating a little bit. He was transfused, when he had a 7 hemoglobin. He is better. He is being seen by Cardiology, Podiatry, Infectious Disease, Surgery. PHYSICAL EXAMINATION: VITAL SIGNS: He is having a temperature of 97.9, 77 pulse, 110/69 blood pressure, 19 respiratory rate, 99% O2 sat on room air. HEENT: Head is atraumatic and normocephalic. Mouth is dry. HEART: Regular rate. LUNGS: Decreased breath sounds. ABDOMEN: Soft, nontender. Positive bowel sounds. EXTREMITIES: Have no edema. Some weeping in the upper extremities, it is slowing down. MEDICATIONS: He is currently on Bactroban cream, Brovana, Feosol, Januvia, magnesium oxide, Maxipime, MiraLax, nystatin, ProAmatine, Pulmicort, Silvadene cream, Spiriva. LABORATORY DATA: He has a white count of 5.6, hemoglobin is up to 9.9 from 7.9, hematocrit 29.1, platelets are 90. Sodium 138, potassium was 3.8, BUN is 29, creatinine 0.9. GFR is greater than 60, sugar is 82, calcium 7.6, total bili is 1, AST is 33, ALT is 18, alk phos 65, total protein is 4.2. Urine has moderate leukocytes. He has methicillin-resistant Staph aureus in wound culture, has pseudomonas aeruginosa in urine culture. ASSESSMENT AND PLAN: He is being seen by multiple doctors gastrointestinal, for the low hemoglobin,will continue with aggressive treatment and care. Try and get him out of bed to chair. Try and get him physical therapy, get his body moving, antibiotics. Will then be going to [place] for further care and physical therapy. Jn Nguyen DO MTDD
[2018-11-06 06:57] LABS: HEMOGLOBIN 9.8 g/dL (14.0-18.0); MEAN CELL VOLUME 93.6 fl (80.0-105.0); MEAN CORPUSCULAR HEMOGLOBIN 31.2 pg (25.0-35.0); MEAN CORPUSCULAR HGB CONC 33.3 g/dl (31.0-37.0); MEAN PLATELET VOLUME 8.7 fl (7.0-11.0); RBC 3.14 10^6/uL (3.5-6.1); RED CELL DISTRIBUTION WIDTH 16.7 % (11.5-14.5); WHITE BLOOD COUNT 6.5 10^3/uL (4.5-11.0)
[2018-11-06 07:05] LABS: ALB/GLOB RATIO 0.7 (1.1-1.8); ALBUMIN 1.7 g/dL (3.0-4.8); ALT/SGPT 21 U/L (7-56); AST/SGOT 36 U/L (17-59); BLOOD UREA NITROGEN 28 mg/dL (7-21); CALCIUM 7.4 mg/dL (8.4-10.5); GFR NON-AFRICAN AMERICAN > 60
[2018-11-06] MEDS: Budesonide 0.5 mg/2 ml Inhal Susp UD IH SCH (07:20)
[2018-11-06] MEDS: Arformoterol 15 mcg/2 ml Inh Sol IH SCH (07:20)
[2018-11-06 07:47] VITALS: BP 135/89; PULSE 80; RESP 18; TEMP 97.8; O2SAT 97
[2018-11-06] MEDS: POLYETHYLENE GLYCOL 3350 17 GM/Dose PACKET PO SCH (09:28)
[2018-11-06] MEDS: Tiotropium 18 mcg Cap For Inhalation IH SCH (09:28)
[2018-11-06] MEDS: Magnesium Oxide 400 mg Tab UD PO SCH (09:29)
[2018-11-06] MEDS: Cefepime 1gm in NS 100ml 1 GM/100 ML BAG IVPB SCH (09:34)
[2018-11-06] MEDS: Mupirocin 2% Ointment 15 GM TUBE TOP SCH (09:36)
[2018-11-06] MEDS: Nystatin 100,000 Units/gm Topical Pow(15 gm) TOP SCH (09:37)
[2018-11-06] MEDS: Silver Sulfadiazine 1% Cream (25 gm) TP SCH (09:38)
--- NOTE | 2018-11-06 09:56 | CP.PCM.PN ---
<Tristen Euceda - Last Filed: 11/06/18 13:35> Subjective - Date & Time of Evaluation Date of Evaluation: 11/06/18 Time of Evaluation: 07:50 - Subjective Subjective: Infectious disease progress note: Patient seen and examined at bedside. No urinary symptoms. No fevers. No complaints. 12 point ROS performed and negative other than stated above. Objective - Vital Signs/Intake and Output Vital Signs (last 24 hours): Temp Pulse Resp BP Pulse Ox 97.8 F 80 18 135/89 97 11/06/18 06:00 11/06/18 06:00 11/06/18 06:00 11/06/18 06:00 11/06/18 06:00 Intake and Output: 11/06/18 11/06/18 06:59 18:59 Intake Total 120 Output Total 100 Balance 20 - Medications Medications: Current Medications Arformoterol Tartrate (Brovana) 15 mcg IH [id number] [facility] Last Admin: 11/06/18 07:20 Dose: 15 mcg Budesonide (Pulmicort Respules) 0.5 mg IH BIDRESP [facility] Last Admin: 11/06/18 07:20 Dose: 0.5 mg Ferrous Sulfate (Feosol) 324 mg PO DAILY [facility] Last Admin: 11/06/18 09:29 Dose: 324 mg Cefepime HCl (Maxipime 1gm) 1 gm in 100 mls @ 100 mls/hr IVPB Q12 [facility]; Protocol Last Admin: 11/06/18 09:34 Dose: 100 mls/hr Doxycycline Hyclate 100 mg/ (Sodium Chloride) 100 mls @ 100 mls/hr IVPB Q12 [facility]; Protocol Last Admin: 11/05/18 21:50 Dose: 100 mls/hr Magnesium Oxide (Mag-Ox) 400 mg PO BID [facility] Last Admin: 11/06/18 09:29 Dose: 400 mg Midodrine (Proamatine) 10 mg PO QID [facility] Last Admin: 11/06/18 09:34 Dose: 10 mg Mupirocin (Bactroban Ointment) 0 gm TOP BID [facility] Last Admin: 11/06/18 09:36 Dose: 1 applic Nystatin (Nystop Topical Powder) 1 gm TOP BID [facility] Last Admin: 11/06/18 09:37 Dose: 1 appl Polyethylene Glycol (Miralax) 17 gm PO DAILY [facility] Last Admin: 11/06/18 09:28 Dose: 17 gm Silver Sulfadiazine (Silvadene 1% 25 Gm) 0 gm TP BID [facility] Last Admin: 11/06/18 09:38 Dose: 25 gm Sitagliptin Phosphate (Januvia) 50 mg PO DAILY [facility] Last Admin: 11/06/18 09:30 Dose: Not Given Tiotropium [place] (Spiriva) 18 mcg IH DAILY [facility] Last Admin: 11/06/18 09:28 Dose: 18 mcg - Labs Labs: 11/06/18 06:30 11/06/18 06:30 PT 16.4 SECONDS (9.4-12.5) H 11/01/18 21:05 INR 1.48 11/01/18 21:05 APTT 36.5 Seconds (26.9-38.3) 11/01/18 21:05 - Constitutional Appears: No Acute Distress - Head Exam Head Exam: ATRAUMATIC, NORMOCEPHALIC - Eye Exam Eye Exam: EOMI - ENT Exam ENT Exam: Mucous Membranes Moist - Respiratory Exam Respiratory Exam: Clear to Ausculation Bilateral. absent: Rales, Rhonchi, Wheezes - Cardiovascular Exam Cardiovascular Exam: REGULAR RHYTHM, +S1, +S2 - GI/Abdominal Exam GI & Abdominal Exam: Soft. absent: Tenderness - Extremities Exam Extremities Exam: absent: Calf Tenderness, Pedal Edema Additional comments: dressin gin place by podiatry cdi - Neurological Exam Neurological Exam: Alert, Awake, Oriented x3 - Psychiatric Exam Psychiatric exam: Normal Mood - Skin Skin Exam: Dry, Warm Assessment and Plan - Assessment and Plan (Free Text) Assessment: 78 M whose past medical history includes COPD, HTN, arthritis, diabetes, recurrent UTIs, and osteomyelitis, who presents to the ED complaining of lower extremity swelling. Found to have a possible UTI. Cont abx with Doxy, and Cefepime ; as an outpatient can start Cipro and Doxy for 5 days L foot cx with MRSA, and Urine with psuedomonas F/u podiatry and surgery recs Cont to monitor Case and plan was reviewed and discussed with Dr. Whittington <Antonio Whittington - Last Filed: 11/06/18 16:26> Objective - Vital Signs/Intake and Output Vital Signs (last 24 hours): Temp Pulse Resp BP Pulse Ox 97.8 F 80 18 135/89 97 11/06/18 06:00 11/06/18 06:00 11/06/18 06:00 11/06/18 06:00 11/06/18 06:00 Intake and Output: 11/06/18 11/06/18 06:59 18:59 Intake Total 120 Output Total 100 Balance 20 - Medications Medications: Current Medications Arformoterol Tartrate (Brovana) 15 mcg IH [id number] [facility] Last Admin: 11/06/18 07:20 Dose: 15 mcg Budesonide (Pulmicort Respules) 0.5 mg IH BIDRESP [facility] Last Admin: 11/06/18 07:20 Dose: 0.5 mg Ferrous Sulfate (Feosol) 324 mg PO DAILY [facility] Last Admin: 11/06/18 09:29 Dose: 324 mg Cefepime HCl (Maxipime 1gm) 1 gm in 100 mls @ 100 mls/hr IVPB Q12 [facility]; Protocol Last Admin: 11/06/18 09:34 Dose: 100 mls/hr Doxycycline Hyclate 100 mg/ (Sodium Chloride) 100 mls @ 100 mls/hr IVPB Q12 [facility]; Protocol Last Admin: 11/06/18 12:53 Dose: 100 mls/hr Magnesium Oxide (Mag-Ox) 400 mg PO BID [facility] Last Admin: 11/06/18 09:29 Dose: 400 mg Midodrine (Proamatine) 10 mg PO QID [facility] Last Admin: 11/06/18 14:06 Dose: 10 mg Mupirocin (Bactroban Ointment) 0 gm TOP BID [facility] Last Admin: 11/06/18 09:36 Dose: 1 applic Nystatin (Nystop Topical Powder) 1 gm TOP BID [facility] Last Admin: 11/06/18 09:37 Dose: 1 appl Polyethylene Glycol (Miralax) 17 gm PO DAILY [facility] Last Admin: 11/06/18 09:28 Dose: 17 gm Silver Sulfadiazine (Silvadene 1% 25 Gm) 0 gm TP BID [facility] Last Admin: 11/06/18 09:38 Dose: 25 gm Sitagliptin Phosphate (Januvia) 50 mg PO DAILY [facility] Last Admin: 11/06/18 09:30 Dose: Not Given Tiotropium [place] (Spiriva) 18 mcg IH DAILY [facility] Last Admin: 11/06/18 09:28 Dose: 18 mcg - Labs Labs: 02/08/19 06:30 11/06/18 06:30 PT 16.4 SECONDS (9.4-12.5) H 11/01/18 21:05 INR 1.48 11/01/18 21:05 APTT 36.5 Seconds (26.9-38.3) 11/01/18 21:05 Assessment and Plan - Assessment and Plan (Free Text) Assessment: Infectious diseases Attending Physician Attestation Patient seen and examined, discussed with medical typist. I have reviewed the patient's history of present illness, past medical, social, personal and family histories, pertinent physical exam findings, course so far in this hospital admission, pertinent laboratory and imaging results. I agree with the above findings, assessment and plan. In addition, on Cefepime for UTI with PSeudomonas - can switch to PO Ciprofloxacin. Continue Doxycycline for MRSA infected left foot wound.
--- NOTE | 2018-11-06 12:24 | CP.PCM.PN ---
<Melina Piercenunu - Last Filed: 11/06/18 12:22> Subjective - Date & Time of Evaluation Date of Evaluation: 11/06/18 Time of Evaluation: 12:22 - Subjective Subjective: Podiatry progress note for Dr. Peck 78 y/o male patient was seen and evaluated at bedside. Patient sleeping comfortably prior to dressing change. Patient denies any complaints of fever, nausea, vomiting, shortness of breath, chest pain. Objective - Vital Signs/Intake and Output Vital Signs (last 24 hours): Temp Pulse Resp BP Pulse Ox 97.8 F 80 18 135/89 97 11/06/18 06:00 11/06/18 06:00 11/06/18 06:00 11/06/18 06:00 11/06/18 06:00 Intake and Output: 11/06/18 11/06/18 06:59 18:59 Intake Total 120 Output Total 100 Balance 20 - Medications Medications: Current Medications Arformoterol Tartrate (Brovana) 15 mcg [facility] [id number] [facility] Last Admin: 11/06/18 07:20 Dose: 15 mcg Budesonide (Pulmicort Respules) 0.5 mg [facility] BIDRESP [facility] Last Admin: 11/06/18 07:20 Dose: 0.5 mg Ferrous Sulfate (Feosol) 324 mg PO DAILY [facility] Last Admin: 11/06/18 09:29 Dose: 324 mg Cefepime HCl (Maxipime 1gm) 1 gm in 100 mls @ 100 mls/hr IVPB Q12 [facility]; Protocol Last Admin: 11/06/18 09:34 Dose: 100 mls/hr Doxycycline Hyclate 100 mg/ (Sodium Chloride) 100 mls @ 100 mls/hr IVPB Q12 [facility]; Protocol Last Admin: 11/05/18 21:50 Dose: 100 mls/hr Magnesium Oxide (Mag-Ox) 400 mg PO BID [facility] Last Admin: 11/06/18 09:29 Dose: 400 mg Midodrine (Proamatine) 10 mg PO QID [facility] Last Admin: 11/06/18 09:34 Dose: 10 mg Mupirocin (Bactroban Ointment) 0 gm TOP BID [facility] Last Admin: 11/06/18 09:36 Dose: 1 applic Nystatin (Nystop Topical Powder) 1 gm TOP BID [facility] Last Admin: 11/06/18 09:37 Dose: 1 appl Polyethylene Glycol (Miralax) 17 gm PO DAILY [facility] Last Admin: 11/06/18 09:28 Dose: 17 gm Silver Sulfadiazine (Silvadene 1% 25 Gm) 0 gm TP BID [facility] Last Admin: 11/06/18 09:38 Dose: 25 gm Sitagliptin Phosphate (Januvia) 50 mg PO DAILY [facility] Last Admin: 11/06/18 09:30 Dose: Not Given Tiotropium [place] (Spiriva) 18 mcg [facility] DAILY [facility] Last Admin: 11/06/18 09:28 Dose: 18 mcg - Labs Labs: 11/06/18 06:30 11/06/18 06:30 PT 16.4 SECONDS (9.4-12.5) H 11/01/18 21:05 INR 1.48 11/01/18 21:05 APTT 36.5 Seconds (26.9-38.3) 11/01/18 21:05 - Constitutional Appears: Well, Non-toxic, No Acute Distress - Head Exam Head Exam: ATRAUMATIC, NORMOCEPHALIC - Extremities Exam Additional comments: Left LE focused exam VASC: DP/PT pulses are faintly palpable likely secondary to B/L LE edema, Cap refill time: < 3 sec to all digits, Temp gradient: warm to cool from proximal to distal, +2 pitting edema noted to the dorsum of the feet bilaterally DERM: LEFT: left heel has superficial pressure ulceration with, no drainage, bleeding, pus, or streaking, 100% granular base, no clinical signs of infection; distal tip of hallux has wound with scab formation, no drainage, no malodor, no clinical signs of infection, left second digit wound measuring 0.2 cm X 0.2 c, no drainage, richelle-wound erythema noted, negative probe to bone, no tunneling or tracking, wound likely due to hammer toe deformity; RIGHT: no wounds noted NEURO: Protective sensation grossly intact ORTHO: no pain on palpation to the left heel superficial lesion - Neurological Exam Neurological Exam: Alert, Awake, Oriented x3 - Psychiatric Exam Psychiatric exam: Normal Affect, Normal Mood Assessment and Plan - Assessment and Plan (Free Text) Assessment: 78 y/o M with left 2ns digit wound, left heel pressure ulceration and left distal tip of hallux superficial wound Plan: Patient seen and evaluated Plan discussed with Dr. Peck Chart, labs and vitals reviewed Afebrile, absent leukocytosis Left second digit wound culture- MRSA Left Foot X-rays ordered- no signs of osteo noted Wounds cleansed with saline - heel ulcer dressed with optifoam, left hallux and second digit dressed with bactroban, DSD Multipodus boot to be worn at all times Patient stable from podiatry standpoint Will continue to follow while in house <Rupert Peck - Last Filed: 11/06/18 14:37> Objective - Vital Signs/Intake and Output Vital Signs (last 24 hours): Temp Pulse Resp BP Pulse Ox 97.8 F 80 18 135/89 97 11/06/18 06:00 11/06/18 06:00 11/06/18 06:00 11/06/18 06:00 11/06/18 06:00 Intake and Output: 11/06/18 11/06/18 06:59 18:59 Intake Total 120 Output Total 100 Balance 20 - Medications Medications: Current Medications Arformoterol Tartrate (Brovana) 15 mcg [facility] [id number] [facility] Last Admin: 11/06/18 07:20 Dose: 15 mcg Budesonide (Pulmicort Respules) 0.5 mg [facility] BIDRESP [facility] Last Admin: 11/06/18 07:20 Dose: 0.5 mg Ferrous Sulfate (Feosol) 324 mg PO DAILY [facility] Last Admin: 11/06/18 09:29 Dose: 324 mg Cefepime HCl (Maxipime 1gm) 1 gm in 100 mls @ 100 mls/hr IVPB Q12 [facility]; Protocol Last Admin: 11/06/18 09:34 Dose: 100 mls/hr Doxycycline Hyclate 100 mg/ (Sodium Chloride) 100 mls @ 100 mls/hr IVPB Q12 [facility]; Protocol Last Admin: 11/06/18 12:53 Dose: 100 mls/hr Magnesium Oxide (Mag-Ox) 400 mg PO BID [facility] Last Admin: 11/06/18 09:29 Dose: 400 mg Midodrine (Proamatine) 10 mg PO QID [facility] Last Admin: 11/06/18 14:06 Dose: 10 mg Mupirocin (Bactroban Ointment) 0 gm TOP BID [facility] Last Admin: 11/06/18 09:36 Dose: 1 applic Nystatin (Nystop Topical Powder) 1 gm TOP BID [facility] Last Admin: 11/06/18 09:37 Dose: 1 appl Polyethylene Glycol (Miralax) 17 gm PO DAILY [facility] Last Admin: 11/06/18 09:28 Dose: 17 gm Silver Sulfadiazine (Silvadene 1% 25 Gm) 0 gm TP BID [facility] Last Admin: 11/06/18 09:38 Dose: 25 gm Sitagliptin Phosphate (Januvia) 50 mg PO DAILY [facility] Last Admin: 11/06/18 09:30 Dose: Not Given Tiotropium [place] (Spiriva) 18 mcg [facility] DAILY [facility] Last Admin: 11/06/18 09:28 Dose: 18 mcg - Labs Labs: 11/06/18 06:30 11/06/18 06:30 PT 16.4 SECONDS (9.4-12.5) H 11/01/18 21:05 INR 1.48 11/01/18 21:05 APTT 36.5 Seconds (26.9-38.3) 11/01/18 21:05 Attending/Attestation - Attestation I have personally seen and examined this patient.: Yes I have fully participated in the care of the patient.: Yes I have reviewed all pertinent clinical information, including history, physical exam and plan: Yes
--- NOTE | 2018-11-06 13:02 | DS ---
HISTORY OF PRESENT ILLNESS: He is here for 4 days on IV antibiotics. I think he needs to be at a for physical therapy. He is doing well overall for him. He needs physical therapy. He still quite weak. He is on antibiotics. He is on off the medications, we could continue that there and also get physical therapy. MEDICATIONS: He is on Bactroban, Brovana, doxycycline, Feosol, Januvia, mag oxide, Maxipime, MiraLax, nystatin, ProAmatine, Pulmicort, Silvadene cream and Spiriva. OBJECTIVE: VITAL SIGNS: He has a 97.8 temperature, 80 pulse, 135/89 blood pressure, 18 respiratory rate, 97% O2 sat on 2 liters. HEENT: Head is atraumatic, normocephalic, he is getting depressed on me. We need to move him out of the hospital, moving. HEART: Regular rate. LUNGS: Decreased breath sounds. ABDOMEN: Soft, obese. EXTREMITIES: Got some issues with some ulcers, but they could follow at the subacute rehab. LABORATORY DATA: He has a 6.5 white count, 9.8 hemoglobin, 102 platelets. Sodium 137, potassium 3.9, BUN is 28, creatinine 0.9, GFR is greater than 60, sugar is 81, calcium is 7.4, total bili is 0.9, AST is 36, ALT is 21, alk phos 58. His urine was few and moderate. I am hoping we can get him to today at [facility]. I believe he was accepted. It was okay with Infectious Disease and for how long the antibiotic, I assume it was for 7 days. We will continue with aggressive treatment and care. The patient at this time wants physical therapy. Jn Nguyen DO MTDD
--- NOTE | 2018-11-08 13:59 | PQF ---
PROVIDER RESPONSE TEXT: Pressure ulcer located to the left heel, present on admission, Stage I with localized erythema noted, REVIEWER QUERY TEXT: Pressure Ulcer Type Pressure ulcer is documented in the Medical Record. Please specify the location, present on admission status and/or stage: Location and laterality of pressure ulcer(s): POA status of each pressure ulcer: -- Not present on admission -- Present on admission -- Other -- Clinically unable to determine -- Unknown Stage of each pressure ulcer (National Pressure Ulcer Advisory Panel definitions): -- Stage I: Intact skin with non-blanchable redness of a localized area -- Stage II: Partial thickness skin loss involving dermis with a shallow open ulcer or an open serum -filled blister -- Stage III: Full thickness skin loss involving damage or necrosis of subcutaneous tissue -- Stage IV: Full thickness skin loss with exposed bone, tendon or muscle -- Unstageable: Full thickness tissue loss in which the base of the ulcer is covered by slough and/o r eschar in the wound bed The patient's Clinical Indicators include: 2/6 left heel pressure ulceration and left distal tip of hallux superficial wound . Please document Stage of pressure ulcer POA for coding accuracy Query created by: Katelin Yo on 11/05/2018 11:23 AM Electronically signed by: Latrell Pierce 11/08/2018 1:56 PM
== END 2018-11-06 17:09 | DRG 300 ==
LOC: ED 20:09 → ERH 11-02 00:51 → 5RNO 11-03 20:26
PROVIDERS: ADMIT Family Medicine; ATTEND Family Medicine
PROC: 30233N1 Transfusion of Nonautologous Red Blood Cells into Peripheral Vein, Percutaneous Approach (ICD-10-PCS; principal; 2018-11-04)
DX: E11.51 Type 2 diabetes mellitus with diabetic peripheral angiopathy without gangrene (principal); N39.0 Urinary tract infection, site not specified; B96.5 Pseudomonas (aeruginosa) (mallei) (pseudomallei) as the cause of diseases classified elsewhere; E11.69 Type 2 diabetes mellitus with other specified complication; L89.152 Pressure ulcer of sacral region, stage 2; L89.621 Pressure ulcer of left heel, stage 1; I10 Essential (primary) hypertension; D64.9 Anemia, unspecified; J44.9 Chronic obstructive pulmonary disease, unspecified; E11.621 Type 2 diabetes mellitus with foot ulcer; L97.529 Non-pressure chronic ulcer of other part of left foot with unspecified severity; B95.62 Methicillin resistant Staphylococcus aureus infection as the cause of diseases classified elsewhere; M19.90 Unspecified osteoarthritis, unspecified site; I35.8 Other nonrheumatic aortic valve disorders; Z79.4 Long term (current) use of insulin

== ENCOUNTER 2018-11-07 07:59 | Emergency (ER) | payer MEDICARE, BC ==
[2018-11-07 07:59] VITALS: BMI 21.9
[2018-11-07] MEDS ORDERED: Sodium Chloride 0.9% 1,000 ML IV STA ×2 (08:04→10:10)
[2018-11-07] MEDS ORDERED: Vancomycin 1gm in NS 250ml 1 GM/250 ML BAG IVPB STA (08:06)
[2018-11-07] MEDS ORDERED: Piperacillin/Tazobact 3.375 gm 100 ML IVPB STA (08:06)
--- NOTE | 2018-11-07 08:15 | ED PDOC ---
Arrival/HPI - General Time Seen by Provider: 11/07/18 08:03 Historian: EMS - History of Present Illness Narrative History of Present Illness (Text): 11/07/18 08:15 A 78 year old male, whose past medical history includes COPD, hypertension, arthritis, diabetes, recurrent UTIs, and osteomyelitis, brought to the emergency department by EMS for shortness of breath, AMS, and lethargy. 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 Admitted few days ago for pseudomonas in urine. Patient was recently discharged from the hospital yesterday. Per EMS, patient was found to have minimal response. Reportedly hypotensive, given pressers and IV Fluids in the field. No family present at bedside at this time. Limited HPI and ROS due to patient's AMS and lethargy. 11/07/18 13:27 Past Medical History - Provider Review Nursing Documentation Reviewed: Yes - Infectious Disease Hx of Infectious Diseases: None - Cardiac Hx Cardiac Disorders: Yes Hx Hypertension: Yes - Pulmonary Hx Chronic Obstructive Pulmonary Disease (COPD): Yes - Neurological Hx Neurological Disorder: Yes - HEENT Hx HEENT Disorder: Yes Hx Deafness: Yes - Renal Hx Renal Disorder: No - Endocrine/Metabolic Hx Diabetes Mellitus Type 2: Yes - Hematological/Oncological Hx Blood Disorders: Yes Hx Cancer: Yes (SKIN) - Integumentary Hx Dermatological Disorder: Yes Other/Comment: 08-10-18 IN BETWEEN BUTTOCKS WITH REDDENED FLUSHED SKIN,RAW SKIN. PAINFUL. HAS AN OPENED SKIN ,LINEAR OPENED AREA.IN BETWEEN GROIN WITH REDDENED FLUSHED AREA,RAW RED SKIN. HAS IASD. LEFT HEEL HAS HEALING DRY SKIN WITH AN OLD BLACKENED. SCAB . MEASURES 0.5 CM. LEFT BIG TIP OF TOE HAS A DRY SKIN,FLAKY SKIN. DRESSING AT [facility]OUND [facility]. 11-03-18 BILATERAL BUTTOCKS WITH REDDENED SKIN. HAS IASD.HEALED WOUND TO RIGHT HIP. BILATERAL LE EDEMA MORE TO LEFT. PITTING.HAS ANASARCA.EDEMA EXTENDS TO HIP,THIGH AREA. LEFT BIG TOE HAS AN OLD SCABBED WOUND. MEASURES 1 CM IN DM.TREATED BEFORE.PARTIAL RESECTION.TOE IS RED AND SWOLLEN.PAIN. 2ND TOE IS RED AND SWOLLEN WITH A TINEY 0.3 CM DRY SCABBED WOUND. 11-03-18 BILATERAL GROIN WITH IASD.PINPOINT REDDENED RASH. 11-03-18 TESTICULAR SWELLING,GLANS PENIS IS RED,TENDER WITH PUS DRAINAGE. 2-- BILATERAL ARMS WITH DRYING SKIN TEARS.BACTROBAN IS APPLIED. 11-03-18 BILATERAL HEEL -TENDER AND RED. NON BLANCAHBLE PRESSURE ULCER. SILVADENE IS APPLIED.TINY WOUND TO LEFT HEEL. - Musculoskeletal/Rheumatological Hx Arthritis: Yes - Gastrointestinal Hx Gastrointestinal Disorders: Yes Other/Comment: infrequent bowel movements w/o constipation - Genitourinary/Gynecological Hx Genitourinary Disorders: Yes Other/Comment: Patient has a garcía inserted since July 2018 DX ? - Psychiatric Hx Psychophysiologic Disorder: Yes (USED TO SMOKE IN HIS TEENS.DRINKS BEER OCCASIONALLY.) Hx Substance Use: No (DENIES) - Surgical History Hx Appendectomy: Yes Other/Comment: LEFT EAR LOBE WITH SX. REMOVAL OF SKIN CA. Peripheral angiogram. - Anesthesia Hx Anesthesia: No Hx Anesthesia Reactions: No Hx Malignant Hyperthermia: No Family/Social History - Physician Review Nursing Documentation Reviewed: Yes Family/Social History: No Known Family HX Smoking Status: Former Smoker Hx Alcohol Use: Yes (BEER DRINKER) Hx Substance Use: No (DENIES) Allergies/Home Meds Allergies/Adverse Reactions: Allergies No Known Allergies Allergy (Verified 11/07/18 08:09) Home Medications: Home Meds Medication Instructions Recorded Confirmed RX: Multivit-Min/FA/Lycopen/Lutein 1 mg PO DAILY 01/06/18 11/07/18 [Centrum Silver Men Tablet] RX: Ferrous Sulfate [Feosol] 1 tab PO DAILY 10/10/18 11/07/18 Review of Systems - Review of Systems Systems not reviewed;Unavailable: Altered Mental Status Physical Exam Vital Signs Reviewed: Yes Vital Signs Pulse Resp BP Pulse Ox 11/07/18 07:59 111 H 22 125/99 H 99 Blood Pressure: Normal Pulse: Tachycardic Respiratory Rate: Normal Appearance: Positive for: Ill-Appearing Pain Distress: None Mental Status: Positive for: Lethargic Finger Stick Blood Glucose: 107 - Systems Exam Respiratory/Chest: Present: Other (course breath sounds bilaterally) Lower Extremity: Present: Edema (bilaterally), Other (left foot ulcer) Medical Decision Making ED Course and Treatment: 11/07/18 08:17 Impression: 78 year old male with AMS, shortness of breath, and lethargy. suspect sepsis gi bleed ro intracranial, pe, cardiac etiology Plan: -- EKG -- Head CT -- Chest X-ray -- Labs -- Venous Blood Gas -- Arterial Blood Gas -- IV Fluids -- Vancomycin -- Zosyn -- Blood Culture -- Urine Culture -- Urinalysis -- Reassess and disposition Prior Visits: Notes and results from previous visits were reviewed. Patient was last seen here on 11/01/2018 for lower extremity swelling. Patient was admitted. Discharged 11/06/2018. Progress Notes: EKG: Ordered, reviewed, and independently interpreted the EKG. Rate : 108 BPM Rhythm : Sinus tachycardia. Interpretation : Non-specific ST- and T-wave changes. Comparison : No previous EKG for comparison. 11/07/2018 09:09 Chest X-ray IMPRESSION: The endotrachel tube is seen at the level of the lenard slightly deviated towards the right. Dictator: Low Shukla MD 11/07/18 11:31 Patient became bradycardic and CPR initiated 11:34 1st epi given, 2nd epi given at 11:37, 2nd CPR initiated for 1 minute at 11:37 after epi given.Blood pressure at 248/185, patient had heart rate of 63 BPM at 11:35, and later 104 BPM at 11:38. Patient stable at this time. upon arrival pt hypotesnvie, central venous access placed. during ed course pt has noted anemai ny melena bedside. noted coagulpathy ?shock vs dic, no longer on eliquis. blood ffp vit k initated. during ed course pt coded x 1 with rosc. seen aand accpeted by icu. poor prognosis full code at this time, explained extensively to family bedside. ct pending 11/08/18 09:42 - RAD Interpretation Radiology Orders: 11/07/18 08:04 CHEST PORTABLE [RAD] Stat 11/07/18 08:05 HEAD W/O CONTRAST [CT] Stat - Medication Orders Current Medication Orders: Sodium Chloride (Sodium Chloride 0.9%) 1,000 mls @ 999 mls/hr IV .Q1H1M STA Stop: 11/07/18 09:04 Vancomycin HCl (Vancomycin 1gm) 1 gm in 250 mls @ 167 mls/hr IVPB STAT STA; Protocol Stop: 11/07/18 09:35 Piperacillin Sod/Tazobactam Sod (Zosyn 3.375 In Ns 100ml) 100 mls @ 200 mls/hr IVPB STAT STA; Protocol Stop: 11/07/18 08:35 Procedures - Central Line Central Line Lumen: triple Central Line Procedure: betadine prep, sterile drapes applied Central Line Postion: femoral (R) Complications: none Central Line Post Position: sutured, good blood return - Scribe Statement The provider has reviewed the documentation as recorded by the Scribe Patricia Mohr Provider Scribe Attestation: All medical record entries made by the Scribe were at my direction and personally dictated by me. I have reviewed the chart and agree that the record accurately reflects my personal performance of the history, physical exam, medical decision making, and the department course for this patient. I have also personally directed, reviewed, and agree with the discharge instructions and disposition. Disposition/Present on Arrival - Present on Arrival Any Indicators Present on Arrival: No History of DVT/PE: No History of Uncontrolled Diabetes: No Urinary Catheter: Yes History Surgical Site Infection Following: None - Disposition Have Diagnosis and Disposition been Completed?: Yes Diagnosis: GI bleed, Lactic acidosis, Sepsis, Altered mental status Disposition: HOSPITALIZED Disposition Time: 12:00 Condition: CRITICAL Discharge Instructions (ExitCare): Sepsis (ED) Forms: [employer] (Uzbek) Critical Care Time - Critical Care Note Total Time (in mins): 60 Documented critical care: time excludes all time spent performing seperately billable procedures.
[2018-11-07] MEDS ORDERED: NOREPINEPHRINE BIT/0.9 % NACL 4 MG/250 ML BAG IV PRN (09:05)
[2018-11-07 09:12] LABS: VENOUS BLOOD GAS BASE EXCESS -17.7 mmol/L (0.0-2.0); VENOUS BLOOD GAS PO2 132 mm/Hg (30-55); VENOUS BLOOD PH 7.22 (7.32-7.43)
--- NOTE | 2018-11-07 09:13 | RAD ---
Date of service: 11/07/2018 HISTORY: sob COMPARISON: 11/01/2018 FINDINGS: LUNGS: The endotracheal tube is seen at the level of the lenard slightly deviated towards the right. PLEURA: Small pleural effusions CARDIOVASCULAR: No aortic atherosclerotic calcification present. Normal cardiac size. No pulmonary vascular congestion. OSSEOUS STRUCTURES: No significant abnormalities. VISUALIZED UPPER ABDOMEN: Normal. OTHER FINDINGS: None. IMPRESSION: The endotracheal tube is seen at the level of the lenard slightly deviated towards the right.
[2018-11-07 09:16] LABS: B-TYPE NATRIURETIC PEPTIDE 5050 pg/mL (0-450); TROPONIN I < 0.01 ng/mL
[2018-11-07 09:18] LABS: BASO # 0.01 K/mm3 (0.0-2.0); BASO % 0.1 % (0.0-3.0); EOS % 0.2 % (1.5-5.0); LYMPH # 1.3 (1.2-3.4); LYMPH % 10.6 % (22.0-35.0); MEAN CELL VOLUME 97.6 fl (80.0-105.0); MEAN CORPUSCULAR HEMOGLOBIN 31.8 pg (25.0-35.0); MEAN CORPUSCULAR HGB CONC 32.5 g/dl (31.0-37.0); MONO # 0.5 (0.1-0.6); RBC 2.11 10^6/uL (3.5-6.1); RED CELL DISTRIBUTION WIDTH 17.1 % (11.5-14.5); WHITE BLOOD COUNT 11.9 10^3/uL (4.5-11.0)
[2018-11-07 09:22] LABS: FREE T4 3.06 ng/dL (0.78-2.19)
[2018-11-07 09:24] LABS: HEMOGLOBIN 6.7 g/dL (14.0-18.0)
[2018-11-07] MEDS ORDERED: Pantoprazole 40mg/100mL NS 40 MG/100 ML BAG IVPB SCH (09:30)
[2018-11-07 09:47] LABS: INR 2.65
[2018-11-07 09:55] LABS: ALB/GLOB RATIO 0.6 (1.1-1.8); ALBUMIN 1.3 g/dL (3.0-4.8); ALT/SGPT 26 U/L (7-56); AST/SGOT 74 U/L (17-59); BLOOD UREA NITROGEN 27 mg/dL (7-21); CALCIUM 6.8 mg/dL (8.4-10.5); GFR NON-AFRICAN AMERICAN > 60
[2018-11-07] MEDS ORDERED: Hum Prothrombin CPLX(PCC)4FACT 1 Unit Inj IV ONE (10:03)
[2018-11-07 10:06] LABS: BILIRUBIN,DIRECT 0.5 mg/dL (0.0-0.4); LIPASE 64 U/L (23-300)
[2018-11-07] MEDS ORDERED: Phytonadione 10 MG in Sodium Chloride 0.9% 50 ML IV ONE (10:31)
[2018-11-07 10:38] LABS: URINE BILIRUBIN SMALL (NEGATIVE); URINE BLOOD LARGE (NEGATIVE); URINE GLUCOSE (UA) NEGATIVE (NEGATIVE); URINE LEUKOCYTE ESTERASE MODERATE Leu/uL (NEGATIVE); URINE PROTEIN 100 mg/dL (<30 mg/dL); URINE UROBILINOGEN 0.2 E.U./dL (<1 E.U./dL)
[2018-11-07 10:39] LABS: URINE APPEARANCE CLOUDY (CLEAR); URINE COLOR DARK YELLOW (YELLOW)
[2018-11-07 10:42] LABS: URINE BACTERIA LARGE /hpf; URINE RBC TNTC /hpf (0-2); URINE WBC TNTC /hpf (0-6)
[2018-11-07 11:42] VITALS: O2SAT 99
[2018-11-07 11:53] VITALS: RESP 15
[2018-11-07 12:11] VITALS: BP 201/73; PULSE 127; TEMP 93
[2018-11-07] MEDS ORDERED: Tiotropium 18 mcg Cap For Inhalation IH SCH (12:15)
[2018-11-07 12:24] LABS: VENOUS BLOOD GAS PO2 37 mm/Hg (30-55); VENOUS BLOOD PH 6.92 (7.32-7.43)
[2018-11-07] MEDS ORDERED: Iohexol 350 MG/100 ML VIAL ONE (12:32)
--- NOTE | 2018-11-07 13:19 | CT ---
Date of service: 11/07/2018 PROCEDURE: CT HEAD WITHOUT CONTRAST. HISTORY: ams COMPARISON: 10/13/2018 TECHNIQUE: Axial computed tomography images were obtained through the head/brain without intravenous contrast. Radiation dose: Total exam DLP = 907.52 mGy-cm. This CT exam was performed using one or more of the following dose reduction techniques: Automated exposure control, adjustment of the mA and/or kV according to patient size, and/or use of iterative reconstruction technique. FINDINGS: HEMORRHAGE: No intracranial hemorrhage. BRAIN: No mass effect or edema. 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 Previously this finding could only be seen on the left side. It is now symmetrical measuring 10 mm bilaterally. There is no evidence of subdural hemorrhage. There is moderate atrophy. VENTRICLES: Unremarkable. No hydrocephalus. CALVARIUM: Unremarkable. PARANASAL SINUSES: Unremarkable as visualized. No significant inflammatory changes. MASTOID AIR CELLS: Unremarkable as visualized. No inflammatory changes. OTHER FINDINGS: None. 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 Previously this finding could only be seen on the left side. It is now symmetrical measuring 10 mm bilaterally. There is no evidence of subdural hemorrhage. There is moderate atrophy.
--- NOTE | 2018-11-07 14:02 | PCM.RRT ---
<Hima Galvez - Last Filed: 11/08/18 07:04> INVENTORY CONTROL COORDINATOR Nurse Assessment - Situation Date: 11/07/18 - Respiratory Oxygen Delivery Method: Intubated Plan - Assessment of Findings&Treatment Plan Shadi Villatoro called in CT room at 1245 pm on 11/07/18 Pt was undergoing imaging, was already intubated with IV lines in place and monitor. Initial rhythm on monitor was asystole, there were no palpable pulses. Shadi villatoro called immediately at 12:45. ACLS protocol was initiated. Asystole was noted on all pulse checks. 7 rounds of epinephrine were administered, 3 ampules bicarb, 2 grams calcium chloride. 12 round of compressions were performed. Throughout course of shadi villatoro, family was notified and was present outside of the room. Family requested that all actions be taken for ROSC. PMD, Dr. Nguyen was made aware and arrived to talk with family. Time of was called 1307 11/07/18. <Isreal Walter - Last Filed: 11/08/18 11:50> Attending/Attestation - Attestation I have personally seen and examined this patient.: Yes I have fully participated in the care of the patient.: Yes I have reviewed all pertinent clinical information, including history, physical exam and plan: Yes Notes (Text): 11/08/18 11:47 Attending note; Responded to SHADI VILLATORO in CAT scan area. Patient is a 78-year-old male came to the ER today is admitted for active GI bleed/anemia/severe lactic acidosis. Intubated in the ER and getting blood and IV fluids. While in the CAT scan area patient coded. ACLS protocol followed. Patient got epinephrine and IV bicarbonate and calcium gluconate. No return of circulation. Patient pronounced at 13;07. Case discussed with PMD Dr. Nguyen in detail. Case discussed with cobbler mckay in detail. Family by the bedside. Dr. Nguyen by the bedside. Time spent over 50 minutes
--- NOTE | 2018-11-07 14:26 | CP.PCM.PRO ---
Pronouncement of Note - Clinical Findings Physical Exam: No Response Verbal/Painful Stimuli, Absent Peripheral Puls es{Carotid & Femoral}, Absent Heart & Breath Sounds, No Pupillary Light Reflex, No Corneal Reflex, Pupils Fixed & Dilated, Absence of Vital Signs - Pronouncement Time Time of Pronouncement of : 13:07 - Notifications Pronouncement Notifications: Family Notified, Atending Notified Inspector Filter Tip Notified: Yes - [place] [id number]
[2018-11-07] MEDS ORDERED: Insulin Reg-LOW-Coverage SC SCH (16:30)
--- NOTE | 2018-11-07 16:46 | HP ---
DATE OF EXAM: 11/07/2018 HISTORY OF PRESENT ILLNESS: He was in the hospital numerous times. He was just in the hospital for 3 or 4 days and I transferred him to [facility] after having 3 days of good blood pressures, alert and wanting to go to therapy. He was there last night. I discussed with the daughter, his blood pressure 140s/80s, he is in good spirits. He was talking. This morning I got a call from the nurse that he had a 60 blood pressures, he was unresponsive, so in 14 hours. He went downhill. I do not think they gave many of his regular medications nurse told me no meds were given. This is a 78-year-old white male with a very bad hypotension, sepsis picture, has multiple medical history of COPD, hypertension, arthritis, diabetes, recurrent UTIs, osteomyelitis, GI bleeds, who is now in the emergency room lethargic altered mental status. He had to be intubated. He is in trouble, COPD, hypertension, diabetes. He had skin cancer in the past. He has got skin issues between his buttocks, and flushed skin, He has had ulcers on his feet and heels. He has had osteomyelitis of his feet with surgeries, multiple scabs on his feet. He has arthritis. He has had constipation. He has had Fall catheter in place. He use to smoke and drink occasionally. No substance abuse. He had a skin cancer and his left earlobe was removed. He had peripheral angiogram. FAMILY HISTORY: No known family history. SOCIAL HISTORY: Former smoker, still drinks beer. No alcohol. ALLERGIES: NO KNOWN DRUG ALLERGIES. At 78 years of age, [facility] for his blood pressure can to review of systems except he has altered mental status exam and he is on the ventilator. Jn Nguyen DO MTDD
[2018-11-07] MEDS ORDERED: Arformoterol 15 mcg/2 ml Inh Sol IH SCH (20:00)
[2018-11-07] MEDS ORDERED: Budesonide 0.5 mg/2 ml Inhal Susp UD IH SCH (20:00)
--- NOTE | 2018-11-08 00:08 | CARD ---
APPROVED REPORT Date of service: 11/07/2018 EKG Measurement Heart [id number] <Conclusion> Normal sinus rhythm Low voltage QRS Poor R wave progression in Precordial leads Abnormal ECG
--- NOTE | 2018-11-08 02:36 | CON ---
DATE OF CONSULTATION: 11/07/2018 CHIEF COMPLAINT: Respiratory failure. The patient was seen in the emergency room earlier today. HISTORY OF PRESENT ILLNESS: A 78-year-old male, known to me from previous admissions, more recent admissions with diabetes mellitus, hypertension, chronic obstructive lung disease, chronic Fall catheter, urinary tract infection, arthritis, left foot osteomyelitis, who is admitted through the emergency room by EMS with shortness of breath and lethargy, was intubated prior to arrival to the emergency room and had history of Pseudomonas and the urinary tract infections, and was found to have minimal response, was hypotensive, was given IV fluids, and with respiratory failure, intubated on a ventilator, hypotensive, and unable to give any history. REVIEW OF SYSTEMS: Twelve-point review of systems is performed. The patient had hypothermia and tachycardia reported. No diarrhea was reported. No bright red blood per rectum. The patient was hypotensive and short of breath. PAST MEDICAL HISTORY: Significant for diabetes mellitus, hypertension, chronic obstructive lung disease, chronic Fall catheter, urinary tract infection, arthritis, and recent hospitalizations. PAST SURGICAL HISTORY: Significant for appendectomy. ALLERGIES: THE PATIENT HAD NO KNOWN ALLERGIES. MEDICATIONS: Medications at home reveals that the patient medications are reviewed and included Feosol, insulin, and polyethylene. PHYSICAL EXAMINATION: GENERAL: The patient was intubated on a ventilator, and in critical condition. VITAL SIGNS: Temperature of 92, blood pressure was 74/34, respiratory rate on the vent, heart rate of 117. HEENT: Examination of HEENT reveals ET tube in place. NECK: Supple. LUNGS: The lungs have decreased breath sounds. HEART: Normal S1, S2. ABDOMEN: Soft, nontender. No organomegaly. No rebound or guarding. No masses. LABORATORY DATA: Laboratory examination reveals a white count of 11,900, hemoglobin of 6, platelets of 111. Coagulation is noted and BUN of 27, creatinine of 1.1, and BNP is 5050. Calcium is 6.8. Urinalysis has made too numerous to count urine with large bacteria. Serologies, influenza is negative. Review of the microbiology from previous admissions reveals MRSA in the left foot, Pseudomonas in the urine, relatively sensitive Pseudomonas. The patient had a chest x-ray. Results are noted. ASSESSMENT AND PLAN: This is a 78-year-old male with; 1. Septic shock, respiratory failure, intubated on a ventilator, urine as the source, must rule out healthcare-associated pneumonia. We will treat the patient on vancomycin and meropenem. Pancultures and workup results, and prognosis is grave for this patient who appears to be terminal. Jonathan Bae MD
[2018-11-08] MEDS ORDERED: Multivitamin With Minerals Tab PO SCH (10:00)
== END 2018-11-07 16:51 ==
LOC: ED 07:59 → UNDOADMIN 10:06 → ERH 10:06
DX: K92.2 Gastrointestinal hemorrhage, unspecified (principal); E87.2 Acidosis; R41.82 Altered mental status, unspecified; A41.9 Sepsis, unspecified organism; J44.9 Chronic obstructive pulmonary disease, unspecified; I10 Essential (primary) hypertension; M19.90 Unspecified osteoarthritis, unspecified site; E11.9 Type 2 diabetes mellitus without complications; Z87.440 Personal history of urinary (tract) infections
CPT/HCPCS: 36430; 36556; 70450; 71045; 80053; 81001; 82248; 82550; 82803; 83615; 83690; 83735; 83880; 84439; 84443; 84484; 85025; 85610; 85730; 86850; 86900; 86920; 87040; 87086; 87149; 87181; 87205; 87804; 93005; 96361; 96374; 96375; 99291; C9113; J2543; J3430; J7030; P9016; Q9967